=== PATIENT | male | born 1970 | race Caucasian/White ===

== ENCOUNTER 2021-02-04 22:14 | Emergency (ER) | payer MEDICARE, MEDICAID, SELFPAY ==
[2021-02-04 22:26] VITALS: BP 147/106; PULSE 110; RESP 22; TEMP 37.1; O2SAT 100; BMI 30.5
--- NOTE | 2021-02-04 22:45 | PC.NURSE ---
Pt reports power port in upper right chest.
--- NOTE | 2021-02-04 23:43 | ED_ITS ---
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 Patient states that since 9:00 a.m. he has had severe pain in his left lower quadrant area. He states the pain feels as if someone his scraping his kidney with sandpaper. The pain is a constant pain which is 10/10. Patient states these had gross hematuria as well. He denied frequency or dysuria. The patient states that in July 2006 his left kidney was removed and placed in the left lower quadrant and dehydrated in order to improve his pain syndrome. He states that prior to the surgery he was having 60 episodes a month and now he is having 1-2 episodes per month. The patient states that he has a care plan and I did review this on his phone. The plan states the patient does best with the following regimen: Dilaudid 2 mg IV, Benadryl 50 mg IV, Zofran 4 mg IV. Related Data Allergies Allergy/AdvReac Type Severity Reaction Status Date / Time buprenorphine [From SUBOXONE] Allergy Unknown HIVES Unverified 04/10/20 18:42 Iodinated Contrast Media Allergy Unknown ANAPHYLAXIS Unverified 04/10/20 18:42 [IV CONTRAST] morphine [MORPHINE] Allergy Unknown HIVES Unverified 04/10/20 18:42 naloxone [From SUBOXONE] Allergy Unknown HIVES Unverified 04/10/20 18:42 naproxen [NAPROXEN] Allergy Unknown HIVES Unverified 04/10/20 18:42 Review of Systems Review of Systems: Yes all other systems are reviewed and are negative Neurologic: Reports Abnormal speech present [facility] Past Medical History [facility] Narrative: Past medical history: Lion Pain Hematuria Syndrome. Social history: The patient denies tobacco, alcohol and drug use. Medical History A-fib Leal esophagus Hematuria History of cardioversion Sepsis Surgical History History of hernia surgery Hx of tonsillectomy Status post kidney autotransplantation Social History Social History Advance Directives: No Advance Directives Information Provided: No Physical Exam Vital Signs: Vital Signs: Last Vital Signs Temp 98.8 F 02/04/21 22:26 Pulse 110 H 02/04/21 22:26 Resp 22 H 02/04/21 22:26 BP 147/106 H 02/04/21 22:26 Pulse Ox 100 02/04/21 22:26 Body Mass Index 30.5 Const: Other: Awake, alert, male, pacing in the room, appears to be in moderate to severe distress secondary to his pain. HENMT: Head: Yes normal to inspection, Yes normocephalic and Yes atraumatic Ears: external ears normal General nose exam: Normal external nose present Face and sinus: Yes normal facial exam Mouth: Normal oral and palatal mucosa present Throat: Yes posterior oropharynx normal Eyes: Periorbital: periorbital findings normal Eyelids: Yes eyelids normal Conjunctivae: conjunctivae normal Sclerae: sclerae normal Corneas: corneas normal Pupils: Equal, round and reactive pupils present Direct Ophthalmoscopy: normal light reflex Neck: Neck: Yes full ROM, Yes no lymphadenopathy, Yes no meningeal signs, Yes trachea midline and Yes supple Chest: Chest palpation & inspection: normal inspection of the chest and normal palpation of entire chest wall Resp: Effort & Inspection: normal respiratory effort and able to speak in complete sentences Auscultation: clear to auscultation bilaterally Cardio: Rate: regular rate Rhythm: regular rhythm Heart sounds: S1 normal heart sound present, S2 normal heart sound present and no murmurs GI: Inspection: Yes normal to inspection Palpation (GI): Soft to palpation, Tenderness to palpation present (GI) in the LLQ (Moderate), no guarding, not rigid and No hepatosplenomegaly present : General: Yes no CVA tenderness Back/Spine/Pelvis: Back: no CVA tenderness Cervical Spine: normal cervical lordosis Thoracic/Lumbar Spine: thoracic and lumbar spine normal to inspection Skin: Lesions: no lesions Rashes: no rashes Wounds: no wounds Neuro: General: no meningeal signs Cranial nerves: Yes CN's II-XII intact bilaterally and Yes Equal, round and reactive pupils present Cognition (Neuro): normal cognition Speech: Abnormal speech present Motor exam (neuro): 5/5 motor strength present throughout Extrem: General: Yes normal to inspection and Yes full ROM Psych: Appearance: well kempt Mental Status: mental status grossly normal Speech and movement: Normal speech and movement present Affect: normal affect Attitude: cooperative Thought process: Normal thought process present Thought content: Normal thought content present Course Course Course Narrative: 50-year-old man with history of Loin Pain Hematuria Syndrome presents to the emergency department with severe left lower abdominal pain (this is the area of his auto transplanted kidney) and hematuria. Physical examination revealed a a male patient who was uncomfortable, pacing in the room and appeared to be in distress secondary to his pain. Examination did reveal tenderness palpation over his left lower quadrant region where he has the auto transplanted kidney. The patient does have gross hematuria as well. I did order a CBC, CMP, urinalysis. Patient will be treated with normal saline IV x1 L, Dilaudid 2 mg IV, Benadryl 50 mg IV and Zofran 4 mg IV. 0124: The patient's laboratory evaluation revealed a normal CBC and comprehensive metabolic panel with normal kidney function. Urinalysis was positive for blood, microscopic revealed too numerous to count RBCs , 1-4 WBCs, positive squamous cells and 2+ bacteria. Given the low WBC count I do not think the patient has urinary tract infection. The patient get some relief with Dilaudid and Benadryl. He was ordered to get a 2nd dose of Dilaudid 2 mg IV and Benadryl 50 mg IV. If the patient improves after the 2nd dose, he will be discharged home. 0145: Patient had significant relief of his abdominal pain after the 2nd dose Dilaudid. The patient will be discharged home. The patient was given verbal and printed instructions prior to discharge. The patient was advised to follow- up with their PCP in 2 days and to return to the emergency department if their symptoms get worse or if they develop any new symptoms that are concerning to them Medical Decision Making Lab Data Result diagrams: 02/05/21 00:13 02/05/21 00:13 Labs: Lab Results 02/05/21 02/05/21 02/05/21 Range/Units 00:13 00:13 00:14 WBC 5.8 (4.8-10.8) X10*3/uL RBC 5.19 (4.60-5.80) X10*6/uL Hgb 14.0 (14.0-18.0) g/dl Hct 43.3 (42-52) % MCV 83.4 (80-98) fL MCH 27.0 (27.0-33.0) pg MCHC 32.3 (31.0-36.0) g/dl RDW 17.9 H (11.0-16.0) % Plt Count 186 (160-400) X10*3/uL MPV 11.3 (9.4-12.4) fL Immature Gran % (Auto) 0.2 (0.0-0.4) % Neut % (Auto) 62.7 (45-73) % Lymph % (Auto) 22.1 (20-40) % [place] % (Auto) 6.9 (2-11) % Eos % (Auto) 7.2 H (0-4) % Baso % (Auto) 0.9 (0-2) % Lymph # (Auto) 1.3 (1.2-4.9) X10*3/uL [place] # (Auto) 0.4 (0.1-1.2) X10*3/uL Eos # (Auto) 0.4 (0.0-0.4) X10*3/uL Baso # (Auto) 0.1 (0.0-0.2) X10*3/uL Abs Immat Gran (auto) 0.01 (0.00-0.03) X10*3/uL Absolute Neuts (auto) 3.7 (2.0-8.3) X10*3/uL Absolute Nucleated RBC 0.000 (0.0-0.012) X10*3/uL Nucleated RBC % (auto) 0.0 (0.0-0.2) /100WBC Sodium 142 (135-145) mmol/L Potassium 4.1 (3.3-5.1) mmol/L Chloride 106 (96-108) mmol/L Carbon Dioxide 28 (22-29) mmol/L Anion Gap 12 (12-20) BUN 10 (9-16) mg/dL Creatinine 1.13 (0.5-1.4) mg/dL Estim Creat Clear Calc 81.1 Estimated GFR > 60 Random Glucose 98 (60-115) mg/dL Calcium 9.9 (8.4-10.2) mg/dL Total Bilirubin 0.4 (0.0-1.0) mg/dL AST 26 (5-37) U/L ALT 55 H (0-40) U/L Alkaline Phosphatase 87 (39-117) U/L Total Protein 7.0 (6.5-8.0) g/dL Albumin 4.3 (3.5-5.0) g/dL Lipase 11 (8-78) U/L Urine Color BROWN Urine Appearance TURBID Urine pH TNP Ur Specific [place] TNP Urine Protein TNP Urine Glucose (UA) TNP Urine Ketones TNP Urine Blood TNP Urine Nitrite TNP Ur Leukocyte Esterase TNP Urine RBC TNTC H (0) /HPF Urine WBC 1-4 (0-4) /HPF Ur Squamous Epith Cells 1+ /LPF Urine Bacteria 2+ /LPF Discharge Plan Discharge Clinical Impression: Renal colic on left side, Loin pain hematuria syndrome Hematuria Qualifiers: Hematuria type: gross Qualified Code(s): R31.0 - Gross hematuria Patient Disposition: Home, Self-Care Additional Instructions: Your blood counts were normal, your kidney function was normal. Your urinalysis and microscopic evaluation of your urine revealed mainly blood, I do not think that you have a urine infection at this time. Follow-up with your doctor in 2 days. Please return to the emergency department if your symptoms get worse or if you develop any symptoms that are concerning to you.
[2021-02-05 00:22] LABS: Basophils Absolute Auto 0.1 X10*3/uL (0.0-0.2); Basophils Percent Auto 0.9 % (0-2); Eosinophils Absolute Auto 0.4 X10*3/uL (0.0-0.4); Eosinophils Percent Auto 7.2 % (0-4); Hematocrit 43.3 % (42-52); Imm Gran Abs Auto 0.01 X10*3/uL (0.00-0.03); Imm Gran Pct Auto 0.2 % (0.0-0.4); Lymphocytes Absolute Auto 1.3 X10*3/uL (1.2-4.9); Lymphocytes Percent Auto 22.1 % (20-40); MANUAL DIFF FLAG NO; Mean Corpuscular HGB Conc 32.3 g/dl (31.0-36.0); Mean Corpuscular Volume 83.4 fL (80-98); Mean Platelet Volume 11.3 fL (9.4-12.4); Monocytes Absolute Auto 0.4 X10*3/uL (0.1-1.2); Monocytes Percent Auto 6.9 % (2-11); Neutrophils Absolute Auto 3.7 X10*3/uL (2.0-8.3); Neutrophils Percent Auto 62.7 % (45-73); Platelet Count 186 X10*3/uL (160-400); Red Blood Count 5.19 X10*6/uL (4.60-5.80); Red Cell Distribution Width 17.9 % (11.0-16.0); White Blood Count 5.8 X10*3/uL (4.8-10.8)
[2021-02-05] MEDS: diphenhydrAMINE HCL 50 MG/ML VIAL IVPUSH ×2 (00:22→01:35)
[2021-02-05] MEDS: 0.9 % Sodium Chloride 1,000 ML 999 ML IV (00:22)
[2021-02-05] MEDS: HYDROmorphone HCl 1 MG/ML SYRINGE 2 MG IVPUSH ×2 (00:22→01:35)
[2021-02-05] MEDS: ondansetron HCL 4 MG/2 ML VIAL IVPUSH (00:22)
[2021-02-05 00:36] LABS: Appearance Urine TURBID; Color Urine BROWN; UACC Culture Trigger YES
[2021-02-05 00:42] LABS: Bacteria Urine 2+ /LPF; RBC Urine TNTC /HPF (0); Squamous Epithelial Cell Urine 1+ /LPF
[2021-02-05 00:50] LABS: Alanine Aminotransferase 55 U/L (0-40); Albumin Level 4.3 g/dL (3.5-5.0); Alkaline Phosphatase 87 U/L (39-117); Anion Gap 12 (12-20); Aspartate Amino Transferase 26 U/L (5-37); Bilirubin Total 0.4 mg/dL (0.0-1.0); Blood Urea Nitrogen 10 mg/dL (9-16); Calcium 9.9 mg/dL (8.4-10.2); Carbon Dioxide 28 mmol/L (22-29); Chloride 106 mmol/L (96-108); Creatinine Clr Calc Pharmacy 81.1; Estimated Glomerular Filt Rate > 60; Glucose Random 98 mg/dL (60-115); Lipase 11 U/L (8-78); Potassium 4.1 mmol/L (3.3-5.1); Sodium 142 mmol/L (135-145)
[2021-02-05 01:54] VITALS: BP 132/84; PULSE 89; RESP 16; TEMP 36.6; O2SAT 99
== END 2021-02-05 01:56 | disposition home or self-care (01) ==
PROVIDERS: Emergency Provider Emergency Medicine Emergency Medical Services
DX: N23 Unspecified renal colic (principal); R31.9 Hematuria, unspecified; R10.9 Unspecified abdominal pain
CPT/HCPCS: 36415; 80053; 81003; 83690; 85025; 87086; 96361; 96374; 96375; 96376; 99283; 99284; J1170; J1200; J2405

== ENCOUNTER 2021-02-05 19:07 | Inpatient (IN) | payer MEDICARE, MEDICAID, SELFPAY ==
--- NOTE | ~2021-02-05 | CT_ITS ---
EXAMINATION: CT HEAD WITHOUT CONTRAST CLINICAL INFORMATION: Headache COMPARISON: None TECHNIQUE: Contiguous axial imaging was performed from the skull base to vertex without intravenous administration of contrast. This CT examination was performed using dose optimization techniques as appropriate, variously including the following: *Automated exposure control *Adjustment of mA and/or kV according to patient size (this includes techniques or standardized protocols for targeted exams where dose is matched to indication/reason for exam; i.e. extremities or head) *Use of iterative reconstruction technique DLP: 694 mGy-cm FINDINGS: There is no evidence of acute intracranial hemorrhage or territorial infarction. No abnormal mass effect or midline shift is seen. [place] to white matter differentiation is well preserved. No extra-axial fluid collections are identified. The ventricles are normal in size. There is no abnormal attenuation within the brain parenchyma. The osseous structures and soft tissues are normal. The mastoid air cells and visualized portions of the paranasal sinuses are well aerated. CT/CT head/brain wo con IMPRESSION: No acute intracranial pathology.
--- NOTE | ~2021-02-05 | CT_ITS ---
EXAMINATION: CT ABDOMEN AND PELVIS WITHOUT CONTRAST CLINICAL INFORMATION: Abdominal pain COMPARISON: September 26, 2019 TECHNIQUE: Multidetector volumetric imaging was performed from the superior aspect of the liver through the pubic symphysis. Sagittal and coronal reformatted images were obtained on the technologist's workstation. This CT examination was performed using dose optimization techniques as appropriate, variously including the following: *Automated exposure control *Adjustment of mA and/or kV according to patient size (this includes techniques or standardized protocols for targeted exams where dose is matched to indication/reason for exam; i.e. extremities or head) *Use of iterative reconstruction technique DLP: 670 mGy-cm FINDINGS: LUNG BASES: Lung bases appear unremarkable without evidence of pleural pericardial effusion. LIVER, GALLBLADDER, AND BILIARY TREE: The liver is normal in size, shape, and attenuation. No focal hepatic lesion or biliary ductal dilatation is present. The gallbladder is unremarkable with no evidence of radiopaque gallstones, gallbladder wall thickening, or obvious pericholecystic inflammatory changes. PANCREAS: No suspicious mass or peripancreatic inflammatory changes seen. SPLEEN: Unremarkable. ADRENAL GLANDS: Unremarkable. KIDNEYS AND URETERS: The right kidney is normal in size, shape, and attenuation. No hydronephrosis, hydroureter, or calculi seen. No perinephric stranding. There is a left pelvic transplant kidney with apparent left nephrectomy. No hydronephrosis or hydroureter. There is a 2 mm calcification seen about the left ureter which may represent a nonobstructing calculus versus vascular patient. BLADDER: Unremarkable. GASTROINTESTINAL TRACT: No dilated loops of large or small bowel are evident. No free air or free fluid is seen. There is a large amount of stool seen throughout the colon. No pericolonic inflammatory change. No evidence of acute appendicitis. ABDOMINAL WALL: No significant hernia is appreciated. About the right inguinal region there is a stable 1.7 cm soft tissue density which may represent postsurgical change and was present dating back to study of December 09, 2013. LYMPH NODES: No lymphadenopathy appreciated. VASCULAR: Unremarkable. PELVIC VISCERA: No suspicious mass identified. No free fluid. Prostatic calcification present. OSSEOUS STRUCTURES: There is a stable 1.4 cm lucent lesion seen within the left sacrum without evidence of bony destruction or expansion. No suspicious destructive bony lesions. CT/CT abdomen pelvis wo con IMPRESSION: Large amount of stool throughout the colon. Question nonoccluding 2 mm proximal left ureteral calculus versus vascular calcification.
--- NOTE | ~2021-02-05 | CT_ITS ---
EXAMINATION: CT ABDOMEN AND PELVIS WITHOUT CONTRAST CLINICAL INFORMATION: Fever and abdominal pain. COMPARISON: CT scan of the abdomen and pelvis dated 02/11/2021. TECHNIQUE: Multidetector volumetric imaging was performed from the superior aspect of the liver through the pubic symphysis. Sagittal and coronal reformatted images were obtained on the technologist's workstation. Lack of intravenous and oral contrast limits visceral evaluation. This CT examination was performed using dose optimization techniques as appropriate, variously including the following: *Automated exposure control *Adjustment of mA and/or kV according to patient size (this includes techniques or standardized protocols for targeted exams where dose is matched to indication/reason for exam; i.e. extremities or head) *Use of iterative reconstruction technique DLP: 713 mGy-cm FINDINGS: LUNG BASES: The visualized lung bases are unremarkable. LIVER, GALLBLADDER, AND BILIARY TREE: Unremarkable. PANCREAS: Unremarkable. SPLEEN: Unremarkable. ADRENAL GLANDS: Unremarkable. KIDNEYS AND URETERS: No right renal or ureteral abnormality. 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 Small calcification/calculi in the region of the left renal pelvis are unchanged. No hydroureteronephrosis. BLADDER: Unremarkable. GASTROINTESTINAL TRACT: There is a small hiatal hernia. The remainder the stomach is unremarkable. The small bowel and appendix are unremarkable. Mild diverticulosis is seen in the sigmoid colon without surrounding abnormality. ABDOMINAL WALL: No significant abnormality. LYMPH NODES: No lymphadenopathy. VASCULAR: Unremarkable. PELVIC VISCERA: Unremarkable. OSSEOUS STRUCTURES: Unremarkable. CT/CT abdomen pelvis wo con IMPRESSION: 1. No acute intra-abdominal/pelvic abnormality to explain the patient's history. 2. Small hiatal hernia without significant change. No associated abnormality. 3. 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 Nonobstructing calculi/calcifications in the region of the left renal pelvis without associated abnormality or change.
--- NOTE | ~2021-02-05 | XR_ITS ---
EXAMINATION: XR CHEST CLINICAL INFORMATION: Fever. COMPARISON: None TECHNIQUE: Frontal view of the chest was obtained. FINDINGS: The right-sided central venous port is seen with the tip terminating at the cavoatrial junction. No significant abnormality is noted involving the heart, lungs, mediastinum, bony thorax or soft tissues. XR/XR chest 1V IMPRESSION: No acute cardiopulmonary process.
[2021-02-05 19:31] VITALS: BP 147/104; PULSE 122; RESP 18; TEMP 38; O2SAT 95; BMI 38.0
[2021-02-05 20:10] LABS: Glucose Urine UA NEG (NEG); Leukocyte Esterase Urine NEG (NEG); Nitrite Urine POS (NEG); PH 6.5 (5.0-8.0); Urine Blood 3+ (NEG); Urine Ketones 5 MG/DL (NEG); Urine Protein 3+ MG/DL (NEG-TRACE)
[2021-02-05 20:12] LABS: Appearance Urine CLOUDY; Color Urine AMBER
--- NOTE | 2021-02-05 20:12 | ED.ABDPAIN ---
HPI - Abdominal Pain General Chief Complaint: Abdominal Pain Stated Complaint: Flank pain Time Seen by Provider: 02/05/21 20:09 Source: patient Mode of arrival: ambulatory Limitations: no limitations History of Present Illness HPI narrative: Patient with history of paroxysmal atrial fibrillation loin pain hematuria syndrome comes here for increased pain similar to that in the past since yesterday 09:00 with beulah hematuria with increase pain similar to that in past when he became septic had temperature 102.9 at home to Tylenol now 100.4. Patient does have history of MRSA, Enterococcus E faecalis, VRE bacteremia, endocarditis, nephrolithiasis history of endocarditis in 05/2020, Patient admitted to [facility] 12/08/2020 with catheter related Gram-positive bacteremia culture grew known streptococcal viridans bacteremia port removed completed 6 weeks of IV antibiotics MD elicited complaint: abdominal pain Related Data Allergies Allergy/AdvReac Type Severity Reaction Status Date / Time buprenorphine [From SUBOXONE] Allergy Unknown HIVES Unverified 04/10/20 18:42 Iodinated Contrast Media Allergy Unknown ANAPHYLAXIS Unverified 04/10/20 18:42 [IV CONTRAST] morphine [MORPHINE] Allergy Unknown HIVES Unverified 04/10/20 18:42 naloxone [From SUBOXONE] Allergy Unknown HIVES Unverified 04/10/20 18:42 naproxen [NAPROXEN] Allergy Unknown HIVES Unverified 04/10/20 18:42 Review of Systems Review of Systems Constitutional : No Weight loss, + Fever, No Chills ENT/Mouth : No sore throat, No Rhinorrhea Eyes: No Eye Pain, No Swelling Cardiovascular : No Chest Pain, no palpitations Respiratory : No Cough, No Sputum, no shortness of breath Gastrointestinal : + Nausea, No Vomiting, No Diarrhea, ++abdominal Pain, no black stools Genitourinary : No Dysuria, No Urinary Frequency Musculoskeletal : No joint pain, No Myalgias, No Joint Swelling Skin : No Skin Lesions, No rash Neuro : No Weakness, No Numbness, No Dizziness, No Headache Psych : No Anxiety/Panic, No Depression Heme/Lymph: No Bruising, No Lymphadenopathy Endocrine : No Polyuria, No Polydipsia All other systems reviewed and are negative Physical Exam Vital Signs: Vital Signs: Last Vital Signs Temp 98.5 F 02/05/21 22:16 Pulse 77 02/06/21 00:00 Resp 16 02/06/21 00:00 BP 124/74 02/06/21 00:00 Pulse Ox 96 02/06/21 00:00 Body Mass Index 38.0 Appearance: Alert. Oriented X3. In moderate distress. Eyes: PERRLA, No Nystagmus ENT: Pharynx normal. Oral Mucosa moist Neck: Normal inspection. Neck supple. CVS: Normal heart rate and rhythm. Pulses normal. Respiratory: No respiratory distress. Equal air entry bilateral, no wheezing/rales/rhonchi Abdomen: Soft , tenderness left upper abdomen Bowel sounds are present, no mass palpable, no CVA tenderness Skin: Skin warm and dry. Normal skin color. Normal skin turgor. Extremities: No lower extremity edema. No calf tenderness Neuro: Oriented X 3. No motor deficit. MDM - Abdominal Pain MDM Narrative Medical decision making narrative: Patient with beulah hematuria with left-sided pain with recent history of bacteremia will admit patient for possible bacteremia IV Vanco , Rocephin and fluids were given Differential Diagnosis Differential diagnosis: Likely abdominal pain Medical Records Attestation: I reviewed the patient's medical records. Lab Data Attestation: I reviewed the patient's lab results. Result diagrams: 02/05/21 20:36 02/05/21 20:36 Labs: Lab Results 02/05/21 02/05/21 02/05/21 Range/Units 19:48 20:36 20:36 WBC 11.4 H (4.8-10.8) X10*3/uL RBC 5.17 (4.60-5.80) X10*6/uL Hgb 13.8 L (14.0-18.0) g/dl Hct 43.2 (42-52) % MCV 83.6 (80-98) fL MCH 26.7 L (27.0-33.0) pg MCHC 31.9 (31.0-36.0) g/dl RDW 18.0 H (11.0-16.0) % Plt Count 178 (160-400) X10*3/uL MPV 11.8 (9.4-12.4) fL Immature Gran % (Auto) 0.2 (0.0-0.4) % Neut % (Auto) 83.8 H (45-73) % Lymph % (Auto) 8.7 L (20-40) % [place] % (Auto) 5.0 (2-11) % Eos % (Auto) 2.0 (0-4) % Baso % (Auto) 0.3 (0-2) % Lymph # (Auto) 1.0 L (1.2-4.9) X10*3/uL [place] # (Auto) 0.6 (0.1-1.2) X10*3/uL Eos # (Auto) 0.2 (0.0-0.4) X10*3/uL Baso # (Auto) 0.0 (0.0-0.2) X10*3/uL Abs Immat Gran (auto) 0.02 (0.00-0.03) X10*3/uL Absolute Neuts (auto) 9.6 H (2.0-8.3) X10*3/uL Absolute Nucleated RBC 0.000 (0.0-0.012) X10*3/uL Nucleated RBC % (auto) 0.0 (0.0-0.2) /100WBC PT (9.9-13.0) SEC INR (0.9-1.1) Sodium 142 (135-145) mmol/L Potassium 4.1 (3.3-5.1) mmol/L Chloride 107 (96-108) mmol/L Carbon Dioxide 26 (22-29) mmol/L Anion Gap 13 (12-20) BUN 10 (9-16) mg/dL Creatinine 1.14 (0.5-1.4) mg/dL Estim Creat Clear Calc 70.0 Estimated GFR > 60 Random Glucose 105 (60-115) mg/dL Lactic Acid (0.5-2.0) mmol/L Calcium 9.4 (8.4-10.2) mg/dL Urine Color SILVIA Urine Appearance CLOUDY Urine pH 6.5 (5.0-8.0) Ur Specific [place] 1.020 (1.005-1.025) Urine Protein 3+ H (NEG-TRACE) MG/DL Urine Glucose (UA) NEG (NEG) MG/DL Urine Ketones 5 (NEG) MG/DL Urine Blood 3+ H (NEG) Urine Nitrite POS H (NEG) Ur Leukocyte Esterase NEG (NEG) Urine RBC 76-150 H (0) /HPF Urine WBC 0 (0-4) /HPF Ur Squamous Epith Cells NONE /LPF Amorphous Sediment 1+ /LPF Urine Bacteria 1+ /LPF 02/05/21 02/05/21 Range/Units 20:36 20:36 WBC (4.8-10.8) X10*3/uL RBC (4.60-5.80) X10*6/uL Hgb (14.0-18.0) g/dl Hct (42-52) % MCV (80-98) fL MCH (27.0-33.0) pg MCHC (31.0-36.0) g/dl RDW (11.0-16.0) % Plt Count (160-400) X10*3/uL MPV (9.4-12.4) fL Immature Gran % (Auto) (0.0-0.4) % Neut % (Auto) (45-73) % Lymph % (Auto) (20-40) % [place] % (Auto) (2-11) % Eos % (Auto) (0-4) % Baso % (Auto) (0-2) % Lymph # (Auto) (1.2-4.9) X10*3/uL [place] # (Auto) (0.1-1.2) X10*3/uL Eos # (Auto) (0.0-0.4) X10*3/uL Baso # (Auto) (0.0-0.2) X10*3/uL Abs Immat Gran (auto) (0.00-0.03) X10*3/uL Absolute Neuts (auto) (2.0-8.3) X10*3/uL Absolute Nucleated RBC (0.0-0.012) X10*3/uL Nucleated RBC % (auto) (0.0-0.2) /100WBC PT 11.5 (9.9-13.0) SEC INR 1.0 (0.9-1.1) Sodium (135-145) mmol/L Potassium (3.3-5.1) mmol/L Chloride (96-108) mmol/L Carbon Dioxide (22-29) mmol/L Anion Gap (12-20) BUN (9-16) mg/dL Creatinine (0.5-1.4) mg/dL Estim Creat Clear Calc Estimated GFR Random Glucose (60-115) mg/dL Lactic Acid 1.5 (0.5-2.0) mmol/L Calcium (8.4-10.2) mg/dL Urine Color Urine Appearance Urine pH (5.0-8.0) Ur Specific [place] (1.005-1.025) Urine Protein (NEG-TRACE) MG/DL Urine Glucose (UA) (NEG) MG/DL Urine Ketones (NEG) MG/DL Urine Blood (NEG) Urine Nitrite (NEG) Ur Leukocyte Esterase (NEG) Urine RBC (0) /HPF Urine WBC (0-4) /HPF Ur Squamous Epith Cells /LPF Amorphous Sediment /LPF Urine Bacteria /LPF Discharge Plan Discharge Clinical Impression: Acute UTI Hematuria Qualifiers: Hematuria type: gross Qualified Code(s): R31.0 - Gross hematuria Abdominal pain Qualifiers: Abdominal location: left upper quadrant Qualified Code(s): R10.12 - Left upper quadrant pain Patient Disposition: Admitted As Inpatient [facility] Past Medical History Medical History A-fib Leal esophagus Hematuria History of cardioversion Sepsis Surgical History History of hernia surgery Hx of tonsillectomy Status post kidney autotransplantation Social History Social History Advance Directives: No Advance Directives Information Provided: Yes
[2021-02-05 20:29] LABS: Bacteria Urine 1+ /LPF; WBC Urine 0 /HPF (0-4)
[2021-02-05 20:30] LABS: Amorphous Sediment Urine 1+ /LPF
[2021-02-05] MEDS: HYDROmorphone HCl 2 MG/ML VIAL IVPUSH (20:38)
[2021-02-05] MEDS: 0.9 % Sodium Chloride 1,000 ML 999 ML IVCONT (20:39)
[2021-02-05 20:46] LABS: MANUAL DIFF FLAG NO
[2021-02-05 20:47] LABS: Basophils Percent Auto 0.3 % (0-2); Eosinophils Absolute Auto 0.2 X10*3/uL (0.0-0.4); Hematocrit 43.2 % (42-52); Hemoglobin 13.8 g/dl (14.0-18.0); Imm Gran Abs Auto 0.02 X10*3/uL (0.00-0.03); Imm Gran Pct Auto 0.2 % (0.0-0.4); Lymphocytes Percent Auto 8.7 % (20-40); Mean Corpuscular HGB Conc 31.9 g/dl (31.0-36.0); Mean Corpuscular Hemoglobin 26.7 pg (27.0-33.0); Mean Corpuscular Volume 83.6 fL (80-98); Mean Platelet Volume 11.8 fL (9.4-12.4); Monocytes Absolute Auto 0.6 X10*3/uL (0.1-1.2); Neutrophils Absolute Auto 9.6 X10*3/uL (2.0-8.3); Neutrophils Percent Auto 83.8 % (45-73); Platelet Count 178 X10*3/uL (160-400); Red Blood Count 5.17 X10*6/uL (4.60-5.80); White Blood Count 11.4 X10*3/uL (4.8-10.8)
[2021-02-05 20:54] LABS: Prothrombin Time 11.5 SEC (9.9-13.0)
[2021-02-05] MEDS: ondansetron HCL 4 MG/2 ML VIAL IVPUSH (20:57)
[2021-02-05] MEDS: diphenhydrAMINE HCL 50 MG/ML VIAL 25 MG IVPUSH (20:57)
[2021-02-05 21:02] LABS: Lactic Acid 1.5 mmol/L (0.5-2.0)
[2021-02-05 21:06] LABS: Anion Gap 13 (12-20); Blood Urea Nitrogen 10 mg/dL (9-16); Calcium 9.4 mg/dL (8.4-10.2); Carbon Dioxide 26 mmol/L (22-29); Chloride 107 mmol/L (96-108); Estimated Glomerular Filt Rate > 60; Glucose Random 105 mg/dL (60-115); Potassium 4.1 mmol/L (3.3-5.1); Sodium 142 mmol/L (135-145)
[2021-02-05 21:07] VITALS: BP 130/86; PULSE 107; RESP 16; TEMP 38.2; O2SAT 95
[2021-02-05] MEDS: cefTRIAXone sodium 1 GM in 0.9 % Sodium Chloride 50 ML IV (21:33)
[2021-02-05 22:16] VITALS: BP 123/79; PULSE 93; RESP 18; TEMP 36.9; O2SAT 94
[2021-02-05] MEDS: vancomycin HCL 1,000 MG in 0.9 % Sodium Chloride 250 ML 270 MG IV (22:47)
[2021-02-05 23:21] VITALS: BP 114/71; PULSE 77; RESP 16; O2SAT 94
[2021-02-05 23:37] VITALS: BP 107/70; PULSE 79; RESP 16; O2SAT 94
[2021-02-06] VITALS (13 sets, daily range): BP systolic 107–151; BP diastolic 69–88; PULSE 54–80; RESP 12–20; TEMP 36.1–36.6; O2SAT 91–96
[2021-02-06] MEDS: HYDROmorphone HCl 2 MG/ML VIAL IVPUSH ×7 (01:18→22:17)
[2021-02-06] MEDS: diphenhydrAMINE HCL 50 MG/ML VIAL 25 MG IVPUSH ×4 (01:24→19:12)
[2021-02-06 01:52] LABS: COVID-19 Test Negative (Negative)
[2021-02-06] MEDS: cefTRIAXone sodium 1 GM in 0.9 % Sodium Chloride 50 ML IV ×2 (02:27→22:14)
--- NOTE | 2021-02-06 06:49 | P.HPHOSP_ITS ---
History of Present Illness Date of Service: 02/05/21 Chief Complaint: Hematuria, abdominal pain This is a 50-year-old male with past medical history of loin pain hematuria syndrome, history of AFib status post cardioversion currently not on anticoagulation, history of left kidney autotransplantation with recurrent flares who presents to the hospital with abdominal pain and hematuria and reports that he most likely has a a flare of his hematuria syndrome. 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 Patient reports that he was at [facility] few months ago for the same reason, was treated with pain control with resolution of his symptoms few days after. Patient reports that his symptoms usually last about 2-3 days and resolved spontaneously. He has a history of left kidney auto transplantation, his left kidney is now localized in the left pelvic region. He reports pain in that area radiating to the left flank as well as to the groin, pain is 10/10, associated with nausea but no vomiting, no fever or chills, no diarrhea constipation, no lower extremity edema. No shortness of breath, chest pain, no cough, no numbness tingling or weakness. On arrival to the ED hemodynamically stable with a temp of a 100.7?, heart rate of 107, respiratory rate of 16, blood pressure 130/86, satting 95% on room air Labs are significant for WBC count of 11.4, BMP unremarkable, UA positive for nitrites, , with urine blood Patient will be admitted for further management Review of Systems Review of Systems: Yes all other systems are reviewed and are negative [facility] Medical History (Updated 02/06/21 @ 06:54 by Kitty Baez MD) A-fib Leal esophagus Hematuria History of cardioversion Loin pain hematuria syndrome Sepsis Surgical History History of hernia surgery Hx of tonsillectomy Status post kidney autotransplantation Social History Advance Directives: No Advance Directives Information Provided: Yes Meds Allergies Allergy/AdvReac Type Severity Reaction Status Date / Time buprenorphine [From SUBOXONE] Allergy Unknown HIVES Unverified 04/10/20 18:42 Iodinated Contrast Media Allergy Unknown ANAPHYLAXIS Unverified 04/10/20 18:42 [IV CONTRAST] morphine [MORPHINE] Allergy Unknown HIVES Unverified 04/10/20 18:42 naloxone [From SUBOXONE] Allergy Unknown HIVES Unverified 04/10/20 18:42 naproxen [NAPROXEN] Allergy Unknown HIVES Unverified 04/10/20 18:42 Active Medications: Current Medications Generic Name Dose Route Start Last Admin Trade Name Freq PRN Reason Stop Dose Admin Acetaminophen 650 mg 02/06/21 01:28 Acetaminophen 325 Mg Tablet PO Q6H PRN Pain, Mild (Pain Scale 1-3) Diphenhydramine HCl 25 mg 02/06/21 01:28 Diphenhydramine Hcl 50 Mg/Ml Vial IVPUSH Q3H PRN Allergic Reaction Diphenhydramine HCl 50 mg 02/06/21 01:28 02/06/21 02:26 Diphenhydramine Hcl 50 Mg/Ml Vial IVPUSH Not Given BID [facility] Docusate Sodium 100 mg 02/06/21 01:28 Docusate Sodium 100 Mg Capsule PO DAILY PRN Constipation Hydromorphone HCl 2 mg 02/06/21 01:28 02/06/21 05:52 Hydromorphone Hcl 2 Mg/Ml Vial IVPUSH 2 mg Q3H PRN Administration Pain, Severe (Pain Scale 7-10) Ceftriaxone Sodium 1 gm/ 50 mls @ 100 mls/hr 02/06/21 01:28 02/06/21 03:57 Sodium Chloride IV Infused Q24H [facility] Infusion Ondansetron HCl 4 mg 02/06/21 01:28 Ondansetron Hcl 4 Mg/2 Ml Vial IVPUSH Q8H PRN Nausea and Vomiting Sodium Chloride 3 ml 02/06/21 01:28 02/06/21 02:26 0.9 % Sodium Chloride Flush 3 Ml Syringe IVFLUSH Not Given QSHIFT [facility] Home Medications Medication Instructions Recorded Confirmed Last Taken Type Baby Aspirin 81 mg PO 02/06/21 02/05/21 History 1 Protonix 40 mg PO BID 02/06/21 02/06/21 02/05/21 History 1 amlodipine 10 mg PO DAILY 02/06/21 02/06/21 02/05/21 08:00 History hydromorphone 1 tab PO BID 02/06/21 02/06/21 02/05/21 History hydromorphone tab PO QID 02/06/21 02/06/21 History 1 methadone See Rx Instructions .ROUTE .COMPLEX 02/06/21 02/05/21 History 1 ondansetron 2 tab PO Q8H PRN 02/06/21 02/06/21 02/05/21 History 1 Physical Exam Vital Signs and Narrative: Vital Signs: Last Vital Signs Temp 98.5 F 02/05/21 22:16 Pulse 66 02/06/21 06:21 Resp 12 02/06/21 06:21 BP 119/86 02/06/21 06:21 Pulse Ox 94 02/06/21 06:21 Body Mass Index 38.0 Const: General: cooperative and no acute distress Orientation/consciousness: patient oriented x3 Eyes: General: appearance normal, both eyes and all related structures Resp: Effort & Inspection: normal respiratory effort and able to speak in complete sentences Cardio: Rate: regular rate Rhythm: regular rhythm GI: Other: Left lower quadrant tenderness, no rebound, no guarding Palpation (GI): Soft to palpation Auscultation: normal bowel sounds Skin: General skin exam: no rashes or lesions noted Neuro: General: patient oriented x3 Cognition (Neuro): normal cognition Extrem: General: Yes normal to inspection and Yes no pedal edema Results Labs CBC and Chem 7: 02/05/21 20:36 02/05/21 20:36 Labs: Laboratory Results - last 24 hr 02/05/21 02/05/21 02/05/21 19:48 20:36 20:36 MCV 83.6 MCH 26.7 L MCHC 31.9 RDW 18.0 H Plt Count 178 MPV 11.8 Immature Gran % (Auto) 0.2 Neut % (Auto) 83.8 H Lymph % (Auto) 8.7 L [place] % (Auto) 5.0 Eos % (Auto) 2.0 Baso % (Auto) 0.3 Lymph # (Auto) 1.0 L [place] # (Auto) 0.6 Eos # (Auto) 0.2 Baso # (Auto) 0.0 Abs Immat Gran (auto) 0.02 Absolute Neuts (auto) 9.6 H Absolute Nucleated RBC 0.000 Nucleated RBC % (auto) 0.0 PT INR Anion Gap 13 Estim Creat Clear Calc 70.0 Estimated GFR > 60 Random Glucose 105 Lactic Acid Calcium 9.4 Urine Color SILVIA Urine Appearance CLOUDY Urine pH 6.5 Ur Specific [place] 1.020 Urine Protein 3+ H Urine Glucose (UA) NEG Urine Ketones 5 Urine Blood 3+ H Urine Nitrite POS H Ur Leukocyte Esterase NEG Urine RBC 76-150 H Urine WBC 0 Ur Squamous Epith Cells NONE Amorphous Sediment 1+ Urine Bacteria 1+ COVID-19 (ANNETTE) COVID-19 Clin Com 02/05/21 02/05/21 02/06/21 20:36 20:36 01:31 MCV MCH MCHC RDW Plt Count MPV Immature Gran % (Auto) Neut % (Auto) Lymph % (Auto) [place] % (Auto) Eos % (Auto) Baso % (Auto) Lymph # (Auto) [place] # (Auto) Eos # (Auto) Baso # (Auto) Abs Immat Gran (auto) Absolute Neuts (auto) Absolute Nucleated RBC Nucleated RBC % (auto) PT 11.5 INR 1.0 Anion Gap Estim Creat Clear Calc Estimated GFR Random Glucose Lactic Acid 1.5 Calcium Urine Color Urine Appearance Urine pH Ur Specific [place] Urine Protein Urine Glucose (UA) Urine Ketones Urine Blood Urine Nitrite Ur Leukocyte Esterase Urine RBC Urine WBC Ur Squamous Epith Cells Amorphous Sediment Urine Bacteria COVID-19 (ANNETTE) Negative COVID-19 Clin Com See Note Assessment and Plan (1) Sepsis: Status: Acute (2) Loin pain hematuria syndrome: Status: Acute (3) Hematuria: Qualifiers: Hematuria type: gross Qualified Code(s): R31.0 - Gross hematuria Status: Acute (4) Acute UTI: Status: Acute (5) Abdominal pain: Qualifiers: Abdominal location: left upper quadrant Qualified Code(s): R10.12 - Left upper quadrant pain Status: Acute 50-year-old male with 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 presents to the hospital with hematuria and abdominal pain # sepsis secondary to UTI - patient meets sepsis criteria with fever, tachycardia, leukocytosis - source most likely urine - normal lactic acid - will start him on antibiotics - follow cultures # hematuria - secondary to loin pain hematuria syndrome - hemoglobin stable - per note from Nephrology, patient to be treated with IV Dilaudid q.3 hours, as well as management - patient reports the symptoms usually resolve spontaneously within few days # abdominal pain - secondary to above - supportive measure with pain control # hypertension - kidney amlodipine DVT prophylaxis: SCDs in the setting of hematuria Quality Stroke Does the patient have a stroke diagnosis?: No VTE Prior VTE?: No VTE Risk Level:: Medical - moderate - high VTE Device Contraindication: N/A - Device Ordered VTE Drug Contraindication: Treatment Not Indicated
--- NOTE | 2021-02-06 07:35 | PC.NURSE ---
report taken from [place] [facility] pt admitted r/t abd/kidney issue, resting on first contact, appears comfortable in stretcher. previous shift rn reports pt is on a significant pain management plan. 95% on ra, [id number]/m. breakfast tray at bedside. awaiting inpt bed assignment. wctm.
[2021-02-06] MEDS: Omeprazole 40 MG CAPSULE.DR PO ×2 (09:43→15:51)
[2021-02-06] MEDS: diphenhydrAMINE HCL 50 MG/ML VIAL IVPUSH ×2 (09:45→22:17)
--- NOTE | 2021-02-06 09:52 | MHC.CM.PN ---
Met with patient in regards to discharge planning. Patient lives alone, ambulates independently, and had no services prior to coming to the hospital. Patient lives in [facility], but has been staying with his mother in [facility] d/t medical issues. 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 Patient states he has a HCP and will attempt to obtain a copy. IMM explained and signed. Patient received the [employer] vaccine on 10/23. No additional services anticipated to be needed at this time. Patient's mother will transport him when medically stable. Continue to monitor for d/c needs.
--- NOTE | 2021-02-06 12:31 | HO.PM.IMPN ---
Subjective Subjective Date of Service: 02/06/21 Interval History: the patient was seen and evaluated this morning Laying in bed, feels little better as the pain is partially controlled but still severe at points Still having hematuria Denies any fever, chills or shortness of breath No reported other overnight events. Systemic review: No fever, chills or weakness No chest pain, palpitation No shortness of breath or coughing No abdominal pain, nausea or vomiting Lying pain, hematuria No any rash or wounds Physical Exam Vital Signs: Vital Signs: Last Vital Signs Temp 97.2 F 02/06/21 11:18 Pulse 68 02/06/21 11:18 Resp 20 02/06/21 11:18 BP 145/88 H 02/06/21 11:18 Pulse Ox 92 02/06/21 11:18 Body Mass Index 38.0 Const: Other: Constitutional : Alert, oriented, not in distress Neck : Normal inspection, Supple Cardiovascular : RRR, S1 S2, no lower extremity edema Respiratory : Good bilateral air entry, no crackles, wheezes or rhonchi Gastrointestinal: soft, lax, Normal bowel sounds, Non tender Skin : Warm/Dry Urology: Richardson catheter in place, bloody tinged urine in the catheter Neurological : Alert & oriented x3, No focal deficit Objective Data Current Medications Generic Name Dose Route Start Last Admin Trade Name Torstenq PRN Reason Stop Dose Admin Acetaminophen 650 mg 02/06/21 01:28 Acetaminophen 325 Mg Tablet PO Q6H PRN Pain, Mild (Pain Scale 1-3) Diphenhydramine HCl 25 mg 02/06/21 01:28 Diphenhydramine Hcl 50 Mg/Ml Vial IVPUSH Q3H PRN Allergic Reaction Diphenhydramine HCl 50 mg 02/06/21 01:28 02/06/21 09:45 Diphenhydramine Hcl 50 Mg/Ml Vial IVPUSH 50 mg BID TONY Administration Docusate Sodium 100 mg 02/06/21 01:28 Docusate Sodium 100 Mg Capsule PO DAILY PRN Constipation Hydromorphone HCl 2 mg 02/06/21 01:28 02/06/21 09:43 Hydromorphone Hcl 2 Mg/Ml Vial IVPUSH 2 mg Q3H PRN Administration Pain, Severe (Pain Scale 7-10) Ceftriaxone Sodium 1 gm/ 50 mls @ 100 mls/hr 02/06/21 01:28 02/06/21 03:57 Sodium Chloride IV Infused Q24H [facility] Infusion Omeprazole 40 mg 02/06/21 08:50 02/06/21 09:43 Omeprazole 40 Mg Capsule. PO 40 mg BID@0630,3390 [facility] Administration Ondansetron HCl 4 mg 02/06/21 01:28 Ondansetron Hcl 4 Mg/2 Ml Vial IVPUSH Q8H PRN Nausea and Vomiting Sodium Chloride 3 ml 02/06/21 01:28 02/06/21 07:40 0.9 % Sodium Chloride Flush 3 Ml Syringe IVFLUSH Not Given QSHIFT [facility] Labs CBC & Chem 7: 02/05/21 20:36 02/05/21 20:36 Labs: Laboratory Results - last 24 hr 02/05/21 02/05/21 02/05/21 19:48 20:36 20:36 WBC 11.4 H RBC 5.17 Hgb 13.8 L Hct 43.2 MCV 83.6 MCH 26.7 L MCHC 31.9 RDW 18.0 H Plt Count 178 MPV 11.8 Immature Gran % (Auto) 0.2 Neut % (Auto) 83.8 H Lymph % (Auto) 8.7 L [place] % (Auto) 5.0 Eos % (Auto) 2.0 Baso % (Auto) 0.3 Lymph # (Auto) 1.0 L [place] # (Auto) 0.6 Eos # (Auto) 0.2 Baso # (Auto) 0.0 Abs Immat Gran (auto) 0.02 Absolute Neuts (auto) 9.6 H Absolute Nucleated RBC 0.000 Nucleated RBC % (auto) 0.0 PT INR Sodium 142 Potassium 4.1 Chloride 107 Carbon Dioxide 26 Anion Gap 13 BUN 10 Creatinine 1.14 Estim Creat Clear Calc 70.0 Estimated GFR > 60 Random Glucose 105 Lactic Acid Calcium 9.4 Urine Color SILVIA Urine Appearance CLOUDY Urine pH 6.5 Ur Specific [place] 1.020 Urine Protein 3+ H Urine Glucose (UA) NEG Urine Ketones 5 Urine Blood 3+ H Urine Nitrite POS H Ur Leukocyte Esterase NEG Urine RBC 76-150 H Urine WBC 0 Ur Squamous Epith Cells NONE Amorphous Sediment 1+ Urine Bacteria 1+ COVID-19 (ANNETTE) COVID-19 Clin Com 07/15/21 07/15/21 07/16/21 20:36 20:36 01:31 WBC RBC Hgb Hct MCV MCH MCHC RDW Plt Count MPV Immature Gran % (Auto) Neut % (Auto) Lymph % (Auto) [place] % (Auto) Eos % (Auto) Baso % (Auto) Lymph # (Auto) [place] # (Auto) Eos # (Auto) Baso # (Auto) Abs Immat Gran (auto) Absolute Neuts (auto) Absolute Nucleated RBC Nucleated RBC % (auto) PT 11.5 INR 1.0 Sodium Potassium Chloride Carbon Dioxide Anion Gap BUN Creatinine Estim Creat Clear Calc Estimated GFR Random Glucose Lactic Acid 1.5 Calcium Urine Color Urine Appearance Urine pH Ur Specific [place] Urine Protein Urine Glucose (UA) Urine Ketones Urine Blood Urine Nitrite Ur Leukocyte Esterase Urine RBC Urine WBC Ur Squamous Epith Cells Amorphous Sediment Urine Bacteria COVID-19 (ANNETTE) Negative COVID-19 Clin Com See Note Microbiology Microbiology Results: Microbiology 02/05/21 19:48 Urine Culture - Preliminary Urine clean catch - Clean Catch Midstream No growth to date. 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 DVT prophylaxis: SCDs in the setting of hematuria
[2021-02-06] MEDS: 0.9 % Sodium Chloride Flush 3 ML SYRINGE IVFLUSH (15:54)
[2021-02-07] MEDS: HYDROmorphone HCl 2 MG/ML VIAL IVPUSH ×7 (01:19→21:01)
[2021-02-07] MEDS: diphenhydrAMINE HCL 50 MG/ML VIAL 25 MG IVPUSH ×5 (01:19→17:06)
[2021-02-07 04:00] VITALS: BP 119/74; PULSE 67; RESP 18; TEMP 36.3; O2SAT 96
[2021-02-07] MEDS: Omeprazole 40 MG CAPSULE.DR PO ×2 (05:40→15:54)
[2021-02-07 06:00] LABS: MANUAL DIFF FLAG NO
[2021-02-07 06:11] LABS: Basophils Percent Auto 0.7 % (0-2); Eosinophils Absolute Auto 0.7 X10*3/uL (0.0-0.4); Eosinophils Percent Auto 11.6 % (0-4); Hematocrit 40.9 % (42-52); Hemoglobin 12.9 g/dl (14.0-18.0); Imm Gran Abs Auto 0.02 X10*3/uL (0.00-0.03); Imm Gran Pct Auto 0.4 % (0.0-0.4); Lymphocytes Absolute Auto 1.8 X10*3/uL (1.2-4.9); Lymphocytes Percent Auto 30.8 % (20-40); Mean Corpuscular HGB Conc 31.5 g/dl (31.0-36.0); Mean Corpuscular Hemoglobin 26.5 pg (27.0-33.0); Mean Platelet Volume 11.9 fL (9.4-12.4); Monocytes Absolute Auto 0.5 X10*3/uL (0.1-1.2); Monocytes Percent Auto 7.9 % (2-11); Neutrophils Absolute Auto 2.8 X10*3/uL (2.0-8.3); Neutrophils Percent Auto 48.6 % (45-73); Platelet Count 167 X10*3/uL (160-400); Red Blood Count 4.87 X10*6/uL (4.60-5.80); Red Cell Distribution Width 17.9 % (11.0-16.0); White Blood Count 5.7 X10*3/uL (4.8-10.8)
[2021-02-07 06:39] LABS: Anion Gap 14 (12-20); Blood Urea Nitrogen 9 mg/dL (9-16); Carbon Dioxide 25 mmol/L (22-29); Chloride 105 mmol/L (96-108); Creatinine Clr Calc Pharmacy 82.3; Estimated Glomerular Filt Rate > 60; Glucose Random 89 mg/dL (60-115); Potassium 4.2 mmol/L (3.3-5.1); Sodium 140 mmol/L (135-145)
[2021-02-07 07:48] VITALS: BP 152/87; PULSE 75; RESP 15; TEMP 36.7; O2SAT 97
[2021-02-07] MEDS: 0.9 % Sodium Chloride Flush 3 ML SYRINGE IVFLUSH ×2 (07:54→21:09)
[2021-02-07] MEDS: diphenhydrAMINE HCL 50 MG/ML VIAL IVPUSH ×2 (10:55→21:00)
[2021-02-07 12:00] VITALS: BP 116/73; PULSE 73; RESP 19; TEMP 36.3; O2SAT 96
--- NOTE | 2021-02-07 14:21 | P.PNIM_ITS ---
Subjective Subjective Date of Service: 02/07/21 Interval History: the patient was seen and evaluated this morning Laying in bed, feels little better as the pain is partially controlled at this point Still having hematuria blood looks little better today Denies any fever, chills or shortness of breath No reported other overnight events. Systemic review: No fever, chills or weakness No chest pain, palpitation No shortness of breath or coughing No abdominal pain, nausea or vomiting Lying pain, hematuria No any rash or wounds Physical Exam Vital Signs: Vital Signs: Last Vital Signs Temp 97.4 F 02/07/21 12:00 Pulse 73 02/07/21 12:00 Resp 19 02/07/21 12:00 BP 116/73 02/07/21 12:00 Pulse Ox 96 02/07/21 12:00 Body Mass Index 38.0 Const: Other: Constitutional : Alert, oriented, not in distress Neck : Normal inspection, Supple Cardiovascular : RRR, S1 S2, no lower extremity edema Respiratory : Good bilateral air entry, no crackles, wheezes or rhonchi Gastrointestinal: soft, lax, Normal bowel sounds, Non tender Skin : Warm/Dry Urology: Bloody tinged urine Neurological : Alert & oriented x3, No focal deficit Objective Data Current Medications Generic Name Dose Route Start Last Admin Trade Name Freq PRN Reason Stop Dose Admin Acetaminophen 650 mg 02/06/21 01:28 Acetaminophen 325 Mg Tablet PO Q6H PRN Pain, Mild (Pain Scale 1-3) Diphenhydramine HCl 25 mg 02/06/21 01:28 02/07/21 14:06 Diphenhydramine Hcl 50 Mg/Ml Vial IVPUSH 25 mg Q3H PRN Administration Allergic Reaction Diphenhydramine HCl 50 mg 02/06/21 01:28 02/07/21 10:55 Diphenhydramine Hcl 50 Mg/Ml Vial IVPUSH 50 mg BID TONY Administration Docusate Sodium 100 mg 02/06/21 01:28 Docusate Sodium 100 Mg Capsule PO DAILY PRN Constipation Hydromorphone HCl 2 mg 02/06/21 01:28 02/07/21 14:06 Hydromorphone Hcl 2 Mg/Ml Vial IVPUSH 2 mg Q3H PRN Administration Pain, Severe (Pain Scale 7-10) Ceftriaxone Sodium 1 gm/ 50 mls @ 100 mls/hr 02/06/21 22:00 02/06/21 23:22 Sodium Chloride IV Infused Q24H [facility] Infusion Omeprazole 40 mg 02/06/21 08:50 02/07/21 05:40 Omeprazole 40 Mg Capsule. PO 40 mg BID@0630,5550 [facility] Administration Ondansetron HCl 4 mg 02/06/21 01:28 Ondansetron Hcl 4 Mg/2 Ml Vial IVPUSH Q8H PRN Nausea and Vomiting Sodium Chloride 3 ml 02/06/21 01:28 02/07/21 14:11 0.9 % Sodium Chloride Flush 3 Ml Syringe IVFLUSH Not Given QSHIFT [facility] Labs CBC & Chem 7: 02/07/21 05:40 02/07/21 05:40 Labs: Laboratory Results - last 24 hr 02/07/21 02/07/21 05:40 05:40 WBC 5.7 RBC 4.87 Hgb 12.9 L Hct 40.9 L MCV 84.0 MCH 26.5 L MCHC 31.5 RDW 17.9 H Plt Count 167 MPV 11.9 Immature Gran % (Auto) 0.4 Neut % (Auto) 48.6 Lymph % (Auto) 30.8 [place] % (Auto) 7.9 Eos % (Auto) 11.6 H Baso % (Auto) 0.7 Lymph # (Auto) 1.8 [place] # (Auto) 0.5 Eos # (Auto) 0.7 H Baso # (Auto) 0.0 Abs Immat Gran (auto) 0.02 Absolute Neuts (auto) 2.8 Absolute Nucleated RBC 0.000 Nucleated RBC % (auto) 0.0 Sodium 140 Potassium 4.2 Chloride 105 Carbon Dioxide 25 Anion Gap 14 BUN 9 Creatinine 0.97 Estim Creat Clear Calc 82.3 Estimated GFR > 60 Random Glucose 89 Calcium 9.0 Microbiology Microbiology Results: Microbiology 02/05/21 19:48 Urine Culture - Final Urine clean catch - Clean Catch Midstream 02/05/21 21:05 Blood Culture - Preliminary Blood - Venous No growth after 24 hours. 02/05/21 21:04 Blood Culture - Preliminary Blood - Venous No growth after 24 hours. 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 DVT prophylaxis: SCDs in the setting of hematuria
[2021-02-07 15:02] VITALS: BP 107/80; PULSE 75; RESP 15; TEMP 36.4; O2SAT 94
[2021-02-07 19:19] VITALS: BP 110/70; PULSE 75; RESP 15; TEMP 36.3; O2SAT 97
[2021-02-07] MEDS: cefTRIAXone sodium 1 GM in 0.9 % Sodium Chloride 50 ML IV (21:03)
[2021-02-07 23:43] VITALS: BP 119/76; PULSE 65; RESP 18; TEMP 36.5; O2SAT 96
[2021-02-08] VITALS (7 sets, daily range): BP systolic 108–144; BP diastolic 66–87; PULSE 66–78; RESP 14–18; TEMP 36.2–36.8; O2SAT 95–97
[2021-02-08] MEDS: HYDROmorphone HCl 2 MG/ML VIAL IVPUSH ×7 (00:08→22:35)
[2021-02-08] MEDS: diphenhydrAMINE HCL 50 MG/ML VIAL 25 MG IVPUSH ×6 (00:09→19:41)
[2021-02-08] MEDS: Omeprazole 40 MG CAPSULE.DR PO ×2 (06:39→15:45)
[2021-02-08 07:37] LABS: Hematocrit 40.2 % (42-52); Mean Corpuscular HGB Conc 32.3 g/dl (31.0-36.0); Mean Corpuscular Hemoglobin 26.8 pg (27.0-33.0); Mean Corpuscular Volume 82.9 fL (80-98); Mean Platelet Volume 11.3 fL (9.4-12.4); Platelet Count 163 X10*3/uL (160-400); Red Blood Count 4.85 X10*6/uL (4.60-5.80); Red Cell Distribution Width 17.8 % (11.0-16.0)
[2021-02-08 07:58] LABS: Anion Gap 11 (12-20); Blood Urea Nitrogen 9 mg/dL (9-16); Calcium 8.8 mg/dL (8.4-10.2); Carbon Dioxide 27 mmol/L (22-29); Chloride 106 mmol/L (96-108); Creatinine Clr Calc Pharmacy 79.9; Estimated Glomerular Filt Rate > 60; Glucose Random 101 mg/dL (60-115); Potassium 4.1 mmol/L (3.3-5.1); Sodium 140 mmol/L (135-145)
[2021-02-08] MEDS: diphenhydrAMINE HCL 50 MG/ML VIAL IVPUSH ×2 (09:36→22:36)
--- NOTE | 2021-02-08 13:03 | P.PNIM_ITS ---
Subjective Subjective Date of Service: 02/08/21 Interval History: the patient was seen and evaluated this morning Laying in bed, feels little better as the pain is partially controlled at this point Still having hematuria which is improving slowly Denies any fever, chills or shortness of breath No reported other overnight events. Systemic review: No fever, chills or weakness No chest pain, palpitation No shortness of breath or coughing No abdominal pain, nausea or vomiting Lying pain, hematuria No any rash or wounds Physical Exam Vital Signs: Vital Signs: Last Vital Signs Temp 97.2 F 02/08/21 12:00 Pulse 66 02/08/21 12:00 Resp 16 02/08/21 12:00 BP 144/87 H 02/08/21 12:00 Pulse Ox 96 02/08/21 12:00 Body Mass Index 38.0 Const: Other: Constitutional : Alert, oriented, not in distress Neck : Normal inspection, Supple Cardiovascular : RRR, S1 S2, no lower extremity edema Respiratory : Good bilateral air entry, no crackles, wheezes or rhonchi Gastrointestinal: soft, lax, Normal bowel sounds, Non tender Skin : Warm/Dry Urology: Bloody tinged urine Neurological : Alert & oriented x3, No focal deficit Objective Data Current Medications Generic Name Dose Route Start Last Admin Trade Name Freq PRN Reason Stop Dose Admin Acetaminophen 650 mg 02/06/21 01:28 Acetaminophen 325 Mg Tablet PO Q6H PRN Pain, Mild (Pain Scale 1-3) Diphenhydramine HCl 25 mg 02/06/21 01:28 02/08/21 06:31 Diphenhydramine Hcl 50 Mg/Ml Vial IVPUSH 25 mg Q3H PRN Administration Allergic Reaction Diphenhydramine HCl 50 mg 02/06/21 01:28 02/08/21 09:36 Diphenhydramine Hcl 50 Mg/Ml Vial IVPUSH 50 mg BID TONY Administration Docusate Sodium 100 mg 02/06/21 01:28 Docusate Sodium 100 Mg Capsule PO DAILY PRN Constipation Hydromorphone HCl 2 mg 02/06/21 01:28 02/08/21 09:37 Hydromorphone Hcl 2 Mg/Ml Vial IVPUSH 2 mg Q3H PRN Administration Pain, Severe (Pain Scale 7-10) Ceftriaxone Sodium 1 gm/ 50 mls @ 100 mls/hr 02/06/21 22:00 02/07/21 21:36 Sodium Chloride IV Infused Q24H [facility] Infusion Omeprazole 40 mg 02/06/21 08:50 02/08/21 06:39 Omeprazole 40 Mg Capsule. PO 40 mg BID@0682,4420 [facility] Administration Ondansetron HCl 4 mg 02/06/21 01:28 Ondansetron Hcl 4 Mg/2 Ml Vial IVPUSH Q8H PRN Nausea and Vomiting Sodium Chloride 3 ml 02/06/21 01:28 02/08/21 07:55 0.9 % Sodium Chloride Flush 3 Ml Syringe IVFLUSH Not Given QSHIFT [facility] Labs CBC & Chem 7: 02/08/21 07:26 02/08/21 07:25 Labs: Laboratory Results - last 24 hr 02/08/21 02/08/21 07:25 07:26 WBC 6.0 RBC 4.85 Hgb 13.0 L Hct 40.2 L MCV 82.9 MCH 26.8 L MCHC 32.3 RDW 17.8 H Plt Count 163 MPV 11.3 Absolute Nucleated RBC 0.000 Nucleated RBC % (auto) 0.0 Sodium 140 Potassium 4.1 Chloride 106 Carbon Dioxide 27 Anion Gap 11 L BUN 9 Creatinine 1.00 Estim Creat Clear Calc 79.9 Estimated GFR > 60 Random Glucose 101 Calcium 8.8 Microbiology Microbiology Results: Microbiology 02/05/21 21:05 Blood Culture - Preliminary Blood - Venous No growth after 48 hours. 02/05/21 21:04 Blood Culture - Preliminary Blood - Venous No growth after 48 hours. 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 DVT prophylaxis: SCDs in the setting of hematuria
[2021-02-08] MEDS: 0.9 % Sodium Chloride Flush 3 ML SYRINGE IVFLUSH ×2 (15:45→22:36)
[2021-02-08] MEDS: cefTRIAXone sodium 1 GM in 0.9 % Sodium Chloride 50 ML IV (22:35)
[2021-02-09] MEDS: HYDROmorphone HCl 2 MG/ML VIAL IVPUSH ×7 (02:25→21:46)
[2021-02-09] MEDS: diphenhydrAMINE HCL 50 MG/ML VIAL 25 MG IVPUSH ×5 (02:25→18:44)
[2021-02-09 03:43] VITALS: BP 112/67; PULSE 97; RESP 18; TEMP 36.4; O2SAT 97
[2021-02-09] MEDS: Omeprazole 40 MG CAPSULE.DR PO ×2 (05:28→16:45)
[2021-02-09 07:09] VITALS: BP 117/84; PULSE 69; RESP 18; TEMP 36.2; O2SAT 94
[2021-02-09] MEDS: diphenhydrAMINE HCL 50 MG/ML VIAL IVPUSH ×2 (08:37→21:46)
[2021-02-09] MEDS: 0.9 % Sodium Chloride Flush 3 ML SYRINGE IVFLUSH ×3 (08:37→21:47)
[2021-02-09 11:53] VITALS: BP 141/93; PULSE 86; RESP 18; TEMP 36.4; O2SAT 97
--- NOTE | 2021-02-09 15:18 | HO.PM.IMPN ---
Subjective Subjective Date of Service: 02/09/21 Interval History: the patient was seen and evaluated this morning Laying in bed, feels little better as the pain is partially controlled at this point Still having hematuria which is improving slowly Denies any fever, chills or shortness of breath No reported other overnight events. Systemic review: No fever, chills or weakness No chest pain, palpitation No shortness of breath or coughing No abdominal pain, nausea or vomiting Lying pain, hematuria No any rash or wounds Physical Exam Vital Signs: Vital Signs: Last Vital Signs Temp 97.5 F 02/09/21 11:53 Pulse 86 02/09/21 11:53 Resp 18 02/09/21 11:53 BP 141/93 H 02/09/21 11:53 Pulse Ox 97 02/09/21 11:53 Body Mass Index 38.0 Const: Other: Constitutional : Alert, oriented, not in distress Neck : Normal inspection, Supple Cardiovascular : RRR, S1 S2, no lower extremity edema Respiratory : Good bilateral air entry, no crackles, wheezes or rhonchi Gastrointestinal: soft, lax, Normal bowel sounds, Non tender Skin : Warm/Dry Urology: Bloody tinged urine Neurological : Alert & oriented x3, No focal deficit Objective Data Current Medications Generic Name Dose Route Start Last Admin Trade Name Freq PRN Reason Stop Dose Admin Acetaminophen 650 mg 02/06/21 01:28 Acetaminophen 325 Mg Tablet PO Q6H PRN Pain, Mild (Pain Scale 1-3) Diphenhydramine HCl 25 mg 02/06/21 01:28 02/09/21 11:53 Diphenhydramine Hcl 50 Mg/Ml Vial IVPUSH 25 mg Q3H PRN Administration Allergic Reaction Diphenhydramine HCl 50 mg 02/06/21 01:28 02/09/21 08:37 Diphenhydramine Hcl 50 Mg/Ml Vial IVPUSH 50 mg BID TONY Administration Docusate Sodium 100 mg 02/06/21 01:28 Docusate Sodium 100 Mg Capsule PO DAILY PRN Constipation Hydromorphone HCl 2 mg 02/06/21 01:28 02/09/21 11:44 Hydromorphone Hcl 2 Mg/Ml Vial IVPUSH 2 mg Q3H PRN Administration Pain, Severe (Pain Scale 7-10) Ceftriaxone Sodium 1 gm/ 50 mls @ 100 mls/hr 02/06/21 22:00 02/08/21 23:15 Sodium Chloride IV Infused Q24H TONY Infusion Omeprazole 40 mg 02/06/21 08:50 02/09/21 05:28 Omeprazole 40 Mg Capsule.Dr PO 40 mg BID@0630,9920 TONY Administration Ondansetron HCl 4 mg 02/06/21 01:28 Ondansetron Hcl 4 Mg/2 Ml Vial IVPUSH Q8H PRN Nausea and Vomiting Sodium Chloride 3 ml 02/06/21 01:28 02/09/21 08:37 0.9 % Sodium Chloride Flush 3 Ml Syringe IVFLUSH 3 ml QSHIFT TONY Administration Labs CBC & Chem 7: 02/08/21 07:26 02/08/21 07:25 Quality Stroke Does the patient have a stroke diagnosis?: No VTE Prior VTE?: No VTE Risk Level:: Medical - moderate - high VTE Device Contraindication: N/A - Device Ordered VTE Drug Contraindication: Treatment Not Indicated Assessment and Plan (1) Sepsis: Status: Acute (2) Loin pain hematuria syndrome: Status: Acute (3) Hematuria: Status: Acute (4) Acute UTI: Status: Acute (5) Abdominal pain: Status: Acute Assessment and Plan: 50-year-old male with 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 DVT prophylaxis: SCDs in the setting of hematuria
[2021-02-09 15:55] VITALS: BP 112/79; PULSE 76; RESP 12; TEMP 36.2; O2SAT 96
[2021-02-09 19:37] VITALS: BP 109/81; PULSE 85; RESP 14; TEMP 36.3; O2SAT 94
[2021-02-09] MEDS: cefTRIAXone sodium 1 GM in 0.9 % Sodium Chloride 50 ML IV (21:46)
[2021-02-09 23:45] VITALS: BP 111/60; PULSE 74; RESP 16; TEMP 37.1; O2SAT 99
[2021-02-10] MEDS: HYDROmorphone HCl 2 MG/ML VIAL IVPUSH ×7 (00:53→20:35)
[2021-02-10] MEDS: diphenhydrAMINE HCL 50 MG/ML VIAL 25 MG IVPUSH ×4 (00:53→16:42)
[2021-02-10 04:00] VITALS: BP 103/73; PULSE 70; RESP 16; TEMP 36.9; O2SAT 94
[2021-02-10] MEDS: Omeprazole 40 MG CAPSULE.DR PO ×2 (05:48→16:42)
[2021-02-10] MEDS: diphenhydrAMINE HCL 50 MG/ML VIAL IVPUSH ×3 (07:36→20:36)
[2021-02-10] MEDS: 0.9 % Sodium Chloride Flush 3 ML SYRINGE IVFLUSH ×2 (07:36→16:42)
[2021-02-10 07:41] VITALS: BP 115/82; PULSE 79; RESP 18; TEMP 36.4; O2SAT 98
--- NOTE | 2021-02-10 11:46 | HO.PM.IMPN ---
Subjective Subjective Date of Service: 02/10/21 Interval History: seen and examined this AM still with pain, but hematuria improving -- now punch colored denies any current fevers, but reported fever prior to arrival to hospital ROS General - no fevers or chills Cardiovascular - no chest pain Respiratory - no shortness of breath or cough Abdominal- no abdominal pain, nausea, vomiting, diarrhea Physical Exam Vital Signs: Vital Signs: Last Vital Signs Temp 97.6 F 02/10/21 07:41 Pulse 79 02/10/21 07:41 Resp 18 02/10/21 07:41 BP 115/82 02/10/21 07:41 Pulse Ox 98 02/10/21 07:41 Body Mass Index 38.0 Const: Other: General - no acute distress, appears comfortable Cardiovascular - regular rate and rhythm, S1-S2 Lungs - normal respiratory effort, clear to auscultation bilaterally, no wheezing Abdomen - soft, nontender, no rebound or guarding Extremities - no edema bilaterally Neuro - awake and alert, no focal deficits Objective Data Current Medications Generic Name Dose Route Start Last Admin Trade Name Lazaro PRN Reason Stop Dose Admin Acetaminophen 650 mg 02/06/21 01:28 Acetaminophen 325 Mg Tablet PO Q6H PRN Pain, Mild (Pain Scale 1-3) Diphenhydramine HCl 25 mg 02/06/21 01:28 02/10/21 10:41 Diphenhydramine Hcl 50 Mg/Ml Vial IVPUSH 25 mg Q3H PRN Administration Allergic Reaction Diphenhydramine HCl 50 mg 02/06/21 01:28 02/10/21 07:36 Diphenhydramine Hcl 50 Mg/Ml Vial IVPUSH 50 mg BID TONY Administration Docusate Sodium 100 mg 02/06/21 01:28 Docusate Sodium 100 Mg Capsule PO DAILY PRN Constipation Hydromorphone HCl 2 mg 02/06/21 01:28 02/10/21 10:41 Hydromorphone Hcl 2 Mg/Ml Vial IVPUSH 2 mg Q3H PRN Administration Pain, Severe (Pain Scale 7-10) Ceftriaxone Sodium 1 gm/ 50 mls @ 100 mls/hr 02/06/21 22:00 02/09/21 22:28 Sodium Chloride IV Infused Q24H TONY Infusion Omeprazole 40 mg 02/06/21 08:50 02/10/21 05:48 Omeprazole 40 Mg Capsule.Dr PO 40 mg BID@7952,6490 TONY Administration Ondansetron HCl 4 mg 02/06/21 01:28 Ondansetron Hcl 4 Mg/2 Ml Vial IVPUSH Q8H PRN Nausea and Vomiting Sodium Chloride 3 ml 02/06/21 01:28 02/10/21 07:36 0.9 % Sodium Chloride Flush 3 Ml Syringe IVFLUSH 3 ml QSHIFT TOYN Administration Labs CBC & Chem 7: 02/08/21 07:26 02/08/21 07:25 Quality Stroke Does the patient have a stroke diagnosis?: No VTE Prior VTE?: No VTE Risk Level:: Medical - moderate - high VTE Device Contraindication: N/A - Device Ordered VTE Drug Contraindication: Treatment Not Indicated Assessment and Plan (1) Sepsis: Status: Acute (2) Loin pain hematuria syndrome: Status: Acute (3) Hematuria: Status: Acute (4) Acute UTI: Status: Acute (5) Abdominal pain: Status: Acute Assessment and Plan: 50-year-old male with 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 presents to the hospital with hematuria and abdominal pain # sepsis, resolved # secondary to UTI sepsis resolved Continue IV antibiotics day #5 despite negative cultures, opting to treat for uti given his fever prior to arrival as well as hematuria and luekocytosis # hematuria secondary to loin pain hematuria syndrome hemoglobin stable per note from Nephrology, patient to be treated with IV Dilaudid q.3 hours, as well as management patient reports the symptoms usually resolve spontaneously within few days - slowly improving continue supportive measures # hypertension Continue amlodipine # GERD Continue omeprazole b.i.d. DVT prophylaxis: SCDs in the setting of hematuria
[2021-02-10 12:00] VITALS: BP 113/72; PULSE 80; RESP 18; TEMP 36.2; O2SAT 98
[2021-02-10 15:39] VITALS: BP 115/78; PULSE 83; RESP 14; TEMP 35.9; O2SAT 96
[2021-02-10 19:42] VITALS: BP 132/91; PULSE 80; RESP 14; TEMP 36.1; O2SAT 95
[2021-02-10] MEDS: cefTRIAXone sodium 1 GM in 0.9 % Sodium Chloride 50 ML IV (22:07)
[2021-02-11] VITALS (7 sets, daily range): BP systolic 123–150; BP diastolic 63–99; PULSE 74–92; RESP 16–19; TEMP 36.2–36.6; O2SAT 94–97
[2021-02-11] MEDS: diphenhydrAMINE HCL 50 MG/ML VIAL 25 MG IVPUSH ×5 (00:08→18:07)
[2021-02-11] MEDS: HYDROmorphone HCl 2 MG/ML VIAL IVPUSH (00:08)
[2021-02-11] MEDS: HYDROmorphone HCl 0.5 MG/0.5 ML SYRINGE 2 MG IVPUSH ×2 (04:28→08:04)
[2021-02-11] MEDS: 0.9 % Sodium Chloride Flush 3 ML SYRINGE IVFLUSH ×3 (04:36→14:48)
[2021-02-11] MEDS: Omeprazole 40 MG CAPSULE.DR PO ×2 (06:36→16:17)
[2021-02-11] MEDS: diphenhydrAMINE HCL 50 MG/ML VIAL IVPUSH ×2 (08:04→20:52)
[2021-02-11] MEDS: HYDROmorphone HCl 1 MG/ML SYRINGE 2 MG IVPUSH ×4 (11:14→20:51)
--- NOTE | 2021-02-11 11:27 | P.PNIM_ITS ---
Subjective Subjective Date of Service: 02/11/21 Interval History: seen and examined this AM pain had improved yesterday, but this AM in pain again hematuria worsened ROS General - no fevers or chills Cardiovascular - no chest pain Respiratory - no shortness of breath or cough Abdominal- no abdominal pain, nausea, vomiting, diarrhea Physical Exam Vital Signs: Vital Signs: Last Vital Signs Temp 97.2 F 02/11/21 08:00 Pulse 74 02/11/21 08:00 Resp 19 02/11/21 08:00 BP 123/83 02/11/21 08:00 Pulse Ox 97 02/11/21 08:00 Body Mass Index 38.0 Const: Other: General - in pain Cardiovascular - regular rate and rhythm, S1-S2 Lungs - normal respiratory effort, clear to auscultation bilaterally, no wheezing Abdomen - soft with left sided pain Extremities - no edema bilaterally Neuro - awake and alert, no focal deficits Objective Data Current Medications Generic Name Dose Route Start Last Admin Trade Name Freq PRN Reason Stop Dose Admin Acetaminophen 650 mg 02/06/21 01:28 Acetaminophen 325 Mg Tablet PO Q6H PRN Pain, Mild (Pain Scale 1-3) Diphenhydramine HCl 25 mg 02/06/21 01:28 02/11/21 11:15 Diphenhydramine Hcl 50 Mg/Ml Vial IVPUSH 25 mg Q3H PRN Administration Allergic Reaction Diphenhydramine HCl 50 mg 02/06/21 01:28 02/11/21 08:04 Diphenhydramine Hcl 50 Mg/Ml Vial IVPUSH 50 mg BID TONY Administration Docusate Sodium 100 mg 02/06/21 01:28 Docusate Sodium 100 Mg Capsule PO DAILY PRN Constipation Hydromorphone HCl 2 mg 02/11/21 10:53 02/11/21 11:14 Hydromorphone Hcl 1 Mg/Ml Syringe IVPUSH 2 mg Q3H PRN Administration Breakthrough Pain Ceftriaxone Sodium 1 gm/ 50 mls @ 100 mls/hr 02/06/21 22:00 02/10/21 22:38 Sodium Chloride IV Infused Q24H TONY Infusion Omeprazole 40 mg 02/06/21 08:50 02/11/21 06:36 Omeprazole 40 Mg Capsule.Dr PO 40 mg BID@0630,1630 TONY Administration Ondansetron HCl 4 mg 02/06/21 01:28 Ondansetron Hcl 4 Mg/2 Ml Vial IVPUSH Q8H PRN Nausea and Vomiting Sodium Chloride 3 ml 02/06/21 01:28 02/11/21 08:04 0.9 % Sodium Chloride Flush 3 Ml Syringe IVFLUSH 3 ml QSHIFT TONY Administration Labs CBC & Chem 7: 02/08/21 07:26 02/08/21 07:25 Microbiology Microbiology Results: Microbiology 02/05/21 21:05 Blood Culture - Final Blood - Venous No growth after 5 days. 02/05/21 21:04 Blood Culture - Final Blood - Venous No growth after 5 days. 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 DVT prophylaxis: SCDs in the setting of hematuria
[2021-02-11 13:35] LABS: MANUAL DIFF FLAG NO
[2021-02-11 13:36] LABS: Basophils Absolute Auto 0.1 X10*3/uL (0.0-0.2); Basophils Percent Auto 0.7 % (0-2); Eosinophils Absolute Auto 0.4 X10*3/uL (0.0-0.4); Eosinophils Percent Auto 6.2 % (0-4); Hematocrit 44.8 % (42-52); Hemoglobin 14.3 g/dl (14.0-18.0); Imm Gran Abs Auto 0.02 X10*3/uL (0.00-0.03); Imm Gran Pct Auto 0.3 % (0.0-0.4); Lymphocytes Percent Auto 28.3 % (20-40); Mean Corpuscular HGB Conc 31.9 g/dl (31.0-36.0); Mean Corpuscular Hemoglobin 26.5 pg (27.0-33.0); Monocytes Absolute Auto 0.5 X10*3/uL (0.1-1.2); Monocytes Percent Auto 6.7 % (2-11); Neutrophils Absolute Auto 4.1 X10*3/uL (2.0-8.3); Neutrophils Percent Auto 57.8 % (45-73); Platelet Count 192 X10*3/uL (160-400); Red Cell Distribution Width 17.4 % (11.0-16.0); White Blood Count 7.1 X10*3/uL (4.8-10.8)
[2021-02-11 14:11] LABS: Anion Gap 13 (12-20); Blood Urea Nitrogen 11 mg/dL (9-16); Calcium 9.2 mg/dL (8.4-10.2); Carbon Dioxide 25 mmol/L (22-29); Chloride 104 mmol/L (96-108); Creatinine Clr Calc Pharmacy 76.8; Estimated Glomerular Filt Rate > 60; Glucose Random 101 mg/dL (60-115); Potassium 3.7 mmol/L (3.3-5.1); Sodium 138 mmol/L (135-145)
[2021-02-11] MEDS: 0.9 % Sodium Chloride 1,000 ML 100 ML IVCONT (14:48)
[2021-02-11 15:21] LABS: Glucose Urine UA NEG (NEG); Leukocyte Esterase Urine NEG (NEG); Nitrite Urine NEG (NEG); Specific Gravity - Urine 1.025 (1.005-1.025); Urine Blood 2+ (NEG); Urine Ketones NEG (NEG); Urine Protein 2+ MG/DL (NEG-TRACE)
[2021-02-11 15:25] LABS: Appearance Urine CLOUDY; Color Urine RED; Mucus Urine TRACE /LPF; RBC Urine TNTC /HPF (0); Squamous Epithelial Cell Urine TRACE /LPF
[2021-02-11] MEDS: cefTRIAXone sodium 1 GM in 0.9 % Sodium Chloride 50 ML IV (20:51)
[2021-02-12] VITALS (10 sets, daily range): BP systolic 104–135; BP diastolic 59–86; PULSE 65–85; RESP 16–19; TEMP 36–36.4; O2SAT 94–96
[2021-02-12] MEDS: diphenhydrAMINE HCL 50 MG/ML VIAL 25 MG IVPUSH ×6 (00:12→18:26)
[2021-02-12] MEDS: HYDROmorphone HCl 1 MG/ML SYRINGE 2 MG IVPUSH ×8 (00:13→21:43)
[2021-02-12] MEDS: 0.9 % Sodium Chloride 1,000 ML 100 ML IVCONT ×3 (02:58→21:43)
[2021-02-12] MEDS: Omeprazole 40 MG CAPSULE.DR PO ×2 (06:15→15:26)
[2021-02-12] MEDS: diphenhydrAMINE HCL 50 MG/ML VIAL IVPUSH ×2 (09:18→21:44)
[2021-02-12] MEDS: polyethylene glycoL 3350 17 GM POWD.PACK PO (09:18)
--- NOTE | 2021-02-12 09:56 | HO.PM.IMPN ---
Subjective Subjective Date of Service: 02/12/21 Interval History: seen and examined this AM in pain this morning but overall reports improvement in pain and hematuria ROS General - no fevers or chills Cardiovascular - no chest pain Respiratory - no shortness of breath or cough Abdominal- no abdominal pain, nausea, vomiting, diarrhea Physical Exam Vital Signs: Vital Signs: Last Vital Signs Temp 97.4 F 02/12/21 08:00 Pulse 70 02/12/21 08:00 Resp 19 02/12/21 09:18 BP 125/78 02/12/21 08:00 Pulse Ox 96 02/12/21 08:00 Body Mass Index 38.0 Const: Other: General - in pain Cardiovascular - regular rate and rhythm, S1-S2 Lungs - normal respiratory effort, clear to auscultation bilaterally, no wheezing Abdomen - soft with left sided pain Extremities - no edema bilaterally Neuro - awake and alert, no focal deficits Objective Data Current Medications Generic Name Dose Route Start Last Admin Trade Name Freq PRN Reason Stop Dose Admin Acetaminophen 650 mg 02/06/21 01:28 Acetaminophen 325 Mg Tablet PO Q6H PRN Pain, Mild (Pain Scale 1-3) Diphenhydramine HCl 25 mg 02/06/21 01:28 02/12/21 06:15 Diphenhydramine Hcl 50 Mg/Ml Vial IVPUSH 25 mg Q3H PRN Administration Allergic Reaction Diphenhydramine HCl 50 mg 02/06/21 01:28 02/12/21 09:18 Diphenhydramine Hcl 50 Mg/Ml Vial IVPUSH 50 mg BID TONY Administration Docusate Sodium 100 mg 02/06/21 01:28 Docusate Sodium 100 Mg Capsule PO DAILY PRN Constipation Hydromorphone HCl 2 mg 02/11/21 10:53 02/12/21 09:18 Hydromorphone Hcl 1 Mg/Ml Syringe IVPUSH 2 mg Q3H PRN Administration Breakthrough Pain Ceftriaxone Sodium 1 gm/ 50 mls @ 100 mls/hr 02/06/21 22:00 02/11/21 21:48 Sodium Chloride IV Infused Q24H TONY Infusion Sodium Chloride 1,000 mls @ 100 mls/hr 02/11/21 14:30 02/12/21 02:58 Ns IVCONT 100 mls/hr .Q10H TONY Administration Omeprazole 40 mg 02/06/21 08:50 02/12/21 06:15 Omeprazole 40 Mg Capsule. PO 40 mg BID@3750,5176 TONY Administration Ondansetron HCl 4 mg 02/06/21 01:28 Ondansetron Hcl 4 Mg/2 Ml Vial IVPUSH Q8H PRN Nausea and Vomiting Polyethylene Glycol 17 gm 02/12/21 09:00 02/12/21 09:18 Polyethylene Glycol 3350 17 Gm Powd.Pack PO 17 gm DAILY TONY Administration Sodium Chloride 3 ml 02/06/21 01:28 02/12/21 07:18 0.9 % Sodium Chloride Flush 3 Ml Syringe IVFLUSH Not Given QSHIFT [facility] Labs CBC & Chem 7: 02/11/21 12:53 02/11/21 12:53 Labs: Laboratory Results - last 24 hr 02/11/21 02/11/21 02/11/21 12:53 12:53 14:59 WBC 7.1 RBC 5.40 Hgb 14.3 Hct 44.8 MCV 83.0 MCH 26.5 L MCHC 31.9 RDW 17.4 H Plt Count 192 MPV 11.0 Immature Gran % (Auto) 0.3 Neut % (Auto) 57.8 Lymph % (Auto) 28.3 [place] % (Auto) 6.7 Eos % (Auto) 6.2 H Baso % (Auto) 0.7 Lymph # (Auto) 2.0 [place] # (Auto) 0.5 Eos # (Auto) 0.4 Baso # (Auto) 0.1 Abs Immat Gran (auto) 0.02 Absolute Neuts (auto) 4.1 Absolute Nucleated RBC 0.000 Nucleated RBC % (auto) 0.0 Sodium 138 Potassium 3.7 Chloride 104 Carbon Dioxide 25 Anion Gap 13 BUN 11 Creatinine 1.04 Estim Creat Clear Calc 76.8 Estimated GFR > 60 Random Glucose 101 Calcium 9.2 Urine Color RED Urine Appearance CLOUDY Urine pH 7.0 Ur Specific [place] 1.025 Urine Protein 2+ H Urine Glucose (UA) NEG Urine Ketones NEG Urine Blood 2+ H Urine Nitrite NEG Ur Leukocyte Esterase NEG Urine RBC TNTC H Urine WBC 1-4 Ur Squamous Epith Cells TRACE Urine Bacteria NONE Urine Mucus TRACE Quality Stroke Does the patient have a stroke diagnosis?: No VTE Prior VTE?: No VTE Risk Level:: Medical - moderate - high VTE Device Contraindication: N/A - Device Ordered VTE Drug Contraindication: Treatment Not Indicated Assessment and Plan (1) Sepsis: Status: Acute (2) Loin pain hematuria syndrome: Status: Acute (3) Hematuria: Status: Acute (4) Acute UTI: Status: Acute (5) Abdominal pain: Status: Acute Assessment and Plan: 50-year-old male with 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 DVT prophylaxis: SCDs in the setting of hematuria d/w Dr. 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 Reports to continue the current Rx we are doing (IV dllaudid / benadryl / IVF)
[2021-02-13] VITALS (10 sets, daily range): BP systolic 116–140; BP diastolic 78–96; PULSE 69–95; RESP 16–20; TEMP 36.1–39.4; O2SAT 92–100
[2021-02-13] MEDS: HYDROmorphone HCl 1 MG/ML SYRINGE 2 MG IVPUSH ×8 (00:54→23:29)
[2021-02-13] MEDS: diphenhydrAMINE HCL 50 MG/ML VIAL 25 MG IVPUSH ×6 (00:55→23:32)
[2021-02-13] MEDS: Omeprazole 40 MG CAPSULE.DR PO ×2 (05:53→16:45)
[2021-02-13] MEDS: 0.9 % Sodium Chloride 1,000 ML 100 ML IVCONT ×2 (05:53→16:46)
[2021-02-13] MEDS: diphenhydrAMINE HCL 50 MG/ML VIAL IVPUSH ×2 (10:16→20:07)
[2021-02-13] MEDS: polyethylene glycoL 3350 17 GM POWD.PACK PO (10:17)
--- NOTE | 2021-02-13 11:49 | HO.PM.IMPN ---
Subjective Subjective Date of Service: 02/13/21 Interval History: seen and examined hematuria improving - bedside urinal with punch colored urine ROS General - no fevers or chills Cardiovascular - no chest pain Respiratory - no shortness of breath or cough Abdominal- no abdominal pain, nausea, vomiting, diarrhea - hemturia Physical Exam Vital Signs: Vital Signs: Last Vital Signs Temp 98.1 F 02/13/21 11:27 Pulse 72 02/13/21 11:27 Resp 20 02/13/21 11:27 BP 140/78 H 02/13/21 11:27 Pulse Ox 95 02/13/21 11:27 Body Mass Index 38.0 Const: Other: General - in pain Cardiovascular - regular rate and rhythm, S1-S2 Lungs - normal respiratory effort, clear to auscultation bilaterally, no wheezing Abdomen - soft with left sided pain Extremities - no edema bilaterally - punch colored urine Neuro - awake and alert, no focal deficits Objective Data Current Medications Generic Name Dose Route Start Last Admin Trade Name Freq PRN Reason Stop Dose Admin Acetaminophen 650 mg 02/06/21 01:28 Acetaminophen 325 Mg Tablet PO Q6H PRN Pain, Mild (Pain Scale 1-3) Diphenhydramine HCl 25 mg 02/06/21 01:28 02/13/21 07:15 Diphenhydramine Hcl 50 Mg/Ml Vial IVPUSH 25 mg Q3H PRN Administration Allergic Reaction Diphenhydramine HCl 50 mg 02/06/21 01:28 02/13/21 10:16 Diphenhydramine Hcl 50 Mg/Ml Vial IVPUSH 50 mg BID TONY Administration Docusate Sodium 100 mg 02/06/21 01:28 Docusate Sodium 100 Mg Capsule PO DAILY PRN Constipation Hydromorphone HCl 2 mg 02/11/21 10:53 02/13/21 10:16 Hydromorphone Hcl 1 Mg/Ml Syringe IVPUSH 2 mg Q3H PRN Administration Breakthrough Pain Sodium Chloride 1,000 mls @ 100 mls/hr 02/11/21 14:30 02/13/21 05:53 Ns IVCONT 100 mls/hr .Q10H TONY Administration Omeprazole 40 mg 02/06/21 08:50 02/13/21 05:53 Omeprazole 40 Mg Capsule.Dr PO 40 mg BID@0630,1630 TONY Administration Ondansetron HCl 4 mg 02/06/21 01:28 Ondansetron Hcl 4 Mg/2 Ml Vial IVPUSH Q8H PRN Nausea and Vomiting Polyethylene Glycol 17 gm 02/12/21 09:00 02/13/21 10:17 Polyethylene Glycol 3350 17 Gm Powd.Pack PO 17 gm DAILY TONY Administration Sodium Chloride 3 ml 02/06/21 01:28 02/13/21 07:09 0.9 % Sodium Chloride Flush 3 Ml Syringe IVFLUSH Not Given QSHIFT TONY Labs CBC & Chem 7: 02/11/21 12:53 02/11/21 12:53 Quality Stroke Does the patient have a stroke diagnosis?: No VTE Prior VTE?: No VTE Risk Level:: Medical - moderate - high VTE Device Contraindication: N/A - Device Ordered VTE Drug Contraindication: Treatment Not Indicated Assessment and Plan (1) Sepsis: Status: Acute (2) Loin pain hematuria syndrome: Status: Acute (3) Hematuria: Status: Acute (4) Acute UTI: Status: Acute (5) Abdominal pain: Status: Acute Assessment and Plan: 50-year-old male with 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 DVT prophylaxis: SCDs in the setting of hematuria d/w Dr. Gifford (patients clinical laboratory service teacher) re: patients diagnosis of Loin Hematuria pain syndrome. Reports to continue the current Rx we are doing (IV dllaudid / benadryl / IVF)
[2021-02-13] MEDS: Acetaminophen 325 MG TABLET 650 MG PO ×2 (17:32→23:28)
[2021-02-13] MEDS: Piperacillin Sodium/Tazobactam 3.375 GM in 0.9 % Sodium Chloride 50 ML IV ×2 (18:29→23:39)
[2021-02-13 18:31] LABS: MANUAL DIFF FLAG NO
[2021-02-13 18:33] LABS: Basophils Percent Auto 0.4 % (0-2); Eosinophils Absolute Auto 0.3 X10*3/uL (0.0-0.4); Eosinophils Percent Auto 3.6 % (0-4); Hematocrit 41.7 % (42-52); Hemoglobin 13.5 g/dl (14.0-18.0); Imm Gran Abs Auto 0.02 X10*3/uL (0.00-0.03); Imm Gran Pct Auto 0.3 % (0.0-0.4); Lymphocytes Absolute Auto 0.6 X10*3/uL (1.2-4.9); Lymphocytes Percent Auto 7.7 % (20-40); Mean Corpuscular HGB Conc 32.4 g/dl (31.0-36.0); Mean Corpuscular Hemoglobin 26.9 pg (27.0-33.0); Mean Corpuscular Volume 83.2 fL (80-98); Mean Platelet Volume 10.3 fL (9.4-12.4); Monocytes Absolute Auto 0.4 X10*3/uL (0.1-1.2); Monocytes Percent Auto 4.8 % (2-11); Neutrophils Absolute Auto 6.3 X10*3/uL (2.0-8.3); Neutrophils Percent Auto 83.2 % (45-73); Platelet Count 148 X10*3/uL (160-400); Red Blood Count 5.01 X10*6/uL (4.60-5.80); Red Cell Distribution Width 17.2 % (11.0-16.0); White Blood Count 7.6 X10*3/uL (4.8-10.8)
[2021-02-13 18:59] LABS: Lactic Acid 1.5 mmol/L (0.5-2.0)
[2021-02-13 19:03] LABS: Alanine Aminotransferase 22 U/L (0-40); Albumin Level 3.9 g/dL (3.5-5.0); Alkaline Phosphatase 86 U/L (39-117); Anion Gap 12 (12-20); Aspartate Amino Transferase 18 U/L (5-37); Bilirubin Direct 0.2 mg/dL (0.0-0.5); Bilirubin Total 0.4 mg/dL (0.0-1.0); Blood Urea Nitrogen 7 mg/dL (9-16); Calcium 9.2 mg/dL (8.4-10.2); Carbon Dioxide 24 mmol/L (22-29); Chloride 107 mmol/L (96-108); Creatinine Clr Calc Pharmacy 82.3; Estimated Glomerular Filt Rate > 60; Glucose Random 90 mg/dL (60-115); Potassium 4.3 mmol/L (3.3-5.1); Sodium 139 mmol/L (135-145); Total Protein 6.5 g/dL (6.5-8.0)
[2021-02-13] MEDS: 0.9 % Sodium Chloride Flush 3 ML SYRINGE IVFLUSH (20:08)
[2021-02-13 20:43] LABS: Glucose Urine UA 100 MG/DL (NEG); Leukocyte Esterase Urine 2+ (NEG); Specific Gravity - Urine <= 1.005 (1.005-1.025); Urine Blood 3+ (NEG); Urine Ketones 15 MG/DL (NEG)
[2021-02-13 20:50] LABS: Nitrite Urine NEG (NEG)
[2021-02-13 20:52] LABS: Appearance Urine TURBID; Color Urine RED
[2021-02-13 20:53] LABS: Bacteria Urine TRACE /LPF; Squamous Epithelial Cell Urine TRACE /LPF
--- NOTE | 2021-02-13 22:14 | PC.NURSE ---
pt requested lowering fluid rate (NS @ 100) because he keeps going to the bathroom every 15 min. Md was asked. MD approved rate of 50. Rate was changed
[2021-02-13] MEDS: ondansetron HCL 4 MG/2 ML VIAL IVPUSH (23:39)
[2021-02-14] VITALS (9 sets, daily range): BP systolic 117–152; BP diastolic 66–93; PULSE 82–97; RESP 16–20; TEMP 37.4–39.1; O2SAT 94–98
[2021-02-14] MEDS: HYDROmorphone HCl 1 MG/ML SYRINGE 2 MG IVPUSH ×4 (03:44→11:42)
[2021-02-14] MEDS: diphenhydrAMINE HCL 50 MG/ML VIAL 25 MG IVPUSH ×5 (03:44→16:51)
[2021-02-14] MEDS: 0.9 % Sodium Chloride 1,000 ML 100 ML IVCONT (04:23)
[2021-02-14] MEDS: Piperacillin Sodium/Tazobactam 3.375 GM in 0.9 % Sodium Chloride 50 ML IV ×3 (05:57→17:01)
[2021-02-14] MEDS: Omeprazole 40 MG CAPSULE.DR PO ×2 (05:57→15:53)
[2021-02-14] MEDS: Acetaminophen 325 MG TABLET 650 MG PO ×2 (06:29→12:38)
[2021-02-14] MEDS: 0.9 % Sodium Chloride Flush 3 ML SYRINGE IVFLUSH (07:28)
[2021-02-14] MEDS: ondansetron HCL 4 MG/2 ML VIAL IVPUSH ×2 (07:28→17:00)
[2021-02-14] MEDS: polyethylene glycoL 3350 17 GM POWD.PACK PO (08:40)
[2021-02-14] MEDS: diphenhydrAMINE HCL 50 MG/ML VIAL IVPUSH ×2 (08:40→20:20)
--- NOTE | 2021-02-14 11:44 | PM.IMPN ---
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 DVT prophylaxis: SCDs in the setting of hematuria Attending Dr. Field d/w Dr. Gifford (patients blue leather setter) re: patients diagnosis of Loin Hematuria pain syndrome. Reports to continue the current Rx we are doing (IV dllaudid / benadryl / IVF) <Paula Winters NP - Last Filed: 02/14/21 12:24> Subjective Subjective Date of Service: 02/14/21 <Paula Winters NP - Last Filed: 02/14/21 12:24> 02/15/21 <Ta Field MD - Last Filed: 02/15/21 12:16> Interval History: Follow up loin pain, hematuria spiking fevers left quad abdominal pain <Paula Winters NP - Last Filed: 02/14/21 12:24> Physical Exam Vital Signs: Vital Signs: Last Vital Signs Temp 101.2 F H 02/14/21 11:18 Pulse 89 02/14/21 11:18 Resp 18 02/14/21 11:18 BP 133/93 H 02/14/21 11:18 Pulse Ox 97 02/14/21 11:18 Body Mass Index 38.0 <Paula Winters NP - Last Filed: 02/14/21 12:24> Appearing in no acute distress lung sounds are clear to auscultation heart regular rate rhythm, clear S1, S2 positive bowel sounds, abdomen is tender to left quad neuro patient is alert x3, no focal deficits <Paula Winters NP - Last Filed: 02/14/21 12:24> Objective Data Current Medications Generic Name Dose Route Start Last Admin Trade Name Freq PRN Reason Stop Dose Admin Acetaminophen 650 mg 02/06/21 01:28 02/14/21 06:29 Acetaminophen 325 Mg Tablet PO 650 mg Q6H PRN Administration Pain, Mild (Pain Scale 1-3) Diphenhydramine HCl 25 mg 02/06/21 01:28 02/14/21 06:27 Diphenhydramine Hcl 50 Mg/Ml Vial IVPUSH 25 mg Q3H PRN Administration Allergic Reaction Diphenhydramine HCl 50 mg 02/06/21 01:28 02/14/21 08:40 Diphenhydramine Hcl 50 Mg/Ml Vial IVPUSH 50 mg BID TONY Administration Docusate Sodium 100 mg 02/06/21 01:28 Docusate Sodium 100 Mg Capsule PO DAILY PRN Constipation Hydromorphone HCl 2 mg 02/11/21 10:53 02/14/21 08:40 Hydromorphone Hcl 1 Mg/Ml Syringe IVPUSH 2 mg Q3H PRN Administration Breakthrough Pain Sodium Chloride 1,000 mls @ 100 mls/hr 02/11/21 14:30 02/14/21 04:23 Ns IVCONT 100 mls/hr .Q10H TONY Administration Piperacillin Sod/Tazobactam 50 mls @ 100 mls/hr 02/13/21 18:00 02/14/21 06:38 Sod 3.375 gm/ Sodium Chloride IV Infused Q6H TONY Infusion Omeprazole 40 mg 02/06/21 08:50 02/14/21 05:57 Omeprazole 40 Mg Capsule.Dr PO 40 mg BID@0630,1630 TONY Administration Ondansetron HCl 4 mg 02/06/21 01:28 02/14/21 07:28 Ondansetron Hcl 4 Mg/2 Ml Vial IVPUSH 4 mg Q8H PRN Administration Nausea and Vomiting Polyethylene Glycol 17 gm 02/12/21 09:00 02/14/21 08:40 Polyethylene Glycol 3350 17 Gm Powd.Pack PO 17 gm DAILY TONY Administration Sodium Chloride 3 ml 02/06/21 01:28 02/14/21 07:28 0.9 % Sodium Chloride Flush 3 Ml Syringe IVFLUSH 3 ml QSHIFT TONY Administration <Paula Winters NP - Last Filed: 02/14/21 12:24> Labs CBC & Chem 7: : 02/13/21 18:24 07/23/21 18:24 <Paula Winters NP - Last Filed: 02/14/21 12:24> Labs: Laboratory Results - last 24 hr 02/13/21 02/13/21 02/13/21 18:24 18:24 18:24 MCV 83.2 MCH 26.9 L MCHC 32.4 RDW 17.2 H Plt Count 148 L MPV 10.3 Immature Gran % (Auto) 0.3 Neut % (Auto) 83.2 H Lymph % (Auto) 7.7 L [place] % (Auto) 4.8 Eos % (Auto) 3.6 Baso % (Auto) 0.4 Lymph # (Auto) 0.6 L [place] # (Auto) 0.4 Eos # (Auto) 0.3 Baso # (Auto) 0.0 Abs Immat Gran (auto) 0.02 Absolute Neuts (auto) 6.3 Absolute Nucleated RBC 0.000 Nucleated RBC % (auto) 0.0 Anion Gap 12 Estim Creat Clear Calc 82.3 Estimated GFR > 60 Random Glucose 90 Lactic Acid 1.5 Calcium 9.2 Total Bilirubin 0.4 Direct Bilirubin 0.2 AST 18 ALT 22 Alkaline Phosphatase 86 Total Protein 6.5 Albumin 3.9 Urine Color Urine Appearance Urine pH Ur Specific [place] Urine Protein Urine Glucose (UA) Urine Ketones Urine Blood Urine Nitrite Ur Leukocyte Esterase Urine RBC Urine WBC Ur Squamous Epith Cells Urine Bacteria 02/13/21 20:13 MCV MCH MCHC RDW Plt Count MPV Immature Gran % (Auto) Neut % (Auto) Lymph % (Auto) [place] % (Auto) Eos % (Auto) Baso % (Auto) Lymph # (Auto) [place] # (Auto) Eos # (Auto) Baso # (Auto) Abs Immat Gran (auto) Absolute Neuts (auto) Absolute Nucleated RBC Nucleated RBC % (auto) Anion Gap Estim Creat Clear Calc Estimated GFR Random Glucose Lactic Acid Calcium Total Bilirubin Direct Bilirubin AST ALT Alkaline Phosphatase Total Protein Albumin Urine Color RED Urine Appearance TURBID Urine pH 7.0 Ur Specific [place] <= 1.005 Urine Protein SEE NOTE Urine Glucose (UA) 100 H Urine Ketones 15 Urine Blood 3+ H Urine Nitrite NEG Ur Leukocyte Esterase 2+ H Urine RBC 76-150 H Urine WBC 5-9 H Ur Squamous Epith Cells TRACE Urine Bacteria TRACE <Paula Winters NP - Last Filed: 02/14/21 12:24> Microbiology Microbiology Results: Microbiology 02/05/21 21:05 Blood - Venous Blood Culture - Final No growth after 5 days. 02/05/21 21:04 Blood - Venous Blood Culture - Final No growth after 5 days. 02/05/21 19:48 Urine clean catch - Clean Catch Midstream Urine Culture - Final <Paula Winters NP - Last Filed: 02/14/21 12:24> Quality Stroke Does the patient have a stroke diagnosis?: No <Paula Winters NP - Last Filed: 02/14/21 12:24> VTE Prior VTE?: No <Paula Winters NP - Last Filed: 02/14/21 12:24> VTE Risk Level:: Medical - moderate - high <Paula Winters NP - Last Filed: 02/14/21 12:24> VTE Device Contraindication: N/A - Device Ordered <Paula Winters NP - Last Filed: 02/14/21 12:24> VTE Drug Contraindication: Treatment Not Indicated <Paula Winters NP - Last Filed: 02/14/21 12:24>
[2021-02-14] MEDS: HYDROmorphone HCl 1 MG/ML SYRINGE 3 MG IVPUSH ×3 (13:50→20:19)
[2021-02-14] MEDS: methADONE HCl 5 MG TABLET PO ×2 (15:53→20:20)
[2021-02-15] VITALS (9 sets, daily range): BP systolic 114–132; BP diastolic 65–88; PULSE 54–81; RESP 16–20; TEMP 36.2–37.1; O2SAT 95–99
[2021-02-15] MEDS: diphenhydrAMINE HCL 50 MG/ML VIAL 25 MG IVPUSH ×6 (00:29→19:14)
[2021-02-15] MEDS: HYDROmorphone HCl 1 MG/ML SYRINGE 3 MG IVPUSH ×8 (00:30→22:08)
[2021-02-15] MEDS: Piperacillin Sodium/Tazobactam 3.375 GM in 0.9 % Sodium Chloride 50 ML IV ×2 (00:37→06:48)
[2021-02-15] MEDS: Acetaminophen 325 MG TABLET 650 MG PO ×2 (03:49→15:10)
[2021-02-15] MEDS: Butalb/Acetamin/Caff 50/325/40 TABLET 1 TAB PO ×4 (04:54→20:41)
[2021-02-15] MEDS: Omeprazole 40 MG CAPSULE.DR PO ×2 (06:44→16:05)
[2021-02-15] MEDS: methADONE HCl 5 MG TABLET PO ×3 (08:27→22:08)
[2021-02-15] MEDS: 0.9 % Sodium Chloride Flush 3 ML SYRINGE IVFLUSH ×3 (08:28→22:13)
[2021-02-15] MEDS: polyethylene glycoL 3350 17 GM POWD.PACK PO (08:28)
[2021-02-15] MEDS: diphenhydrAMINE HCL 50 MG/ML VIAL IVPUSH ×2 (09:59→22:07)
--- NOTE | 2021-02-15 11:43 | P.PNIM_ITS ---
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 resolved Spiking fevers overnight and today repeat blood cx neg ater 24hrs Chest x-ray and abdominal CT both negative for any acute abnormality Zosyn was added, will stop in light of no active infection Hematuria secondary to loin pain hematuria syndrome significantly improved Sepsis, resolved. secondary to UTI cultures negative completed 7 days of IV rocephin hypertension Continue amlodipine GERD Continue omeprazole b.i.d. DVT prophylaxis: SCDs in the setting of hematuria Attending Dr. Chavez DISPO home when pain is better controlled d/w Dr. Gifford (patients complaint manager) re: patients diagnosis of Loin Hematuria pain syndrome. Reports to continue the current Rx we are doing (IV dllaudid / benadryl / IVF) <Paula Winters NP - Last Filed: 02/15/21 11:49> Subjective Subjective Date of Service: 02/15/21 <Paula Winters NP - Last Filed: 02/15/21 11:49> 02/15/21 <Malachi Chavez MD - Last Filed: 02/15/21 14:39> Interval History: Follow up headache, loin pain Pain is less today Encouraged OOB today <Paula Winters NP - Last Filed: 02/15/21 11:49> Physical Exam Vital Signs: Vital Signs: Last Vital Signs Temp 98.5 F 02/15/21 07:23 Pulse 73 02/15/21 07:23 Resp 18 02/15/21 07:23 BP 124/80 02/15/21 07:23 Pulse Ox 96 02/15/21 07:23 Body Mass Index 38.0 <Paula Winters NP - Last Filed: 02/15/21 11:49> Appearing in no acute distress lung sounds are clear to auscultation heart regular rate rhythm, clear S1, S2 positive bowel sounds, abdomen is soft, nontender neuro patient is alert x3, no focal deficits <Paula Winters NP - Last Filed: 02/15/21 11:49> Objective Data Current Medications Generic Name Dose Route Start Last Admin Trade Name Freq PRN Reason Stop Dose Admin Acetaminophen 650 mg 02/06/21 01:28 02/15/21 03:49 Acetaminophen 325 Mg Tablet PO 650 mg Q6H PRN Administration Pain, Mild (Pain Scale 1-3) Diphenhydramine HCl 25 mg 02/06/21 01:28 02/15/21 06:43 Diphenhydramine Hcl 50 Mg/Ml Vial IVPUSH 25 mg Q3H PRN Administration Allergic Reaction Diphenhydramine HCl 50 mg 02/06/21 01:28 02/15/21 09:59 Diphenhydramine Hcl 50 Mg/Ml Vial IVPUSH 50 mg BID TONY Administration Docusate Sodium 100 mg 02/06/21 01:28 Docusate Sodium 100 Mg Capsule PO DAILY PRN Constipation Hydromorphone HCl 3 mg 02/14/21 13:33 02/15/21 09:59 Hydromorphone Hcl 1 Mg/Ml Syringe IVPUSH 3 mg Q3H PRN Administration Breakthrough Pain Piperacillin Sod/Tazobactam 50 mls @ 100 mls/hr 02/13/21 18:00 02/15/21 07:26 Sod 3.375 gm/ Sodium Chloride IV Infused Q6H TONY Infusion Methadone HCl 5 mg 02/14/21 15:00 02/15/21 08:27 Methadone Hcl 5 Mg Tablet PO 5 mg TID TONY Administration Omeprazole 40 mg 02/06/21 08:50 02/15/21 06:44 Omeprazole 40 Mg Capsule.Dr PO 40 mg BID@0630,1630 TONY Administration Ondansetron HCl 4 mg 02/06/21 01:28 02/14/21 17:00 Ondansetron Hcl 4 Mg/2 Ml Vial IVPUSH 4 mg Q8H PRN Administration Nausea and Vomiting Polyethylene Glycol 17 gm 02/12/21 09:00 02/15/21 08:28 Polyethylene Glycol 3350 17 Gm Powd.Pack PO 17 gm DAILY TONY Administration Sodium Chloride 3 ml 02/06/21 01:28 02/15/21 08:28 0.9 % Sodium Chloride Flush 3 Ml Syringe IVFLUSH 3 ml QSHIFT TONY Administration <Paula Winters NP - Last Filed: 02/15/21 11:49> Labs CBC & Chem 7: : 02/13/21 18:24 02/13/21 18:24 <Paula Winters NP - Last Filed: 02/15/21 11:49> Microbiology Microbiology Results: Microbiology 02/13/21 18:24 Blood - Venous Blood Culture - Preliminary No growth after 24 hours. 02/13/21 18:13 Blood - Venous Blood Culture - Preliminary No growth after 24 hours. 02/05/21 21:05 Blood - Venous Blood Culture - Final No growth after 5 days. 02/05/21 21:04 Blood - Venous Blood Culture - Final No growth after 5 days. 02/05/21 19:48 Urine clean catch - Clean Catch Midstream Urine Culture - Final <Paula Winters NP - Last Filed: 02/15/21 11:49> Quality Stroke Does the patient have a stroke diagnosis?: No <Paula Winters NP - Last Filed: 02/15/21 11:49> VTE Prior VTE?: No <Paula Winters NP - Last Filed: 02/15/21 11:49> VTE Risk Level:: Medical - moderate - high <Paula Winters NP - Last Filed: 02/15/21 11:49> VTE Device Contraindication: N/A - Device Ordered <Paula Winters NP - Last Filed: 02/15/21 11:49> VTE Drug Contraindication: Treatment Not Indicated <Paula Winters NP - Last Filed: 02/15/21 11:49>
[2021-02-15] MEDS: ondansetron HCL 4 MG/2 ML VIAL IVPUSH (13:08)
[2021-02-16] MEDS: HYDROmorphone HCl 1 MG/ML SYRINGE 3 MG IVPUSH ×8 (01:19→23:31)
[2021-02-16] MEDS: Butalb/Acetamin/Caff 50/325/40 TABLET 1 TAB PO ×5 (01:19→19:56)
[2021-02-16] MEDS: diphenhydrAMINE HCL 50 MG/ML VIAL 25 MG IVPUSH ×6 (01:20→23:34)
[2021-02-16] MEDS: ondansetron HCL 4 MG/2 ML VIAL IVPUSH (01:29)
[2021-02-16 03:17] VITALS: BP 117/77; PULSE 62; RESP 16; TEMP 36.8; O2SAT 95
[2021-02-16] MEDS: Acetaminophen 325 MG TABLET 650 MG PO (04:22)
[2021-02-16] MEDS: Omeprazole 40 MG CAPSULE.DR PO ×2 (05:22→16:38)
[2021-02-16 06:12] LABS: Hematocrit 37.3 % (42-52); Hemoglobin 12.2 g/dl (14.0-18.0); Mean Corpuscular HGB Conc 32.7 g/dl (31.0-36.0); Mean Corpuscular Hemoglobin 27.1 pg (27.0-33.0); Mean Corpuscular Volume 82.9 fL (80-98); Mean Platelet Volume 10.2 fL (9.4-12.4); Platelet Count 152 X10*3/uL (160-400); Red Cell Distribution Width 16.9 % (11.0-16.0); White Blood Count 9.7 X10*3/uL (4.8-10.8)
[2021-02-16 06:32] LABS: Anion Gap 11 (12-20); Blood Urea Nitrogen 9 mg/dL (9-16); Calcium 8.5 mg/dL (8.4-10.2); Carbon Dioxide 27 mmol/L (22-29); Chloride 104 mmol/L (96-108); Creatinine Clr Calc Pharmacy 102.4; Estimated Glomerular Filt Rate > 60; Glucose Random 94 mg/dL (60-115); Potassium 3.7 mmol/L (3.3-5.1); Sodium 138 mmol/L (135-145)
[2021-02-16] MEDS: 0.9 % Sodium Chloride Flush 3 ML SYRINGE IVFLUSH ×2 (07:49→16:37)
[2021-02-16 08:00] VITALS: BP 119/81; PULSE 65; RESP 16; TEMP 36.7; O2SAT 96
[2021-02-16] MEDS: polyethylene glycoL 3350 17 GM POWD.PACK PO (09:27)
[2021-02-16] MEDS: methADONE HCl 5 MG TABLET PO ×3 (09:27→19:56)
[2021-02-16] MEDS: diphenhydrAMINE HCL 50 MG/ML VIAL IVPUSH ×2 (10:49→19:55)
[2021-02-16 12:00] VITALS: BP 132/81; PULSE 69; RESP 15; TEMP 36.5; O2SAT 99
--- NOTE | 2021-02-16 14:29 | HO.PM.IMPN ---
Subjective Subjective Date of Service: 02/16/21 Interval History: L kidney pain improving slowly GUNTER also improving no further fever since 101.9 on 02/14/21 @1600 Physical Exam Vital Signs: Vital Signs: Last Vital Signs Temp 97.7 F 02/16/21 12:00 Pulse 69 02/16/21 12:00 Resp 15 02/16/21 12:00 BP 132/81 02/16/21 12:00 Pulse Ox 99 02/16/21 12:00 Body Mass Index 38.0 Gen: in no acute distress HEENT: sclera anicteric, moist mucus membranes Neck: supple Lungs: clear to auscultation bilaterally Heart: regular rate and rhythm, no murmurs Abd: soft, non-tender, non-distended Ext: no edema Skin: warm/well-perfused Neuro: alert and oriented x3, no focal findings Psych: appropriate affect Objective Data Current Medications Generic Name Dose Route Start Last Admin Trade Name Freq PRN Reason Stop Dose Admin Acetaminophen 650 mg 02/06/21 01:28 02/16/21 04:22 Acetaminophen 325 Mg Tablet PO 650 mg Q6H PRN Administration Pain, Mild (Pain Scale 1-3) Acetaminophen/Butalbital/Caffeine 1 tab 02/15/21 11:49 02/16/21 13:52 Butalb/Acetamin/Caff 50/325/40 Tablet PO 1 tab Q4H PRN Administration headache Diphenhydramine HCl 25 mg 02/06/21 01:28 02/16/21 13:47 Diphenhydramine Hcl 50 Mg/Ml Vial IVPUSH 25 mg Q3H PRN Administration Allergic Reaction Diphenhydramine HCl 50 mg 02/06/21 01:28 02/16/21 10:49 Diphenhydramine Hcl 50 Mg/Ml Vial IVPUSH 50 mg BID TONY Administration Docusate Sodium 100 mg 02/06/21 01:28 Docusate Sodium 100 Mg Capsule PO DAILY PRN Constipation Hydromorphone HCl 3 mg 02/14/21 13:33 02/16/21 13:46 Hydromorphone Hcl 1 Mg/Ml Syringe IVPUSH 3 mg Q3H PRN Administration Breakthrough Pain Methadone HCl 5 mg 02/14/21 15:00 02/16/21 09:27 Methadone Hcl 5 Mg Tablet PO 5 mg TID TONY Administration Omeprazole 40 mg 02/06/21 08:50 02/16/21 05:22 Omeprazole 40 Mg Capsule. PO 40 mg BID@8562,3298 TONY Administration Ondansetron HCl 4 mg 02/06/21 01:28 02/16/21 01:29 Ondansetron Hcl 4 Mg/2 Ml Vial IVPUSH 4 mg Q8H PRN Administration Nausea and Vomiting Polyethylene Glycol 17 gm 02/12/21 09:00 02/16/21 09:27 Polyethylene Glycol 3350 17 Gm Powd.Pack PO 17 gm DAILY TONY Administration Sodium Chloride 3 ml 02/06/21 01:28 02/16/21 07:49 0.9 % Sodium Chloride Flush 3 Ml Syringe IVFLUSH 3 ml QSHIFT TONY Administration Labs CBC & Chem 7: 02/16/21 06:04 02/16/21 06:04 Labs: Laboratory Results - last 24 hr 02/16/21 02/16/21 06:04 06:04 WBC 9.7 RBC 4.50 L Hgb 12.2 L Hct 37.3 L MCV 82.9 MCH 27.1 MCHC 32.7 RDW 16.9 H Plt Count 152 L MPV 10.2 Absolute Nucleated RBC 0.000 Nucleated RBC % (auto) 0.0 Sodium 138 Potassium 3.7 Chloride 104 Carbon Dioxide 27 Anion Gap 11 L BUN 9 Creatinine 0.78 Estim Creat Clear Calc 102.4 Estimated GFR > 60 Random Glucose 94 Calcium 8.5 D Microbiology Microbiology Results: Microbiology 02/13/21 18:13 Blood Culture - Preliminary Blood - Venous No growth after 48 hours. 02/13/21 18:24 Blood Culture - Preliminary Blood - Venous No growth after 48 hours. Assessment and Plan (1) Sepsis: Status: Acute (2) Loin pain hematuria syndrome: Status: Acute (3) Hematuria: Status: Acute (4) Acute UTI: Status: Acute (5) Abdominal pain: Status: Acute Assessment and Plan: hospital d#11 50yo M with loin pain hematuria syndrome admitted for sepsis due to UTI # sepsis due to UTI - resolved, treated with 7d of IV ceftriaxone, cultures negative # loin pain hematuria syndrome - continue prn IV hydromorphone. pt's home regimen is 8 mg ER bid plus 4 mg IR qid prn breakthrough pain, plus 15 mg/d methadone - pt is seen by Dr Balta from Nephrology. 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 pt has been septic 6x from UTIs. scheduled to have L ureter removed/denervated/shortened and may undergo auto transplant of the R kidney in future. # GUNTER - prn Fioricet # HTN - continue amlodipine # GERD - continue PPI # VTE ppx - SCDs Quality Stroke Does the patient have a stroke diagnosis?: No VTE Prior VTE?: No VTE Risk Level:: Medical - moderate - high VTE Device Contraindication: N/A - Device Ordered VTE Drug Contraindication: Treatment Not Indicated
[2021-02-16 16:00] VITALS: BP 122/86; PULSE 67; RESP 20; TEMP 36.7; O2SAT 98
[2021-02-16 20:00] VITALS: BP 139/85; PULSE 72; RESP 18; TEMP 37.2
[2021-02-17] VITALS (8 sets, daily range): BP systolic 111–128; BP diastolic 78–95; PULSE 64–75; RESP 15–18; TEMP 36.4–36.8; O2SAT 95–97
[2021-02-17] MEDS: Butalb/Acetamin/Caff 50/325/40 TABLET 1 TAB PO ×4 (00:04→21:09)
[2021-02-17] MEDS: ondansetron HCL 4 MG/2 ML VIAL IVPUSH (00:04)
[2021-02-17] MEDS: HYDROmorphone HCl 1 MG/ML SYRINGE 3 MG IVPUSH ×7 (02:46→21:10)
[2021-02-17] MEDS: diphenhydrAMINE HCL 50 MG/ML VIAL 25 MG IVPUSH ×4 (02:47→18:05)
[2021-02-17] MEDS: 0.9 % Sodium Chloride Flush 3 ML SYRINGE IVFLUSH ×3 (02:48→17:58)
[2021-02-17] MEDS: Omeprazole 40 MG CAPSULE.DR PO ×2 (05:34→17:58)
[2021-02-17] MEDS: diphenhydrAMINE HCL 50 MG/ML VIAL IVPUSH ×3 (05:34→21:10)
[2021-02-17 06:55] LABS: Hemoglobin 12.8 g/dl (14.0-18.0); Mean Corpuscular Hemoglobin 26.4 pg (27.0-33.0); Mean Corpuscular Volume 82.5 fL (80-98); Mean Platelet Volume 10.2 fL (9.4-12.4); Platelet Count 178 X10*3/uL (160-400); Red Blood Count 4.85 X10*6/uL (4.60-5.80); Red Cell Distribution Width 16.4 % (11.0-16.0)
[2021-02-17 07:22] LABS: Anion Gap 12 (12-20); Blood Urea Nitrogen 8 mg/dL (9-16); C Reactive Protein 8.99 mg/dL (< or = 0.50); Calcium 8.8 mg/dL (8.4-10.2); Carbon Dioxide 26 mmol/L (22-29); Chloride 104 mmol/L (96-108); Creatinine Clr Calc Pharmacy 107.9; Estimated Glomerular Filt Rate > 60; Glucose Random 81 mg/dL (60-115); Potassium 3.9 mmol/L (3.3-5.1); Sodium 138 mmol/L (135-145)
[2021-02-17] MEDS: methADONE HCl 5 MG TABLET PO ×3 (08:36→20:41)
[2021-02-17] MEDS: Ketorolac Tromethamine 15 MG/ML VIAL IVPUSH (14:51)
--- NOTE | 2021-02-17 15:01 | P.PNIM_ITS ---
Subjective Subjective Date of Service: 02/17/21 Interval History: Still c/o severe L flank pain and frontal GUNTER with nausea/photophobia- non-lateralizing, pressure-type Physical Exam Vital Signs: Vital Signs: Last Vital Signs Temp 98.3 F 02/17/21 12:00 Pulse 75 02/17/21 12:00 Resp 16 02/17/21 12:00 BP 111/88 02/17/21 12:00 Pulse Ox 97 02/17/21 12:00 Body Mass Index 38.0 Gen: in no acute distress HEENT: sclera anicteric, moist mucus membranes Neck: supple Lungs: clear to auscultation bilaterally Heart: regular rate and rhythm, no murmurs Abd: soft, non-tender, non-distended Ext: no edema Skin: warm/well-perfused Neuro: alert and oriented x3, no focal findings Psych: appropriate affect Objective Data Current Medications Generic Name Dose Route Start Last Admin Trade Name Freq PRN Reason Stop Dose Admin Acetaminophen 650 mg 02/06/21 01:28 02/16/21 04:22 Acetaminophen 325 Mg Tablet PO 650 mg Q6H PRN Administration Pain, Mild (Pain Scale 1-3) Acetaminophen/Butalbital/Caffeine 1 tab 02/15/21 11:49 02/17/21 11:40 Butalb/Acetamin/Caff 50/325/40 Tablet PO 1 tab Q4H PRN Administration headache Diphenhydramine HCl 25 mg 02/06/21 01:28 02/17/21 14:51 Diphenhydramine Hcl 50 Mg/Ml Vial IVPUSH 25 mg Q3H PRN Administration Allergic Reaction Diphenhydramine HCl 50 mg 02/06/21 01:28 02/17/21 08:36 Diphenhydramine Hcl 50 Mg/Ml Vial IVPUSH 50 mg BID TONY Administration Docusate Sodium 100 mg 02/06/21 01:28 Docusate Sodium 100 Mg Capsule PO DAILY PRN Constipation Hydromorphone HCl 3 mg 02/14/21 13:33 02/17/21 14:51 Hydromorphone Hcl 1 Mg/Ml Syringe IVPUSH 3 mg Q3H PRN Administration Breakthrough Pain Methadone HCl 5 mg 02/14/21 15:00 02/17/21 14:50 Methadone Hcl 5 Mg Tablet PO 5 mg TID TONY Administration Omeprazole 40 mg 02/06/21 08:50 02/17/21 05:34 Omeprazole 40 Mg Capsule. PO 40 mg BID@0630,1950 TONY Administration Ondansetron HCl 4 mg 02/06/21 01:28 02/17/21 00:04 Ondansetron Hcl 4 Mg/2 Ml Vial IVPUSH 4 mg Q8H PRN Administration Nausea and Vomiting Polyethylene Glycol 17 gm 02/12/21 09:00 02/17/21 08:37 Polyethylene Glycol 3350 17 Gm Powd.Pack PO Not Given DAILY TONY Sodium Chloride 3 ml 02/06/21 01:28 02/17/21 08:38 0.9 % Sodium Chloride Flush 3 Ml Syringe IVFLUSH 3 ml QSHIFT TONY Administration Sumatriptan Succinate 50 mg 02/17/21 14:15 Sumatriptan Succinate 50 Mg Tablet PO DAILY PRN headache Labs CBC & Chem 7: 02/17/21 06:32 02/17/21 06:32 Labs: Laboratory Results - last 24 hr 02/17/21 02/17/21 06:32 06:32 WBC 7.0 RBC 4.85 Hgb 12.8 L Hct 40.0 L MCV 82.5 MCH 26.4 L MCHC 32.0 RDW 16.4 H Plt Count 178 MPV 10.2 Absolute Nucleated RBC 0.000 Nucleated RBC % (auto) 0.0 Sodium 138 Potassium 3.9 Chloride 104 Carbon Dioxide 26 Anion Gap 12 BUN 8 L Creatinine 0.74 Estim Creat Clear Calc 107.9 Estimated GFR > 60 Random Glucose 81 Calcium 8.8 C-Reactive Protein 8.99 H Assessment and Plan (1) Sepsis: Status: Acute (2) Loin pain hematuria syndrome: Status: Acute (3) Hematuria: Status: Acute (4) Acute UTI: Status: Acute (5) Abdominal pain: Status: Acute Assessment and Plan: hospital d#12 50yo M with loin pain hematuria syndrome admitted for sepsis due to UTI # sepsis due to UTI - resolved, treated with 7d of IV ceftriaxone, cultures negative # loin pain hematuria syndrome - continue prn IV hydromorphone. pt's home regimen is 8 mg ER bid plus 4 mg IR qid prn breakthrough pain, plus 15 mg/d methadone. will give 1-time dose of ketorolac today. - pt is seen by Dr Gifford from Nephrology. 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 pt has been septic 6x from UTIs. scheduled to have L ureter removed/denervated/shortened and may undergo auto transplant of the R kidney in future. # GUNTER - prn Fioricet- try sumatriptan as well # HTN - continue amlodipine # GERD - continue PPI # VTE ppx - SCDs Quality Stroke Does the patient have a stroke diagnosis?: No VTE Prior VTE?: No VTE Risk Level:: Medical - moderate - high VTE Device Contraindication: N/A - Device Ordered VTE Drug Contraindication: Treatment Not Indicated
[2021-02-18] VITALS (10 sets, daily range): BP systolic 115–138; BP diastolic 71–87; PULSE 64–92; RESP 14–18; TEMP 36.2–36.6; O2SAT 91–99
[2021-02-18] MEDS: diphenhydrAMINE HCL 50 MG/ML VIAL 25 MG IVPUSH ×6 (00:15→22:54)
[2021-02-18] MEDS: 0.9 % Sodium Chloride Flush 3 ML SYRINGE IVFLUSH ×3 (00:15→12:26)
[2021-02-18] MEDS: HYDROmorphone HCl 1 MG/ML SYRINGE 3 MG IVPUSH ×8 (00:15→22:54)
[2021-02-18] MEDS: Butalb/Acetamin/Caff 50/325/40 TABLET 1 TAB PO ×3 (03:27→19:41)
[2021-02-18] MEDS: Omeprazole 40 MG CAPSULE.DR PO ×2 (06:37→16:00)
[2021-02-18] MEDS: diphenhydrAMINE HCL 50 MG/ML VIAL IVPUSH ×2 (09:23→20:17)
[2021-02-18] MEDS: methADONE HCl 5 MG TABLET PO ×3 (09:23→22:53)
[2021-02-18] MEDS: SUMAtriptan succinate 50 MG TABLET PO (12:26)
--- NOTE | 2021-02-18 16:00 | P.PNIM_ITS ---
Subjective Subjective Date of Service: 02/18/21 Interval History: ongoing frontal GUNTER + L flank pain, not much appetite as a result Physical Exam Vital Signs: Vital Signs: Last Vital Signs Temp 97.5 F 02/18/21 15:31 Pulse 72 02/18/21 15:31 Resp 16 02/18/21 15:31 BP 138/87 02/18/21 15:31 Pulse Ox 99 02/18/21 15:31 Body Mass Index 38.0 Gen: in no acute distress HEENT: sclera anicteric, moist mucus membranes Neck: supple Lungs: clear to auscultation bilaterally Heart: regular rate and rhythm, no murmurs Abd: soft, non-tender, non-distended : L CVA tenderness Ext: no edema Skin: warm/well-perfused Neuro: alert and oriented x3, no focal findings Psych: appropriate affect Objective Data Current Medications Generic Name Dose Route Start Last Admin Trade Name Freq PRN Reason Stop Dose Admin Acetaminophen 650 mg 02/06/21 01:28 02/16/21 04:22 Acetaminophen 325 Mg Tablet PO 650 mg Q6H PRN Administration Pain, Mild (Pain Scale 1-3) Acetaminophen/Butalbital/Caffeine 1 tab 02/15/21 11:49 02/18/21 09:23 Butalb/Acetamin/Caff 50/325/40 Tablet PO 1 tab Q4H PRN Administration headache Diphenhydramine HCl 25 mg 02/06/21 01:28 02/18/21 12:26 Diphenhydramine Hcl 50 Mg/Ml Vial IVPUSH 25 mg Q3H PRN Administration Allergic Reaction Diphenhydramine HCl 50 mg 02/06/21 01:28 02/18/21 09:23 Diphenhydramine Hcl 50 Mg/Ml Vial IVPUSH 50 mg BID TONY Administration Docusate Sodium 100 mg 02/06/21 01:28 Docusate Sodium 100 Mg Capsule PO DAILY PRN Constipation Hydromorphone HCl 3 mg 02/14/21 13:33 02/18/21 12:26 Hydromorphone Hcl 1 Mg/Ml Syringe IVPUSH 3 mg Q3H PRN Administration Breakthrough Pain Methadone HCl 5 mg 02/14/21 15:00 02/18/21 09:23 Methadone Hcl 5 Mg Tablet PO 5 mg TID TONY Administration Omeprazole 40 mg 02/06/21 08:50 02/18/21 06:37 Omeprazole 40 Mg Capsule. PO 40 mg BID@1629,8519 TONY Administration Ondansetron HCl 4 mg 02/06/21 01:28 02/17/21 00:04 Ondansetron Hcl 4 Mg/2 Ml Vial IVPUSH 4 mg Q8H PRN Administration Nausea and Vomiting Polyethylene Glycol 17 gm 02/12/21 09:00 02/18/21 09:23 Polyethylene Glycol 3350 17 Gm Powd.Pack PO Not Given DAILY TONY Sodium Chloride 3 ml 02/06/21 01:28 02/18/21 12:26 0.9 % Sodium Chloride Flush 3 Ml Syringe IVFLUSH 3 ml QSHIFT TONY Administration Sumatriptan Succinate 50 mg 02/17/21 14:15 02/18/21 12:26 Sumatriptan Succinate 50 Mg Tablet PO 50 mg DAILY PRN Administration headache Labs CBC & Chem 7: 02/17/21 06:32 02/17/21 06:32 Assessment and Plan (1) Sepsis: Status: Acute (2) Loin pain hematuria syndrome: Status: Acute (3) Hematuria: Status: Acute (4) Acute UTI: Status: Acute (5) Abdominal pain: Status: Acute Assessment and Plan: hospital d#13 50yo M with loin pain hematuria syndrome admitted for sepsis due to UTI # sepsis due to UTI - resolved, treated with 7d of IV ceftriaxone, cultures negative # loin pain hematuria syndrome - continue prn IV hydromorphone. pt's home regimen is 8 mg ER bid plus 4 mg IR qid prn breakthrough pain, plus 15 mg/d methadone. - pt is seen by Dr Gifford from Nephrology. 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 pt has been septic 6x from UTIs. scheduled to have L ureter removed/denervated/shortened and may undergo auto transplant of the R kidney in future. # GUNTER - not improved despite Fioricet and sumatriptan; will consult Neurology # HTN - continue amlodipine # GERD - continue PPI # VTE ppx - SCDs Quality Stroke Does the patient have a stroke diagnosis?: No VTE Prior VTE?: No VTE Risk Level:: Medical - moderate - high VTE Device Contraindication: N/A - Device Ordered VTE Drug Contraindication: Treatment Not Indicated
--- NOTE | 2021-02-18 17:04 | PM.NEUROCN ---
History of Present Illness Data of Consult Service Date: 02/18/21 Primary Care Provider: Nonstaff Physician 50 years old man I was asked to see for headache. He said that he came in hospital for renal reason and possible infection and had a fever. Next day he developed a headache that has not gone away. Pain was in frontal area, 7/10 in intensity, not worse with an any activity, not associated with any other symptom and was continuous. Review of Systems Review of Systems: He complained of recent fever. There was no neck pain or trauma history. [facility] Past Medical History Medical History (Updated 02/18/21 @ 17:07 by Pamela Robles MD) A-fib Leal esophagus Hematuria History of cardioversion Loin pain hematuria syndrome Sepsis Surgical History Surgical History History of hernia surgery Hx of tonsillectomy Status post kidney autotransplantation Social History Social History Household Members: None Housing: Apartment Do you presently have visiting nurse or other home services: No Patient Tobacco Use Status: Never used Tobacco Use of substances other than those prescribed or required for medical reasons: No Currently Displaying Signs/Symptoms of Drug Intoxication Withdrawal: No Have you been hit, kicked, punched, or otherwise hurt by someone within the past year? If so, by whom?: No Do you feel safe in your current relationship?: No Current Relationship Is there a partner from a previous relationship who is making you feel unsafe now?: No Advance Directives: No Advance Directives Information Provided: Yes Do you have thoughts of harming others: None Do you have a plan to hurt others: No Plan Recently lost weight without trying: No Eating poorly because of decreased appetite: No Nutrition Risks: No Nutritional Risk Poor oral hygiene: No service: No Current occupational status: disabled Meds Allergies Allergy/AdvReac Type Severity Reaction Status Date / Time buprenorphine [From SUBOXONE] Allergy Unknown HIVES Verified 02/06/21 15:51 Iodinated Contrast Media Allergy Unknown ANAPHYLAXIS Verified 02/06/21 15:51 [IV CONTRAST] morphine [MORPHINE] Allergy Unknown HIVES Verified 02/06/21 15:51 naloxone [From SUBOXONE] Allergy Unknown HIVES Verified 02/06/21 15:51 naproxen [NAPROXEN] Allergy Unknown HIVES Verified 02/06/21 15:51 Active Medications: Current Medications Generic Name Dose Route Start Last Admin Trade Name Freq PRN Reason Stop Dose Admin Acetaminophen 650 mg 02/06/21 01:28 02/16/21 04:22 Acetaminophen 325 Mg Tablet PO 650 mg Q6H PRN Administration Pain, Mild (Pain Scale 1-3) Acetaminophen/Butalbital/Caffeine 1 tab 02/15/21 11:49 02/18/21 09:23 Butalb/Acetamin/Caff 50/325/40 Tablet PO 1 tab Q4H PRN Administration headache Diphenhydramine HCl 25 mg 02/06/21 01:28 02/18/21 16:01 Diphenhydramine Hcl 50 Mg/Ml Vial IVPUSH 25 mg Q3H PRN Administration Allergic Reaction Diphenhydramine HCl 50 mg 02/06/21 01:28 02/18/21 09:23 Diphenhydramine Hcl 50 Mg/Ml Vial IVPUSH 50 mg BID TONY Administration Docusate Sodium 100 mg 02/06/21 01:28 Docusate Sodium 100 Mg Capsule PO DAILY PRN Constipation Hydromorphone HCl 3 mg 02/14/21 13:33 02/18/21 16:01 Hydromorphone Hcl 1 Mg/Ml Syringe IVPUSH 3 mg Q3H PRN Administration Breakthrough Pain Methadone HCl 5 mg 02/14/21 15:00 02/18/21 16:00 Methadone Hcl 5 Mg Tablet PO 5 mg TID TONY Administration Omeprazole 40 mg 02/06/21 08:50 02/18/21 16:00 Omeprazole 40 Mg Capsule. PO 40 mg BID@0630,1630 TONY Administration Ondansetron HCl 4 mg 02/06/21 01:28 02/17/21 00:04 Ondansetron Hcl 4 Mg/2 Ml Vial IVPUSH 4 mg Q8H PRN Administration Nausea and Vomiting Polyethylene Glycol 17 gm 02/12/21 09:00 02/18/21 09:23 Polyethylene Glycol 3350 17 Gm Powd.Pack PO Not Given DAILY TONY Sodium Chloride 3 ml 02/06/21 01:28 02/18/21 12:26 0.9 % Sodium Chloride Flush 3 Ml Syringe IVFLUSH 3 ml QSHIFT TONY Administration Sumatriptan Succinate 50 mg 02/17/21 14:15 02/18/21 12:26 Sumatriptan Succinate 50 Mg Tablet PO 50 mg DAILY PRN Administration headache Home Medications Medication Instructions Recorded Confirmed Last Taken Type Baby Aspirin 81 mg PO 02/06/21 02/05/21 History 1 Protonix 40 mg PO BID 02/06/21 02/06/21 02/05/21 History 1 amlodipine 10 mg PO DAILY 02/06/21 02/06/21 02/05/21 08:00 History hydromorphone 4 mg tablet tab PO QID 02/06/21 02/06/21 History 1 hydromorphone 8 mg tablet,extended 1 tab PO BID 02/06/21 02/06/21 02/05/21 History release 24 hr methadone 5 mg tablet See Rx Instructions .ROUTE .COMPLEX 02/06/21 02/05/21 History 1 ondansetron 4 mg disintegrating 2 tab PO Q8H PRN 02/06/21 02/06/21 02/05/21 History tablet 1 Physical Exam Vital Signs: Vital Signs: Last Vital Signs Temp 97.5 F 02/18/21 15:31 Pulse 72 02/18/21 15:31 Resp 16 02/18/21 15:31 BP 138/87 02/18/21 15:31 Pulse Ox 99 02/18/21 15:31 Body Mass Index 38.0 He was alert and awake with normal spontaneity of speech fluency comprehension and affect. He did not seem to be in distress. Neck was supple. Face was symmetrical. Visual olguin are full. There was no obvious focal weakness. Deep tendon reflexes were trace with flexor plantars. Ekwgij-pr-jusx testing was normal. Results Labs CBC & Chem 7: 02/17/21 06:32 02/17/21 06:32 Labs: Noncontrast head CT revealed [id number]-jv-[id number] bilateral cortical frontal and anterior temporal atrophy. Microbiology Microbiology Results: Microbiology 02/13/21 18:13 Blood - Venous Blood Culture - Preliminary No growth after 48 hours. 02/13/21 18:24 Blood - Venous Blood Culture - Preliminary No growth after 48 hours. 02/05/21 21:05 Blood - Venous Blood Culture - Final No growth after 5 days. 02/05/21 21:04 Blood - Venous Blood Culture - Final No growth after 5 days. 02/05/21 19:48 Urine clean catch - Clean Catch Midstream Urine Culture - Final Assessment and Plan (1) Headache: Status: Acute 50 years old man with bilateral frontal headache probably related to underlying medical condition infection. He denied any previous history of headaches. He did not have clear signs of meningitis or meningismus. At this time I would suggest symptomatic treatment of headache with p.r.n. sumatriptan or Fioricet but I would also avoid higher doses or long-term use. This is because of his underlying brain pathology that could put him at risk for addictive behavior. 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 This was an incidental finding. Procedures Date of Service Date of Service: 02/18/21
[2021-02-19] MEDS: HYDROmorphone HCl 1 MG/ML SYRINGE 3 MG IVPUSH ×7 (02:07→23:12)
[2021-02-19] MEDS: Butalb/Acetamin/Caff 50/325/40 TABLET 1 TAB PO ×2 (02:07→16:13)
[2021-02-19] MEDS: diphenhydrAMINE HCL 50 MG/ML VIAL 25 MG IVPUSH ×5 (02:08→23:11)
[2021-02-19 03:31] VITALS: BP 109/72; PULSE 79; RESP 18; TEMP 37; O2SAT 95
[2021-02-19] MEDS: Omeprazole 40 MG CAPSULE.DR PO ×2 (05:44→16:05)
[2021-02-19 07:44] VITALS: BP 124/81; PULSE 69; RESP 16; TEMP 36; O2SAT 95
--- NOTE | 2021-02-19 08:33 | MHC.CM.PN ---
dc plan remains the same, for patient to return home no svcs. cm to cont. to follow.
[2021-02-19] MEDS: methADONE HCl 5 MG TABLET PO ×3 (09:04→20:13)
[2021-02-19] MEDS: diphenhydrAMINE HCL 50 MG/ML VIAL IVPUSH ×2 (09:05→20:14)
[2021-02-19] MEDS: 0.9 % Sodium Chloride Flush 3 ML SYRINGE IVFLUSH ×2 (09:06→16:05)
[2021-02-19 11:28] VITALS: BP 138/97; PULSE 62; RESP 16; TEMP 36; O2SAT 96
[2021-02-19] MEDS: Acetaminophen 325 MG TABLET 650 MG PO ×3 (11:29→23:10)
[2021-02-19] MEDS: Cyclobenzaprine HCl 10 MG TABLET PO (11:29)
[2021-02-19] MEDS: ondansetron HCL 4 MG/2 ML VIAL IVPUSH (11:36)
--- NOTE | 2021-02-19 13:42 | P.PNIM_ITS ---
Subjective Subjective Date of Service: 02/19/21 Interval History: the patient was seen and evaluated this morning Laying in bed, long pain better controlled at this point Still complaining of significant headache shooting and constant Denies any fever, chills or shortness of breath No reported other overnight events. Systemic review: No fever, chills or weakness No chest pain, palpitation No shortness of breath or coughing No abdominal pain, nausea or vomiting Lying pain, hematuria No any rash or wounds Physical Exam Vital Signs: Vital Signs: Last Vital Signs Temp 96.8 F 02/19/21 11:28 Pulse 62 02/19/21 11:28 Resp 16 02/19/21 11:28 BP 138/97 H 02/19/21 11:28 Pulse Ox 96 02/19/21 11:28 Body Mass Index 38.0 Const: Other: Constitutional : Alert, oriented, not in distress Neck : Normal inspection, Supple Cardiovascular : RRR, S1 S2, no lower extremity edema Respiratory : Good bilateral air entry, no crackles, wheezes or rhonchi Gastrointestinal: soft, lax, Normal bowel sounds, Non tender Skin : Warm/Dry Urology: Bloody tinged urine Neurological : Alert & oriented x3, No focal deficit Objective Data Current Medications Generic Name Dose Route Start Last Admin Trade Name Freq PRN Reason Stop Dose Admin Acetaminophen 650 mg 02/19/21 10:30 02/19/21 11:29 Acetaminophen 325 Mg Tablet PO 650 mg RQ8H TONY Administration Acetaminophen/Butalbital/Caffeine 1 tab 02/15/21 11:49 02/19/21 02:07 Butalb/Acetamin/Caff 50/325/40 Tablet PO 1 tab Q4H PRN Administration headache Diphenhydramine HCl 25 mg 02/06/21 01:28 02/19/21 11:37 Diphenhydramine Hcl 50 Mg/Ml Vial IVPUSH 25 mg Q3H PRN Administration Allergic Reaction Diphenhydramine HCl 50 mg 02/06/21 01:28 02/19/21 09:05 Diphenhydramine Hcl 50 Mg/Ml Vial IVPUSH 50 mg BID TONY Administration Docusate Sodium 100 mg 02/06/21 01:28 Docusate Sodium 100 Mg Capsule PO DAILY PRN Constipation Hydromorphone HCl 3 mg 02/14/21 13:33 02/19/21 11:37 Hydromorphone Hcl 1 Mg/Ml Syringe IVPUSH 3 mg Q3H PRN Administration Breakthrough Pain Methadone HCl 5 mg 02/14/21 15:00 02/19/21 09:04 Methadone Hcl 5 Mg Tablet PO 5 mg TID TONY Administration Omeprazole 40 mg 02/06/21 08:50 02/19/21 05:44 Omeprazole 40 Mg Capsule. PO 40 mg BID@0630,5940 TONY Administration Ondansetron HCl 4 mg 02/06/21 01:28 02/19/21 11:36 Ondansetron Hcl 4 Mg/2 Ml Vial IVPUSH 4 mg Q8H PRN Administration Nausea and Vomiting Polyethylene Glycol 17 gm 02/12/21 09:00 02/19/21 09:05 Polyethylene Glycol 3350 17 Gm Powd.Pack PO Not Given DAILY TONY Sodium Chloride 3 ml 02/06/21 01:28 02/19/21 09:06 0.9 % Sodium Chloride Flush 3 Ml Syringe IVFLUSH 3 ml QSHIFT TONY Administration Sumatriptan Succinate 50 mg 02/17/21 14:15 02/18/21 12:26 Sumatriptan Succinate 50 Mg Tablet PO 50 mg DAILY PRN Administration headache Labs CBC & Chem 7: 02/17/21 06:32 02/17/21 06:32 Microbiology Microbiology Results: Microbiology 02/13/21 18:13 Blood Culture - Final Blood - Venous No growth after 5 days. 02/13/21 18:24 Blood Culture - Final Blood - Venous No growth after 5 days. Assessment and Plan (1) Frontotemporal lobar degeneration: Status: Acute (2) Headache: Status: Acute (3) Loin pain hematuria syndrome: Status: Acute (4) Hematuria: Status: Acute Assessment and Plan: hospital d#14 the 50yo M with loin pain hematuria syndrome admitted for sepsis due to UTI # sepsis due to UTI - resolved, treated with 7d of IV ceftriaxone, cultures negative # loin pain hematuria syndrome - continue prn IV hydromorphone. pt's home regimen is 8 mg ER bid plus 4 mg IR qid prn breakthrough pain, plus 15 mg/d methadone. - pt is seen by Dr Gifford from Nephrology. 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 pt has been septic 6x from UTIs. scheduled to have L ureter removed/denervated/shortened and may undergo auto transplant of the R kidney in future. # GUNTER - continue Fioricet and sumatriptan as needed - start around the clock Tylenol - neurology input appreciated, continue symptomatic treatment # HTN - continue amlodipine # GERD - continue PPI # VTE ppx - SCDs Quality Stroke Does the patient have a stroke diagnosis?: No VTE Prior VTE?: No VTE Risk Level:: Medical - moderate - high VTE Device Contraindication: N/A - Device Ordered VTE Drug Contraindication: Treatment Not Indicated
[2021-02-19 15:58] VITALS: BP 148/105; PULSE 74; RESP 18; TEMP 36.1; O2SAT 93
[2021-02-19 19:26] VITALS: BP 126/92; PULSE 68; RESP 18; TEMP 36.1; O2SAT 95
[2021-02-19 23:56] VITALS: BP 124/83; PULSE 68; RESP 18; TEMP 36.2; O2SAT 97
[2021-02-20] MEDS: HYDROmorphone HCl 1 MG/ML SYRINGE 3 MG IVPUSH ×3 (02:23→08:59)
[2021-02-20] MEDS: diphenhydrAMINE HCL 50 MG/ML VIAL 25 MG IVPUSH ×2 (02:23→06:04)
[2021-02-20] MEDS: Butalb/Acetamin/Caff 50/325/40 TABLET 1 TAB PO (02:28)
[2021-02-20 03:51] VITALS: BP 118/78; PULSE 72; RESP 18; TEMP 36.1; O2SAT 96
[2021-02-20] MEDS: Omeprazole 40 MG CAPSULE.DR PO (06:04)
[2021-02-20 07:50] VITALS: BP 118/81; PULSE 70; RESP 17; TEMP 36.3; O2SAT 95
[2021-02-20] MEDS: Acetaminophen 325 MG TABLET 650 MG PO (08:57)
[2021-02-20] MEDS: 0.9 % Sodium Chloride Flush 3 ML SYRINGE IVFLUSH (08:58)
[2021-02-20] MEDS: diphenhydrAMINE HCL 50 MG/ML VIAL IVPUSH (08:58)
[2021-02-20] MEDS: methADONE HCl 5 MG TABLET PO (08:58)
--- NOTE | 2021-02-20 11:45 | P.DS_ITS ---
DS: Providers Provider Date of Service: 02/20/21 Date of admission: 02/06/21 01:28 Primary care physician: Nonstaff Physician Consults: 02/14/21 14:51 Consult to Infectious Diseases Routine Consulting Provider: Yamilet Joyce Reason for consultation: fever Has provider been notified: No 02/18/21 15:59 Consult to Neurology Routine Consulting Provider: [facility] Reason for consultation: recalcitrant frontal GUNTER DS: Diagnosis Discharge Diagnosis (1) Frontotemporal lobar degeneration: Status: Acute (2) Headache: Status: Acute (3) Loin pain hematuria syndrome: Status: Acute (4) Hematuria: Status: Acute (5) Sepsis: Status: Acute (6) Acute UTI: Status: Acute DS: Medications Discharge Medications Home Medications: Home Medications Medication Instructions Recorded Confirmed Baby Aspirin 81 mg PO 02/06/21 Protonix 40 mg PO BID 02/06/21 02/06/21 amlodipine 10 mg PO DAILY 02/06/21 02/06/21 hydromorphone 4 mg tablet tab PO QID 02/06/21 hydromorphone 8 mg tablet,extended 1 tab PO BID 02/06/21 02/06/21 release 24 hr methadone 5 mg tablet See Rx Instructions .ROUTE .COMPLEX 02/06/21 ondansetron 4 mg disintegrating 2 tab PO Q8H PRN 02/06/21 02/06/21 tablet Previous Rx's Medication Instructions Recorded rqjuoxudeu-wlrrowmddsjlz-dukfrrvm 1 tab PO Q4H PRN #20 tab 02/20/21 50 mg-325 mg-40 mg tablet DS: Summary Hospital Course Hospital Course: Admission note HPI ?This is a 50-year-old male with past medical history of loin pain hematuria syndrome, history of AFib status post cardioversion currently not on anticoagulation, history of left kidney autotransplantation with recurrent flares who presents to the hospital with abdominal pain and hematuria and reports that he most likely has a a flare of his hematuria syndrome.? Patient has a note from his motor vehicle field representative's with directions.? Patient reports that he was at [facility] few months ago for the same reason, was treated with pain control with resolution of his symptoms few days after.? Patient reports that his symp toms usually last about 2-3 days and resolved spontaneously.? He has a history of left kidney auto transplantation, his left kidney is now localized in the left pelvic region.? He reports pain in that area radiating to the left flank as well as to the groin, pain is 10/10, associated with nausea but no vomiting, no fever or chills, no diarrhea constipation, no lower extremity edema.? No shortness of breath, chest pain, no cough, no numbness tingling or weakness. On arrival to the ED hemodynamically stable with a temp of a 100.7?, heart rate of 107, respiratory rate of 16, blood pressure 130/86, satting 95% on room air Labs are significant for WBC count of 11.4, BMP unremarkable, UA positive for nitrites, , with urine blood Hospital course Patient was admitted mainly for low in pain hematuria syndrome with picture of sepsis and UTI at presentation treated with IV antibiotics of ceftriaxone for 7 days with good response. Hematuria continue to be on and off during that time associated with significant loin pain requiring IV Dilaudid. Patient remain in the hospital and to the urine cleared up and his pain was controlled with minimal IV Dilaudid needed. Noticed to headache during 2nd week of his hospital stay evaluated by images and neurology evaluation and recommendations for symptomatic treatment only. CT scan showed from frontotemporal lobar degeneration which is not specific at this age but might indicate a start early dementia. Time Spent with Patient Time attestation: Total time spent providing and/or coordinating discharge services: Discharge coordination time: Greater than 30 minutes Quality: Stroke Does the patient have a stroke diagnosis?: No Physical Exam Vital Signs: Vital Signs: Last Vital Signs Temp 97.3 F 02/20/21 07:50 Pulse 70 02/20/21 07:50 Resp 17 02/20/21 07:50 BP 118/81 02/20/21 07:50 Pulse Ox 95 02/20/21 07:50 Body Mass Index 38.0 Const: Other: Constitutional : Alert, oriented, not in distress Neck : Normal inspection, Supple Cardiovascular : RRR, S1 S2, no lower extremity edema Respiratory : Good bilateral air entry, no crackles, wheezes or rhonchi Gastrointestinal: soft, lax, Normal bowel sounds, Non tender Skin : Warm/Dry Urology: Urine clear today pair patient Neurological : Alert & oriented x3, No focal deficit Discharge Plan Discharge Patient Disposition: Home, Self-Care Discharge Diagnosis: Low in pain hematuria syndrome Referrals: Physician,Nonstaff [Primary Care Provider] - 1 Week Discharge Medications: New fvrndamqyb-hqpgtrtqcamcr-udkg 50-325-40 mg Tablet 1 tab PO Q4H PRN (Reason: headache ) Qty: 20 RF: 0 Continued hydromorphone 8 mg tablet extended release 24 hr 1 tab PO BID RF: 0 hydromorphone 4 mg tablet PO QID RF: 0 methadone 5 mg tablet See Rx Instructions .ROUTE .COMPLEX RF: 0 ondansetron 4 mg tablet,disintegrating 2 tab PO Q8H PRN (Reason: Nausea) RF: 0 Baby Aspirin 81 mg PO RF: 0 Protonix 40 mg PO BID RF: 0 amlodipine 10 mg PO DAILY RF: 0 Discharge Orders: Discharge Order (Routine); Ordered 02/20/21 Ordered By: Octavia Castillo Diet: advance to usual diet Activity on Discharge: As tolerated Stand Alone Forms: Patient Portal Discharge page Care Plan Goals: Read below Health Concerns: Read below Plan of Treatment: You were admitted to the hospital for hematuria and low in pain syndrome. Tr eated mainly with IV pain medications until hematuria improved. You were also treated with IV antibiotics for urine infection. Finish total of 7 days of antibiotics. Evaluated by Neurology for repeated headaches. Improved with usage of headache medications. Assessment: Continue home medications as prescribed Use Fioricet as needed for headache To follow-up with your motor vehicle field representative as outpatient as scheduled
[2021-02-20 12:04] VITALS: BP 134/88; PULSE 75; RESP 17; TEMP 36.4; O2SAT 97
--- NOTE | 2021-02-20 12:16 | MHC.CM.PN ---
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 MEDICARE UPDATED 02/18/21 DISCHARGE PLAN HOME NO SERVICES PATIENT TO SELF RESUME HIS METHADONE CLIN IC PCP FOLLOW UP WITH HIS PCP AND SPECIALISTS TRANSPORTATION FAMILY
[2021-02-20] MEDS: Heparin Sodium,Porcine Flush 50 UNITS/5 ML SYRINGE IVFLUSH (13:29)
== END 2021-02-20 13:39 | disposition home or self-care (01) | DRG 872 ==
LOC: HO.ED 02-06 00:49 → HO.EDOVER 02-06 02:35 → HO.S3 02-06 09:08
PROVIDERS: Family Medicine; Internal Medicine; Nurse Practitioner Acute Care; Admitting Provider Internal Medicine; Emergency Provider Internal Medicine; Visit Provider Student in an Organized Health Care Education/Training Program
DX: A41.9 Sepsis, unspecified organism (principal); F11.20 Opioid dependence, uncomplicated; N39.0 Urinary tract infection, site not specified; R51.9 Headache, unspecified; K21.9 Gastro-esophageal reflux disease without esophagitis; I10 Essential (primary) hypertension; I48.0 Paroxysmal atrial fibrillation; Z87.442 Personal history of urinary calculi; Z20.822 Contact with and (suspected) exposure to COVID-19; Z88.5 Allergy status to narcotic agent; Z79.899 Other long term (current) drug therapy
CPT/HCPCS: 36415; 70450; 71045; 74176; 80048; 80053; 80076; 81001; 81003; 83605; 83690; 85025; 85027; 85610; 86140; 87040; 87086; 87635; 99283; 99285; J0696; J1170; J1200; J1642; J1885; J2405; J2543; J3370

== ENCOUNTER 2021-02-22 10:22 | Inpatient (IN) | payer MEDICARE, MEDICAID, SELFPAY ==
[2021-02-22] VITALS (8 sets, daily range): BP systolic 121–147; BP diastolic 78–103; PULSE 76–145; RESP 16–24; TEMP 36.1–37.1; O2SAT 95–96; BMI 32.8; BMI 31.1
--- NOTE | ~2021-02-22 | US_ITS ---
EXAMINATION: US RETROPERITONEAL COMPLETE (RENAL) CLINICAL INFORMATION: Gross hematuria. Assess kidneys and bladder.. COMPARISON: None TECHNIQUE: Real-time imaging of the kidneys and bladder. FINDINGS: RIGHT KIDNEY: 10.8 x 4.7 x 4.8 cm (SAG x AP x TRV). The kidney is normal in size, contour, and echogenicity. Renal cortical thickness is normal. There is a 0.4 cm upper/midpole calcification but no shadowing. No additional echogenic calcifications or calculi seen. There is no caliectasis or hydronephrosis. LEFT KIDNEY: 9.7 x 4.4 x 4.1 cm (SAG x AP x TRV). The kidney is normal in size, contour, and echogenicity. Renal cortical thickness is normal. No calculi or focal parenchymal lesions. No hydronephrosis. There is a hypoechoic area in the lower pole with normal blood flow measuring 2.1 x 1.5 x 1.5 cm. The kidney is slightly ectopic lower in the abdomen. BLADDER: Well distended and normal. Bilateral ureteral jets are demonstrated. Prevoid bladder volume is 29 mL. Postvoid bladder volume is not obtained. The prostate volume measures 16.9 mL. US/US retroperitoneal comp IMPRESSION: 4 mm cortical calcification upper midpole right kidney. Otherwise right kidney is unremarkable. Hypoechoic masslike area in the lower pole measuring 2.1 cm with normal blood flow. Mass versus focal lobulation. No such mass or abnormality was seen on the CT abdomen exam performed 02/14/2021. A dedicated MRI or CT kidney with and without contrast should be performed.
--- NOTE | 2021-02-22 11:44 | ECG_ITS ---
Test Reason : BACK PAIN Blood Pressure : / mmHG Vent. Rate : 121 BPM Atrial Rate : 121 BPM P-R Int : 150 ms QRS Dur : 084 ms QT Int : 322 ms P-R-T Axes : 051 -68 066 degrees QTc Int : 457 ms Sinus tachycardia Left anterior fascicular block Possible Lateral infarct , age undetermined Abnormal ECG When compared with ECG of 26-SEP-2019 13:41, Borderline criteria for Lateral infarct are now Present ST now depressed in Anterior leads Referred By: Kelsey Luz Electronically Signed By:LEANN RIVER
[2021-02-22] MEDS: HYDROmorphone HCl 1 MG/ML SYRINGE IVPUSH (11:51)
[2021-02-22 11:52] LABS: Basophils Absolute Auto 0.1 X10*3/uL (0.0-0.2); Basophils Percent Auto 0.8 % (0-2); Imm Gran Abs Auto 0.02 X10*3/uL (0.00-0.03); Imm Gran Pct Auto 0.3 % (0.0-0.4); MANUAL DIFF FLAG SCAN; Mean Corpuscular HGB Conc 32.4 g/dl (31.0-36.0); Mean Corpuscular Hemoglobin 26.4 pg (27.0-33.0); PLT CLUMP 1; SCAN SMEAR FLAG 1
[2021-02-22 11:54] LABS: Eosinophils Absolute Auto 0.6 X10*3/uL (0.0-0.4); Eosinophils Percent Auto 8.3 % (0-4); Hematocrit 45.1 % (42-52); Hemoglobin 14.6 g/dl (14.0-18.0); Lymphocytes Absolute Auto 1.6 X10*3/uL (1.2-4.9); Lymphocytes Percent Auto 20.7 % (20-40); Mean Corpuscular Volume 81.7 fL (80-98); Mean Platelet Volume 11.3 fL (9.4-12.4); Monocytes Absolute Auto 0.4 X10*3/uL (0.1-1.2); Monocytes Percent Auto 4.6 % (2-11); Neutrophils Percent Auto 65.3 % (45-73); Red Blood Count 5.52 X10*6/uL (4.60-5.80); Red Cell Distribution Width 16.3 % (11.0-16.0); White Blood Count 7.7 X10*3/uL (4.8-10.8)
[2021-02-22 12:00] LABS: PLT ABN DIST 1
[2021-02-22] MEDS: HYDROmorphone HCl 2 MG/ML VIAL IVPUSH ×2 (12:02→14:04)
[2021-02-22] MEDS: diphenhydrAMINE HCL 50 MG/ML VIAL IVPUSH ×3 (12:02→20:18)
[2021-02-22 12:03] LABS: Glucose Urine UA NEG (NEG); Leukocyte Esterase Urine NEG (NEG); Nitrite Urine NEG (NEG); Specific Gravity - Urine >= 1.030 (1.005-1.025); UACC Culture Trigger NO; Urine Blood 3+ (NEG); Urine Ketones NEG (NEG); Urine Protein 3+ MG/DL (NEG-TRACE)
[2021-02-22] MEDS: 0.9 % Sodium Chloride 1,983 ML 1983 ML IV (12:07)
[2021-02-22 12:09] LABS: Appearance Urine TURBID; Color Urine RED
[2021-02-22 12:11] LABS: RBC Urine TNTC /HPF (0); WBC Urine 0-2 /HPF (0-4)
[2021-02-22 12:20] LABS: Alanine Aminotransferase 25 U/L (0-40); Albumin Level 4.3 g/dL (3.5-5.0); Alkaline Phosphatase 99 U/L (39-117); Anion Gap 17 (12-20); Aspartate Amino Transferase 19 U/L (5-37); Bilirubin Total 0.3 mg/dL (0.0-1.0); Blood Urea Nitrogen 11 mg/dL (9-16); Calcium 9.9 mg/dL (8.4-10.2); Carbon Dioxide 25 mmol/L (22-29); Chloride 103 mmol/L (96-108); Creatinine Clr Calc Pharmacy 90.5; Estimated Glomerular Filt Rate > 60; Glucose Random 150 mg/dL (60-115); Lipase 29 U/L (8-78); Potassium 3.3 mmol/L (3.3-5.1); Sodium 142 mmol/L (135-145); Total Protein 7.5 g/dL (6.5-8.0)
--- NOTE | 2021-02-22 12:23 | PC.NURSE ---
power port accessed, labs obtained, ekg performed, pt medicated for pain and nausea, surveillance monitor applied- sinus tach 140s, pt initially c/o 10/10 pain after being medicated patient states his pain is now down to a 7/10, urine obtained-hematuria noted, will continue to mo nitor.
[2021-02-22 12:51] LABS: SLIDE REVIEW VERIFIED
[2021-02-22 12:54] LABS: Lactic Acid 1.4 mmol/L (0.5-2.0)
--- NOTE | 2021-02-22 12:55 | ED.ABDPAIN ---
HPI - Abdominal Pain General Chief Complaint: Back Pain/Injury Stated Complaint: left kidney pain Time Seen by Provider: 02/22/21 11:43 Source: patient Mode of arrival: ambulatory Limitations: no limitations History of Present Illness HPI narrative: 50-year-old male with a past medical history of lone pain hematuria syndrome, atrial fibrillation status post cardioversion not on any anticoagulation, left kidney autotransplantation with recurrent flares?for left flank pain with hematuria that started today. He reports he feels as if someone is scraping his kidney with Valente paper. The pain is constant which is 10/10. He reports he has had this in the past and is similar when compared to prior. He denies any fevers, chills, dizziness, headaches, chest pain, shortness of breath, radiation of the abdominal pain, dysuria, abnormal penile discharge, diarrhea or constipation or any other symptoms complaints or concerns at this time. 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 MD elicited complaint: flank pain Pertinent past history: other (Lone pain hematuria syndrome) Onset (ago): hour(s) Pain Consistency: constant Location: L flank Severity: severe Pain scale (0-10): 10 Quality: other ( scraping sensation) Radiation: none Migration to: no migration Exacerbating factors: nothing Relieving factors: nothing Context: history of similar episodes Associated symptoms: hematuria Related Data Home Medications Medication Instructions Recorded Confirmed Baby Aspirin 81 mg PO 02/06/21 Protonix 40 mg PO BID 02/06/21 02/06/21 amlodipine 10 mg PO DAILY 02/06/21 02/06/21 hydromorphone 4 mg tablet tab PO QID 02/06/21 hydromorphone 8 mg tablet,extended 1 tab PO BID 02/06/21 02/06/21 release 24 hr methadone 5 mg tablet See Rx Instructions .ROUTE .COMPLEX 02/06/21 ondansetron 4 mg disintegrating 2 tab PO Q8H PRN 02/06/21 02/06/21 tablet Previous Rx's Medication Instructions Recorded [id number] 1 tab PO Q4H PRN #20 tab 02/20/21 50 mg-325 mg-40 mg tablet Allergies Allergy/AdvReac Type Severity Reaction Status Date / Time buprenorphine [From SUBOXONE] Allergy Unknown HIVES Verified 02/06/21 15:51 Iodinated Contrast Media Allergy Unknown ANAPHYLAXIS Verified 02/06/21 15:51 [IV CONTRAST] morphine [MORPHINE] Allergy Unknown HIVES Verified 02/06/21 15:51 naloxone [From SUBOXONE] Allergy Unknown HIVES Verified 02/06/21 15:51 naproxen [NAPROXEN] Allergy Unknown HIVES Verified 02/06/21 15:51 Review of Systems Review of Systems Constitutional : No Weight loss, No Fever, No Chills, No Night Sweats, No Fatigue, NoMalaise ENT/Mouth: No ear pain, No sore throat, No Difficulty swallowing Cardiovascular : No Chest Pain, No SOB, No Dyspnea on Exertion, No Orthopnea, NoEdema, No Palpitations Respiratory : No Cough, No Sputum, No Wheezing, No Dyspnea Gastrointestinal : + abdominal/flank pain, No Nausea, No Vomiting, No Diarrhea, No Hematochezia, No Melena Genitourinary : + Hematuria, No testicular pain right-sided, No irregular bleeding, No Dysuria, No Urinary Frequency, No Urinary Incontinence, No Urgency Musculoskeletal : No joint pain, No Myalgias, No Joint Swelling Skin : No Skin Lesions, No rash Neuro : No Weakness, No Numbness, No Paresthesias, No Loss of Consciousness, NoDizziness, No Headache Psych : No Social Issues, Heme/Lymph: No Bruising, No Bleeding,No Lymphadenopathy Endocrine : No Polyuria, No Polydipsia, No Temperature Intolerance PATIENT DENIES ANY THOUGHTS OF STDS Yes all other systems are reviewed and are negative Physical Exam Vital Signs: Vital Signs: Last Vital Signs Temp 98.7 F 02/22/21 13:50 Pulse 84 02/22/21 13:50 Resp 18 02/22/21 13:50 BP 138/87 02/22/21 13:50 Pulse Ox 95 02/22/21 13:50 Body Mass Index 32.8 vital signs have been reviewed as normal and appeared to be correct. Blood pressure hypertensive 146/102 Heart rate tachycardic at 145. Respiration rate tachypneic at 24. Temperature normal. Oxygen saturation normal. Appearance: Alert. Oriented X3. In severe pain otherwise no other acute distress. Head: Normal external exam. Normocephalic. Eyes: PERRLA. EOMI. Conjunctiva and sclera normal. Eyelids normal. ENT: Pharynx normal. Uvula midline. Moist mucous membranes. Neck: Normal inspection. Neck supple. FROM. No adenopathy. No meningeal signs. CVS: Normal heart rate and rhythm. Heart sound normal. No murmurs noted. Pulses normal throughout. Respiratory: No respiratory distress. Painless inspiration. Breath sounds normal. No wheezes/rales/rhonchi noted. Chest nontender. No accessory muscle usage noted or decreased air movement noted. Abdomen: Soft and moderate tenderness to palpation to left lower quadrant/left flank area with guarding. Nondistended. No rigidity. Bowel sounds normal in all 4 quadrants. No distention noted. No organomegaly noted. No visible injury noted. No rebound tenderness. Negative Rovsing sign. Negative obturator's sign. Negative psoas sign. Negative Zuleta sign. Back: No CVA tenderness. Full range of motion noted. Skin: Skin warm and dry. Normal skin color. Normal skin turgor. No rashes/lesions/lacerations noted. Extremities: Extremities exhibit normal range of motion. Extremities nontender. Neuro: Oriented X 3. No motor deficit. No sensory deficit. Reflexes normal. Normal steady gait. Course Course Course Narrative: 11:40am - 50-year-old male with a past medical history of lone pain hematuria syndrome, atrial fibrillation status post cardioversion not on any anticoagulation, left kidney autotransplantation with recurrent flares?for left flank pain presenting to the ED with complaints of hematuria that started today. He reports he feels as if someone is scraping his kidney with Valente paper. The pain is constant which is 10/10. He reports he has had this in the past and is similar when compared to prior. 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 Plan: Labs, blood cultures, lactic acid, EKG, renal/bladder ultrasound, rapid COVID swab. Provide a L of IV fluids, Dilaudid, Zofran and Benadryl then re-evaluate. Reevaluation(s) Reevaluation #1: - labs reviewed patient with a random glucose of 150. Otherwise all other labs including lactic acid within normal limits. UA revealed +3 protein and +3 blood otherwise no evidence of UTI. COVID swab negative. - Renal ultrasound revealed IMPRESSION: 4 mm cortical calcification upper midpole right kidney. Otherwise right kidney is unremarkable. ? Hypoechoic masslike area in the lower pole measuring 2.1 cm with normal blood flow. Mass versus focal lobulation. No such mass or abnormality was seen on the CT abdomen exam performed 02/14/2021. A dedicated MRI or CT kidney with and without contrast should be performed. - therefore patient will be admitted to Dr. Castillo at this time for lone pain hematuria syndrome. Patient understands agrees with this plan. Time: 14:31 [facility] - Abdominal Pain Medical Records Attestation: I reviewed the patient's medical records. Lab Data Attestation: I reviewed the patient's lab results. Result diagrams: 02/22/21 11:44 02/22/21 11:44 Labs: Lab Results 02/22/21 02/22/21 02/22/21 Range/Units 11:44 11:44 11:44 WBC 7.7 (4.8-10.8) X10*3/uL RBC 5.52 (4.60-5.80) X10*6/uL Hgb 14.6 (14.0-18.0) g/dl Hct 45.1 (42-52) % MCV 81.7 (80-98) fL MCH 26.4 L (27.0-33.0) pg MCHC 32.4 (31.0-36.0) g/dl RDW 16.3 H (11.0-16.0) % Plt Count TNP MPV 11.3 (9.4-12.4) fL Immature Gran % (Auto) 0.3 (0.0-0.4) % Neut % (Auto) 65.3 (45-73) % Lymph % (Auto) 20.7 (20-40) % [place] % (Auto) 4.6 (2-11) % Eos % (Auto) 8.3 H (0-4) % Baso % (Auto) 0.8 (0-2) % Lymph # (Auto) 1.6 (1.2-4.9) X10*3/uL [place] # (Auto) 0.4 (0.1-1.2) X10*3/uL Eos # (Auto) 0.6 H (0.0-0.4) X10*3/uL Baso # (Auto) 0.1 (0.0-0.2) X10*3/uL Abs Immat Gran (auto) 0.02 (0.00-0.03) X10*3/uL Absolute Neuts (auto) 5.0 (2.0-8.3) X10*3/uL Absolute Nucleated RBC 0.000 (0.0-0.012) X10*3/uL Nucleated RBC % (auto) 0.0 (0.0-0.2) /100WBC Smear Tech's Comments VERIFIED Sodium 142 (135-145) mmol/L Potassium 3.3 (3.3-5.1) mmol/L Chloride 103 (96-108) mmol/L Carbon Dioxide 25 (22-29) mmol/L Anion Gap 17 (12-20) BUN 11 (9-16) mg/dL Creatinine 1.05 (0.5-1.4) mg/dL Estim Creat Clear Calc 90.5 Estimated GFR > 60 Random Glucose 150 H D (60-115) mg/dL Lactic Acid (0.5-2.0) mmol/L Calcium 9.9 D (8.4-10.2) mg/dL Total Bilirubin 0.3 (0.0-1.0) mg/dL AST 19 (5-37) U/L ALT 25 (0-40) U/L Alkaline Phosphatase 99 (39-117) U/L Total Protein 7.5 (6.5-8.0) g/dL Albumin 4.3 (3.5-5.0) g/dL Lipase 29 (8-78) U/L Urine Color RED Urine Appearance TURBID Urine pH 6.0 (5.0-8.0) Ur Specific [place] >= 1.030 H (1.005-1.025) Urine Protein 3+ H (NEG-TRACE) MG/DL Urine Glucose (UA) NEG (NEG) MG/DL Urine Ketones NEG (NEG) MG/DL Urine Blood 3+ H (NEG) Urine Nitrite NEG (NEG) Ur Leukocyte Esterase NEG (NEG) Urine RBC TNTC H (0) /HPF Urine WBC 0-2 (0-4) /HPF Ur Squamous Epith Cells Not Reportable Urine Bacteria Not Reportable COVID-19 (ANNETTE) (Negative) COVID-19 Clin Com 02/22/21 02/22/21 Range/Units 12:25 12:35 WBC (4.8-10.8) X10*3/uL RBC (4.60-5.80) X10*6/uL Hgb (14.0-18.0) g/dl Hct (42-52) % MCV (80-98) fL MCH (27.0-33.0) pg MCHC (31.0-36.0) g/dl RDW (11.0-16.0) % Plt Count MPV (9.4-12.4) fL Immature Gran % (Auto) (0.0-0.4) % Neut % (Auto) (45-73) % Lymph % (Auto) (20-40) % [place] % (Auto) (2-11) % Eos % (Auto) (0-4) % Baso % (Auto) (0-2) % Lymph # (Auto) (1.2-4.9) X10*3/uL [place] # (Auto) (0.1-1.2) X10*3/uL Eos # (Auto) (0.0-0.4) X10*3/uL Baso # (Auto) (0.0-0.2) X10*3/uL Abs Immat Gran (auto) (0.00-0.03) X10*3/uL Absolute Neuts (auto) (2.0-8.3) X10*3/uL Absolute Nucleated RBC (0.0-0.012) X10*3/uL Nucleated RBC % (auto) (0.0-0.2) /100WBC Smear Tech's Comments Sodium (135-145) mmol/L Potassium (3.3-5.1) mmol/L Chloride (96-108) mmol/L Carbon Dioxide (22-29) mmol/L Anion Gap (12-20) BUN (9-16) mg/dL Creatinine (0.5-1.4) mg/dL Estim Creat Clear Calc Estimated GFR Random Glucose (60-115) mg/dL Lactic Acid 1.4 (0.5-2.0) mmol/L Calcium (8.4-10.2) mg/dL Total Bilirubin (0.0-1.0) mg/dL AST (5-37) U/L ALT (0-40) U/L Alkaline Phosphatase (39-117) U/L Total Protein (6.5-8.0) g/dL Albumin (3.5-5.0) g/dL Lipase (8-78) U/L Urine Color Urine Appearance Urine pH (5.0-8.0) Ur Specific [place] (1.005-1.025) Urine Protein (NEG-TRACE) MG/DL Urine Glucose (UA) (NEG) MG/DL Urine Ketones (NEG) MG/DL Urine Blood (NEG) Urine Nitrite (NEG) Ur Leukocyte Esterase (NEG) Urine RBC (0) /HPF Urine WBC (0-4) /HPF Ur Squamous Epith Cells Urine Bacteria COVID-19 (ANNETTE) Negative (Negative) COVID-19 Clin Com See Note ECG Data Attestation: I personally reviewed and interpreted this ECG as follows: ECG interpretation date: 02/22/21 ECG interpretation time: 11:53 Interpretation: Sinus tachycardia with ventricular rate of 121 with left anterior fascicular block with nonspecific ST abnormalities no acute ischemic changes are noted. Similar compared to prior EKG on 09/26/2019. Critical Care Time Critical Care Time Critical Care Time: Yes Total Critical Care Time: 60 Attestation: I personally attest to this time spent taking care of the patient Discharge Plan Discharge Clinical Impression: Loin pain hematuria syndrome Patient Disposition: Admitted As Inpatient [facility] Past Medical History Attestation statement: The following information was validated with the patient. Medical History A-fib Leal esophagus Hematuria History of cardioversion Loin pain hematuria syndrome Sepsis Surgical History History of hernia surgery Hx of tonsillectomy Status post kidney autotransplantation Social History Social History Household Members: None Housing: Apartment Do you presently have visiting nurse or other home services: No Alcohol intake: never Patient Tobacco Use Status: Never used Tobacco Use of substances other than those prescribed or required for medical reasons: No Advance Directives: No Advance Directives Information Provided: Yes service: No Current occupational status: disabled
[2021-02-22 12:56] LABS: COVID-19 Test Negative (Negative)
--- NOTE | 2021-02-22 13:12 | PC.NURSE ---
pt transported to ultrasound
--- NOTE | 2021-02-22 13:51 | PC.NURSE ---
patient returned from [place], [employer] notified this nurse pt was in pain, notified provider of patients pain, vitals obtained, will continue to monitor.
[2021-02-22] MEDS: cefTRIAXone sodium 2 GM in 0.9 % Sodium Chloride 50 ML IV (14:04)
--- NOTE | 2021-02-22 14:06 | PC.NURSE ---
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
[2021-02-22] MEDS: methADONE HCl 5 MG TABLET PO ×2 (14:41→20:17)
--- NOTE | 2021-02-22 14:50 | PC.NURSE ---
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
--- NOTE | 2021-02-22 14:51 | PC.NURSE ---
patients ivf continue to run slowly, will continue to monitor.
--- NOTE | 2021-02-22 15:09 | PM.IMHP ---
History of Present Illness Date of Service: 02/22/21 Chief Complaint: Hematuria, loin pain a 50-year-old male with PMH of loin pain hematuria syndrome, history of AFib status post cardioversion currently not on anticoagulation, history of left kidney autotransplantation with recurrent flares who presents to the hospital with abdominal pain and hematuria for 1 day duration. The patient was discharged from the hospital 2 nights ago after spending 2 weeks for the same problem. His reporting feeling well on his return home for the 1st 2 nights but this morning he woke up vomiting and was unable to keep anything down associated with significant abdominal pain and nausea all the time. Hematuria showed up as well. He decided to come to the emergency for further evaluation and treatment. Admitted for further evaluation and treatment. Review of Systems Review of Systems: Reported episode of fever no chills or weakness No chest pain, palpitation No shortness of breath or coughing Long pain with associated nausea or vomiting Hematuria, No any rash or wounds PMFSH Medical History A-fib Leal esophagus Hematuria History of cardioversion Loin pain hematuria syndrome Sepsis Surgical History History of hernia surgery Hx of tonsillectomy Status post kidney autotransplantation Social History Household Members: None Housing: Apartment Do you presently have visiting nurse or other home services: No Alcohol intake: never Patient Tobacco Use Status: Never used Tobacco Use of substances other than those prescribed or required for medical reasons: No Advance Directives: No Advance Directives Information Provided: Yes service: No Current occupational status: disabled Meds Allergies Allergy/AdvReac Type Severity Reaction Status Date / Time buprenorphine [From SUBOXONE] Allergy Unknown HIVES Verified 02/06/21 15:51 Iodinated Contrast Media Allergy Unknown ANAPHYLAXIS Verified 02/06/21 15:51 [IV CONTRAST] morphine [MORPHINE] Allergy Unknown HIVES Verified 02/06/21 15:51 naloxone [From SUBOXONE] Allergy Unknown HIVES Verified 02/06/21 15:51 naproxen [NAPROXEN] Allergy Unknown HIVES Verified 02/06/21 15:51 Active Medications: Current Medications Generic Name Dose Route Start Last Admin Trade Name Freq PRN Reason Stop Dose Admin Acetaminophen 650 mg 02/22/21 14:22 Acetaminophen 325 Mg Tablet PO Q6H PRN Pain, Mild (Pain Scale 1-3) Diphenhydramine HCl 50 mg 02/22/21 14:22 Diphenhydramine Hcl 50 Mg/Ml Vial IVPUSH Q4H PRN Allergic Reaction Hydromorphone HCl 3 mg 02/22/21 14:25 Hydromorphone Hcl 0.5 Mg/0.5 Ml Syringe IVPUSH Q4H PRN Pain, Severe (Pain Scale 7-10) Methadone HCl 5 mg 02/22/21 15:00 02/22/21 14:41 Methadone Hcl 5 Mg Tablet PO 5 mg TID [facility] Administration Omeprazole 40 mg 02/22/21 16:30 Omeprazole 40 Mg Capsule. PO BID@0630,6270 [facility] Ondansetron HCl 4 mg 02/22/21 14:27 Ondansetron Hcl 4 Mg/2 Ml Vial IVPUSH Q8H PRN Nausea Sodium Chloride 3 ml 02/22/21 16:00 0.9 % Sodium Chloride Flush 3 Ml Syringe IVFLUSH QSHIFT [facility] Home Medications Medication Instructions Recorded Confirmed Last Taken Type Baby Aspirin 81 mg PO DAILY 02/06/21 02/22/21 02/22/21 05:00 History Protonix 40 mg PO BID 02/06/21 02/22/21 02/21/21 20:00 History amlodipine 10 mg PO DAILY 02/06/21 02/22/21 02/21/21 05:00 History hydromorphone 4 mg tablet 4 tab PO QID 02/06/21 02/22/21 02/22/21 02:00 History (Dilaudid) hydromorphone 8 mg tablet,extended 1 tab PO BID 02/06/21 02/22/21 02/21/21 History release 24 hr methadone 5 mg tablet See Rx Instructions .ROUTE .COMPLEX 02/06/21 02/22/21 02/21/21 20:00 History ondansetron 4 mg disintegrating 2 tab PO Q8H PRN 02/06/21 02/22/21 02/22/21 05:00 History tablet Physical Exam Vital Signs and Narrative: Vital Signs: Last Vital Signs Temp 98.7 F 02/22/21 13:50 Pulse 84 02/22/21 13:50 Resp 18 02/22/21 13:50 BP 138/87 02/22/21 13:50 Pulse Ox 95 02/22/21 13:50 Body Mass Index 32.8 Results Labs CBC and Chem 7: 02/22/21 11:44 02/22/21 11:44 Labs: Laboratory Results - last 24 hr 02/22/21 02/22/21 02/22/21 11:44 11:44 11:44 MCV 81.7 MCH 26.4 L MCHC 32.4 RDW 16.3 H Plt Count TNP MPV 11.3 Immature Gran % (Auto) 0.3 Neut % (Auto) 65.3 Lymph % (Auto) 20.7 [place] % (Auto) 4.6 Eos % (Auto) 8.3 H Baso % (Auto) 0.8 Lymph # (Auto) 1.6 [place] # (Auto) 0.4 Eos # (Auto) 0.6 H Baso # (Auto) 0.1 Abs Immat Gran (auto) 0.02 Absolute Neuts (auto) 5.0 Absolute Nucleated RBC 0.000 Nucleated RBC % (auto) 0.0 Smear Tech's Comments VERIFIED Anion Gap 17 Estim Creat Clear Calc 90.5 Estimated GFR > 60 Random Glucose 150 H D Lactic Acid Calcium 9.9 D Total Bilirubin 0.3 AST 19 ALT 25 Alkaline Phosphatase 99 Total Protein 7.5 Albumin 4.3 Lipase 29 Urine Color RED Urine Appearance TURBID Urine pH 6.0 Ur Specific [place] >= 1.030 H Urine Protein 3+ H Urine Glucose (UA) NEG Urine Ketones NEG Urine Blood 3+ H Urine Nitrite NEG Ur Leukocyte Esterase NEG Urine RBC TNTC H Urine WBC 0-2 Ur Squamous Epith Cells Not Reportable Urine Bacteria Not Reportable COVID-19 (ANNETTE) COVID-19 Clin Com 02/22/21 02/22/21 12:25 12:35 MCV MCH MCHC RDW Plt Count MPV Immature Gran % (Auto) Neut % (Auto) Lymph % (Auto) [place] % (Auto) Eos % (Auto) Baso % (Auto) Lymph # (Auto) [place] # (Auto) Eos # (Auto) Baso # (Auto) Abs Immat Gran (auto) Absolute Neuts (auto) Absolute Nucleated RBC Nucleated RBC % (auto) Smear Tech's Comments Anion Gap Estim Creat Clear Calc Estimated GFR Random Glucose Lactic Acid 1.4 Calcium Total Bilirubin AST ALT Alkaline Phosphatase Total Protein Albumin Lipase Urine Color Urine Appearance Urine pH Ur Specific [place] Urine Protein Urine Glucose (UA) Urine Ketones Urine Blood Urine Nitrite Ur Leukocyte Esterase Urine RBC Urine WBC Ur Squamous Epith Cells Urine Bacteria COVID-19 (ANNETTE) Negative COVID-19 Clin Com See Note Imaging Radiologist's Impressions: Impressions Retroperitoneum Ultrasound 02/22/21 12:55 IMPRESSION: 4 mm cortical calcification upper midpole right kidney. Otherwise right kidney is unremarkable. Hypoechoic masslike area in the lower pole measuring 2.1 cm with normal blood flow. Mass versus focal lobulation. No such mass or abnormality was seen on the CT abdomen exam performed 02/14/2021. A dedicated MRI or CT kidney with and without contrast should be performed. Assessment and Plan (1) Loin pain hematuria syndrome: Status: Acute (2) Fever: Status: Acute 50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 # loin pain hematuria syndrome Start IV hydromorphone pt's home regimen is 8 mg ER bid plus 4 mg IR qid prn breakthrough pain, plus 15 mg/d methadone Seen by Dr Gifford from Nephrology.? ?He underwent denervation and auto-transplant of the L kidney to the pelvic region in 2017.? pt has been septic 6x from UTIs.? scheduled to have L ureter removed/denervated/shortened and may undergo auto transplant of the R kidney in future. Get Nephrology evaluation # nausea and vomiting Secondary to pain and possibly narcotic Use Zofran as needed # Fever Reported an episode of fever last night of 102 Receive ceftriaxone in the emergency Will hold any further antibiotic meanwhile and will monitor his response as he just finished antibiotic course # GUNTER prn Fioricet- try sumatriptan as well # HTN continue amlodipine # GERD continue PPI # VTE ppx SCDs Quality Stroke Does the patient have a stroke diagnosis?: No VTE Prior VTE?: No VTE Risk Level:: Medical - moderate - high VTE Device Contraindication: N/A - Device Ordered VTE Drug Contraindication: Treatment Not Indicated
--- NOTE | 2021-02-22 16:11 | PC.NURSE ---
pt ivf continue to run slowly through power port- port was flushed an additional time, blood return is present but it continues to flow slowly. pt was asked what he would like to order for dinner and patient declined at this time, he stated when he isnt feeling well he generally just eats crackers and gingerale, gingerale was provided at his request, will continue to monitor.
--- NOTE | 2021-02-22 16:15 | PC.NURSE ---
called floor to give report, nurse will call us back
[2021-02-22] MEDS: Omeprazole 40 MG CAPSULE.DR PO (17:04)
[2021-02-22] MEDS: HYDROmorphone HCl 1 MG/ML SYRINGE 3 MG IVPUSH ×3 (17:24→23:05)
[2021-02-22] MEDS: diphenhydrAMINE HCL 50 MG/ML VIAL 25 MG IVPUSH ×2 (20:18→23:04)
[2021-02-22] MEDS: 0.9 % Sodium Chloride Flush 3 ML SYRINGE IVFLUSH (20:19)
[2021-02-23] MEDS: diphenhydrAMINE HCL 50 MG/ML VIAL 25 MG IVPUSH ×5 (02:08→18:10)
[2021-02-23] MEDS: HYDROmorphone HCl 1 MG/ML SYRINGE 3 MG IVPUSH ×7 (02:08→21:17)
[2021-02-23 04:00] VITALS: BP 115/73; PULSE 77; RESP 16; TEMP 36.4; O2SAT 95
[2021-02-23] MEDS: Omeprazole 40 MG CAPSULE.DR PO ×2 (05:19→17:30)
[2021-02-23 05:41] LABS: Hematocrit 38.9 % (42-52); Hemoglobin 12.7 g/dl (14.0-18.0); Mean Corpuscular HGB Conc 32.6 g/dl (31.0-36.0); Mean Corpuscular Hemoglobin 26.7 pg (27.0-33.0); Mean Corpuscular Volume 81.9 fL (80-98); Mean Platelet Volume 10.9 fL (9.4-12.4); Platelet Count 214 X10*3/uL (160-400); Red Blood Count 4.75 X10*6/uL (4.60-5.80); Red Cell Distribution Width 16.6 % (11.0-16.0); White Blood Count 6.8 X10*3/uL (4.8-10.8)
[2021-02-23 06:03] LABS: Anion Gap 15 (12-20); Blood Urea Nitrogen 7 mg/dL (9-16); Calcium 8.7 mg/dL (8.4-10.2); Carbon Dioxide 21 mmol/L (22-29); Chloride 108 mmol/L (96-108); Creatinine Clr Calc Pharmacy 114.1; Estimated Glomerular Filt Rate > 60; Glucose Random 81 mg/dL (60-115); Potassium 3.7 mmol/L (3.3-5.1); Sodium 140 mmol/L (135-145)
[2021-02-23 08:00] VITALS: BP 141/92; PULSE 66; RESP 17; TEMP 36.3; O2SAT 100
[2021-02-23] MEDS: methADONE HCl 5 MG TABLET PO ×3 (08:15→21:17)
[2021-02-23] MEDS: Aspirin Enteric Coated 81 MG TABLET.DR PO (08:16)
[2021-02-23] MEDS: diphenhydrAMINE HCL 50 MG/ML VIAL IVPUSH ×2 (08:17→21:17)
[2021-02-23] MEDS: 0.9 % Sodium Chloride Flush 3 ML SYRINGE IVFLUSH ×3 (08:25→21:18)
[2021-02-23] MEDS: amLODIPine Besylate 10 MG TABLET PO (08:29)
--- NOTE | 2021-02-23 08:55 | MHC.CM.PN ---
pt lives alone in disabled housing in [place]. 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 he reports that he is independent in his care. pt drove himself here, his car is in the [facility] pkg lot. he denies the need for vna at dc and he does not use any AD c ambulation and has no svcs. in the home. dc plan is home no svcs. cm to cont. to follow.
--- NOTE | 2021-02-23 10:04 | MHC.CDI.CONC ---
CDI Concurrent Query Service Date: 02/23/21 Documentation Clarification: Please clarify if you are treating a probable/suspected/likely or confirmed: Sepsis treat Sepsis rule out Sepsis resolved Other, please specify if known or undetermined Provider Response: Other Other Diagnosis: No sepsis PLEASE DO NOT DELETE/MODIFY EXISTING CONTENT Additional information is needed in order to code to the highest accuracy and appropriate Severity of Illness (SOI). Please clarify the information noted below in your progress notes and discharge summary. Risk Factors/Clinical Indicators/Treatments ED: Sepsis, UTI Temp 98.7 RR 18 HR 84 Reevaluation: UA revealed +3 protein, + blood otherwise no evidence of UTI. Progress note: [facility] Sepsis Assessment/plan - patient has been septic 6x from UTI's. CDS: Hallie Puckett CCS, CDIS Contact Number: [phone] Please Review the information above and exercise your independent professional judgment in responding to the query. If you concur, pleas document in the PROGRESS NOTES and DISCHARGE SUMMARY. If you do not agree with the query, please document in the query above. THIS QUERY IS PART OF THE PERMANENT MEDICAL RECORD
--- NOTE | 2021-02-23 10:44 | P.PNIM_ITS ---
Subjective Subjective Date of Service: 02/23/21 Review of Systems Reported episode of fever no chills or weakness No chest pain, palpitation No shortness of breath or coughing Long pain with associated nausea or vomiting Hematuria, No any rash or wounds Physical Exam Vital Signs: Vital Signs: Last Vital Signs Temp 97.3 F 02/23/21 08:00 Pulse 66 02/23/21 08:00 Resp 17 02/23/21 08:00 BP 141/92 H 02/23/21 08:00 Pulse Ox 100 02/23/21 08:00 Body Mass Index 31.1 Const: Other: Constitutional : Alert, oriented, not in distress Neck : Normal inspection, Supple Cardiovascular : RRR, S1 S2, no lower extremity edema Respiratory : Good bilateral air entry,? no crackles, wheezes or rhonchi Gastrointestinal:? soft, lax, Normal bowel sounds, Non tender Skin : Warm/Dry Urology:? Bloody tinged urine Neurological : Alert & oriented x3, No focal deficit Objective Data Current Medications Generic Name Dose Route Start Last Admin Trade Name Torstenq PRN Reason Stop Dose Admin Acetaminophen 650 mg 02/22/21 14:22 Acetaminophen 325 Mg Tablet PO Q6H PRN Pain, Mild (Pain Scale 1-3) Amlodipine Besylate 10 mg 02/23/21 09:00 02/23/21 08:29 Amlodipine Besylate 10 Mg Tablet PO 10 mg DAILY TONY Administration Protocol Aspirin 81 mg 02/23/21 09:00 02/23/21 08:16 Aspirin Enteric Coated 81 Mg Tablet. PO 81 mg DAILY TONY Administration Diphenhydramine HCl 50 mg 02/22/21 21:00 02/23/21 08:17 Diphenhydramine Hcl 50 Mg/Ml Vial IVPUSH 50 mg BID TONY Administration Diphenhydramine HCl 25 mg 02/22/21 18:45 02/23/21 05:17 Diphenhydramine Hcl 50 Mg/Ml Vial IVPUSH 25 mg Q3H PRN Administration Allergic Reaction Hydromorphone HCl 3 mg 02/22/21 19:00 02/23/21 08:16 Hydromorphone Hcl 1 Mg/Ml Syringe IVPUSH 3 mg Q3H PRN Administration Pain, Severe (Pain Scale 7-10) Methadone HCl 5 mg 02/22/21 15:00 02/23/21 08:15 Methadone Hcl 5 Mg Tablet PO 5 mg TID TONY Administration Omeprazole 40 mg 02/22/21 16:30 02/23/21 05:19 Omeprazole 40 Mg Capsule. PO 40 mg BID@0630,1580 [facility] Administration Ondansetron HCl 4 mg 02/22/21 14:27 Ondansetron Hcl 4 Mg/2 Ml Vial IVPUSH Q8H PRN Nausea Sodium Chloride 3 ml 02/22/21 16:00 02/23/21 08:25 0.9 % Sodium Chloride Flush 3 Ml Syringe IVFLUSH 3 ml QSHIFT TONY Administration Labs CBC & Chem 7: 02/23/21 05:25 02/23/21 05:25 Labs: Laboratory Results - last 24 hr 02/22/21 02/22/21 02/22/21 11:44 11:44 11:44 MCV 81.7 MCH 26.4 L MCHC 32.4 RDW 16.3 H Plt Count TNP MPV 11.3 Immature Gran % (Auto) 0.3 Neut % (Auto) 65.3 Lymph % (Auto) 20.7 [place] % (Auto) 4.6 Eos % (Auto) 8.3 H Baso % (Auto) 0.8 Lymph # (Auto) 1.6 [place] # (Auto) 0.4 Eos # (Auto) 0.6 H Baso # (Auto) 0.1 Abs Immat Gran (auto) 0.02 Absolute Neuts (auto) 5.0 Absolute Nucleated RBC 0.000 Nucleated RBC % (auto) 0.0 Smear Tech's Comments VERIFIED Anion Gap 17 Estim Creat Clear Calc 90.5 Estimated GFR > 60 Random Glucose 150 H D Lactic Acid Calcium 9.9 D Total Bilirubin 0.3 AST 19 ALT 25 Alkaline Phosphatase 99 Total Protein 7.5 Albumin 4.3 Lipase 29 Urine Color RED Urine Appearance TURBID Urine pH 6.0 Ur Specific [place] >= 1.030 H Urine Protein 3+ H Urine Glucose (UA) NEG Urine Ketones NEG Urine Blood 3+ H Urine Nitrite NEG Ur Leukocyte Esterase NEG Urine RBC TNTC H Urine WBC 0-2 Ur Squamous Epith Cells Not Reportable Urine Bacteria Not Reportable COVID-19 (ANNETTE) COVID-19 Clin Com 02/22/21 02/22/21 02/23/21 12:25 12:35 05:25 MCV 81.9 MCH 26.7 L MCHC 32.6 RDW 16.6 H Plt Count 214 MPV 10.9 Immature Gran % (Auto) Neut % (Auto) Lymph % (Auto) [place] % (Auto) Eos % (Auto) Baso % (Auto) Lymph # (Auto) [place] # (Auto) Eos # (Auto) Baso # (Auto) Abs Immat Gran (auto) Absolute Neuts (auto) Absolute Nucleated RBC 0.000 Nucleated RBC % (auto) 0.0 Smear Tech's Comments Anion Gap Estim Creat Clear Calc Estimated GFR Random Glucose Lactic Acid 1.4 Calcium Total Bilirubin AST ALT Alkaline Phosphatase Total Protein Albumin Lipase Urine Color Urine Appearance Urine pH Ur Specific [place] Urine Protein Urine Glucose (UA) Urine Ketones Urine Blood Urine Nitrite Ur Leukocyte Esterase Urine RBC Urine WBC Ur Squamous Epith Cells Urine Bacteria COVID-19 (ANNETTE) Negative COVID-19 Clin Com See Note 02/23/21 05:25 MCV MCH MCHC RDW Plt Count MPV Immature Gran % (Auto) Neut % (Auto) Lymph % (Auto) [place] % (Auto) Eos % (Auto) Baso % (Auto) Lymph # (Auto) [place] # (Auto) Eos # (Auto) Baso # (Auto) Abs Immat Gran (auto) Absolute Neuts (auto) Absolute Nucleated RBC Nucleated RBC % (auto) Smear Tech's Comments Anion Gap 15 Estim Creat Clear Calc 114.1 Estimated GFR > 60 Random Glucose 81 D Lactic Acid Calcium 8.7 D Total Bilirubin AST ALT Alkaline Phosphatase Total Protein Albumin Lipase Urine Color Urine Appearance Urine pH Ur Specific [place] Urine Protein Urine Glucose (UA) Urine Ketones Urine Blood Urine Nitrite Ur Leukocyte Esterase Urine RBC Urine WBC Ur Squamous Epith Cells Urine Bacteria COVID-19 (ANNETTE) COVID-19 Clin Com Assessment and Plan (1) Loin pain hematuria syndrome: Status: Acute (2) Hematuria: Status: Acute Assessment and Plan: 50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 # loin pain hematuria syndrome Start IV hydromorphone 3mg q 3prn 5 mg Methadon TID Use Benadryl ATC and prn Seen by Dr Gifford from Nephrology scheduled to have L ureter removed/denervated/shortened and may undergo auto transplant of the R kidney in future. pending Nephrology evaluation # nausea and vomiting improving Secondary to pain and possibly narcotic Use Zofran as needed # Fever Reported an episode of fever last night of 102 Receive ceftriaxone in the emergency Will hold any further antibiotic meanwhile and will monitor his response as he just finished antibiotic course # GUNTER prn Fioricet # HTN continue amlodipine # GERD continue PPI # VTE ppx SCDs Quality Stroke Does the patient have a stroke diagnosis?: No VTE Prior VTE?: No VTE Risk Level:: Medical - moderate - high VTE Device Contraindication: N/A - Device Ordered VTE Drug Contraindication: Treatment Not Indicated
[2021-02-23 11:50] VITALS: BP 117/76; PULSE 76; RESP 18; TEMP 36.2; O2SAT 96
--- NOTE | 2021-02-23 12:23 | MHC.CLN ---
NUTRITION WEIGHT ESSENTIALLY STAABLE SINCE [facility] ADMISSION: 02/20=88.5 KG; 02/23=90 KG. WEIGHT LOSS 2-13# REPORTED, BUT UNABLE TO CONFIRM.
[2021-02-23 15:35] VITALS: BP 102/68; PULSE 78; RESP 16; TEMP 36.1; O2SAT 98
[2021-02-23 19:40] VITALS: BP 143/96; PULSE 78; RESP 18; TEMP 36.2; O2SAT 97
--- NOTE | 2021-02-23 22:10 | PM.CNNEP ---
History of Present Illness Reason for Consult Consult date: 02/23/21 Requesting physician: Octavia Castillo Chief Complaint Chief complaint: Loin pain History of Present Illness Narrative: Full consult dictated PMFSH Past Medical History Medical History A-fib Leal esophagus Hematuria History of cardioversion Loin pain hematuria syndrome Sepsis Surgical History Surgical History History of hernia surgery Hx of tonsillectomy Status post kidney autotransplantation Social History Social History Household Members: None Housing: Apartment Do you presently have visiting nurse or other home services: No Alcohol intake: never Patient Tobacco Use Status: Never used Tobacco Use of substances other than those prescribed or required for medical reasons: No Currently Displaying Signs/Symptoms of Drug Intoxication Withdrawal: No Have you been hit, kicked, punched, or otherwise hurt by someone within the past year? If so, by whom?: No Do you feel safe in your current relationship?: Yes Is there a partner from a previous relationship who is making you feel unsafe now?: No Are you made to feel afraid or neglected: No Advance Directives: No Advance Directives Information Provided: Yes Do you have thoughts of harming others: None Do you have a plan to hurt others: No Plan Recently lost weight without trying: Yes How much weight loss: 2-13 pounds Eating poorly because of decreased appetite: Yes Nutrition screen score: 4 Nutrition Risks: No Nutritional Risk Poor oral hygiene: No service: No Current occupational status: disabled Meds Allergies Allergy/AdvReac Type Severity Reaction Status Date / Time buprenorphine [From SUBOXONE] Allergy Unknown HIVES Verified 02/06/21 15:51 Iodinated Contrast Media Allergy Unknown ANAPHYLAXIS Verified 02/06/21 15:51 [IV CONTRAST] morphine [MORPHINE] Allergy Unknown HIVES Verified 02/06/21 15:51 naloxone [From SUBOXONE] Allergy Unknown HIVES Verified 02/06/21 15:51 naproxen [NAPROXEN] Allergy Unknown HIVES Verified 02/06/21 15:51 Active Medications: Current Medications Generic Name Dose Route Start Last Admin Trade Name Freq PRN Reason Stop Dose Admin Acetaminophen 650 mg 02/22/21 14:22 Acetaminophen 325 Mg Tablet PO Q6H PRN Pain, Mild (Pain Scale 1-3) Amlodipine Besylate 10 mg 02/23/21 09:00 02/23/21 08:29 Amlodipine Besylate 10 Mg Tablet PO 10 mg DAILY TONY Administration Protocol Aspirin 81 mg 02/23/21 09:00 02/23/21 08:16 Aspirin Enteric Coated 81 Mg Tablet. PO 81 mg DAILY TONY Administration Diphenhydramine HCl 50 mg 02/22/21 21:00 02/23/21 21:17 Diphenhydramine Hcl 50 Mg/Ml Vial IVPUSH 50 mg BID TONY Administration Diphenhydramine HCl 25 mg 02/22/21 18:45 02/23/21 18:10 Diphenhydramine Hcl 50 Mg/Ml Vial IVPUSH 25 mg Q3H PRN Administration Allergic Reaction Hydromorphone HCl 3 mg 02/22/21 19:00 02/23/21 21:17 Hydromorphone Hcl 1 Mg/Ml Syringe IVPUSH 3 mg Q3H PRN Administration Pain, Severe (Pain Scale 7-10) Methadone HCl 5 mg 02/22/21 15:00 02/23/21 21:17 Methadone Hcl 5 Mg Tablet PO 5 mg TID TONY Administration Omeprazole 40 mg 02/22/21 16:30 02/23/21 17:30 Omeprazole 40 Mg Capsule. PO 40 mg BID@0630,1630 [facility] Administration Ondansetron HCl 4 mg 02/22/21 14:27 Ondansetron Hcl 4 Mg/2 Ml Vial IVPUSH Q8H PRN Nausea Sodium Chloride 3 ml 02/22/21 16:00 02/23/21 21:18 0.9 % Sodium Chloride Flush 3 Ml Syringe IVFLUSH 3 ml QSHIFT TONY Administration Home Medications Medication Instructions Recorded Confirmed Last Taken Type Baby Aspirin 81 mg PO DAILY 02/06/21 02/22/21 02/22/21 05:00 History Protonix 40 mg PO BID 02/06/21 02/22/21 02/21/21 20:00 History amlodipine 10 mg PO DAILY 02/06/21 02/22/21 02/21/21 05:00 History hydromorphone 4 mg tablet 4 tab PO QID 02/06/21 02/22/21 02/22/21 02:00 History (Dilaudid) hydromorphone 8 mg tablet,extended 1 tab PO BID 02/06/21 02/22/21 02/21/21 History release 24 hr methadone 5 mg tablet See Rx Instructions .ROUTE .COMPLEX 02/06/21 02/22/21 02/21/21 20:00 History ondansetron 4 mg disintegrating 2 tab PO Q8H PRN 02/06/21 02/22/21 02/22/21 05:00 History tablet Physical Exam Vital Signs: Last Vital Signs Temp 97.2 F 02/23/21 19:40 Pulse 78 02/23/21 19:40 Resp 18 02/23/21 19:40 BP 143/96 H 02/23/21 19:40 Pulse Ox 97 02/23/21 19:40 Body Mass Index 31.1 Results Lab Results Result Diagrams: 02/23/21 05:25 02/23/21 05:25 Lab results: Chemistry 02/22/21 02/23/21 11:44 05:25 Sodium 142 140 Potassium 3.3 3.7 Carbon Dioxide 25 21 L BUN 11 7 L Creatinine 1.05 0.81 Calcium 9.9 D 8.7 D Hematology 02/22/21 02/23/21 11:44 05:25 WBC 7.7 6.8 Hgb 14.6 12.7 L Plt Count TNP 214 Urinalysis 02/22/21 11:44 Urine Color RED Urine Appearance TURBID Urine pH 6.0 Ur Specific [place] >= 1.030 H Urine Protein 3+ H Urine Glucose (UA) NEG Urine Ketones NEG Urine Blood 3+ H Urine Nitrite NEG Ur Leukocyte Esterase NEG Urine RBC TNTC H Urine WBC 0-2 Ur Squamous Epith Cells Not Reportable Procedures Date of Service Date of Service: 02/23/21
[2021-02-24] VITALS (9 sets, daily range): BP systolic 110–130; BP diastolic 66–79; PULSE 73–105; RESP 14–17; TEMP 36.1–36.2; O2SAT 95–98
[2021-02-24] MEDS: HYDROmorphone HCl 1 MG/ML SYRINGE 3 MG IVPUSH ×8 (00:28→21:39)
[2021-02-24] MEDS: diphenhydrAMINE HCL 50 MG/ML VIAL 25 MG IVPUSH ×6 (00:29→18:40)
[2021-02-24] MEDS: Omeprazole 40 MG CAPSULE.DR PO ×2 (06:25→15:41)
[2021-02-24] MEDS: Aspirin Enteric Coated 81 MG TABLET.DR PO (09:33)
[2021-02-24] MEDS: 0.9 % Sodium Chloride Flush 3 ML SYRINGE IVFLUSH ×3 (09:33→21:40)
[2021-02-24] MEDS: amLODIPine Besylate 10 MG TABLET PO (09:33)
[2021-02-24] MEDS: methADONE HCl 5 MG TABLET PO ×3 (09:33→21:40)
[2021-02-24] MEDS: diphenhydrAMINE HCL 50 MG/ML VIAL IVPUSH ×2 (09:34→21:39)
--- NOTE | 2021-02-24 12:24 | CONS_ITS ---
DATE OF SERVICE: 02/23/2021 REASON FOR CONSULTATION: I was asked to see the patient to assist in evaluation and management of patient's flank pain in the setting of history of diagnosis of loin pain hematuria syndrome. HISTORY OF PRESENT ILLNESS: In summary, patient is a 50-year-old gentleman with a history of loin pain hematuria syndrome followed by Dr. Gifford and I was asked to see him to assist in evaluation and management of his loin pain hematuria syndrome. I did touch base with Dr. Melara, who covers for Dr. Gifford. He had asked me to see the patient. The patient has a history of loin pain hematuria syndrome that goes back about 10 years and had followed initially in [place] by a apricot packer and then up here by Dr. Gifford. The patient lives in [place], but apparently gets his care for his loin pain hematuria syndrome with Dr. Gifford. The patient underwent a left renal autotransplant because of severe debilitating pain. He continues to have pain, although there is concern of recurrent infections, but have some redundancy of the ureter and there was plan to do surgical shortening of the left ureter. He also suffers with right-sided flank pain and records state that he is possibly going to be evaluated for denervation of the right kidney and possibly auto reimplantation of the right kidney, although the patient tells me that is not the case. He is simply going to get treatment of the left ureter and trying to avoid any further surgery. He is maintained on chronic narcotic therapy from Dr. Gifford for management of his loin pain hematuria. The patient was recently hospitalized at [facility] with a urinary tract infection, discharged and now readmitted. Presently, he is fairly comfortable. He denies any chest pain, shortness of breath. He tells me he has had some dysuria, which is resolved. PAST MEDICAL HISTORY: Notable for atrial fibrillation, Leal's esophagus, hematuria, history of cardioversion, loin pain hematuria syndrome as outlined above and recurrent urinary tract infections. MEDICATIONS: His medications on admission include aspirin, Protonix, Norvasc, Dilaudid, methadone, and Zofran. His current medications are noted in the MAR. SOCIAL HISTORY: He is nonsmoker, nondrinker. No illicit drug use, but is on chronic narcotic therapy. He avoids NSAIDs. FAMILY HISTORY: Unremarkable. REVIEW OF SYSTEMS: As noted above. PHYSICAL EXAMINATION: VITAL SIGNS: Blood pressure 130/80 with heart rate 80. He is afebrile. HEENT: Head is atraumatic and normocephalic. NECK: Supple. Mucous membranes moist. LUNGS: Clear. CARDIAC: Regular rate and rhythm without rub. ABDOMEN: Soft, nontender with good bowel sounds. He does have bilateral tenderness in the flank areas and some periumbilical discomfort. EXTREMITIES: No edema. LABORATORY DATA: Show hemoglobin 12.7, hematocrit 38.9, white blood cell count 6.8. Sodium 140, potassium , chloride 108, bicarb 21, BUN 7, creatinine 0.8. Urinalysis shows a high specific gravity of 1.030, urine protein 3+ by dipstick, red blood cells too numerous to count. IMPRESSION: urinary tract infection, dysuria, and flank pain. 1. Flank pain. This is due to recurrence of his loin pain hematuria, which is now being controlled with pain medications. 2. Hematuria and proteinuria. Presumably due to his auto-reimplantation of the kidney and his hematuria syndrome from loin pain. 3. Hypertension. SUGGESTIONS: At this time include pain control, pain medications. Repeat urine cultures. Obtain spot urine studies to see how much proteinuria he has. Avoid NSAIDs. We will follow the patient closely with the team. In regard to management of his left kidney and pain presumably in part due to the recurrent redundancy in the left ureter, he is to be evaluated with Dr. Gifford and for possibility of ureter shortening surgical intervention. MD JERAMIE Cr/TARIK / [id number]
--- NOTE | 2021-02-24 14:05 | HO.PM.IMPN ---
Subjective Subjective Date of Service: 02/24/21 Interval History: the patient was seen and evaluated this morning Laying in bed, continue to have hematuria and low in pain Denies any fever, chills or shortness of breath No reported other overnight events. Review of Systems Reported episode of fever no chills or weakness No chest pain, palpitation No shortness of breath or coughing Long pain with associated nausea or vomiting Hematuria, No any rash or wounds Physical Exam Vital Signs: Vital Signs: Last Vital Signs Temp 97.2 F 02/24/21 12:00 Pulse 73 02/24/21 12:00 Resp 17 02/24/21 12:00 BP 125/77 02/24/21 12:00 Pulse Ox 97 02/24/21 11:36 Body Mass Index 31.1 Const: Other: Constitutional : Alert, oriented, not in distress Neck : Normal inspection, Supple Cardiovascular : RRR, S1 S2, no lower extremity edema Respiratory : Good bilateral air entry,? no crackles, wheezes or rhonchi Gastrointestinal:? soft, lax, Normal bowel sounds, Non tender Skin : Warm/Dry Urology:? Bloody tinged urine Neurological : Alert & oriented x3, No focal deficit Objective Data Current Medications Generic Name Dose Route Start Last Admin Trade Name Freq PRN Reason Stop Dose Admin Acetaminophen 650 mg 02/22/21 14:22 Acetaminophen 325 Mg Tablet PO Q6H PRN Pain, Mild (Pain Scale 1-3) Amlodipine Besylate 10 mg 02/23/21 09:00 02/24/21 09:33 Amlodipine Besylate 10 Mg Tablet PO 10 mg DAILY OTNY Administration Protocol Aspirin 81 mg 02/23/21 09:00 02/24/21 09:33 Aspirin Enteric Coated 81 Mg Tablet.Dr PO 81 mg DAILY TONY Administration Diphenhydramine HCl 50 mg 02/22/21 21:00 02/24/21 09:34 Diphenhydramine Hcl 50 Mg/Ml Vial IVPUSH 50 mg BID TONY Administration Diphenhydramine HCl 25 mg 02/22/21 18:45 02/24/21 12:33 Diphenhydramine Hcl 50 Mg/Ml Vial IVPUSH 25 mg Q3H PRN Administration Allergic Reaction Hydromorphone HCl 3 mg 02/22/21 19:00 02/24/21 12:33 Hydromorphone Hcl 1 Mg/Ml Syringe IVPUSH 3 mg Q3H PRN Administration Pain, Severe (Pain Scale 7-10) Methadone HCl 5 mg 02/22/21 15:00 02/24/21 09:33 Methadone Hcl 5 Mg Tablet PO 5 mg TID TONY Administration Omeprazole 40 mg 02/22/21 16:30 02/24/21 06:25 Omeprazole 40 Mg Capsule. PO 40 mg BID@0630,1630 TONY Administration Ondansetron HCl 4 mg 02/22/21 14:27 Ondansetron Hcl 4 Mg/2 Ml Vial IVPUSH Q8H PRN Nausea Sodium Chloride 3 ml 02/22/21 16:00 02/24/21 09:33 0.9 % Sodium Chloride Flush 3 Ml Syringe IVFLUSH 3 ml QSHIFT TONY Administration Labs CBC & Chem 7: 02/23/21 05:25 02/23/21 05:25 Microbiology Microbiology Results: Microbiology 02/22/21 11:44 Blood Culture - Preliminary Blood - Venous No growth after 48 hours. 02/22/21 12:25 Blood Culture - Preliminary Blood - Venous No growth after 24 hours. Assessment and Plan (1) Loin pain hematuria syndrome: Status: Acute (2) Hematuria: Status: Acute Assessment and Plan: 50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 # loin pain hematuria syndrome IV hydromorphone 3mg q 3prn 5 mg Methadone TID Use Benadryl ATC and prn Seen by Dr Gifford from Nephrology scheduled to have L ureter removed/denervated/shortened and may undergo auto transplant of the R kidney in future. Nephrology input appreciated # nausea and vomiting improving Secondary to pain and possibly narcotic Use Zofran as needed # Fever No fever since admission Receive ceftriaxone in the emergency Will hold any further antibiotic meanwhile and will monitor his response as he just finished antibiotic course # GUNTER prn Fioricet # HTN continue amlodipine # GERD continue PPI # VTE ppx SCDs Quality Stroke Does the patient have a stroke diagnosis?: No VTE Prior VTE?: No VTE Risk Level:: Medical - moderate - high VTE Device Contraindication: N/A - Device Ordered VTE Drug Contraindication: Treatment Not Indicated
--- NOTE | 2021-02-24 17:50 | PM.PNNEP ---
Subjective Subjective Date of Service: 02/24/21 Interval history: Seen and examined, events noted Physical Exam Vital Signs: Vital Signs: Last Vital Signs Temp 97.1 F 02/24/21 15:13 Pulse 84 02/24/21 15:13 Resp 14 02/24/21 15:13 BP 130/79 02/24/21 15:13 Pulse Ox 97 02/24/21 15:13 Body Mass Index 31.1 Resp: Effort & Inspection: normal respiratory effort Auscultation: clear to auscultation bilaterally Objective Data Labs CBC & Chem 7: 02/23/21 05:25 02/23/21 05:25 Microbiology Microbiology Results: Microbiology 02/22/21 12:25 Blood - Venous Blood Culture - Preliminary No growth after 48 hours. 02/22/21 11:44 Blood - Venous Blood Culture - Preliminary No growth after 48 hours. Procedures Date of Service Date of Service: 02/24/21 Assessment & Plan Assessment and plan (1) Loin pain hematuria syndrome: Status: Acute Assessment and Plan: Heamturia with Flank Pain L > R Complicated PT with recurrent hosp for debilitating flank/loin pain with a H/O LHS and s/p L kidney auto-reimplantation REC: cont supportive care; juanley needs shortening of L ureter as this may be contrinbuting pain and UTI d/t redundant ureter Will folllow with team Time Spent With Patient Time: Total time spent is greater than 50% in coordination of care (as documented) at patient's floor/unit and/or counseling patient: Progress Note: Quality Stroke Does the patient have a stroke diagnosis?: No
[2021-02-25] VITALS (8 sets, daily range): BP systolic 113–134; BP diastolic 66–84; PULSE 69–82; RESP 16–18; TEMP 36.4–36.6; O2SAT 95–96
[2021-02-25] MEDS: diphenhydrAMINE HCL 50 MG/ML VIAL 25 MG IVPUSH ×5 (00:45→19:25)
[2021-02-25] MEDS: HYDROmorphone HCl 2 MG/ML VIAL 3 MG IVPUSH ×8 (00:45→22:49)
[2021-02-25] MEDS: Omeprazole 40 MG CAPSULE.DR PO ×2 (06:11→15:58)
[2021-02-25 07:02] LABS: Anion Gap 11 (12-20); Blood Urea Nitrogen 10 mg/dL (9-16); Calcium 8.9 mg/dL (8.4-10.2); Carbon Dioxide 30 mmol/L (22-29); Chloride 104 mmol/L (96-108); Estimated Glomerular Filt Rate > 60; Glucose Random 80 mg/dL (60-115); Potassium 3.9 mmol/L (3.3-5.1); Sodium 141 mmol/L (135-145)
[2021-02-25] MEDS: amLODIPine Besylate 10 MG TABLET PO (09:46)
[2021-02-25] MEDS: methADONE HCl 5 MG TABLET PO ×3 (09:46→22:49)
[2021-02-25] MEDS: Aspirin Enteric Coated 81 MG TABLET.DR PO (09:46)
[2021-02-25] MEDS: diphenhydrAMINE HCL 50 MG/ML VIAL IVPUSH ×3 (09:46→22:49)
[2021-02-25] MEDS: 0.9 % Sodium Chloride Flush 3 ML SYRINGE IVFLUSH ×3 (09:47→22:49)
[2021-02-25] MEDS: Acetaminophen 325 MG TABLET 650 MG PO (10:04)
--- NOTE | 2021-02-25 12:03 | PM.PNNEP ---
Subjective Subjective Date of Service: 02/25/21 Interval history: Seen and examined, events noted Physical Exam Vital Signs: Vital Signs: Last Vital Signs Temp 97.7 F 02/25/21 11:39 Pulse 78 02/25/21 11:39 Resp 17 02/25/21 11:39 BP 123/81 02/25/21 11:39 Pulse Ox 96 02/25/21 11:39 Body Mass Index 31.1 Resp: Effort & Inspection: normal respiratory effort Auscultation: clear to auscultation bilaterally Objective Data Labs CBC & Chem 7: 02/23/21 05:25 02/25/21 06:00 Labs: Laboratory Results - last 24 hr 02/25/21 06:00 Sodium 141 Potassium 3.9 Chloride 104 Carbon Dioxide 30 H Anion Gap 11 L BUN 10 Creatinine 0.79 Estim Creat Clear Calc 117.0 Estimated GFR > 60 Random Glucose 80 Calcium 8.9 Microbiology Microbiology Results: Microbiology 02/22/21 12:25 Blood - Venous Blood Culture - Preliminary No growth after 48 hours. 02/22/21 11:44 Blood - Venous Blood Culture - Preliminary No growth after 48 hours. Procedures Date of Service Date of Service: 02/25/21 Assessment & Plan Assessment and plan (1) Loin pain hematuria syndrome: Status: Acute Assessment and Plan: Heamturia with Flank Pain L > R Complicated PT with recurrent hosp for debilitating flank/loin pain with a H/O LHS and s/p L kidney auto-reimplantation REC: cont supportive care annd narcotics as noted; sienna needs shortening of L ureter as this may be contrinbuting pain and UTI d/t redundant ureter ( I placed call to Dr Gifford and he is going to arrrange to schecdule surg a soutpt with Dr Hagen) Will samilow with team Time Spent With Patient Time: Total time spent is greater than 50% in coordination of care (as documented) at patient's floor/unit and/or counseling patient: Progress Note: Quality Stroke Does the patient have a stroke diagnosis?: No
--- NOTE | 2021-02-25 13:05 | HO.PM.IMPN ---
Subjective Subjective Date of Service: 02/25/21 Interval History: still with pain Cardiovascular Cardiovascular: Reports no additional cardiovascular complaints Respiratory Respiratory: Reports no additional respiratory complaints Physical Exam Vital Signs: Vital Signs: Last Vital Signs Temp 97.7 F 02/25/21 12:00 Pulse 78 02/25/21 12:00 Resp 17 02/25/21 12:00 BP 123/81 02/25/21 12:00 Pulse Ox 96 02/25/21 12:00 Body Mass Index 31.1 General: AO X 3, no acute distress Resp: CTA bilateral CVS: S1,S2,RRR GI: soft, non tender, non distended Neuro: motor grossly intact Psych: appropriate affect Objective Data Current Medications Generic Name Dose Route Start Last Admin Trade Name Freq PRN Reason Stop Dose Admin Acetaminophen 650 mg 02/22/21 14:22 02/25/21 10:04 Acetaminophen 325 Mg Tablet PO 650 mg Q6H PRN Administration Pain, Mild (Pain Scale 1-3) Amlodipine Besylate 10 mg 02/23/21 09:00 02/25/21 09:46 Amlodipine Besylate 10 Mg Tablet PO 10 mg DAILY TONY Administration Protocol Aspirin 81 mg 02/23/21 09:00 02/25/21 09:46 Aspirin Enteric Coated 81 Mg Tablet. PO 81 mg DAILY TONY Administration Diphenhydramine HCl 50 mg 02/22/21 21:00 02/25/21 09:46 Diphenhydramine Hcl 50 Mg/Ml Vial IVPUSH 50 mg BID TONY Administration Diphenhydramine HCl 25 mg 02/22/21 18:45 02/25/21 06:43 Diphenhydramine Hcl 50 Mg/Ml Vial IVPUSH 25 mg Q3H PRN Administration Allergic Reaction Hydromorphone HCl 3 mg 02/24/21 21:52 02/25/21 12:50 Hydromorphone Hcl 2 Mg/Ml Vial IVPUSH 3 mg Q3H PRN Administration Pain, Severe (Pain Scale 7-10) Methadone HCl 5 mg 02/22/21 15:00 02/25/21 09:46 Methadone Hcl 5 Mg Tablet PO 5 mg TID TONY Administration Omeprazole 40 mg 02/22/21 16:30 02/25/21 06:11 Omeprazole 40 Mg Capsule. PO 40 mg BID@4711,0010 TONY Administration Ondansetron HCl 4 mg 02/22/21 14:27 02/25/21 12:50 Ondansetron Hcl 4 Mg/2 Ml Vial IVPUSH 4 mg Q8H PRN Administration Nausea Sodium Chloride 3 ml 02/22/21 16:00 02/25/21 09:47 0.9 % Sodium Chloride Flush 3 Ml Syringe IVFLUSH 3 ml QSHIFT TONY Administration Labs CBC & Chem 7: 02/23/21 05:25 02/25/21 06:00 Labs: Laboratory Results - last 24 hr 02/25/21 06:00 Anion Gap 11 L Estim Creat Clear Calc 117.0 Estimated GFR > 60 Random Glucose 80 Calcium 8.9 Microbiology Microbiology Results: Microbiology 02/22/21 12:25 Blood Culture - Preliminary Blood - Venous No growth after 48 hours. 02/22/21 11:44 Blood Culture - Preliminary Blood - Venous No growth after 48 hours. Assessment and Plan (1) Loin pain hematuria syndrome: Status: Acute (2) Hematuria: Status: Acute Assessment and Plan: 50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 loin pain hematuria syndrome IV hydromorphone 3mg q 3prn 5 mg Methadone TID Use Benadryl ATC and prn Seen by Dr Gifford from Nephrology scheduled to have L ureter removed/denervated/shortened and may undergo auto transplant of the R kidney in future. Nephrology input appreciated reports some improvement, less clots nausea and vomiting improving Secondary to pain and possibly narcotic Use Zofran as needed Fever No fever since admission Receive ceftriaxone in the emergency Will hold any further antibiotic meanwhile and will monitor his response as he just finished antibiotic course GUNTER prn Fioricet HTN continue amlodipine GERD continue PPI VTE ppx SCDs Quality Stroke Does the patient have a stroke diagnosis?: No VTE Prior VTE?: No VTE Risk Level:: Medical - moderate - high VTE Device Contraindication: N/A - Device Ordered VTE Drug Contraindication: Treatment Not Indicated
[2021-02-26] VITALS: BP 112/74; PULSE 77; RESP 16; TEMP 36.4; O2SAT 95
[2021-02-26] MEDS: HYDROmorphone HCl 2 MG/ML VIAL 3 MG IVPUSH ×5 (02:35→15:06)
[2021-02-26] MEDS: diphenhydrAMINE HCL 50 MG/ML VIAL 25 MG IVPUSH ×4 (02:35→14:54)
[2021-02-26 04:00] VITALS: BP 166/69; PULSE 89; RESP 16; TEMP 36.1; O2SAT 96
[2021-02-26] MEDS: Omeprazole 40 MG CAPSULE.DR PO (05:42)
[2021-02-26 07:51] VITALS: BP 110/82; PULSE 82; RESP 17; TEMP 36.2; O2SAT 96
[2021-02-26] MEDS: methADONE HCl 5 MG TABLET PO ×2 (08:54→14:53)
[2021-02-26] MEDS: amLODIPine Besylate 10 MG TABLET PO (08:54)
[2021-02-26] MEDS: Aspirin Enteric Coated 81 MG TABLET.DR PO (08:55)
[2021-02-26] MEDS: diphenhydrAMINE HCL 50 MG/ML VIAL IVPUSH (08:56)
[2021-02-26] MEDS: 0.9 % Sodium Chloride Flush 3 ML SYRINGE IVFLUSH (08:58)
--- NOTE | 2021-02-26 10:05 | MHC.CM.PN ---
IMM 02/26/21, PT DISCHARGING HOME SELF-CARE, PT REPORTS HIS MOTHER IS DRIVING HIM HOME TO CT.
[2021-02-26 11:49] VITALS: BP 129/93; PULSE 84; RESP 16; TEMP 36.1; O2SAT 99
--- NOTE | 2021-02-26 11:49 | PM.PNNEP ---
Subjective Subjective Date of Service: 02/26/21 Principal diagnosis: HS Interval history: still with pain but better Physical Exam Vital Signs: Vital Signs: Last Vital Signs Temp 97.2 F 02/26/21 07:51 Pulse 82 02/26/21 07:51 Resp 17 02/26/21 07:51 BP 110/82 02/26/21 07:51 Pulse Ox 96 02/26/21 07:51 Body Mass Index 31.1 Resp: Effort & Inspection: normal respiratory effort Auscultation: clear to auscultation bilaterally Objective Data Labs CBC & Chem 7: 02/23/21 05:25 02/25/21 06:00 Microbiology Microbiology Results: Microbiology 02/22/21 12:25 Blood - Venous Blood Culture - Preliminary No growth after 48 hours. 02/22/21 11:44 Blood - Venous Blood Culture - Preliminary No growth after 48 hours. Procedures Date of Service Date of Service: 02/26/21 Assessment & Plan Assessment and plan (1) Loin pain hematuria syndrome: Status: Acute Assessment and Plan: Heamturia with Flank Pain L > R Complicated PT with recurrent hosp for debilitating flank/loin pain with a H/O LHS and s/p L kidney auto-reimplantation REC: cont supportive care annd narcotics as noted; sienna needs shortening of L ureter as this may be contrinbuting pain and UTI d/t redundant ureter ( I placed call to Dr Gifford and he is going to arrrange to schecdule surg a soutpt with Dr Hagen); in nthe future I rec he d/w Dr Gifford about getting him directly adm when he has a flare of pain/nausea from his LPHS to avoid going to ER Will kate with team Time Spent With Patient Time: Total time spent is greater than 50% in coordination of care (as documented) at patient's floor/unit and/or counseling patient: Progress Note: Quality Stroke Does the patient have a stroke diagnosis?: No
--- NOTE | 2021-02-26 12:13 | PM.DS ---
DS: Providers Provider Date of Service: 02/26/21 Date of admission: 02/22/21 14:22 Primary care physician: Ilir Gifford Consults: 02/22/21 14:25 Consult to Nephrology Routine Consulting Provider: Guero Hernandez Reason for consultation: Eval for loin pain hematuria syndrome management. DS: Diagnosis Discharge Diagnosis (1) Loin pain hematuria syndrome: Status: Acute DS: Medications Discharge Medications Home Medications: Home Medications Medication Instructions Recorded Confirmed Baby Aspirin 81 mg PO DAILY 02/06/21 02/22/21 Protonix 40 mg PO BID 02/06/21 02/22/21 amlodipine 10 mg PO DAILY 02/06/21 02/22/21 hydromorphone 4 mg tablet 4 tab PO QID 02/06/21 02/22/21 (Dilaudid) hydromorphone 8 mg tablet,extended 1 tab PO BID 02/06/21 02/22/21 release 24 hr methadone 5 mg tablet See Rx Instructions .ROUTE .COMPLEX 02/06/21 02/22/21 ondansetron 4 mg disintegrating 2 tab PO Q8H PRN 02/06/21 02/22/21 tablet DS: Summary Hospital Course Hospital Course: patient was admitted for exacerbation of loin pain hematuria syndrome. he was supported with iv hydromorphone and benadryl. pain and hematuria eventually subsided and patient will be discharged home to follow up with dr gifford for L ureter removal/denervation/ and shortening. Time Spent with Patient Time attestation: Total time spent providing and/or coordinating discharge services: Discharge coordination time: Greater than 30 minutes Quality: Stroke Does the patient have a stroke diagnosis?: No Physical Exam Vital Signs: Vital Signs: Last Vital Signs Temp 97.0 F 02/26/21 11:49 Pulse 84 02/26/21 11:49 Resp 16 02/26/21 11:49 BP 129/93 H 02/26/21 11:49 Pulse Ox 99 02/26/21 11:49 Body Mass Index 31.1 DS: Data Data Completed and Pending Labs on day of discharge: Preliminary micro results at discharge 02/22/21 12:25 Blood Culture - Preliminary Blood - Venous No growth after 48 hours. 02/22/21 11:44 Blood Culture - Preliminary Blood - Venous No growth after 48 hours. Discharge Plan Discharge Patient Disposition: Home, Self-Care Discharge Diagnosis: loin pain syndrome Referrals: Physician,Unknown [Physician] - 1 Week Discharge Medications: Continued hydromorphone 8 mg tablet extended release 24 hr 1 tab PO BID RF: 0 hydromorphone [Dilaudid] 4 mg tablet 4 tab PO QID RF: 0 methadone 5 mg tablet See Rx Instructions .ROUTE .COMPLEX RF: 0 ondansetron 4 mg tablet,disintegrating 2 tab PO Q8H PRN (Reason: Nausea) RF: 0 Baby Aspirin tablet 81 mg PO DAILY RF: 0 Protonix 40 mg PO BID RF: 0 amlodipine 10 mg PO DAILY RF: 0 Discharge Orders: Discharge Order (Routine); Ordered 02/26/21 Ordered By: Dirk Stewart Diet: advance to usual diet Activity on Discharge: As tolerated Stand Alone Forms: Patient Portal Discharge page Care Plan Goals: recovery Health Concerns: pain Plan of Treatment: follow up with dr gifford Assessment: see above
[2021-02-26] MEDS: Heparin Sodium,Porcine Flush 50 UNITS/5 ML SYRINGE IVFLUSH (15:04)
== END 2021-02-26 15:30 | disposition home or self-care (01) | DRG 700 ==
LOC: HO.ED 14:05 → HO.EDOVER 15:31 → HO.S3 16:11
PROVIDERS: Physician Assistant Medical; Admitting Provider Student in an Organized Health Care Education/Training Program; Emergency Provider Student in an Organized Health Care Education/Training Program; PCP Internal Medicine Nephrology; Visit Provider Internal Medicine
DX: N39.8 Other specified disorders of urinary system (principal); R51.9 Headache, unspecified; K21.9 Gastro-esophageal reflux disease without esophagitis; Z20.822 Contact with and (suspected) exposure to COVID-19; R31.9 Hematuria, unspecified; Z88.5 Allergy status to narcotic agent; Z88.6 Allergy status to analgesic agent; Z79.82 Long term (current) use of aspirin; Z79.891 Long term (current) use of opiate analgesic; Z79.899 Other long term (current) drug therapy
CPT/HCPCS: 36415; 76770; 80048; 80053; 81001; 81003; 83605; 83690; 85025; 85027; 87040; 87635; 93005; 99285; J0696; J1170; J1200; J1642; J2405

== ENCOUNTER 2021-03-01 19:53 | Inpatient (IN) | payer MEDICARE, MEDICAID, SELFPAY ==
[2021-03-01 20:43] VITALS: BP 131/97; PULSE 133; RESP 20; TEMP 36.8; O2SAT 92; BMI 33.6
[2021-03-01 21:33] LABS: Glucose Urine UA NEG (NEG); Leukocyte Esterase Urine NEG (NEG); Specific Gravity - Urine >= 1.030 (1.005-1.025); Urine Blood 3+ (NEG); Urine Ketones 5 MG/DL (NEG); Urine Protein 2+ MG/DL (NEG-TRACE)
[2021-03-01 21:37] LABS: Appearance Urine TURBID; Color Urine RED
[2021-03-01 21:38] LABS: Bacteria Urine 1+ /LPF; Nitrite Urine NEG (NEG); RBC Urine TNTC /HPF (0); Squamous Epithelial Cell Urine 1+ /LPF; UACC Culture Trigger NO
--- NOTE | 2021-03-01 21:52 | ED_ITS ---
HPI - General Adult General Chief complaint: General Medical Stated complaint: flank pain Time Seen by Provider: 03/01/21 21:42 Source: patient Mode of arrival: ambulatory Limitations: no limitations History of Present Illness HPI narrative: Patient has a history of paroxysmal atrial fibrillation, loin pain hematuria syndrome been here 3 times since last month for pain in the left lower abdominal area with hematuria, passing clots similar to that in the past just discharged on 02/26. Patient left kidneys on the left lower abdomen. No fever no chills had cold sweats at home. During last admission patient blood culture were negative Related Data Home Medications Medication Instructions Recorded Confirmed Baby Aspirin 81 mg PO DAILY 02/06/21 02/22/21 Protonix 40 mg PO BID 02/06/21 02/22/21 amlodipine 10 mg PO DAILY 02/06/21 02/22/21 hydromorphone 4 mg tablet 4 tab PO QID 02/06/21 02/22/21 (Dilaudid) hydromorphone 8 mg tablet,extended 1 tab PO BID 02/06/21 02/22/21 release 24 hr methadone 5 mg tablet See Rx Instructions .ROUTE .COMPLEX 02/06/21 02/22/21 ondansetron 4 mg disintegrating 2 tab PO Q8H PRN 02/06/21 02/22/21 tablet Allergies Allergy/AdvReac Type Severity Reaction Status Date / Time buprenorphine [From SUBOXONE] Allergy Unknown HIVES Verified 03/01/21 20:43 Iodinated Contrast Media Allergy Unknown ANAPHYLAXIS Verified 03/01/21 20:43 [IV CONTRAST] morphine [MORPHINE] Allergy Unknown HIVES Verified 03/01/21 20:43 naloxone [From SUBOXONE] Allergy Unknown HIVES Verified 03/01/21 20:43 naproxen [NAPROXEN] Allergy Unknown HIVES Verified 03/01/21 20:43 Review of Systems Review of Systems: Yes all other systems are reviewed and are negative PMFSH Past Medical History Medical History A-fib Leal esophagus Hematuria History of cardioversion Loin pain hematuria syndrome Sepsis Surgical History History of hernia surgery Hx of tonsillectomy Status post kidney autotransplantation Social History Social History Household Members: None Housing: Apartment Do you presently have visiting nurse or other home services: No Alcohol intake: never Patient Tobacco Use Status: Never used Tobacco Advance Directives: No Advance Directives Information Provided: No service: No Current occupational status: disabled Physical Exam Vital Signs: Vital Signs: Last Vital Signs Temp 99.4 F 03/01/21 22:27 Pulse 115 H 03/01/21 22:27 Resp 18 03/01/21 22:34 BP 124/96 H 03/01/21 22:27 Pulse Ox 94 03/01/21 22:27 Body Mass Index 33.6 Appearance: Alert. Oriented X3. In moderate distress ENT: Pharynx normal. Oral Mucosa moist Neck: Normal inspection. Neck supple. CVS: Normal heart rate and rhythm. Pulses normal. Respiratory: No respiratory distress. Equal air entry bilateral, no wheezing/rales/rhonchi Abdomen: Soft and tender left lower abdomen, Bowel sounds are present, no mass palpable, no CVA tenderness Skin: Skin warm and dry. Normal skin color. Normal skin turgor. Extremities: No lower extremity edema. No calf tenderness Neuro: Oriented X 3. Medical Decision Making MDM Narrative Medical decision making narrative: Patient with loin pain hematuria syndrome with frequent ED visits and admissions for hematuria and pain patient already taking Dilaudid at home came today for increased pain nausea vomiting. Will admit patient for pain control and hematuria Lab Data Lab results reviewed: Yes I reviewed the patient's lab results. Result diagrams: 03/01/21 22:22 03/01/21 22:22 Labs: Lab Results 03/01/21 03/01/21 03/01/21 Range/Units 21:00 22:22 22:22 WBC 8.6 (4.8-10.8) X10*3/uL RBC 5.40 (4.60-5.80) X10*6/uL Hgb 14.5 (14.0-18.0) g/dl Hct 44.7 (42-52) % MCV 82.8 (80-98) fL MCH 26.9 L (27.0-33.0) pg MCHC 32.4 (31.0-36.0) g/dl RDW 15.9 (11.0-16.0) % Plt Count 283 D (160-400) X10*3/uL MPV 11.2 (9.4-12.4) fL Immature Gran % (Auto) 0.2 (0.0-0.4) % Neut % (Auto) 68.2 (45-73) % Lymph % (Auto) 18.3 L (20-40) % [place] % (Auto) 6.3 (2-11) % Eos % (Auto) 6.1 H (0-4) % Baso % (Auto) 0.9 (0-2) % Lymph # (Auto) 1.6 (1.2-4.9) X10*3/uL [place] # (Auto) 0.5 (0.1-1.2) X10*3/uL Eos # (Auto) 0.5 H (0.0-0.4) X10*3/uL Baso # (Auto) 0.1 (0.0-0.2) X10*3/uL Abs Immat Gran (auto) 0.02 (0.00-0.03) X10*3/uL Absolute Neuts (auto) 5.8 (2.0-8.3) X10*3/uL Absolute Nucleated RBC 0.000 (0.0-0.012) X10*3/uL Nucleated RBC % (auto) 0.0 (0.0-0.2) /100WBC Sodium 143 (135-145) mmol/L Potassium 4.4 (3.3-5.1) mmol/L Chloride 107 (96-108) mmol/L Carbon Dioxide 26 (22-29) mmol/L Anion Gap 14 (12-20) BUN 18 H D (9-16) mg/dL Creatinine 1.10 (0.5-1.4) mg/dL Estim Creat Clear Calc 87.4 Estimated GFR > 60 Random Glucose 116 H D (60-115) mg/dL Calcium 10.1 D (8.4-10.2) mg/dL Total Bilirubin 0.4 (0.0-1.0) mg/dL AST 25 (5-37) U/L ALT 38 (0-40) U/L Alkaline Phosphatase 100 (39-117) U/L Total Protein 7.7 (6.5-8.0) g/dL Albumin 4.6 (3.5-5.0) g/dL Urine Color RED Urine Appearance TURBID Urine pH 6.0 (5.0-8.0) Ur Specific [place] >= 1.030 H (1.005-1.025) Urine Protein 2+ H (NEG-TRACE) MG/DL Urine Glucose (UA) NEG (NEG) MG/DL Urine Ketones 5 (NEG) MG/DL Urine Blood 3+ H (NEG) Urine Nitrite NEG (NEG) Ur Leukocyte Esterase NEG (NEG) Urine RBC TNTC H (0) /HPF Urine WBC 1-4 (0-4) /HPF Ur Squamous Epith Cells 1+ /LPF Urine Bacteria 1+ /LPF Discharge Plan Discharge Clinical Impression: Loin pain hematuria syndrome Patient Disposition: Admitted As Inpatient
[2021-03-01 22:27] VITALS: BP 124/96; PULSE 115; RESP 20; TEMP 37.4; O2SAT 94
[2021-03-01 22:28] LABS: MANUAL DIFF FLAG NO
[2021-03-01 22:32] LABS: Basophils Absolute Auto 0.1 X10*3/uL (0.0-0.2); Basophils Percent Auto 0.9 % (0-2); Eosinophils Absolute Auto 0.5 X10*3/uL (0.0-0.4); Eosinophils Percent Auto 6.1 % (0-4); Hematocrit 44.7 % (42-52); Hemoglobin 14.5 g/dl (14.0-18.0); Imm Gran Abs Auto 0.02 X10*3/uL (0.00-0.03); Imm Gran Pct Auto 0.2 % (0.0-0.4); Lymphocytes Absolute Auto 1.6 X10*3/uL (1.2-4.9); Lymphocytes Percent Auto 18.3 % (20-40); Mean Corpuscular HGB Conc 32.4 g/dl (31.0-36.0); Mean Corpuscular Hemoglobin 26.9 pg (27.0-33.0); Mean Corpuscular Volume 82.8 fL (80-98); Mean Platelet Volume 11.2 fL (9.4-12.4); Monocytes Absolute Auto 0.5 X10*3/uL (0.1-1.2); Monocytes Percent Auto 6.3 % (2-11); Neutrophils Absolute Auto 5.8 X10*3/uL (2.0-8.3); Neutrophils Percent Auto 68.2 % (45-73); Platelet Count 283 X10*3/uL (160-400); Red Cell Distribution Width 15.9 % (11.0-16.0); White Blood Count 8.6 X10*3/uL (4.8-10.8)
[2021-03-01 22:34] VITALS: RESP 18
[2021-03-01] MEDS: HYDROmorphone HCl 2 MG/ML VIAL IVPUSH (22:34)
[2021-03-01] MEDS: 0.9 % Sodium Chloride 1,000 ML 999 ML IVCONT (22:35)
[2021-03-01] MEDS: diphenhydrAMINE HCL 50 MG/ML VIAL IVPUSH (22:35)
--- NOTE | 2021-03-01 22:47 | PC.NURSE ---
PT HAS PORT TO RIGHT UPPER CHEST, ACCESSED AT THIS TIME W/O DIFFICULTY AND PT MEDICATED AT THIS TIME FOR PAIN AND NAUSEA. WILL CONTINUE TO MONTIOR PT.
[2021-03-01 22:52] LABS: Alanine Aminotransferase 38 U/L (0-40); Albumin Level 4.6 g/dL (3.5-5.0); Alkaline Phosphatase 100 U/L (39-117); Anion Gap 14 (12-20); Aspartate Amino Transferase 25 U/L (5-37); Bilirubin Total 0.4 mg/dL (0.0-1.0); Blood Urea Nitrogen 18 mg/dL (9-16); Calcium 10.1 mg/dL (8.4-10.2); Carbon Dioxide 26 mmol/L (22-29); Chloride 107 mmol/L (96-108); Creatinine Clr Calc Pharmacy 87.4; Estimated Glomerular Filt Rate > 60; Glucose Random 116 mg/dL (60-115); Potassium 4.4 mmol/L (3.3-5.1); Sodium 143 mmol/L (135-145); Total Protein 7.7 g/dL (6.5-8.0)
[2021-03-02] VITALS (12 sets, daily range): BP systolic 105–137; BP diastolic 64–92; PULSE 67–119; RESP 16–20; TEMP 36.1–36.7; O2SAT 95–97
--- NOTE | 2021-03-02 00:21 | P.HPHOSP_ITS ---
History of Present Illness Date of Service: 03/02/21 Chief Complaint: Hematuria/Groin pain 50-year-old male with a past medical history of Leal's esophagus, AFib status post cardioversion, history of sepsis, history of left kidney autoransplantation, history of line pain hematuria syndrome with frequent exacerbations and admissions to the hospital, recently discharged on 02/26/2021 presented to the hospital again with similar symptoms of pain/hematuria/nausea/vomiting/poor oral intake. Patient mentions that he has been taking his home pain medications with no significant improvement. Denies any fever chills cough. Denies any frequency urgency or burning. Denies any chest pain palpitations lightheadedness or dizziness. Review of all other systems is negative except mentioned above ER course: Per ER team patient was given IV pain medications; upon follow-up evaluation patient has no significant improvement in symptoms; admitted to the hospital for further management. [facility] Medical History A-fib Leal esophagus Frontotemporal lobar degeneration Hematuria History of cardioversion Loin pain hematuria syndrome Sepsis Surgical History History of hernia surgery Hx of tonsillectomy Status post kidney autotransplantation Social History Household Members: None Housing: Apartment Do you presently have visiting nurse or other home services: No Alcohol intake: never Patient Tobacco Use Status: Never used Tobacco Use of substances other than those prescribed or required for medical reasons: No Advance Directives: No Advance Directives Information Provided: Yes service: No Current occupational status: disabled Meds Allergies Allergy/AdvReac Type Severity Reaction Status Date / Time buprenorphine [From SUBOXONE] Allergy Unknown HIVES Verified 03/12/21 05:07 Iodinated Contrast Media Allergy Unknown ANAPHYLAXIS Verified 03/12/21 05:07 [IV CONTRAST] morphine [MORPHINE] Allergy Unknown HIVES Verified 03/12/21 05:07 naloxone [From SUBOXONE] Allergy Unknown HIVES Verified 03/12/21 05:07 naproxen [NAPROXEN] Allergy Unknown HIVES Verified 03/12/21 05:07 Active Medications: Current Medications Generic Name Dose Route Start Last Admin Trade Name Freq PRN Reason Stop Dose Admin Docusate Sodium 100 mg 03/02/21 09:00 Docusate Sodium 100 Mg Capsule PO BID [facility] Hydromorphone HCl 0.5 mg 03/02/21 00:19 Hydromorphone Hcl 0.5 Mg/0.5 Ml Syringe IVPUSH Q4H PRN Pain, Severe (Pain Scale 7-10) Dextrose/Sodium Chloride 1,000 mls @ 100 mls/hr 03/02/21 00:30 D5ns IVCONT .Q10H TONY Melatonin 6 mg 03/02/21 00:19 Melatonin 3 Mg Tablet PO BEDTIME PRN Insomnia Senna 17.2 mg 03/02/21 00:19 Sennosides 8.6 Mg Tablet PO BEDTIME PRN Constipation Sodium Chloride 3 ml 03/02/21 08:00 0.9 % Sodium Chloride Flush 3 Ml Syringe IVFLUSH QSHIFT [facility] Home Medications Medication Instructions Recorded Confirmed Last Taken Type hydromorphone 4 mg tablet 4 tab PO Q8H 02/06/21 03/12/21 03/11/21 History (Dilaudid) hydromorphone 8 mg tablet,extended 1 tab PO BID 02/06/21 03/12/21 03/11/21 History release 24 hr methadone 5 mg tablet 5 mg PO TID 02/06/21 03/12/21 03/11/21 History ondansetron 4 mg disintegrating 8 mg PO Q8H PRN 02/06/21 03/12/21 03/11/21 History tablet amlodipine 10 mg tablet 10 mg PO DAILY 03/12/21 03/12/21 03/11/21 History aspirin 81 mg tablet,delayed 81 mg PO DAILY 03/12/21 03/12/21 03/11/21 History release pantoprazole 40 mg tablet,delayed 40 mg PO BID 03/12/21 03/12/21 03/11/21 History release Physical Exam Vital Signs and Narrative: Vital Signs: Last Vital Signs Temp 99.4 F 03/01/21 22:27 Pulse 115 H 03/01/21 22:27 Resp 18 03/01/21 22:34 BP 124/96 H 03/01/21 22:27 Pulse Ox 94 03/01/21 22:27 Body Mass Index 33.6 Gen: Appears be in no acute distress HEENT: NCAT, Moist mucosa. Pulmonary: Vesicular breath sounds, fair air entry CVS: Normal S1-S2 Abdomen: BS+, Soft, mildly tender in the left lower quadrant on deep palpation Extremities: Warm well perfused Neuro: Alert and awake. Results Labs CBC and Chem 7: 03/03/21 06:08 03/03/21 06:08 Labs: Laboratory Results - last 24 hr 03/01/21 03/01/21 03/01/21 21:00 22:22 22:22 MCV 82.8 MCH 26.9 L MCHC 32.4 RDW 15.9 Plt Count 283 D MPV 11.2 Immature Gran % (Auto) 0.2 Neut % (Auto) 68.2 Lymph % (Auto) 18.3 L [place] % (Auto) 6.3 Eos % (Auto) 6.1 H Baso % (Auto) 0.9 Lymph # (Auto) 1.6 [place] # (Auto) 0.5 Eos # (Auto) 0.5 H Baso # (Auto) 0.1 Abs Immat Gran (auto) 0.02 Absolute Neuts (auto) 5.8 Absolute Nucleated RBC 0.000 Nucleated RBC % (auto) 0.0 Anion Gap 14 Estim Creat Clear Calc 87.4 Estimated GFR > 60 Random Glucose 116 H D Calcium 10.1 D Total Bilirubin 0.4 AST 25 ALT 38 Alkaline Phosphatase 100 Total Protein 7.7 Albumin 4.6 Urine Color RED Urine Appearance TURBID Urine pH 6.0 Ur Specific [place] >= 1.030 H Urine Protein 2+ H Urine Glucose (UA) NEG Urine Ketones 5 Urine Blood 3+ H Urine Nitrite NEG Ur Leukocyte Esterase NEG Urine RBC TNTC H Urine WBC 1-4 Ur Squamous Epith Cells 1+ Urine Bacteria 1+ Assessment and Plan (1) Loin pain hematuria syndrome: Status: Acute 50-year-old male with a past medical history of GERD/Leal's esophagus, AFib status post cardioversion, history of left kidney ordered transplantation, history of loin pain hematuria syndrome with frequent exacerbations; presented t o the hospital with a chief complaint of pain/hematuria. Admitted for further management. Exacerbation of Loin pain hematuria syndrome: Patient was recently discharged on 02/26/2021; patient is supposed to follow-up with?dr toledo for L ureter removal/denervation/ and shortening. Continue IV Dilaudid 3mg q3h prn (pt has high opiate tolerence; pt was on this regimen during last admission and tolerated it). Supportive care urology consult History of opiate dependence: Admission worsen consult History of hypertension: Hold home antihypertensives for now. DVT prophylaxis: SCD boots Code status: Full code Quality Stroke Does the patient have a stroke diagnosis?: No VTE Prior VTE?: No VTE Risk Level:: Medical - moderate - high VTE Device Contraindication: N/A - Device Ordered VTE Drug Contraindication: Treatment Not Indicated
[2021-03-02] MEDS: HYDROmorphone HCl 0.5 MG/0.5 ML SYRINGE IVPUSH (01:06)
--- NOTE | 2021-03-02 01:43 | PC.NURSE ---
PT RATING PAIN 9/10. PT REQUESTING NURSING TO CALL HOSPITALIST. HOSPITALIST AWARE OF PT'S PAIN AND INCREASING DILAUDID TO 1MG IVP. AWAITING FOR MEDS TO GET VERIFIED.
[2021-03-02] MEDS: HYDROmorphone HCl 0.5 MG/0.5 ML SYRINGE 1 MG IVPUSH (02:11)
[2021-03-02] MEDS: Dextrose 5 % and 0.9 % NaCl 1,000 ML 100 ML IVCONT ×3 (02:17→22:13)
[2021-03-02] MEDS: diphenhydrAMINE HCL 50 MG/ML VIAL 25 MG IVPUSH ×3 (04:27→17:59)
[2021-03-02] MEDS: HYDROmorphone HCl 0.5 MG/0.5 ML SYRINGE 3 MG IVPUSH ×3 (04:30→11:37)
[2021-03-02 06:40] LABS: Influenza A PCR NEGATIVE (Negative); Influenza B PCR NEGATIVE (Negative); Resp Syncy Virus RNA Qual PCR NEGATIVE (Negative); SARS COV2 PCR INHOUSE NEGATIVE (Negative)
[2021-03-02 07:32] LABS: MANUAL DIFF FLAG NO
[2021-03-02 07:33] LABS: Basophils Absolute Auto 0.1 X10*3/uL (0.0-0.2); Basophils Percent Auto 1.1 % (0-2); Eosinophils Absolute Auto 0.4 X10*3/uL (0.0-0.4); Eosinophils Percent Auto 5.7 % (0-4); Hematocrit 37.8 % (42-52); Hemoglobin 12.2 g/dl (14.0-18.0); Imm Gran Abs Auto 0.02 X10*3/uL (0.00-0.03); Imm Gran Pct Auto 0.3 % (0.0-0.4); Lymphocytes Percent Auto 31.1 % (20-40); Mean Corpuscular HGB Conc 32.3 g/dl (31.0-36.0); Mean Corpuscular Hemoglobin 27.1 pg (27.0-33.0); Mean Corpuscular Volume 83.8 fL (80-98); Mean Platelet Volume 10.8 fL (9.4-12.4); Monocytes Absolute Auto 0.5 X10*3/uL (0.1-1.2); Monocytes Percent Auto 8.3 % (2-11); Neutrophils Absolute Auto 3.4 X10*3/uL (2.0-8.3); Neutrophils Percent Auto 53.5 % (45-73); Platelet Count 197 X10*3/uL (160-400); Red Blood Count 4.51 X10*6/uL (4.60-5.80); Red Cell Distribution Width 15.9 % (11.0-16.0); White Blood Count 6.4 X10*3/uL (4.8-10.8)
[2021-03-02 07:56] LABS: Anion Gap 10 (12-20); Blood Urea Nitrogen 15 mg/dL (9-16); Carbon Dioxide 27 mmol/L (22-29); Chloride 109 mmol/L (96-108); Creatinine Clr Calc Pharmacy 117.2; Estimated Glomerular Filt Rate > 60; Glucose Random 98 mg/dL (60-115); Potassium 4.1 mmol/L (3.3-5.1); Sodium 142 mmol/L (135-145)
[2021-03-02 08:01] LABS: Calcium 8.9 mg/dL (8.4-10.2)
[2021-03-02] MEDS: 0.9 % Sodium Chloride Flush 3 ML SYRINGE IVFLUSH ×2 (08:24→15:21)
--- NOTE | 2021-03-02 08:32 | PC.NURSE ---
dr. calderon at bedside, pt aware of plan of care.
--- NOTE | 2021-03-02 08:38 | PM.UROCN ---
History of Present Illness Consult details Consult date: 03/02/21 Narrative: Raul is a 50-year-old male. He had previous admission for persistent left distal flank pain which has been diagnosed as long pain hematuria syndrome. 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 Is awaiting secondary procedure for denervation see of kidney and ureter. Presents again today with blood in the urine. Discussed with Raul the possibility of trying tranexamic acid. This provides clotting and has been successful with relieving radiation cystitis related hematuria. The 1 risk is if bleeding is prominent from the upper tract the blood clots can create a potential for obstruction. His bleeding is not profuse so we would expect that the benefit from tranexamic acid would be to reduce the hematuria that is present. If the test dose is successful would recommend low-dose oral continuous prophylaxis as is used for angioedema syndromes. Review of Systems Constitutional: Constitutional: Denies chills and Denies fever(s) Cardiovascular: Cardiovascular: Reports no additional cardiovascular complaints and Denies syncope Respiratory: Respiratory: Denies cough Gastrointestinal: Gastrointestinal: Denies abdominal pain and Denies heartburn Genitourinary: Genitourinary: Reports as per HPI and Denies change in libido Neurologic: Denies syncope Psychiatric: Psychiatric: Denies change in libido Endocrine: Endocrine: Denies change in libido [facility] Past Medical History Medical History (Updated 03/02/21 @ 14:08 by Piotr Scruggs MD) A-fib Leal esophagus Frontotemporal lobar degeneration Hematuria History of cardioversion Loin pain hematuria syndrome Sepsis Surgical History Surgical History History of hernia surgery Hx of tonsillectomy Status post kidney autotransplantation Social History Social History Household Members: None Housing: Apartment Do you presently have visiting nurse or other home services: No Alcohol intake: never Patient Tobacco Use Status: Never used Tobacco Use of substances other than those prescribed or required for medical reasons: No Have you been hit, kicked, punched, or otherwise hurt by someone within the past year? If so, by whom?: No Do you feel safe in your current relationship?: Yes Is there a partner from a previous relationship who is making you feel unsafe now?: No Are you made to feel afraid or neglected: No Advance Directives: No Advance Directives Information Provided: No Do you have thoughts of harming others: None Do you have a plan to hurt others: No Plan Recently lost weight without trying: No Nutrition Risks: No Nutritional Risk Poor oral hygiene: No service: No Current occupational status: disabled Meds Allergies Allergy/AdvReac Type Severity Reaction Status Date / Time buprenorphine [From SUBOXONE] Allergy Unknown HIVES Verified 03/01/21 20:43 Iodinated Contrast Media Allergy Unknown ANAPHYLAXIS Verified 03/01/21 20:43 [IV CONTRAST] morphine [MORPHINE] Allergy Unknown HIVES Verified 03/01/21 20:43 naloxone [From SUBOXONE] Allergy Unknown HIVES Verified 03/01/21 20:43 naproxen [NAPROXEN] Allergy Unknown HIVES Verified 03/01/21 20:43 Active Medications: Current Medications Generic Name Dose Route Start Last Admin Trade Name Freq PRN Reason Stop Dose Admin Diphenhydramine HCl 25 mg 03/02/21 02:20 03/02/21 04:27 Diphenhydramine Hcl 50 Mg/Ml Vial IVPUSH 25 mg Q6H PRN Administration Itching Docusate Sodium 100 mg 03/02/21 09:00 Docusate Sodium 100 Mg Capsule PO BID TONY Hydromorphone HCl 3 mg 03/02/21 02:20 03/02/21 08:23 Hydromorphone Hcl 0.5 Mg/0.5 Ml Syringe IVPUSH 3 mg Q3H PRN Administration Pain, Severe (Pain Scale 7-10) Hydromorphone HCl 16 mg 03/02/21 09:00 Hydromorphone Hcl 2 Mg Tablet PO QID TONY Dextrose/Sodium Chloride 1,000 mls @ 100 mls/hr 03/02/21 00:30 03/02/21 02:17 D5ns IVCONT 100 mls/hr .Q10H TONY Administration Melatonin 6 mg 03/02/21 00:19 Melatonin 3 Mg Tablet PO BEDTIME PRN Insomnia Methadone HCl 5 mg 03/02/21 09:00 Methadone Hcl 5 Mg Tablet PO TID TONY Omeprazole 20 mg 03/02/21 09:00 Omeprazole 20 Mg Capsule.Dr PO BID TONY Senna 17.2 mg 03/02/21 00:19 Sennosides 8.6 Mg Tablet PO BEDTIME PRN Constipation Sodium Chloride 3 ml 03/02/21 08:00 03/02/21 08:24 0.9 % Sodium Chloride Flush 3 Ml Syringe IVFLUSH 3 ml [facility] Administration Home Medications Medication Instructions Recorded Confirmed Last Taken Type Baby Aspirin 81 mg PO DAILY 02/06/21 03/02/21 02/22/21 05:00 History Protonix 40 mg PO BID 02/06/21 03/02/21 02/21/21 20:00 History amlodipine 10 mg PO DAILY 02/06/21 03/02/21 02/21/21 05:00 History hydromorphone 4 mg tablet 4 tab PO QID 02/06/21 03/02/21 02/22/21 02:00 History (Dilaudid) hydromorphone 8 mg tablet,extended 1 tab PO BID 02/06/21 03/02/21 02/21/21 History release 24 hr methadone 5 mg tablet 5 mg PO TID 02/06/21 03/02/21 02/21/21 20:00 History ondansetron 4 mg disintegrating 8 mg PO Q8H PRN 02/06/21 03/02/21 02/22/21 05:00 History tablet Physical Exam Vital Signs: Vital Signs: Last Vital Signs Temp 98.0 F 03/02/21 08:19 Pulse 82 03/02/21 08:19 Resp 17 03/02/21 08:19 BP 122/84 03/02/21 08:19 Pulse Ox 97 03/02/21 08:19 Body Mass Index 33.6 Const: General: cooperative, healthy appearing, comfortable and no acute distress Orientation/consciousness: patient oriented x3 HENMT: Face and sinus: Yes normal facial exam Mouth: moist mucous membranes Neck: Neck: Yes normal visual inspection, Yes full ROM and Yes trachea midline Chest: Chest palpation & inspection: normal inspection of the chest Resp: Effort & Inspection: normal respiratory effort, able to speak in complete sentences and no respiratory distress GI: Inspection: Yes normal to inspection Back/Spine/Pelvis: Cervical Spine: normal cervical lordosis Thoracic/Lumbar Spine: thoracic and lumbar spine normal to inspection Skin: General skin exam: no rashes or lesions noted Neuro: General: patient oriented x3, gait normal, tone normal and moves all extremities Extrem: General: Yes normal to inspection and Yes capillary refill normal Results Labs Result diagrams: 03/02/21 07:24 03/02/21 07:24 Labs: Abnormal lab results 03/01/21 03/01/21 03/01/21 Range/Units 21:00 22:22 22:22 RBC (4.60-5.80) X10*6/uL Hgb (14.0-18.0) g/dl Hct (42-52) % MCH 26.9 L (27.0-33.0) pg Lymph % (Auto) 18.3 L (20-40) % Eos % (Auto) 6.1 H (0-4) % Eos # (Auto) 0.5 H (0.0-0.4) X10*3/uL Chloride (96-108) mmol/L Anion Gap (12-20) BUN 18 H D (9-16) mg/dL Random Glucose 116 H D (60-115) mg/dL Ur Specific [place] >= 1.030 H (1.005-1.025) Urine Protein 2+ H (NEG-TRACE) MG/DL Urine Blood 3+ H (NEG) Urine RBC TNTC H (0) /HPF 03/02/21 03/02/21 Range/Units 07:24 07:24 RBC 4.51 L (4.60-5.80) X10*6/uL Hgb 12.2 L (14.0-18.0) g/dl Hct 37.8 L (42-52) % MCH (27.0-33.0) pg Lymph % (Auto) (20-40) % Eos % (Auto) 5.7 H (0-4) % Eos # (Auto) (0.0-0.4) X10*3/uL Chloride 109 H (96-108) mmol/L Anion Gap 10 L (12-20) BUN (9-16) mg/dL Random Glucose (60-115) mg/dL Ur Specific [place] (1.005-1.025) Urine Protein (NEG-TRACE) MG/DL Urine Blood (NEG) Urine RBC (0) /HPF Short CBC 03/01/21 03/02/21 Range/Units 22:22 07:24 WBC 8.6 6.4 (4.8-10.8) X10*3/uL Hgb 14.5 12.2 L (14.0-18.0) g/dl Hct 44.7 37.8 L (42-52) % Plt Count 283 D 197 D (160-400) X10*3/uL BMP 03/01/21 03/02/21 22:22 07:24 Sodium 143 142 Potassium 4.4 4.1 Chloride 107 109 H Carbon Dioxide 26 27 BUN 18 H D 15 Creatinine 1.10 0.82 Calcium 10.1 D 8.9 D Liver Function 03/01/21 Range/Units 22:22 Total Bilirubin 0.4 (0.0-1.0) mg/dL AST 25 (5-37) U/L ALT 38 (0-40) U/L Alkaline Phosphatase 100 (39-117) U/L Albumin 4.6 (3.5-5.0) g/dL Urine 03/01/21 Range/Units 21:00 Urine Color RED Urine Appearance TURBID Urine pH 6.0 (5.0-8.0) Ur Specific [place] >= 1.030 H (1.005-1.025) Urine Protein 2+ H (NEG-TRACE) MG/DL Urine Glucose (UA) NEG (NEG) MG/DL All other labs normal. Assessment and Plan (1) Loin pain hematuria syndrome: Status: Acute (2) Hematuria: Status: Acute Trial of tranexamic acid 1 g Will follow Procedures Date of Service Date of Service: 03/02/21
--- NOTE | 2021-03-02 08:44 | PC.NURSE ---
nurse to nurse given to thierry (damon), pt aware of plan of care for admission to hosp.
--- NOTE | 2021-03-02 09:58 | MHC.CM.PN ---
PATIENT LIVES ALONE. HIS PCP IS DR NEWBERRY (ALSO HIS LAN ADMINISTRATOR) OF [facility] [phone] PATIENT IS ASSIGNING HIS SIGNIFICANT OTHER, CHRISTINA, HCP AGENT. COPY TO BE UPLOADED INTO [employer]. HE IS HOPING TO RETURN HOME WITH NO SERVICES. IMM 03/02 IN CHART
[2021-03-02] MEDS: Omeprazole 20 MG CAPSULE.DR PO ×2 (10:19→20:52)
[2021-03-02] MEDS: methADONE HCl 5 MG TABLET PO ×3 (10:19→20:52)
[2021-03-02] MEDS: Tranexamic Acid 1,000 MG in 0.9 % Sodium Chloride 50 ML 360 MG IV ×2 (10:20→15:20)
[2021-03-02] MEDS: diphenhydrAMINE HCL 50 MG/ML VIAL IVPUSH ×2 (11:38→20:51)
--- NOTE | 2021-03-02 13:33 | MHC.CLN ---
NUTRITION DIET=REGULAR PER MD ORDER. DECREASE IN INTAKE NOTED PRIOR TO THIS ADMISSION. SHOWS WEIGHT GAIN SINCE 02/22/21 OF +7.5 KG, 8.4%. CURRENT WEIGHT DONE WITH BED SCALE=97.5 KG. QUESTION IF WEIGHT GAIN ACCURATE SINCE SIGNIFICANT WEIGHT GAIN IN LESS THAN ONE WEEK NOT LIKELY.
[2021-03-02] MEDS: HYDROmorphone HCl 2 MG/ML VIAL 3 MG IVPUSH ×3 (14:52→20:51)
--- NOTE | 2021-03-02 15:44 | PC.NURSE ---
Skin assessment completed today. No skin issues noted.
--- NOTE | 2021-03-02 15:48 | PM.EVENT ---
Event Note Date of Service: 03/02/21 Event Note: continue pain control, expected to require 3-4 days, consistent with previous episodes
[2021-03-03] MEDS: diphenhydrAMINE HCL 50 MG/ML VIAL 25 MG IVPUSH ×6 (00:11→18:06)
[2021-03-03] MEDS: HYDROmorphone HCl 2 MG/ML VIAL 3 MG IVPUSH ×8 (00:11→21:09)
[2021-03-03 04:00] VITALS: BP 120/79; PULSE 70; RESP 16; TEMP 36.4; O2SAT 96
[2021-03-03] MEDS: Dextrose 5 % and 0.9 % NaCl 1,000 ML 100 ML IVCONT ×2 (06:23→15:56)
[2021-03-03 07:05] LABS: Hematocrit 36.4 % (42-52); Hemoglobin 11.5 g/dl (14.0-18.0); Mean Corpuscular HGB Conc 31.6 g/dl (31.0-36.0); Mean Corpuscular Hemoglobin 26.8 pg (27.0-33.0); Mean Corpuscular Volume 84.8 fL (80-98); Mean Platelet Volume 11.5 fL (9.4-12.4); Platelet Count 189 X10*3/uL (160-400); Red Blood Count 4.29 X10*6/uL (4.60-5.80); Red Cell Distribution Width 16.1 % (11.0-16.0); White Blood Count 4.8 X10*3/uL (4.8-10.8)
[2021-03-03 07:32] LABS: Anion Gap 9 (12-20); Blood Urea Nitrogen 10 mg/dL (9-16); Calcium 8.6 mg/dL (8.4-10.2); Carbon Dioxide 26 mmol/L (22-29); Chloride 110 mmol/L (96-108); Creatinine Clr Calc Pharmacy 114.4; Estimated Glomerular Filt Rate > 60; Glucose Fasting 130 mg/dL (60-99); Potassium 3.9 mmol/L (3.3-5.1); Sodium 141 mmol/L (135-145)
[2021-03-03 08:00] VITALS: BP 101/73; PULSE 77; RESP 18; TEMP 36.1; O2SAT 96
--- NOTE | 2021-03-03 08:56 | PM.UROPN ---
Subjective Subjective Date of Service: 03/03/21 Interval history: Good response to tranexamic acid Clots have stopped forming Urine slowly clearing Will give 1 more IV dose Can go home on oral tranexamic acid 650 mg p.o. once daily Physical Exam Vital Signs: Vital Signs: Last Vital Signs Temp 97.0 F 03/03/21 08:00 Pulse 77 03/03/21 08:00 Resp 18 03/03/21 08:00 BP 101/73 03/03/21 08:00 Pulse Ox 96 03/03/21 08:00 Body Mass Index 33.6 Const: General: cooperative, healthy appearing, comfortable and no acute distress Orientation/consciousness: patient oriented x3 HENMT: Face and sinus: Yes normal facial exam Mouth: moist mucous membranes Neck: Neck: Yes normal visual inspection, Yes full ROM and Yes trachea midline Chest: Chest palpation & inspection: normal inspection of the chest Resp: Effort & Inspection: normal respiratory effort, able to speak in complete sentences and no respiratory distress GI: Inspection: Yes normal to inspection Back/Spine/Pelvis: Cervical Spine: normal cervical lordosis Thoracic/Lumbar Spine: thoracic and lumbar spine normal to inspection Skin: General skin exam: no rashes or lesions noted Neuro: General: patient oriented x3, gait normal, tone normal and moves all extremities Extrem: General: Yes normal to inspection and Yes capillary refill normal Urology Results Labs CBC & Chem 7: 03/03/21 06:08 03/03/21 06:08 Labs: Laboratory Results - last 24 hr 03/03/21 03/03/21 06:08 06:08 WBC 4.8 RBC 4.29 L Hgb 11.5 L Hct 36.4 L MCV 84.8 MCH 26.8 L MCHC 31.6 RDW 16.1 H Plt Count 189 MPV 11.5 Absolute Nucleated RBC 0.000 Nucleated RBC % (auto) 0.0 Sodium 141 Potassium 3.9 Chloride 110 H Carbon Dioxide 26 Anion Gap 9 L BUN 10 Creatinine 0.84 Estim Creat Clear Calc 114.4 Estimated GFR > 60 Fasting Glucose 130 H Calcium 8.6 Progress Note: A&P Assessment and plan (1) Loin pain hematuria syndrome: Status: Acute (2) Hematuria: Status: Acute Assessment and Plan: Continue with coagulation therapy Fall Risk Details Current Medications: Current Medications Generic Name Dose Route Start Last Admin Trade Name Freq PRN Reason Stop Dose Admin Diphenhydramine HCl 25 mg 03/02/21 09:23 03/03/21 06:06 Diphenhydramine Hcl 50 Mg/Ml Vial IVPUSH 25 mg Q3H PRN Administration itchy Diphenhydramine HCl 50 mg 03/02/21 11:23 03/02/21 20:51 Diphenhydramine Hcl 50 Mg/Ml Vial IVPUSH 50 mg BID TONY Administration Docusate Sodium 100 mg 03/02/21 09:00 03/02/21 22:08 Docusate Sodium 100 Mg Capsule PO Not Given BID TONY Hydromorphone HCl 3 mg 03/02/21 13:45 03/03/21 06:12 Hydromorphone Hcl 2 Mg/Ml Vial IVPUSH 3 mg Q3H PRN Administration Pain, Severe (Pain Scale 7-10) Dextrose/Sodium Chloride 1,000 mls @ 100 mls/hr 03/02/21 00:30 03/03/21 06:23 D5ns IVCONT 100 mls/hr .Q10H TONY Administration Melatonin 6 mg 03/02/21 00:19 Melatonin 3 Mg Tablet PO BEDTIME PRN Insomnia Methadone HCl 5 mg 03/02/21 09:00 03/02/21 20:52 Methadone Hcl 5 Mg Tablet PO 5 mg TID TONY Administration Omeprazole 20 mg 03/02/21 09:00 03/02/21 20:52 Omeprazole 20 Mg Capsule.Dr PO 20 mg BID TONY Administration Senna 17.2 mg 03/02/21 00:19 Sennosides 8.6 Mg Tablet PO BEDTIME PRN Constipation Sodium Chloride 3 ml 03/02/21 08:00 03/03/21 08:11 0.9 % Sodium Chloride Flush 3 Ml Syringe IVFLUSH Not Given QSHIFT [facility] Time Spent With Patient Time: Total time spent is greater than 50% in coordination of care (as documented) at patient's floor/unit and/or counseling patient: Time with patient: less than 15 minutes
--- NOTE | 2021-03-03 09:02 | P.PNIM_ITS ---
Subjective Subjective Date of Service: 03/03/21 Interval History: still with tea colored urine, pain Constitutional Constitutional: Reports no additional constitutional complaints Eyes Eyes: Reports no additional eye complaints Physical Exam Vital Signs: Vital Signs: Last Vital Signs Temp 97.0 F 03/03/21 08:00 Pulse 77 03/03/21 08:00 Resp 18 03/03/21 08:00 BP 101/73 03/03/21 08:00 Pulse Ox 96 03/03/21 08:00 Body Mass Index 33.6 General: AO X 3, no acute distress Resp: CTA bilateral CVS: S1,S2,RRR GI: soft, non tender, non distended Neuro: motor grossly intact Psych: appropriate affect Objective Data Current Medications Generic Name Dose Route Start Last Admin Trade Name Freq PRN Reason Stop Dose Admin Diphenhydramine HCl 25 mg 03/02/21 09:23 03/03/21 06:06 Diphenhydramine Hcl 50 Mg/Ml Vial IVPUSH 25 mg Q3H PRN Administration itchy Diphenhydramine HCl 50 mg 03/02/21 11:23 03/02/21 20:51 Diphenhydramine Hcl 50 Mg/Ml Vial IVPUSH 50 mg BID TONY Administration Docusate Sodium 100 mg 03/02/21 09:00 03/02/21 22:08 Docusate Sodium 100 Mg Capsule PO Not Given BID TONY Hydromorphone HCl 3 mg 03/02/21 13:45 03/03/21 06:12 Hydromorphone Hcl 2 Mg/Ml Vial IVPUSH 3 mg Q3H PRN Administration Pain, Severe (Pain Scale 7-10) Dextrose/Sodium Chloride 1,000 mls @ 100 mls/hr 03/02/21 00:30 03/03/21 06:23 D5ns IVCONT 100 mls/hr .Q10H TONY Administration Tranexamic Acid 1,000 mg/ 60 mls @ 360 mls/hr 03/03/21 08:57 Sodium Chloride IV 03/03/21 09:06 ONCE ONE Melatonin 6 mg 03/02/21 00:19 Melatonin 3 Mg Tablet PO BEDTIME PRN Insomnia Methadone HCl 5 mg 03/02/21 09:00 03/02/21 20:52 Methadone Hcl 5 Mg Tablet PO 5 mg TID TONY Administration Omeprazole 20 mg 03/02/21 09:00 03/02/21 20:52 Omeprazole 20 Mg Capsule. PO 20 mg BID TONY Administration Senna 17.2 mg 03/02/21 00:19 Sennosides 8.6 Mg Tablet PO BEDTIME PRN Constipation Sodium Chloride 3 ml 03/02/21 08:00 03/03/21 08:11 0.9 % Sodium Chloride Flush 3 Ml Syringe IVFLUSH Not Given QSHIFT [facility] Labs CBC & Chem 7: 03/03/21 06:08 03/03/21 06:08 Labs: Laboratory Results - last 24 hr 03/03/21 03/03/21 06:08 06:08 MCV 84.8 MCH 26.8 L MCHC 31.6 RDW 16.1 H Plt Count 189 MPV 11.5 Absolute Nucleated RBC 0.000 Nucleated RBC % (auto) 0.0 Anion Gap 9 L Estim Creat Clear Calc 114.4 Estimated GFR > 60 Fasting Glucose 130 H Calcium 8.6 Assessment and Plan (1) Loin pain hematuria syndrome: Status: Acute Assessment and Plan: 50M presented with recurrent episode of hematuria loin pain syndrome. Exacerbation of Loin pain hematuria syndrome continue pain control outpatient follow up with dr toledo for L ureter removal/denervation/ and trell rtening. urology following htn holding amlodpine for low-normal bp barretts esophogus ppi dvt prophylaxis - mechanical due to hematuria Quality Stroke Does the patient have a stroke diagnosis?: No VTE Prior VTE?: No VTE Risk Level:: Medical - moderate - high VTE Device Contraindication: N/A - Device Ordered VTE Drug Contraindication: Treatment Not Indicated
[2021-03-03] MEDS: diphenhydrAMINE HCL 50 MG/ML VIAL IVPUSH ×2 (09:03→21:08)
[2021-03-03] MEDS: Omeprazole 20 MG CAPSULE.DR PO ×2 (09:09→21:08)
[2021-03-03] MEDS: methADONE HCl 5 MG TABLET PO ×3 (09:18→21:08)
[2021-03-03] MEDS: Tranexamic Acid 1,000 MG in 0.9 % Sodium Chloride 50 ML 360 MG IV (11:36)
[2021-03-03 12:00] VITALS: BP 103/65; PULSE 89; RESP 18; TEMP 36.4; O2SAT 94
--- NOTE | 2021-03-03 12:27 | MHC.CM.PN ---
PATIENT STILL SYMPTOMATIC. PLAN IS DC Tuesday03/04/21.
[2021-03-03 16:00] VITALS: BP 113/80; PULSE 77; RESP 18; TEMP 36.8; O2SAT 96
[2021-03-03 19:05] VITALS: BP 120/69; PULSE 73; RESP 18; TEMP 36.7; O2SAT 97
[2021-03-04] VITALS: BP 134/85; PULSE 81; RESP 16; TEMP 36.6; O2SAT 95
[2021-03-04] MEDS: diphenhydrAMINE HCL 50 MG/ML VIAL 25 MG IVPUSH ×5 (00:02→15:07)
[2021-03-04] MEDS: HYDROmorphone HCl 2 MG/ML VIAL 3 MG IVPUSH ×6 (00:03→15:06)
[2021-03-04] MEDS: Dextrose 5 % and 0.9 % NaCl 1,000 ML 100 ML IVCONT ×2 (01:08→11:34)
[2021-03-04 03:51] VITALS: BP 133/85; PULSE 74; RESP 16; TEMP 36.6; O2SAT 98
[2021-03-04 07:27] VITALS: BP 110/76; PULSE 82; RESP 18; TEMP 36.4; O2SAT 94
[2021-03-04] MEDS: 0.9 % Sodium Chloride Flush 3 ML SYRINGE IVFLUSH (09:04)
[2021-03-04] MEDS: diphenhydrAMINE HCL 50 MG/ML VIAL IVPUSH (09:06)
[2021-03-04] MEDS: methADONE HCl 5 MG TABLET PO ×2 (09:07→15:07)
[2021-03-04] MEDS: Omeprazole 20 MG CAPSULE.DR PO (09:07)
--- NOTE | 2021-03-04 09:47 | MHC.CM.PN ---
PATIENT IS DISCHARGED HOME - SELF CARE. HE WILL ARRANGE FOR HIS OWN TRANSPORT HOME. IMM 03/03 IN CHART.
--- NOTE | 2021-03-04 11:01 | PM.DS ---
DS: Providers Provider Date of Service: 03/04/21 Date of admission: 03/02/21 00:19 Primary care physician: Ilir Gifford MD Consults: 03/02/21 00:18 Consult to Urology Routine Consulting Provider: Piotr Scruggs Reason for consultation: hematuria DS: Diagnosis Discharge Diagnosis (1) Loin pain hematuria syndrome: Status: Acute (2) Hematuria: Status: Acute DS: Medications Discharge Medications Home Medications: Home Medications Medication Instructions Recorded Confirmed Baby Aspirin 81 mg PO DAILY 02/06/21 03/02/21 Protonix 40 mg PO BID 02/06/21 03/02/21 amlodipine 10 mg PO DAILY 02/06/21 03/02/21 hydromorphone 4 mg tablet 4 tab PO QID 02/06/21 03/02/21 (Dilaudid) hydromorphone 8 mg tablet,extended 1 tab PO BID 02/06/21 03/02/21 release 24 hr methadone 5 mg tablet 5 mg PO TID 02/06/21 03/02/21 ondansetron 4 mg disintegrating 8 mg PO Q8H PRN 02/06/21 03/02/21 tablet Previous Rx's Medication Instructions Recorded tranexamic acid 650 mg tablet 650 mg PO BID #60 tab 03/04/21 DS: Summary Hospital Course Hospital Course: Admission note HPI 50-year-old male with a past medical history of Leal's esophagus, AFib status post cardioversion, history of sepsis, history of left kidney autoransplantation, history of line pain hematuria syndrome with frequent exacerbations and admissions to the hospital, recently discharged on 02/26/2021 presented to the hospital again with similar symptoms of pain/hematuria/nausea/vomiting/poor oral intake. Patient mentions that he has been taking his home pain medications with no significant improvement. Denies any fever chills cough.? Denies any frequency urgency or burning. Denies any chest pain palpitations lightheadedness or dizziness. Hospital course Patient was admitted to the hospital and treated with nausea medication along with IV Dilaudid. Evaluated by urology team who recommended the usage of tranexamic acid and to follow-up with his baggage and mail agent as outpatient to prepare for his ureter surgery. Time Spent with Patient Time attestation: Total time spent providing and/or coordinating discharge services: Discharge coordination time: Greater than 30 minutes Quality: Stroke Does the patient have a stroke diagnosis?: No Physical Exam Vital Signs: Vital Signs: Last Vital Signs Temp 97.5 F 03/04/21 07:27 Pulse 82 03/04/21 07:27 Resp 18 03/04/21 07:27 BP 110/76 03/04/21 07:27 Pulse Ox 94 03/04/21 07:27 Body Mass Index 33.6 Const: Other: Constitutional : Alert, oriented, not in distress Neck : Normal inspection, Supple Cardiovascular : RRR, S1 S2, no lower extremity edema Respiratory : Good bilateral air entry, no crackles, wheezes or rhonchi Gastrointestinal: soft, lax, Normal bowel sounds, Non tender Skin : Warm, Dry Neurological : Alert & oriented x3, No focal deficit Discharge Plan Discharge Patient Disposition: Home, Self-Care Discharge Diagnosis: abdominal pain, hematurea Referrals: Ilir Gifford MD [Primary Care Provider] - 1 Week Discharge Medications: New tranexamic acid 650 mg tablet 650 mg PO BID Qty: 60 RF: 1 Continued hydromorphone 8 mg tablet extended release 24 hr 1 tab PO BID RF: 0 hydromorphone [Dilaudid] 4 mg tablet 4 tab PO QID RF: 0 methadone 5 mg tablet 5 mg PO TID RF: 0 ondansetron 4 mg tablet,disintegrating 8 mg PO Q8H PRN (Reason: Nausea) RF: 0 Baby Aspirin tablet 81 mg PO DAILY RF: 0 Protonix 40 mg PO BID RF: 0 amlodipine 10 mg PO DAILY RF: 0 Discharge Orders: Discharge Order (Routine); Ordered 03/04/21 Ordered By: Octavia Castillo Diet: advance to usual diet Activity on Discharge: As tolerated Stand Alone Forms: Patient Portal Discharge page Care Plan Goals: Read below Health Concerns: Read below Plan of Treatment: Treated with pain medication evaluated by urologist Dr. Scruggs Assessment: Start tranexamic acid per Dr. Scruggs advice to follow-up with your baggage and mail agent to prepare for surgery as outpatient
[2021-03-04 11:26] VITALS: BP 119/65; PULSE 78; RESP 18; TEMP 36.3; O2SAT 95
[2021-03-04] MEDS: Heparin Sodium,Porcine Flush 50 UNITS/5 ML SYRINGE IVFLUSH (15:12)
== END 2021-03-04 16:19 | disposition home or self-care (01) | DRG 696 ==
LOC: HO.ED 03-02 00:36 → HO.EDOVER 03-02 02:09 → HO.S3 03-02 05:54
PROVIDERS: Internal Medicine; Admitting Provider Hospitalist; Emergency Provider Internal Medicine; PCP Internal Medicine Nephrology; Visit Provider Student in an Organized Health Care Education/Training Program
DX: R31.0 Gross hematuria (principal); F11.20 Opioid dependence, uncomplicated; R10.9 Unspecified abdominal pain; K22.70 Barrett's esophagus without dysplasia; I48.0 Paroxysmal atrial fibrillation; Z20.822 Contact with and (suspected) exposure to COVID-19; Z88.6 Allergy status to analgesic agent; Z79.82 Long term (current) use of aspirin; Z79.899 Other long term (current) drug therapy
CPT/HCPCS: 0241U; 36415; 80048; 80053; 81001; 85025; 85027; 99285; J1170; J1200; J1642; J2405

== ENCOUNTER 2021-03-12 03:28 | Emergency (ER) | payer MEDICARE, MEDICAID, SELFPAY ==
[2021-03-12 05:08] VITALS: BP 163/109; PULSE 97; RESP 22; TEMP 36.9; O2SAT 100; BMI 30.5
[2021-03-12 06:09] VITALS: BP 154/108; PULSE 123; RESP 20; O2SAT 96
--- NOTE | 2021-03-12 06:18 | PC.NURSE ---
Dr Kong aware of pt's BP. Pt pacing in room, quiet. Pt's curtain open. Pt's urine sample collected and sent to lab for processing. Pt's curtain drawn for privacy. Pt continues pacing in room and now groaning/moaning in discomfort.
[2021-03-12 06:36] LABS: Appearance Urine CLOUDY; UACC Culture Trigger YES
[2021-03-12 06:39] LABS: Color Urine BROWN
[2021-03-12 06:48] LABS: Bacteria Urine 2+ /LPF; RBC Urine TNTC /HPF (0); Squamous Epithelial Cell Urine 1+ /LPF
--- NOTE | 2021-03-12 07:11 | ED.ABDPAIN ---
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 [facility] on pain management plan on heavy doses of Dilaudid comes here with similar complaints of beulah hematuria with pain says that he had fever of 102 at home same as last time but afebrile in the ER when arrived patient looks comfortable but asking for Dilaudid IV along with Benadryl also complaining of nausea and vomiting and left lower abdominal pain where he has his kidney located Related Data Home Medications Medication Instructions Recorded Confirmed hydromorphone 4 mg tablet 4 tab PO Q8H 02/06/21 03/12/21 (Dilaudid) hydromorphone 8 mg tablet,extended 1 tab PO BID 02/06/21 03/12/21 release 24 hr methadone 5 mg tablet 5 mg PO TID 02/06/21 03/12/21 ondansetron 4 mg disintegrating 8 mg PO Q8H PRN 02/06/21 03/12/21 tablet amlodipine 10 mg tablet 10 mg PO DAILY 03/12/21 03/12/21 aspirin 81 mg tablet,delayed 81 mg PO DAILY 03/12/21 03/12/21 release pantoprazole 40 mg tablet,delayed 40 mg PO BID 03/12/21 03/12/21 release Allergies Allergy/AdvReac Type Severity Reaction Status Date / Time buprenorphine [From SUBOXONE] Allergy Unknown HIVES Verified 03/12/21 05:07 Iodinated Contrast Media Allergy Unknown ANAPHYLAXIS Verified 03/12/21 05:07 [IV CONTRAST] morphine [MORPHINE] Allergy Unknown HIVES Verified 03/12/21 05:07 naloxone [From SUBOXONE] Allergy Unknown HIVES Verified 03/12/21 05:07 naproxen [NAPROXEN] Allergy Unknown HIVES Verified 03/12/21 05:07 Review of Systems Review of Systems Yes all other systems are reviewed and are negative Physical Exam Vital Signs: Vital Signs: Last Vital Signs Temp 98.5 F 03/12/21 05:08 Pulse 87 03/12/21 11:57 Resp 16 03/12/21 11:57 BP 146/104 H 03/12/21 11:57 Pulse Ox 97 03/12/21 08:45 Body Mass Index 30.5 Appearance: Alert. Oriented X3. No acute distress. Eyes: No pallor or icterus ENT: Pharynx normal. Oral Mucosa moist Neck: Normal inspection. Neck supple. CVS: Normal heart rate and rhythm. Pulses normal. Respiratory: No respiratory distress. Equal air entry bilateral, no wheezing/rales/rhonchi Abdomen: Soft and dependence left lower quadrant no rebound tenderness or guarding Bowel sounds are present, no mass palpable, no CVA tenderness Skin: Skin warm and dry. Normal skin color. Normal skin turgor. Extremities: No lower extremity edema. No calf tenderness Neuro: Oriented X 3. MDM - Abdominal Pain MDM Narrative Medical decision making narrative: Patient with frequent ED visits for gross hematuria with pain requiring heavy doses of pain medications patient does not look in severe distress. Per patient he does not want TXA per his urologist at [facility]. Case discussed with hospitalist and decided to discharge the patient home advised to follow-up with his urologist and pain management Medical Records Attestation: I reviewed the patient's medical records. Lab Data Attestation: I reviewed the patient's lab results. Result diagrams: 03/12/21 09:11 03/12/21 09:11 Labs: Lab Results 03/12/21 03/12/21 03/12/21 Range/Units 06:09 09:11 09:11 WBC 6.8 (4.8-10.8) X10*3/uL RBC 5.35 D (4.60-5.80) X10*6/uL Hgb 14.6 D (14.0-18.0) g/dl Hct 44.2 D (42-52) % MCV 82.6 (80-98) fL MCH 27.3 (27.0-33.0) pg MCHC 33.0 (31.0-36.0) g/dl RDW 15.6 (11.0-16.0) % Plt Count 187 (160-400) X10*3/uL MPV 11.0 (9.4-12.4) fL Immature Gran % (Auto) 0.1 (0.0-0.4) % Neut % (Auto) 77.4 H (45-73) % Lymph % (Auto) 15.6 L (20-40) % [place] % (Auto) 5.6 (2-11) % Eos % (Auto) 0.9 (0-4) % Baso % (Auto) 0.4 (0-2) % Lymph # (Auto) 1.1 L (1.2-4.9) X10*3/uL [place] # (Auto) 0.4 (0.1-1.2) X10*3/uL Eos # (Auto) 0.1 (0.0-0.4) X10*3/uL Baso # (Auto) 0.0 (0.0-0.2) X10*3/uL Abs Immat Gran (auto) 0.01 (0.00-0.03) X10*3/uL Absolute Neuts (auto) 5.3 (2.0-8.3) X10*3/uL Absolute Nucleated RBC 0.000 (0.0-0.012) X10*3/uL Nucleated RBC % (auto) 0.0 (0.0-0.2) /100WBC Sodium 140 (135-145) mmol/L Potassium 3.9 (3.3-5.1) mmol/L Chloride 106 (96-108) mmol/L Carbon Dioxide 23 (22-29) mmol/L Anion Gap 15 (12-20) BUN 10 (9-16) mg/dL Creatinine 0.95 (0.5-1.4) mg/dL Estim Creat Clear Calc 96.5 Estimated GFR > 60 Random Glucose 91 (60-115) mg/dL Calcium 9.8 D (8.4-10.2) mg/dL Urine Color BROWN Urine Appearance CLOUDY Urine pH TNP Ur Specific [place] TNP Urine Protein TNP Urine Glucose (UA) TNP Urine Ketones TNP Urine Blood TNP Urine Nitrite TNP Ur Leukocyte Esterase TNP Urine RBC TNTC H (0) /HPF Urine WBC 5-9 H (0-4) /HPF Ur Squamous Epith Cells 1+ /LPF Urine Bacteria 2+ /LPF Discharge Plan Discharge Clinical Impression: Loin pain hematuria syndrome Patient Disposition: Home, Self-Care Instructions: Hematuria (ED) Additional Instructions: Continue pain medication as prescribed by your pain clinic and follow-up with your farm service consultant Drink plenty of fluids Prescriptions: No Action hydromorphone 8 mg tablet extended release 24 hr 1 tab PO BID RF: 0 hydromorphone [Dilaudid] 4 mg tablet 4 tab PO Q8H RF: 0 methadone 5 mg tablet 5 mg PO TID RF: 0 ondansetron 4 mg tablet,disintegrating 8 mg PO Q8H PRN (Reason: Nausea) RF: 0 aspirin 81 mg Tablet,Delayed Release (Dr/Ec) 81 mg PO DAILY RF: 0 amlodipine 10 mg Tablet 10 mg PO DAILY RF: 0 pantoprazole 40 mg Tablet,Delayed Release (Dr/Ec) 40 mg PO BID RF: 0 Interventions: ED Discharge Assessment Last Done: 03/12/21 12:20 [facility] Past Medical History Medical History A-fib Leal esophagus Frontotemporal lobar degeneration Hematuria History of cardioversion Loin pain hematuria syndrome Sepsis Surgical History History of hernia surgery Hx of tonsillectomy Status post kidney autotransplantation Social History Social History Household Members: None Housing: Apartment Do you presently have visiting nurse or other home services: No Alcohol intake: never Patient Tobacco Use Status: Never used Tobacco Use of substances other than those prescribed or required for medical reasons: No Advance Directives: No Advance Directives Information Provided: Yes service: No Current occupational status: disabled
[2021-03-12] MEDS: 0.9 % Sodium Chloride 1,000 ML 999 ML IVCONT (08:43)
[2021-03-12] MEDS: ondansetron HCL 4 MG/2 ML VIAL IVPUSH (08:43)
[2021-03-12] MEDS: diphenhydrAMINE HCL 50 MG/ML VIAL IVPUSH (08:44)
[2021-03-12] MEDS: HYDROmorphone HCl 2 MG/ML VIAL IVPUSH ×2 (08:44→11:56)
[2021-03-12 08:45] VITALS: BP 146/100; PULSE 91; RESP 16; O2SAT 97
--- NOTE | 2021-03-12 08:46 | PC.NURSE ---
port accessed, + bld return. Pt restless, states pain 04/03. Medicated as charted. Fluids infusing. Phebotomy called for blood draw, unable to pull enough blood off port and pt difficult peripheral stick
[2021-03-12 09:19] LABS: MANUAL DIFF FLAG NO
[2021-03-12 09:25] LABS: Basophils Percent Auto 0.4 % (0-2); Eosinophils Absolute Auto 0.1 X10*3/uL (0.0-0.4); Eosinophils Percent Auto 0.9 % (0-4); Hematocrit 44.2 % (42-52); Hemoglobin 14.6 g/dl (14.0-18.0); Imm Gran Abs Auto 0.01 X10*3/uL (0.00-0.03); Imm Gran Pct Auto 0.1 % (0.0-0.4); Lymphocytes Absolute Auto 1.1 X10*3/uL (1.2-4.9); Lymphocytes Percent Auto 15.6 % (20-40); Mean Corpuscular Hemoglobin 27.3 pg (27.0-33.0); Mean Corpuscular Volume 82.6 fL (80-98); Monocytes Absolute Auto 0.4 X10*3/uL (0.1-1.2); Monocytes Percent Auto 5.6 % (2-11); Neutrophils Absolute Auto 5.3 X10*3/uL (2.0-8.3); Neutrophils Percent Auto 77.4 % (45-73); Platelet Count 187 X10*3/uL (160-400); Red Blood Count 5.35 X10*6/uL (4.60-5.80); Red Cell Distribution Width 15.6 % (11.0-16.0); White Blood Count 6.8 X10*3/uL (4.8-10.8)
[2021-03-12 09:42] LABS: Anion Gap 15 (12-20); Blood Urea Nitrogen 10 mg/dL (9-16); Calcium 9.8 mg/dL (8.4-10.2); Carbon Dioxide 23 mmol/L (22-29); Chloride 106 mmol/L (96-108); Creatinine Clr Calc Pharmacy 96.5; Estimated Glomerular Filt Rate > 60; Glucose Random 91 mg/dL (60-115); Potassium 3.9 mmol/L (3.3-5.1); Sodium 140 mmol/L (135-145)
--- NOTE | 2021-03-12 10:07 | P.HPHOSP_ITS ---
History of Present Illness Date of Service: 03/12/21 Chief Complaint: painful hematuria This is a 50-year-old male with a past medical history of lung pain hematuria syndrome, AFib status post cardioversion not on anticoagulation, left kidney order transplantation with recurrent flares of pain and hematuria who presents to the hospital with abdominal pain and hematuria likely secondary to the flare of his hematuria syndrome. Patient describes the pain as 10/10, started last night, nonradiating, associated with hematuria, and clot formation, constant, relieved with pain medication received in the ED. Patient has been here multiple times for the same. Patient reports that his symptoms usually resolve within few days spontaneously. He also reports that he had a fever of 102 at home last night, he has profuse sweating, nausea vomiting and therefore was not able to keep any p.o. medications, no abdominal pain, no diarrhea, no lower extremity edema and no weakness numbness or tingling. Reports no urinary symptoms besides hematuria. Vitals reviewed, within normal Labs significant for WBC of 6.8, hemoglobin of 14.6, urine shows no infection. Labs otherwise unremarkable. Per patient he is currently being evaluated for bladder denervation Review of Systems Review of Systems: Yes all other systems are reviewed and are negative [facility] Medical History (Updated 03/12/21 @ 10:16 by Kitty Baez MD) A-fib Leal esophagus Frontotemporal lobar degeneration Hematuria History of cardioversion Loin pain hematuria syndrome Sepsis Surgical History History of hernia surgery Hx of tonsillectomy Status post kidney autotransplantation Social History Household Members: None Housing: Apartment Do you presently have visiting nurse or other home services: No Alcohol intake: never Patient Tobacco Use Status: Never used Tobacco Use of substances other than those prescribed or required for medical reasons: No Advance Directives: No Advance Directives Information Provided: Yes service: No Current occupational status: disabled Meds Allergies Allergy/AdvReac Type Severity Reaction Status Date / Time buprenorphine [From SUBOXONE] Allergy Unknown HIVES Verified 03/12/21 05:07 Iodinated Contrast Media Allergy Unknown ANAPHYLAXIS Verified 03/12/21 05:07 [IV CONTRAST] morphine [MORPHINE] Allergy Unknown HIVES Verified 03/12/21 05:07 naloxone [From SUBOXONE] Allergy Unknown HIVES Verified 03/12/21 05:07 naproxen [NAPROXEN] Allergy Unknown HIVES Verified 03/12/21 05:07 Home Medications Medication Instructions Recorded Confirmed Last Taken Type Baby Aspirin 81 mg PO DAILY 02/06/21 03/02/21 02/22/21 05:00 History Protonix 40 mg PO BID 02/06/21 03/02/21 02/21/21 20:00 History amlodipine 10 mg PO DAILY 02/06/21 03/02/21 02/21/21 05:00 History hydromorphone 4 mg tablet 4 tab PO QID 02/06/21 03/02/21 02/22/21 02:00 History (Dilaudid) hydromorphone 8 mg tablet,extended 1 tab PO BID 02/06/21 03/02/21 02/21/21 History release 24 hr methadone 5 mg tablet 5 mg PO TID 02/06/21 03/02/21 02/21/21 20:00 History ondansetron 4 mg disintegrating 8 mg PO Q8H PRN 02/06/21 03/02/21 02/22/21 05:00 History tablet Physical Exam Vital Signs and Narrative: Vital Signs: Last Vital Signs Temp 98.5 F 03/12/21 05:08 Pulse 91 03/12/21 08:45 Resp 16 03/12/21 08:45 BP 146/100 H 03/12/21 08:45 Pulse Ox 97 03/12/21 08:45 Body Mass Index 30.5 Const: General: cooperative and no acute distress Orientation/consciousness: patient oriented x3 Eyes: General: appearance normal, both eyes and all related structures Resp: Effort & Inspection: normal respiratory effort, able to speak in complete sentences and abnormal respiratory pattern Auscultation: clear to auscultation bilaterally Cardio: Rate: regular rate Rhythm: regular rhythm GI: Palpation (GI): Soft to palpation Auscultation: normal bowel sounds : Other: Urine sample at bedside shows gross hematuria Skin: General skin exam: no rashes or lesions noted Neuro: General: patient oriented x3 Cognition (Neuro): normal cognition Extrem: General: Yes normal to inspection and Yes no pedal edema Results Labs CBC and Chem 7: 03/12/21 09:11 03/12/21 09:11 Labs: Laboratory Results - last 24 hr 03/12/21 03/12/21 03/12/21 06:09 09:11 09:11 MCV 82.6 MCH 27.3 MCHC 33.0 RDW 15.6 Plt Count 187 MPV 11.0 Immature Gran % (Auto) 0.1 Neut % (Auto) 77.4 H Lymph % (Auto) 15.6 L [place] % (Auto) 5.6 Eos % (Auto) 0.9 Baso % (Auto) 0.4 Lymph # (Auto) 1.1 L [place] # (Auto) 0.4 Eos # (Auto) 0.1 Baso # (Auto) 0.0 Abs Immat Gran (auto) 0.01 Absolute Neuts (auto) 5.3 Absolute Nucleated RBC 0.000 Nucleated RBC % (auto) 0.0 Anion Gap 15 Estim Creat Clear Calc 96.5 Estimated GFR > 60 Random Glucose 91 Calcium 9.8 D Urine Color BROWN Urine Appearance CLOUDY Urine pH TNP Ur Specific [place] TNP Urine Protein TNP Urine Glucose (UA) TNP Urine Ketones TNP Urine Blood TNP Urine Nitrite TNP Ur Leukocyte Esterase TNP Urine RBC TNTC H Urine WBC 5-9 H Ur Squamous Epith Cells 1+ Urine Bacteria 2+ Assessment and Plan (1) Loin pain hematuria syndrome: Status: Acute (2) Subjective fever: Status: Acute 50-year-old male with 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 presents to the hospital with hematuria and abdominal pain # loin pain hematuria syndrome - acute flare - hemoglobin stable - pt has not efrom nephrology for his acute care- will follow at this gustavo e - pt being evaluated for bladder denervation 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 SCDs in the setting of hematuria Quality Stroke Does the patient have a stroke diagnosis?: No VTE Prior VTE?: No VTE Risk Level:: Medical - moderate - high VTE Device Contraindication: N/A - Device Ordered VTE Drug Contraindication: Treatment Not Tolerated
[2021-03-12 11:57] VITALS: BP 146/104; PULSE 87; RESP 16
[2021-03-12] MEDS: Heparin Sodium,Porcine Flush 500 UNIT/5 ML SYRINGE IVFLUSH (11:57)
--- NOTE | 2021-03-12 11:59 | PC.NURSE ---
Plan for pt now to be discharged home, medicated for pain at this time. On cell phone appears less restless than on arrival, reports pain 8/10
== END 2021-03-12 12:20 | disposition home or self-care (01) ==
PROVIDERS: Emergency Provider Internal Medicine
DX: M54.5 Low back pain (principal); R31.9 Hematuria, unspecified; R50.9 Fever, unspecified; I48.91 Unspecified atrial fibrillation; Z79.899 Other long term (current) drug therapy; Z79.82 Long term (current) use of aspirin
CPT/HCPCS: 36415; 80048; 81003; 85025; 87086; 96361; 96374; 96375; 96376; 99284; J1170; J1200; J1642; J2405

== ENCOUNTER 2022-05-18 15:06 | Emergency (ER) | payer MEDICARE, MEDICAID, SELFPAY ==
--- OUTSIDE RECORDS SUMMARY | 2022-05-18 15:18 | XMS_ITS ---
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 Hematuria with pain (Discharge Diagnosis) - 11/15/18 Opioid use (Discharge Diagnosis) - 11/20/18 Discharge Disposition: Home or Self Care Attending Physician: Kristie Del Cid Admitting Physician: Kristie Del Cid Vital Signs Most recent to oldest [Reference Range]: 1 Temperature Oral [96.1-99.6 DegF] 98.1 DegF (11/19/18 9:58 PM) SpO2 [94-100 %] 96 % (11/19/18 9:58 PM) Respiratory Rate [12-24 br/min] 18 br/min (11/19/18 9:58 PM) Peripheral Pulse Rate [50-110 bpm] 78 bpm (11/19/18 9:58 PM) Blood Pressure [80-140/50-90 mmHg] 140/82 mmHg (11/19/18 9:58 PM) Weight 95.254 Kg (11/18/18 12:34 AM) Height 170.18 cm (11/18/18 12:34 AM) Body Mass Index 32.89 Kg/m2 (11/18/18 12:34 AM) Advanced Directives Yes (11/18/18 12:41 AM) Advance Directive Type MOLST, Living will, Medical durable power of att orney, Health Care Proxy (11/18/18 12:41 AM) Surrogate Name Jessica Power [phone] (11/15/18 5:21 PM) Advance Directive Location Other: on file at [facility] (11/18/18 12:41 AM) Problem List Condition Effective Dates Status Health Status Informant Barretts esophagus(Confirmed) Active patient 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) Allergies, Adverse Reactions, Alerts Substance Reaction Severity Status morphine Moderate Active Suboxone Moderate Active contrast media (iodine-based) Unknown Ac tive Medications Cymbalta 60 mg oral delayed release capsule 60 mg = 1 cap(s), PO, Daily, 0 Refill(s) Start Date: 11/01/18 Status: OrderedHYDROmorphone 4 mg oral tablet 4 mg = 1 tab(s), PO, q6hr, PRN PRN Pain, Moderate, Partial fill upon request, 0 Refill(s) Start Date: 10/31/18 Status: OrderedHYDROmorphone extended release 8 mg, PO, BID, 0 Refill(s) Start Date: 10/05/17 Status: Orderedmethadone 5 mg oral tablet 5 mg = 1 tab(s), PO, q8hr, Partial fill upon request, 0 Refill(s), Tab Start Date: 11/09/18 Status: OrderedNorvasc 2.5 mg, PO, Daily, 0 Refill(s), Tab Start Date: 11/01/18 Status: Orderedondansetron 4 mg oral tablet, disintegrating DISSOLVE ONE TAB ON THE TONGUE THEN SWALLOW EVERY 6 HOURS NEEDED Start Date: 10/05/17 Status: Orderedpantoprazole 40 mg oral delayed release tablet 40 mg = 1 tab(s), PO, BID, 0 Refill(s) Start Date: 06/13/17 Status: Orderedprazosin 1 mg oral capsule 1 mg = 1 cap(s), PO, HS, 0 Refill(s) Start Date: 10/31/18 Status: Ordered Results Most recent to oldest 1 2 3 [Reference Range]: aPTT [23-32 sec] 24 sec (11/16/18 5:47 AM) Anion Gap [3-11] 3 3 3 (11/20/18 6:49 AM) (11/18/18 5:41 AM) (11/17/18 5:1 7 AM) UA WBC Clumps [None] Many *ABN* (11/15/18 3:17 AM) NRBC Percent [0.0-0.0 %] 0.0 % 0.0 % 0.0 % (11/20/18 6:49 AM) (11/18/18 5:41 AM) (11/17/18 5:1 7 AM) Creatinine [0.550-1.300 0.940 mg/dL 0.870 mg/dL 0.934 mg /dL mg/dL] (11/20/18 6:49 AM) (11/18/18 5:41 AM) (11/17/18 5:1 7 AM) UA Ketones [Negative] Negative (11/19/18 9:34 AM) UA Ketones [Negative mg/dL] 5 mg/dL *ABN* (11/15/18 3:17 AM) UA Leukocyte Esterase Negative [Negative] (11/19/18 9:34 AM) UA Leukocyte Esterase 25 WBC/uL [Negative WBC/uL] *ABN* (11/15/18 3:17 AM) UA Mucous [None] Few (11/19/18 9:34 AM) UA Nitrite [Negative] Negative Negative (11/19/18 9:34 AM) (11/15/18 3:17 AM) UA Bacteria [None] None None (11/19/18 9:34 AM) (11/15/18 3:17 AM) UA Bilirubin [Negative] Negative Negative (11/19/18 9:34 AM) (11/15/18 3:17 AM) UA Blood [Negative] Large Large *ABN* *ABN* (11/19/18 9:34 AM) (11/15/18 3:17 AM) UA Color [Yellow] Yellow Red (11/19/18 9:34 AM) *ABN* (11/15/18 3:17 AM) UA Glucose [Negative] Negative Negative (11/19/18 9:34 AM) (11/15/18 3:17 AM) UA Protein [Negative mg/dL] 30 mg/dL 100 mg/dL *ABN* *ABN* (11/19/18 9:34 AM) (11/15/18 3:17 AM) UA RBC [0-2 /HPF] >182 /HPF >182 /HPF *HI* *HI* (11/19/18 9:34 AM) (11/15/18 3:17 AM) UA Squamous Epithelial [0-5 <1 /HPF <1 /HPF /HPF] (11/19/18 9:34 AM) (11/15/18 3:17 AM) UA Urobilinogen [Negative] Negative Negative (11/19/18 9:34 AM) (11/15/18 3:17 AM) UA WBC [0-5 /HPF] 4 /HPF >182 /HPF (11/19/18 9:34 AM) *HI* (11/15/18 3:17 AM) UA Clarity [Clear] Hazy Cloudy *ABN* *ABN* (11/19/18 9:34 AM) (11/15/18 3:17 AM) Blue Top Tube To Hold DONE *NA* (11/15/18 3:17 AM) UA pH [5.0-8.0] 6.0 6.0 (11/19/18 9:34 AM) (11/15/18 3:17 AM) Albumin Lvl [3.2-5.0 Gm/dL] 3.9 Gm/dL (11/15/18 3:17 AM) Alkaline Phosphatase [30-117 102 Units/L Units/L] (11/15/18 3:17 AM) ALT [6-55 Units/L] 48 Units/L (11/15/18 3:17 AM) AST [6-40 Units/L] 23 Units/L (11/15/18 3:17 AM) Basophils 0.9 % *NA* (11/15/18 3:17 AM) Bilirubin Total [0.2-1.2 0.4 mg/dL mg/dL] (11/15/18 3:17 AM) CO2 [21-32 mmol/L] 29 mmol/L 30 mmol/L 28 mmol/L (11/20/18 6:49 AM) (11/18/18 5:41 AM) (11/17/18 5:1 7 AM) Eosinophils 3.2 % *NA* (11/15/18 3:17 AM) Glucose Lvl [70-110 mg/dL] 86 mg/dL 105 mg/dL 125 m g/dL (11/20/18 6:49 AM) (11/18/18 5:41 AM) *HI* (11/17/18 5:17 AM ) Hct [39.0-53.0 %] 37.1 % 36.1 % 34.1 % *LOW* *LOW* *LOW* (11/20/18 6:49 AM) (11/18/18 5:41 AM) (11/17/18 5:1 7 AM) Hgb [13.0-17.5 Gm/dL] 11.6 Gm/dL 11.3 Gm/dL 11.0 Gm/dL *LOW* *LOW* *LOW* (11/20/18 6:49 AM) (11/18/18 5:41 AM) (11/17/18 5:1 7 AM) INR 1.0 *NA* (11/16/18 5:47 AM) Lactic Acid Lvl [0.4-2.0 1.1 mmol/L 2.3 mmol/L mmol/L] (11/15/18 1:12 PM) *HI* (11/15/18 4:45 AM) Lipase Lvl [73-393 Units/L] 61 Units/L *LOW* (11/15/18 3:17 AM) Lymphocytes 27.5 % *NA* (11/15/18 3:17 AM) MCH [26.0-34.0 pGm] 27.6 pGm 27.5 pGm 28.4 pGm (11/20/18 6:49 AM) (11/18/18 5:41 AM) (11/17/18 5:1 7 AM) MCHC [31.0-37.0 Gm/dL] 31.3 Gm/dL 31.3 Gm/dL 32.3 Gm/d L (11/20/18 6:49 AM) (11/18/18 5:41 AM) (11/17/18 5:1 7 AM) MCV [80.0-100.0 fL] 88.3 fL 87.8 fL 87.9 fL (11/20/18 6:49 AM) (11/18/18 5:41 AM) (11/17/18 5:1 7 AM) Monocytes 6.0 % *NA* (11/15/18 3:17 AM) MPV [9.4-12.4 fL] 12.2 fL 11.1 fL (11/20/18 6:49 AM) (11/17/18 5:17 AM) MPV [9.4-12.4] Unable to Perform (11/18/18 5:41 AM) Neutrophils 62.0 % *NA* (11/15/18 3:17 AM) Platelet [150-400 thous/mm3] 200 thous/mm3 163 thous/mm3 (11/20/18 6:49 AM) (11/17/18 5:17 AM) Platelet [150-400] see comment 1 *NA* (11/18/18 5:41 AM) Potassium Lvl [3.6-5.2 4.2 mmol/L 4.1 mmol/L 4.0 mmol/ L mmol/L] (11/20/18 6:49 AM) (11/18/18 5:41 AM) (11/17/18 5:1 7 AM) PT [9.3-11.6 sec] 10.3 sec (11/16/18 5:47 AM) RBC [4.20-5.90 Mil/mm3] 4.20 Mil/mm3 4.11 Mil/mm3 3.88 Mil /mm3 (11/20/18 6:49 AM) *LOW* *LOW* (11/18/18 5:41 AM) (11/17/18 5:17 AM) Sodium Lvl [136-146 mmol/L] 141 mmol/L 142 mmol/L 142 mmol/L (11/20/18 6:49 AM) (11/18/18 5:41 AM) (11/17/18 5:1 7 AM) BUN [6-20 mg/dL] 8 mg/dL 6 mg/dL 8 mg/dL (11/20/18 6:49 AM) (11/18/18 5:41 AM) (11/17/18 5:1 7 AM) Calcium Lvl [8.5-10.5 mg/dL] 8.7 mg/dL 8.3 mg/dL 8.3 mg/dL (11/20/18 6:49 AM) *LOW* *LOW* (11/18/18 5:41 AM) (11/17/18 5:17 AM) Chloride [98-110 mmol/L] 109 mmol/L 109 mmol/L 111 mmo l/L (11/20/18 6:49 AM) (11/18/18 5:41 AM) *HI* (11/17/18 5:17 AM ) UA Specific [place] 1.009 1.025 [1.003-1.030] (11/19/18 9:34 AM) (11/15/18 3:17 AM) WBC [4.0-11.0 thous/mm3] 7.6 thous/mm3 6.5 thous/mm3 6.1 tho us/mm3 (11/20/18 6:49 AM) (11/18/18 5:41 AM) (11/17/18 5:1 7 AM) Afn Amer Glomerular >90 ml/min/1.73m2 >90 ml/min/1.73m2 >90 ml/m in/1.73m2 Filtration Rate *NA* *NA* *NA* (11/20/18 6:49 AM) (11/18/18 5:41 AM) (11/17/18 5:1 7 AM) Non-Afn Amer Glomerular >90 ml/min/1.73m2 >90 ml/min/1.73m2 >90 ml/min/1.73m2 Filtration Rate *NA* *NA* *NA* (11/20/18 6:49 AM) (11/18/18 5:41 AM) (11/17/18 5:1 7 AM) Total Protein [6.0-8.4 7.6 Gm/dL Gm/dL] (11/15/18 3:17 AM) Immature Granulocytes 0.4 % [0.0-2.0 %] (11/15/18 3:17 AM) Absolute Lymphs Count 2.34 thous/mm3 [0.74-5.04 thous/mm3] (11/15/18 3:17 AM) Absolute Eos Count 0.27 thous/mm3 [0.00-0.45 thous/mm3] (11/15/18 3:17 AM) Absolute Neutro Count 5.28 thous/mm3 [1.48-7.95 thous/mm3] (11/15/18 3:17 AM) RDW-SD [35.0-51.0 fL] 47.8 fL 48.0 fL 47.7 fL (11/20/18 6:49 AM) (11/18/18 5:41 AM) (11/17/18 5:1 7 AM) Absolute Baso Count 0.08 thous/mm3 [0.00-0.22 thous/mm3] (11/15/18 3:17 AM) Absolute Andrew Count 0.51 thous/mm3 [0.00-1.34 thous/mm3] (11/15/18 3:17 AM) Absolute NRBC Count 0.00 thous/mm3 0.00 thous/mm3 0.00 thous/m m3 *NA* *NA* *NA* (11/20/18 6:49 AM) (11/18/18 5:41 AM) (11/17/18 5:1 7 AM) 1Result Comment: Occasional small platelet clumps seen on smear. Unable to Report Due to Platelet Clumps. Platelet Count Appears Decreased.Microbiology Reports TEST:Blood Culture STATUS:Auth (Verified) BODY SITE: SOURCE:Blood Line COLLECTED DATE/TIME:11/15/18 6:18 AMFINAL REPORTNo growth at 4 daysTEST: Blood Culture STATUS:Auth (Verified) BODY SITE: SOURCE:Blood Peripheral COLLECTED DATE/TIME:11/15/18 6:18 AMFINAL REPORTNo growth at 4 daysTEST: Urine Culture STATUS:Auth (Verified) BODY SITE: SOURCE:Urine, Clean Catch COLLECTED DATE/TIME:11/15/18 3:17 AMFINAL REPORTNo growth Procedures Procedure Date Related Diagnosis Body Site Status TRANSPLT AUTOL HCT/DONOR 2017 Com pleted LAP ING HERNIA REPAIR INIT 2007 C ompleted REMOVAL OF TONSILS1 Complete d 1childhood Social History Social History Type Response Smoking Status Never smoker Assessment and Plan Extracted from: Title: Discharge Patient Summary Author: Rosita Castro RN Date: 11/20/[address] [address] Patient Discharge Summary Name: YOSELYN POWELL Age: 48 Years Job e of : 1970 Arrival Time: 11/15/2018 01:50:41 Primary Care Physician: Alisia, Phone: Reason for Admission: Abdominal pain; left abdominal pain; STEFANIE N PAIN HEMATURIA SYNDROME You had the following procedures perform ed during your inpatient visit: No major procedures performed. The following test results were not avai lable before your discharge. Your Primary Care Provider should contact you of any abnormal test results regarding follow-up. However, if you would like the results, please contact your Primary Care Provider. No results pending. Final Diagnosis: Abdominal pain; Abdominal pain LLQ; Patient Case Coordinator fanny intractable pain; Hematuria with pain; Left flank pain; Loin pain-hematuria syndrome; Loin pain-hematuria syndrome; Opioid use Resuscitation status: Date/Time Performed Status Modified DNR Results Special Instructions 11/15/18 09:32 Full Resuscitation None None Advanced Directives: Advanced Directives Yes Reason for No Advanced Directive Directive(s) in place MOLST, Living will, Medical durable jasvir r of finance attorney, Health Care Proxy Medical Power of Truck Loader Name Name of Surrogate Jessica Power [phone] Directives Location Other: on file at [facility] would like to th ank you for allowing us to assist you with your healthcare needs. The following includes patient education materials and information regarding your injury / illne ss. Our entire staff strives to provide a very good experience for our patients and their families. PLEASE ENSURE YOU FOLLOW-UP PER THE INSTRUCTIONS BELOW! YOSELYN POWELL has been given the [facility] list of patient education materials, prescriptions and follow-up instructions: Follow-up Instructions: Please call 911 if your condition is of a serious nature and you require immediate assistance. You may also seek services at your local Emergency Department. If you have questions regarding your care fo [facility] discharge, please contact the sp ecialist (surgeon, labor arbitrator hearing office, etc.) who was involved with your hospital care or your PCP's office. With: Address: When: Follow up with your specialist as schedu led today Within As instructed Other Clinical Information: Vital Sign Latest Temp Oral 98.1 DegF Temp Tympanic Temp Intravascular Temp Axillary Temp Rectal O2 Sat 96 % Respiratory Rate 18 br/min Peripheral Pulse Rate 78 bpm Apical Heart Rate Blood Pressure 140 mmHg / 82 mmHg Weight 95.254 Kg Discharge Orders: Order Name Order Details The Discharge Electronic Signature Requested Start Date/Time : 11/20/18 12: 02:00 EDT,Special Instructions : Above discharge orders electronically signed by:,Discharge Electronic Signature : Anil Khan MD Medication Information: Only medications listed should be taken unless otherwise instructed by your healthcare provider. Other??Medications amLODIPine??(Norvasc) 2.5??Milligram??By ??mouth??every??day. DULoxetine??(Cymbalta??60??mg??oral??del ayed??release??capsule) 1??Capsules??By??mouth??every??day. HYDROmorphone??(HYDROmorphone??4??mg??or al??tablet) 1??Tablet(s)??By??mouth??every??6??hours??as??needed??Pain,??Moderate.??Partial? HYDROmorphone??(HYDROmorphone??extended? ?release) 8??Milligram??By??mouth??2??times??a??day. methadone??(methadone??5??mg??oral??tabl et) 1??Tablet(s)??By??mouth??every??8??hours.??Partial??fill??upon??request. ondansetron??(ondansetron??4??mg??oral?? tablet,??disintegrating) DISSOLVE??ONE??TAB??ON??THE??TONGUE??THEN??SWALLOW??EVERY??6??HOURS?NEEDED. pantoprazole??(pantoprazole??40??mg??ora l??delayed??release??tablet) 1??Tablet(s)??By??mouth??2??times??a??day. prazosin??(prazosin??1??mg??oral??capsul e) 1??Capsules??By??mouth??once??a??day??(at??bedtime). Immunization History at [facility]: No immunizations given this visit Allergies: contrast media (iodine-based) ; Suboxone; morphine [facility] provi ded you with a complete list of medications post discharge, if you have been instructed to stop taking a medication please ensure you also follow up with this information to your Primary Care Physician. Patient Education Materials: HEMATURIA Blood in the Urine Blood in the urine (hematuria) has many possible causes. If it occurs after an injury (such as a car accident or fall), it is most often a sign of bruising to the kidney or bladder. Common causes of blo od in the urine include urinary tract in fections, kidney stones, inflammation, tumors, or certain other diseases of the kidney or bladder. Menstruation can cause blood to appear in the urine sample, although it is not coming from the urinary tract. If only a trace amount of blood is prese nt, it will show up on the urine test, even though the urine may be yellow and not pink or red. This may occur with any of the above conditions, as well as heavy exercise or high fever. In this case, yo ur doctor may want to repeat the urine test on another day. This will show if the blood is still present. If it is, then other tests can be done to find out the cause. Home care Follow these home care guidelines: ? ? If your urine does not appear bloody (pink, brown or red) then you do not need to restrict your activity in any way. ? ? If you can see blood in your urine, rest and avoid heavy exertion until your next exam. Do not use aspirin, blood thinners, or anti-platelet or anti- inflammatory medicines. These include ibuprofen a nd naproxen. These thin the blood and ma y increase bleeding. Follow-up care Follow up with your healthcare provider, or as advised. If you were injured and had blood in your urine, you should have a repeat urine test in 1 to 2 days. Contact your doctor for this test. A radiologist will review any X-rays alfredo t were taken. You will be told of any new findings that may affect your care. When to seek medical advice Call your healthcare provider right away if any of these occur: ? ? Bright red blood or blood clots in the urine (if you did not have this before) ? ? Weakness, dizziness or fainting ? ? New groin, abdominal, or back pain ? ? Fever of 100.4??F (38??C) or higher, or as directed by your healthcare provider ? ? Repeated vomiting ? ? Bleeding from the nose or gums or easy bruising ?? [id number] [employer]. [address] [place] [address], [place] [address]. All rights reserved. This information is not intended as a substitute for professional medical care. Always follow your healthcare professional's instructions. Comment: ANDRE Ibarra MICHAEL G , have received yola ent education materials/instructions and have verbalized understanding: 11/20/2018 12:38:25 Patient Signature or Responsible Green Party S ignature 11/20/2018 12:38:25 Provider Signature [facility] Patient Portal is a person alized secured online tool for [facility] patients that helps keep you up to date on your healthcare information by giving you convenient access to y [facility] test results and medical re cords. The Patient Portal is accessible through the Internet, so you can access it from virtually anywhere you would like. If you were enrolled during your stay, please remember to check your personal e mail, look for the invitation message and create your account. If you have not enrolled in the Patient Portal prior to discharge you may ask your nurse for assistance in enrolling before you are discharged. ANDRE Ibarra MICHAEL G , have received yola ent education materials/instructions and have verbalized understanding: 11/20/2018 12:38:25 Patient Signature or Responsible Green Party S ignature 11/20/2018 12:38:25 Provider Signature Extracted from: Title: Discharge Note Author: Anil Khan MD Date: 11/20/18 Abdominal pain,??Left flank pain Abdominal pain Abdominal pain LLQ Chronic intractable pain Hematuria with pain left abdominal pain ?? Loin pain-hematuria syndrome,??Loin lauren n-hematuria syndrome Extracted from: Title: Progress/SOAP Note Author: Anil Khan MD Date: 11/19 Abdominal pain,??Left flank pain Abdominal pain Abdominal pain LLQ Chronic intractable pain Hematuria with pain left abdominal pain ?? Loin pain-hematuria syndrome,??Loin lauren n-hematuria syndrome ? 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 Gifford ([phone]) presents today with hematuria, flank pain an d abdominal pain, abdomen is soft lactic acid improved after fluid administration he does have chronic pain and he status post left renal autotransplant ?? #loin pain hematuria syndrome?? 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 # Hypertension. continue amlodipine ?? Activity as tolerated ?? Extracted from: Title: Progress/SOAP Note Author: Anil Khan MD Date: 11/18 Abdominal pain,??Left flank pain Abdominal pain Abdominal pain LLQ Chronic intractable pain Hematuria with pain left abdominal pain ?? Loin pain-hematuria syndrome,??Loin lauren n-hematuria syndrome ? This is a 48-year-old gentleman with his tory of loin pain hematuria syndrome get his care at [facility], chronic pain managed By Dr. Gifford ([phone]) presents today with hematuria, fla nk pain and abdominal pain, abdomen is s oft lactic acid improved after fluid administration he does have chronic pain and he status post left renal autotransplant ?? #loin pain hematuria syndrome?? plan for discharge tuesday for him to fol low up with his pastry supervisor outpatient??for possible urethral??denervation will transition to po Dilaudid tomorrow ?? # Hypertension. continue amlodipine ?? Follow up EKG Activity as tolerated ?? Extracted from: Title: Progress/SOAP Note Author: Damian Rodriguez MD Date: 11/17 pleasant??48-year-old gentleman with le ft 'Loin Pain Hematuria Syndrome(LPHS),??admitted with??an acute??exacerbation of his pain crisis, which is essentially??acute on chronic??left groin pain??associated with hematuria; ?? 1) 'Loin Pain Hematuria Syndrome(LPHS) Continue with his analgesia medication r egimen as provided by his urologist Dr. Ventura With IV Dilaudid and Benadryl along with his home medication Has hematuria secondary to the syndrome hemoglobin stable =>11/17: Continue IV fluids and monitor w ith passing any clots or any urinary retention ?? 2) Atrial fibrillation; ? rate control,??not on any rate controlli ng agent.??he is on aspirin, but would hold for now. ?? 3) HTN; Stable on??Norvasc. ?? DVT PPX: SCD Full Code ? Extracted from: Title: Progress/SOAP Note Author: Damian Rodriguez MD Date: 11/16 pleasant??48-year-old gentleman with le ft 'Loin Pain Hematuria Syndrome(LPHS),??admitted with??an acute??exacerbation of his pain crisis, which is essentially??acute on chronic??left groin pain??associated with hematuria; ?? 1) 'Loin Pain Hematuria Syndrome(LPHS) Continue with his analgesia medication r egimen as provided by his urologist Dr. Ventura With IV Dilaudid and Benadryl along with his home medication Has hematuria secondary to the syndrome hemoglobin stable =>11/16: Continue IV fluids and monitor w ith passing any clots or any urinary retention ?? 2) Atrial fibrillation; ? rate control,??not on any rate controlli ng agent.??he is on aspirin, but would hold for now. ?? 3) HTN; Stable on??Norvasc. ?? DVT PPX: SCD Full Code ? Extracted from: Title: Admission H & P Author: Peter TELLEZ, Aren Date: 10/24 11/10 Loin pain-hematuria syndrome,?? Loin pa in-hematuria syndrome ?? #1 left loin pain hematuria syndrome Continue with his analgesia medication regimen as provided by his urologist Dr. Ventura With IV Dilaudid and Benadryl along wit h his home medication Has hematuria secondary to the syndrome hemoglobin stable Continue IV fluids and monitor with pas sing any clots or any urinary retention ?? Atrial fibrillation on aspirin Hold aspirin currently as having hematu benigno SCDs for DVT prophylaxis ? anticipate more than 2 midnight stay Future Appointments??
--- OUTSIDE RECORDS SUMMARY | 2022-05-18 15:18 | XMS_ITS ---
:1970 Author Organization [facility] Address [address] [place] [address] Care Team Providers Name Role Phone Not On, Staff Primary Care Physician Unavailable Encounter Date(s): 02/28/20 - 03/02/20 [facility] [address] [place] [address]- Encounter Diagnosis Fever w/ chills (Discharge Diagnosis) - 02/28/20 Loin pain-hematuria syndrome (Discharge Diagnosis) - 02/28/20 Discharge Disposition: Left Against Medical Advice Attending Physician: Lev Ramirez MD Admitting Physician: Johnathan TELLEZ[facility] Vital Signs Most recent to oldest [Reference Range]: 1 Temperature Oral [96.1-99.6 DegF] 97.2 DegF (03/02/20 7:37 AM) SpO2 [94-100 %] 95 % (03/02/20 7:37 AM) Respiratory Rate [12-24 br/min] 19 br/min (03/01/20 8:00 PM) Peripheral Pulse Rate [50-110 bpm] 61 bpm (03/02/20 7:37 AM) Apical Heart Rate [50-110 bpm] 82 bpm (02/28/20 11:18 PM) Blood Pressure [80-140/50-90 mmHg] 108/72 mmHg (03/02/20 7:37 AM) Weight 93 Kg (02/28/20 11:18 PM) Height 170.18 cm (02/28/20 11:18 PM) Body Mass Index 32.11 Kg/m2 (02/28/20 11:18 PM) Advanced Directives Yes (02/28/20 11:07 PM) Advance Directive Type Living will, Health Care Proxy (02/28/20 11:07 PM) Advance Directive Location Unable to obtain copy (02/28/20 11:07 PM) Problem List Condition Effective Dates Status Health Status Informant Barretts esophagus(Confirmed) Active patient 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) Allergies, Adverse Reactions, Alerts Substance Reaction Severity Status morphine Moderate Active Suboxone Moderate Active contrast media (iodine-based) Unknown Ac tive Medications acetaminophen 325 mg oral tablet 650 mg = 2 tab(s), PO, q4hr, PRN PRN Fever/Pain, Mild to Moderate, 0 Refill(s), Tab Start Date: 10/19/19 Status: OrderedAdult Aspirin 81 mg oral tablet, chewable 81 mg = 1 tab(s), Chewed, Daily, 0 Refill(s) Start Date: 10/17/19 Status: OrderedCymbalta 60 mg oral delayed release capsule 60 mg = 1 cap(s), PO, Daily, 0 Refill(s) Start Date: 11/01/18 Status: Ordereddocusate sodium 100 mg oral capsule 100 mg = 1 cap(s), PO, BID, PRN PRN as needed for constipation, 0 Refill(s), Cap Start Date: 10/19/19 Status: OrderedHYDROmorphone 4 mg oral tablet 4 mg = 1 tab(s), PO, q6hr, PRN PRN Pain, Moderate, Partial fill upon request, 0 Refill(s) Start Date: 10/31/18 Status: OrderedHYDROmorphone extended release 8 mg, PO, BID, 0 Refill(s) Start Date: 10/05/17 Status: Orderedmethadone 5 mg oral tablet 5 mg = 1 tab(s), PO, q8hr, Partial fill upon request, 0 Refill(s), Tab Start Date: 11/09/18 Status: Orderedmethenamine 1 Gm, PO, BID, 0 Refill(s) Start Date: 10/17/19 Status: OrderedNorvasc 10 mg, PO, Daily, 0 Refill(s), Tab Start Date: 11/01/18 Status: Orderedondansetron 4 mg oral tablet, disintegrating 8 mg = 2 tab(s), q6hr, PRN PRN Nausea/Vomiting Start Date: 10/05/17 Status: Orderedpantoprazole 40 mg oral delayed release tablet 40 mg = 1 tab(s), PO, BID, 0 Refill(s) Start Date: 06/13/17 Status: Ordered Results Most recent to oldest 1 2 3 [Reference Range]: Anion Gap [3-11] 4 5 7 (03/02/20 6:37 AM) (03/01/20 9:00 AM) (02/29/20 6:09 A M) UA RBC Clumps [None] Many *ABN* (02/28/20 2:26 PM) NRBC Percent [0.0-0.0 %] 0.0 % 0.0 % 0.0 % (03/02/20 6:37 AM) (03/01/20 9:00 AM) (02/29/20 6:09 A M) Creatinine [0.550-1.300 mg/dL] 1.030 mg/dL 1.170 mg/dL 1 .100 mg/dL (03/02/20 6:37 AM) (03/01/20 9:00 AM) (02/29/20 6:09 A M) UA Bacteria [None] None (02/28/20 2:26 PM) UA RBC [0-2 /HPF] >182 /HPF *HI* (02/28/20 2:26 PM) UA Squamous Epithelial [0-5 3 /HPF /HPF] (02/28/20 2:26 PM) UA WBC [0-5 /HPF] <1 /HPF (02/28/20 2:26 PM) Blue Top Tube To Hold DONE *NA* (02/28/20 2:26 PM) Albumin Lvl [3.2-5.0 Gm/dL] 4.0 Gm/dL (02/28/20 2:26 PM) Alkaline Phosphatase [30-117 87 Units/L Units/L] (02/28/20 2:26 PM) ALT [6-55 Units/L] 53 Units/L (02/28/20 2:26 PM) AST [6-40 Units/L] 28 Units/L (02/28/20 2:26 PM) Basophils 0.7 % *NA* (02/28/20 2:26 PM) Bilirubin Total [0.2-1.2 0.4 mg/dL mg/dL] (02/28/20 2:26 PM) CO2 [21-32 mmol/L] 27 mmol/L 26 mmol/L 25 mmol/L (03/02/20 6:37 AM) (03/01/20 9:00 AM) (02/29/20 6:09 A M) Eosinophils 5.8 % *NA* (02/28/20 2:26 PM) Glucose Lvl [70-110 mg/dL] 93 mg/dL 128 mg/dL 74 mg /dL (03/02/20 6:37 AM) *HI* (02/29/20 6:09 AM ) (03/01/20 9:00 AM) Hct [39.0-53.0 %] 40.9 % 40.7 % 37.5 % 1 (03/02/20 6:37 AM) (03/01/20 9:00 AM) *LOW* (02/29/20:09 AM) Hgb [13.0-17.5 Gm/dL] 12.7 Gm/dL 12.6 Gm/dL 11.4 Gm/dL *LOW* *LOW* *LOW* (03/02/20:37 AM) (03/01/20 9:00 AM) (02/29/20 6:09 A M) Lymphocytes 16.7 % *NA* (02/28/20 2:26 PM) MCH [26.0-34.0 pGm] 27.0 pGm 27.3 pGm 27.0 pGm (03/02/20 6:37 AM) (03/01/20 9:00 AM) (02/29/20 6:09 A M) MCHC [31.0-37.0 Gm/dL] 31.1 Gm/dL 31.0 Gm/dL 30.4 Gm/d L (03/02/20 6:37 AM) (03/01/20 9:00 AM) *LOW* (02/29/20 6:09 AM) MCV [80.0-100.0 fL] 87.0 fL 88.1 fL 88.9 fL (03/02/20 6:37 AM) (03/01/20 9:00 AM) (02/29/20 6:09 A M) Monocytes 4.5 % *NA* (02/28/20 2:26 PM) MPV [9.4-12.4 fL] 12.1 fL 12.2 fL 12.0 fL (03/02/20 6:37 AM) (03/01/20 9:00 AM) (02/29/20 6:09 A M) Neutrophils 72.1 % *NA* (02/28/20 2:26 PM) Platelet [150-400 thous/mm3] 166 thous/mm3 153 thous/mm3 160 thous/mm3 (03/02/20 6:37 AM) (03/01/20 9:00 AM) (02/29/20:09 A M) Potassium Lvl [3.6-5.2 mmol/L] 3.6 mmol/L 3.7 mmol/L 3 .7 mmol/L (03/02/20 6:37 AM) (03/01/20 9:00 AM) (02/29/20:09 A M) RBC [4.20-5.90 Mil/mm3] 4.70 Mil/mm3 4.62 Mil/mm3 4.22 Mil /mm3 (03/02/20 6:37 AM) (03/01/20 9:00 AM) (02/29/20:09 A M) Sodium Lvl [136-146 mmol/L] 140 mmol/L 140 mmol/L 140 mmol/L (03/02/20 6:37 AM) (03/01/20 9:00 AM) (02/29/20:09 A M) BUN [6-20 mg/dL] 6 mg/dL 9 mg/dL 11 mg/dL (03/02/20 6:37 AM) (03/01/20 9:00 AM) (02/29/20:09 A M) Calcium Lvl [8.5-10.5 mg/dL] 8.6 mg/dL 8.3 mg/dL 7.9 mg/dL (03/02/20 6:37 AM) *LOW* *LOW* (03/01/20 9:00 AM) (02/29/20 6:09 AM ) Chloride [98-110 mmol/L] 109 mmol/L 109 mmol/L 108 mmo l/L (03/02/20 6:37 AM) (03/01/20 9:00 AM) (02/29/20 6:09 A M) Vancomycin Trough [10.0-20.0 10.7 mcg/ml 10.4 mcg/ml mcg/ml] (8/9/20 11:09 AM) (03/01/20 9:00 AM) WBC [4.0-11.0 thous/mm3] 5.4 thous/mm3 5.0 thous/mm3 13.1 th ous/mm3 (03/02/20 6:37 AM) (03/01/20 9:00 AM) *HI* (02/29/20 6:09 AM) Afn Amer Glomerular Filtration >90 ml/min/1.73m2 83 ml/min/1.73m 2 89 ml/min/1.73m2 Rate *NA* *NA* *NA* (03/02/20 6:37 AM) (03/01/20 9:00 AM) (02/29/20 6:09 A M) Non-Afn Amer Glomerular 84 ml/min/1.73m2 72 ml/min/1.73m2 77 ml/ min/1.73m2 Filtration Rate *NA* *NA* *NA* (03/02/20 6:37 AM) (03/01/20 9:00 AM) (02/29/20 6:09 A M) Total Protein [6.0-8.4 Gm/dL] 7.7 Gm/dL (02/28/20 2:26 PM) Immature Granulocytes [0.0-2.0 0.2 % %] (02/28/20 2:26 PM) Absolute Lymphs Count 1.45 thous/mm3 [0.74-5.04 thous/mm3] (02/28/20 2:26 PM) Absolute Eos Count [0.00-0.45 0.50 thous/mm3 thous/mm3] *HI* (02/28/20 2:26 PM) Absolute Neutro Count 6.24 thous/mm3 [1.48-7.95 thous/mm3] (02/28/20 2:26 PM) RDW-SD [35.0-51.0 fL] 47.4 fL 48.6 fL 49.3 fL (03/02/20 6:37 AM) (03/01/20 9:00 AM) (02/29/20 6:09 A M) Absolute Baso Count [0.00-0.22 0.06 thous/mm3 thous/mm3] (02/28/20 2:26 PM) Absolute Billings Count [0.00-1.34 0.39 thous/mm3 thous/mm3] (02/28/20 2:26 PM) Absolute NRBC Count 0.00 thous/mm3 0.00 thous/mm3 0.00 thous/m m3 *NA* *NA* *NA* (03/02/20 6:37 AM) (03/01/20 9:00 AM) (02/29/20 6:09 A M) 1Result Comment: Results CheckedMicrobiology Reports TEST:Blood Culture STATUS:Order in Progress BODY SITE: SOURCE:Blood Peripheral COLLECTED DATE/TIME:03/01/20 2:59 PMPRELIMINARY REPORTNo growth at 1 day TEST:Blood Culture STATUS:Order in Progress BODY SITE: SOURCE:Blood Peripheral COLLECTED DATE/TIME:03/01/20 2:59 PMPRELIMINARY REPORTNo growth at 1 day TEST:Blood Culture STATUS:Order in Progress BODY SITE: SOURCE:Blood Peripheral COLLECTED DATE/TIME:02/28/20 7:08 PMPRELIMINARY REPORTCulture in progress STAIN REPORTGram Stain Gram positive rods seen in Gram stain of aerobic bottle Called to and read back by: Kat Dean RN/Anthony 03/01/2020 14:33:52 [facility] TEST:Blood Culture STATUS:Order in Progress BODY SITE: SOURCE:Blood Peripheral COLLECTED DATE/TIME:02/28/20 7:08 PMPRELIMINARY REPORTNo growth at 3 days TEST:Urine Culture STATUS:Auth (Verified) BODY SITE: SOURCE:Urine, Clean Catch COLLECTED DATE/TIME:02/28/20 2:26 PMFINAL REPORT70,000 cfu/ml Mixed Gram positive species 3 or more organisms present. Suggests contamination with genital/perineal mariella. If clinically indicated, repeat sample should be considered. Procedures Procedure Date Related Diagnosis Body Site Status TRANSPLT AUTOL HCT/DONOR 2017 Com pleted LAP ING HERNIA REPAIR INIT 2007 C ompleted REMOVAL OF TONSILS1 Complete d 1childhood Social History Social History Type Response Smoking Status Never smoker Assessment and Plan Extracted from: Title: Discharge Note Author: Lev Ramirez MD Date: 03/02/20 ??Name : ??YOSELYN POWELL ? : ?Sex : ??Male ? 1.??Fever w/ chills 2.??Loin pain-hematuria syndrome Extracted from: Title: Progress/SOAP Note Author: Lev Ramirez MD Date: 03/02 ??Name : ??YOSELYN POWELL ? : ?Sex : ??Male ? 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 When i discussed about changing dilaudid iv to oral alternative??is addressing that he is in significant pain. ??I encouraged him to try the oral options and if it does not work we will switch back to IV. The patient said that he would rather le ave the hospital??if he were to??take only oral pain medications. ??I explained to him that we are??continue to treat him with antibiotics until the??blood cultur es are??finalized. ??He states that that does not bother him. He threatened to leave AMA. I encouraged him to stay unitl blood cultures are finalized ?? #fever -h/o severe sepsis, typically secondary to UTIs in the past cultures growing gram positive rods -riojas cultured, CXR negative, COVID negat karen, UA on +??blood -continue empiric antibiotics (vanco/zos yn) -no further fevers since starting antibi otics ?? #?loin pain hematuria syndrome flare -pt followed at [facility], has care plan -continue Dilaudid/Benadryl -pt states flares last bw 2-7 days ?? #??Bacteremia: ??only one bottle positive; ? contaminan t ??Repeat blood cultures ?? Total time spent??in face to face??encou nter with??patient,?patient counseling, and coordination of care was??more than??25??minutes.? Extracted from: Title: Progress/SOAP Note Author: Lev Ramirez MD Date: 03/01 ??Name : ??YOSELYN POWELL ? : ?Sex : ??Male ? 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 ?? #fever -h/o severe sepsis, typically secondary to UTIs in the past cultures growing gram positive rods -riojas cultured, CXR negative, COVID negat karen, UA on +??blood -continue empiric antibiotics (vanco/zos yn) -no further fevers since starting antibi otics ?? #?loin pain hematuria syndrome flare -pt followed at [facility], has care plan -continue Dilaudid/Benadryl -pt states flares last bw 2-7 days ?? #??Bacteremia: ??only one bottle positive; ? contaminan t ??Repeat blood cultures ?? Total time spent??in face to face??encou nter with??patient,?patient counseling, and coordination of care was??more than??25??minutes.? Extracted from: Title: Progress/SOAP Note Author: Mitzi Mcdonald MD Date: 02/29/20 ??Name : ??YOSELYN POWELL ? : ?Sex : ??Male ? 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 ?? 1. fever -h/o severe sepsis, typically secondary to UTIs in the past -currently, no clear evidence of infecti ous etiology -riojas cultured, CXR negative, COVID negat karen, UA on +??blood -continue empiric antibiotics (vanco/zos yn) for at least another 24 hours??pending blood cultures -no further fevers since the one he had in the??ER??yesterday -pt also tells me his specialist told hi m he could have fevers as??part of his syndrome flare up ? 2. ??loin pain hematuria syndrome flare -pt followed at [facility], has care plan -continue Dilaudid/Benadryl -pt states flares last bw 2-7 days ?? 3. dispo stable. can transfer to med surg ?? Total time spent??in face to face??encou nter with??patient,?patient counseling, and coordination of care was??more than??25??minutes.? Extracted from: Title: Admission H & P Author: Ofelia Sow MD Date: 02/28/20 ??Name : ?? YOSELYN POWELL ? : ?Sex : ?? Male ? 1.??Fever w/ chills -temp 102 with left flank tenderness -no tachycardia, or leukocytosis -UA shows hematuria , Chest xray negati ve for pneumonia -COVID 19 screen negative -CT abdomen showing Left pelvic renal t ransplant notable for persistent punctate calcifications near the proximal and mid ureter -blood cultures x 2 sent -started Vancomycin and Zosyn however n o clear source ( left subclavian does not have area of tenderness or discharge ) ? 2.??Loin pain-hematuria syndrome -s/p autologous kidney transplant at [facility]. - follows up with Dr Gifford at [place] stat e -CT abdomen shows ??Left pelvic renal t ransplant notable for persistent punctate calcifications near the proximal and mid ureter -pt is on aggressive analgesic regimen -Dilaudid 2 mg iv q3 and Benadryl 25 mg q3 as directed by his Scratcher Tender ? admit to med surge ?? 50 minutes spent in patient care ?? I certify that hospital inpatient se rvices are reasonable and medically necessary. They are appropriately provided as inpatient services in accordance with the two midnight benchmark under 42CFR 412 3(e), or the services are specified as inpatient only procedure under 42 CFR 419 22(n) Future Appointments??
--- OUTSIDE RECORDS SUMMARY | 2022-05-18 15:18 | XMS_ITS ---
:1970 Author Organization [facility] Address [address] [place] [id number] Care Team Providers Name Role Phone Not On, Staff Primary Care Physician Unavailable Encounter Date(s): 10/13/20 - 10/15/[address] [address]- [place] [phone] Encounter Diagnosis Flank pain (Discharge Diagnosis) - 10/13/20 Hematuria (Discharge Diagnosis) - 10/13/20 Discharge Disposition: Home or Self Care Attending Physician: Rambo LOPEZ [facility] Admitting Physician: Johnathan [facility] Vital Signs Most recent to oldest [Reference Range]: 1 Temperature Oral [96.1-99.6 DegF] 97 DegF (10/15/20 6:39 AM) SpO2 [94-100 %] 96 % (10/15/20 6:39 AM) Respiratory Rate [12-24 br/min] 18 br/min (10/15/20 6:39 AM) Peripheral Pulse Rate [50-110 bpm] 71 bpm (10/15/20 10:00 AM) Blood Pressure [80-140/50-90 mmHg] 103/68 mmHg (10/15/20 10:00 AM) Weight 94.9 Kg (10/13/20 9:56 AM) Height 170.18 cm (10/13/20 9:56 AM) Body Mass Index 32.77 Kg/m2 (10/13/20 9:56 AM) Advanced Directives No (10/13/20 8:20 AM) Reason for No Advance Directive Discussed but patient does not wish an advanced care plan (10/13/20 8:20 AM) Problem List Condition Effective Dates Status [...] 0 Refill(s), Tab Start Date: 10/19/19 Status: Orderedaspirin 81 mg, PO, Daily, 0 Refill(s) Start Date: 10/13/20 Status: OrderedBenadryl 50 mg, PO, BID, 0 Refill(s) Start Date: 10/13/20 Status: Ordereddocusate sodium 100 mg oral capsule [...] 2 3 [Reference Range]: aPTT [23-32 sec] 23 sec (10/14/20 5:47 AM) Anion Gap [3-11] 5 5 7 (10/15/20 6:20 AM) (10/14/20 5:47 AM) (10/13/20 3:1 2 AM) NRBC Percent [0.0-0.0 %] 0.0 % 0.0 % 0.0 % (10/15/20 6:20 AM) (10/14/20 5:47 AM) (10/13/20 3:1 2 AM) Creatinine [0.550-1.300 0.948 mg/dL 0.856 mg/dL 1.170 mg /dL mg/dL] (10/15/20 6:20 AM) (10/14/20 5:47 AM) (10/13/20 3:1 2 AM) BBTTH Done *NA* (10/13/20 3:12 AM) UA Ketones [Negative] Negative Negative (10/13/20 7:23 PM) (10/13/20 2:34 AM) UA Leukocyte Esterase Negative Negative [Negative] (10/13/20 7:23 PM) (10/13/20 2:34 AM) UA Mucous [None] Few (10/13/20 2:34 AM) UA Nitrite [Negative] Negative Negative (10/13/20 7:23 PM) (10/13/20 2:34 AM) UA Bacteria [None] None None (10/13/20 7:23 PM) (10/13/20 2:34 AM) UA Bilirubin [Negative] Negative Negative (10/13/20 7:23 PM) (10/13/20 2:34 AM) UA Blood [Negative] Large Large *ABN* *ABN* (10/13/20 7:23 PM) (10/13/20 2:34 AM) UA Color [Yellow] Red Light Red *ABN* *ABN* (10/13/20 7:23 PM) (10/13/20 2:34 AM) UA Glucose [Negative] Negative Negative (10/13/20 7:23 PM) (10/13/20 2:34 AM) UA Protein [Negative mg/dL] >=500 mg/dL 100 mg/dL *ABN* *ABN* (10/13/20 7:23 PM) (10/13/20 2:34 AM) UA RBC [0-2 /HPF] >182 /HPF >182 /HPF *HI* *HI* (10/13/20 7:23 PM) (10/13/20 2:34 AM) UA Squamous Epithelial [0-5 1 /HPF <1 /HPF /HPF] (10/13/20 7:23 PM) (10/13/20 2:34 AM) UA Urobilinogen [Negative] Negative Negative (10/13/20 7:23 PM) (10/13/20 2:34 AM) UA WBC [0-5 /HPF] 2 /HPF 7 /HPF (10/13/20 7:23 PM) *HI* (10/13/20 2:34 AM) UA Clarity [Clear] Cloudy Hazy *ABN* *ABN* (10/13/20 7:23 PM) (10/13/20 2:34 AM) Blue Top Tube To Hold DONE *NA* (10/13/20 3:12 AM) UA pH [5.0-8.0] 8.0 6.0 (10/13/20 7:23 PM) (10/13/20 2:34 AM) Albumin Lvl [3.2-5.0 Gm/dL] 3.9 Gm/dL (10/13/20 3:12 AM) Alkaline Phosphatase [30-117 118 Units/L Units/L] *HI* (10/13/20 3:12 AM) ALT [6-55 Units/L] 49 Units/L (10/13/20 3:12 AM) AST [6-40 Units/L] 15 Units/L (10/13/20 3:12 AM) Basophils 0.8 % 0.8 % *NA* *NA* (10/14/20 5:47 AM) (10/13/20 3:12 AM) Bilirubin Total [0.2-1.2 0.3 mg/dL mg/dL] (10/13/20 3:12 AM) CO2 [21-32 mmol/L] 26 mmol/L 26 mmol/L 26 mmol/L (10/15/20 6:20 AM) (10/14/20 5:47 AM) (10/13/20 3:1 2 AM) Eosinophils 10.7 % 7.8 % *NA* *NA* (10/14/20 5:47 AM) (10/13/20 3:12 AM) Glucose Lvl [70-110 mg/dL] 116 mg/dL 77 mg/dL 125 m g/dL *HI* (10/14/20 5:47 AM) *HI* (10/15/20 6:20 AM) (10/13/20 3:12 AM) Hct [39.0-53.0 %] 28.4 % 27.3 % 1 32.5 % *LOW* *LOW* *LOW* (10/15/20 6:20 AM) (10/14/20 5:47 AM) (10/13/20 3:1 2 AM) Hgb [13.0-17.5 Gm/dL] 8.8 Gm/dL 8.3 Gm/dL 10.0 Gm/dL *LOW* *LOW* *LOW* (10/15/20 6:20 AM) (10/14/20 5:47 AM) (10/13/20 3:1 2 AM) INR 1.0 *NA* (10/14/20 5:47 AM) Lymphocytes 25.7 % 22.2 % *NA* *NA* (10/14/20 5:47 AM) (10/13/20 3:12 AM) MCH [26.0-34.0 pGm] 24.2 pGm 24.0 pGm 23.8 pGm *LOW* *LOW* *LOW* (10/15/20 6:20 AM) (10/14/20 5:47 AM) (10/13/20 3:1 2 AM) MCHC [31.0-37.0 Gm/dL] 31.0 Gm/dL 30.4 Gm/dL 30.8 Gm/d L (10/15/20 6:20 AM) *LOW* *LOW* (10/14/20 5:47 AM) (10/13/20 3:12 AM) MCV [80.0-100.0 fL] 78.2 fL 78.9 fL 77.4 fL *LOW* *LOW* *LOW* (10/15/20 6:20 AM) (10/14/20 5:47 AM) (10/13/20 3:1 2 AM) Monocytes 7.5 % 6.8 % *NA* *NA* (10/14/20 5:47 AM) (10/13/20 3:12 AM) MPV [9.4-12.4 fL] 10.6 fL 11.0 fL 10.8 fL (10/15/20 6:20 AM) (10/14/20 5:47 AM) (10/13/20 3:1 2 AM) Neutrophils 54.5 % 61.7 % *NA* *NA* (10/14/20 5:47 AM) (10/13/20 3:12 AM) Platelet [150-400 thous/mm3] 275 thous/mm3 241 thous/mm3 316 thous/mm3 (10/15/20 6:20 AM) (10/14/20 5:47 AM) (10/13/20 3:1 2 AM) Potassium Lvl [3.6-5.2 3.8 mmol/L 4.2 mmol/L 3.1 mmol/ L mmol/L] (10/15/20 6:20 AM) (10/14/20 5:47 AM) *LOW* (10/13/20 3:12 AM ) PT [9.3-11.6 sec] 10.9 sec (10/14/20 5:47 AM) RBC [4.20-5.90 Mil/mm3] 3.63 Mil/mm3 3.46 Mil/mm3 4.20 Mil /mm3 *LOW* *LOW* (10/13/20 3:12 AM ) (10/15/20 6:20 AM) (10/14/20 5:47 AM) Sodium Lvl [136-146 mmol/L] 140 mmol/L 143 mmol/L 141 mmol/L (10/15/20 6:20 AM) (10/14/20 5:47 AM) (10/13/20 3:1 2 AM) BUN [6-20 mg/dL] 5 mg/dL 3 mg/dL 7 mg/dL *LOW* *LOW* (10/13/20 3:12 AM ) (10/15/20 6:20 AM) (10/14/20 5:47 AM) Calcium Lvl [8.5-10.5 mg/dL] 7.9 mg/dL 8.2 mg/dL 8.6 mg/dL *LOW* *LOW* (10/13/20 3:12 AM ) (10/15/20 6:20 AM) (10/14/20 5:47 AM) Chloride [98-110 mmol/L] 109 mmol/L 112 mmol/L 108 mmo l/L (10/15/20 6:20 AM) *HI* (10/13/20 3:12 AM) (10/14/20 5:47 AM) UA Specific [place] 1.005 1.011 [1.003-1.030] (10/13/20 7:23 PM) (10/13/20 2:34 AM) WBC [4.0-11.0 thous/mm3] 6.9 thous/mm3 7.1 thous/mm3 10.1 th ous/mm3 (10/15/20 6:20 AM) (10/14/20 5:47 AM) (10/13/20 3:1 2 AM) Afn Amer Glomerular >90 ml/min/1.73m2 >90 ml/min/1.73m2 82 ml/mi n/1.73m2 Filtration Rate *NA* *NA* *NA* (10/15/20 6:20 AM) (10/14/20 5:47 AM) (10/13/20 3:1 2 AM) Non-Afn Amer Glomerular >90 ml/min/1.73m2 >90 ml/min/1.73m2 71 m l/min/1.73m2 Filtration Rate *NA* *NA* *NA* (10/15/20 6:20 AM) (10/14/20 5:47 AM) (10/13/20 3:1 2 AM) Total Protein [6.0-8.4 7.5 Gm/dL Gm/dL] (10/13/20 3:12 AM) Immature Granulocytes 0.8 % 0.7 % [0.0-2.0 %] (10/14/20 5:47 AM) (10/13/20 3:12 AM) Absolute Lymphs Count 1.82 thous/mm3 2.23 thous/mm3 [0.74-5.04 thous/mm3] (10/14/20 5:47 AM) (10/13/20 3:12 AM) Absolute Eos Count 0.76 thous/mm3 0.78 thous/mm3 [0.00-0.45 thous/mm3] *HI* *HI* (10/14/20 5:47 AM) (10/13/20 3:12 AM) Absolute Neutro Count 3.85 thous/mm3 6.22 thous/mm3 [1.48-7.95 thous/mm3] (10/14/20 5:47 AM) (10/13/20 3:12 AM) RDW-SD [35.0-51.0 fL] 42.8 fL 44.4 fL 42.4 fL (10/15/20 6:20 AM) (10/14/20 5:47 AM) (10/13/20 3:1 2 AM) Absolute Baso Count 0.06 thous/mm3 0.08 thous/mm3 [0.00-0.22 thous/mm3] (10/14/20 5:47 AM) (10/13/20 3:12 AM) Absolute [place] Count 0.53 thous/mm3 0.68 thous/mm3 [0.00-1.34 thous/mm3] (10/14/20 5:47 AM) (10/13/20 3:12 AM) Absolute NRBC Count 0.00 thous/mm3 0.00 thous/mm3 0.00 thous/m m3 *NA* *NA* *NA* (10/15/20 6:20 AM) (10/14/20 5:47 AM) (10/13/20 3:1 2 AM) 1Result Comment: Results CheckedMicrobiology Reports TEST:Urine Culture STATUS:Auth (Verified) BODY SITE: SOURCE:Urine, Clean Catch COLLECTED DATE/TIME:10/13/20 2:34 AMFINAL REPORTNo growth Procedures Procedure Date Related Diagnosis Body Site Status TRANSPLT AUTOL HCT/DONOR 2017 Com pleted LAP ING HERNIA REPAIR INIT 2007 C ompleted REMOVAL OF TONSILS1 Complete d 1childhood Social History Social History Type Response Smoking Status Never smoker Assessment and Plan Extracted from: Title: Discharge Patient Summary Author: Jessica Klein Date : 10/15/[address] [id number] Patient Discharge Summary Name: RAUL POWELL Age: 50 Years Job e of : 1970 Arrival Time: 10/13/2020 02:27:53 Primary Care Physician: Not On Staff Isaac ne: Reason for Admission: left flank pain / chronic; FLANK PAIN HE MATURIA You had the following procedures perform ed during your inpatient visit: No major procedures performed. The following test results were not avai lable before your discharge. Your Primary Care Provider should contact you of any abnormal test results regarding follow-up. However, if you would like the results, please contact your Primary Care Provider. No results pending. Final Diagnosis: Flank pain; Hematuria Resuscitation status: Date/Time Performed Status Modified DNR Results Special Instructions 10/13/20 08:15 Full Resuscitation None None Advanced Directives: Advanced Directives No Reason for No Advanced Directive Discussed but patient does not wish an a dvanced care plan Directive(s) in place Medical Power of Chop Saw Operator Name Name of Surrogate Directives Location [facility] would like to th ank you for allowing us to assist you with your healthcare needs. The following includes patient education materials and information regarding your injury / illne ss. Our entire staff strives to provide a very good experience for our patients and their families. PLEASE ENSURE YOU FOLLOW-UP PER THE INSTRUCTIONS BELOW! RAUL POWELL has been given the [facility] list of patient education materials, prescriptions and follow-up instructions: Follow-up Instructions: Please call 911 if your condition is of a serious nature and you require immediate assistance. You may also seek services at your local Emergency Department. If you have questions regarding your care fo llowing discharge, please contact the sp ecialist (surgeon, cook boat, etc.) who was involved with your hospital care or your PCP's office. With: Address: When: Please follow up with your primary care and your polarity tester Within As instructed With: Address: When: Staff Not On Within As instructed Other Clinical Information: Vital Sign Latest Temp Oral 97 DegF Temp Tympanic Temp Intravascular Temp Axillary Temp Rectal O2 Sat 96 % Respiratory Rate 18 br/min Peripheral Pulse Rate 71 bpm Apical Heart Rate Blood Pressure 103 mmHg / 68 mmHg Weight 94.9 Kg Discharge Orders: Order Name Order Details The Discharge Electronic Signature Requested Start Date/Time : 10/15/20 10: 45:00 EDT,Special Instructions : Above discharge orders electronically signed by:,Discharge Electronic Signature : Rambo LOPEZ [facility] Medication Information: Only medications listed should be taken unless otherwise instructed by your healthcare provider. Other??Medications acetaminophen??(acetaminophen??325??mg?? oral??tablet) 2??Tablet(s)??By??mouth??every??4??hours??as??needed??Fever/Pain,??Mild??to??Mod amLODIPine??(Norvasc) 10??Milligram??By? ?mouth??every??day. aspirin 81??Milligram??By??mouth??every? ?day. diphenhydrAMINE??(Benadryl) 50??Milligra m??By??mouth??2??times??a??day. docusate??(docusate??sodium??100??mg??or al??capsule) 1??Capsules??By??mouth??2??times??a??day??as??needed??as??needed??for??constipat HYDROmorphone??(HYDROmorphone??4??mg??or al??tablet) 1??Tablet(s)??By??mouth??every??6??hours??as??needed??Pain,??Moderate.??Partial? HYDROmorphone??(HYDROmorphone??extended? ?release) 8??Milligram??By??mouth??2??times??a??day. methadone??(methadone??5??mg??oral??tabl et) 1??Tablet(s)??By??mouth??every??8??hours.??Partial??fill??upon??request. methenamine 1??Gram??By??mouth??2??times ??a??day. ondansetron??(ondansetron??4??mg??oral?? tablet,??disintegrating) 2??Tablet(s)??every??6??hours??as??needed??Nausea/Vomiting. pantoprazole??(pantoprazole??40??mg??ora l??delayed??release??tablet) 1??Tablet(s)??By??mouth??2??times??a??day. Immunization History at [facility]: No immunizations given this visit Allergies: contrast media (iodine-based) ; Suboxone; morphine [facility] provi ded you with a [...] nose or gums or easy bruising ?? [phone] [employer]. [address] [place] [id number]. All rights reserved. This information is not intended as a substitute for professional medical care. Always follow your healthcare professional's instructions. Comment: ANDRE Ibarra MICHAEL G , have received yola ent education materials/instructions and have verbalized understanding: 10/15/2020 12:28:08 Patient Signature or Responsible Constitution Party S ignature 10/15/2020 12:28:08 Provider Signature [facility] Patient Portal is a person alized secured online tool for [facility] patients that helps keep you up to date on your healthcare information by giving you convenient access to [facility] test results and medical re cords. The [...] ent education materials/instructions and have verbalized understanding: 10/15/2020 12:28:08 Patient Signature or Responsible Constitution Party S ignature 10/15/2020 12:28:08 Provider Signature Extracted from: Title: Progress/SOAP Note Author: Ashwini Martinez Date: 09/23 10/12 50 y/o male with Loin Pain Hematuria Sy ndrome presenting with an exacerbation of symptoms including left flank pain and gross hematuria with clots. He has no fevers, a normal WBC (10.1), and no signs of RHEA (creatinine 1.17). ?? #Loin Pain Hematuria Syndrome - Will follow pre-designated care plan - Pain Controll with 2 mg Dilaudid q3h, 25 mg IV Benadryl q4h, IV Benadryl 50mg BID - Doing much better. Anticipate will be able to be d/c tomorrow ? #Hematuria with clots - Improving ?? #Anemia, due to blood loss: - trend h/h, transfuse if hemoglobin bel ow 7.0 ?? #Hypokalemia- repleted ?? #HTN - continue home amlodipine ?? Prophylaxis: PPI; Seq Dispo: Anticipate d/c tomorrow on oral r egimen.? 30 mins face to face on this encounter ??[1] Al hydroxide/Mg hydroxide/simethicone, D ose: 30 mL, Susp, PO, q6hr, PRN, Indigestion / Heartburn, First Dose Date/Time: 10/14/20 16:28:00 EDT bisacodyl, Dose: 10 mg = 1 supp, Supp, MS, Daily, PRN, Constipation, First Dose Date/Time: 10/14/20 16:28:00 EDT diphenhydrAMINE, Dose: 50 mg = 1 mL, In jection, IV Push, BID, First Dose Date/Time: 10/14/20 18:00:00 EDT docusate-senna, Dose: 1 tab(s), Tab, PO , BID, PRN, Constipation, First Dose Date/Time: 10/14/20 16:28:00 EDT magnesium hydroxide, Dose: 30 mL, Susp, PO, Daily, PRN, Constipation, First Dose Date/Time: 10/14/20 16:28:00 EDT methadone, Dose: 5 mg = 1 tab(s), Tab, PO, q8hr, First Dose Date/Time: 10/14/20 10:00:00 EDT Sodium Chloride 0.9% 1,000 mL, Dose: 1, 000 mL, Soln, IV, Routine, 75 ml/hr, 13.3 hr, 1,000 ml (TOTAL VOLUME), First dose date/time: 10/14/20 16:27:00 EDT, 2.06 Basic Metabolic Panel CBC w/ Indices Regular Diet Extracted from: Title: Admission H & P Author: Alfredo Tyson Date: 10/13/20 Raul Powell is a 50 y/o male with Jj n Pain Hematuria Syndrome presenting with an exacerbation of symptoms including left flank pain and gross hematuria with clots. He has no fevers, a normal WBC (10.1), and no signs of RHEA (creatinine 1.17). ?? #Loin Pain Hematuria Syndrome - Will follow pre-designated care plan - Pain Contorl with 2 mg Dilaudid q3h, 25 mg IV Benadryl q4h ?? #Hematuria with clots - Fluid resuscitation with NS w/ 40 meq KCl (last K was 3.1) ? #Anemia, due to blood loss: - trend h/h, transfuse if hemoglobin be low 7.0 ?? #Hypokalemia - Fluid resuscitation with NS w/ 40 meq KCl (last K was 3.1) - trend electrolytes - trend creatinine ? #HTN - continue home amlodipine ? - DVT ppx: SCDs - Ulcer ppx: pantoprazole 40 mg - Full Code ?? patient seen and examined with the m annabelleical student. Notes reviewed. Agree with assesment and plan. edits jenna gonzáles. ?? FACE TO FACE PATIENT COUNSELING / CO ORDINATING CARE MORE THAN 50% OF ENCOUNTER TIME: YES TOTAL ENCOUNTER TIME:??35 mins
--- OUTSIDE RECORDS SUMMARY | 2022-05-18 15:18 | XMS_ITS ---
:1970 Author Organization [facility] Address [address] [place] [id number] Care Team Providers Name Role Phone MD All Primary Care Physician Unavailable Encounter Date(s): 10/31/18 - 11/09/[address] [id number] [phone] Encounter Diagnosis Left flank pain (Discharge Diagnosis) - 11/01/18 Abdominal pain (Discharge Diagnosis) - 11/01/18 Loin pain-hematuria syndrome (Discharge Diagnosis) - 11/01/18 Opioid use (Discharge Diagnosis) - 11/09/18 Discharge Disposition: Home or Self Care Attending Physician: Kristie Del Cid Admitting Physician: Kristie Del Cid Vital Signs Most recent to oldest [Reference Range]: 1 Temperature Oral [96.1-99.6 DegF] 97.6 DegF (11/09/18 5:25 AM) SpO2 [94-100 %] 96 % (11/09/18 5:25 AM) Respiratory Rate [12-24 br/min] 20 br/min (11/09/18 5:25 AM) Peripheral Pulse Rate [50-110 bpm] 78 bpm (11/09/18 5:25 AM) Blood Pressure [80-140/50-90 mmHg] 117/79 mmHg (11/09/18 5:25 AM) Weight 95.2 Kg (11/07/18 12:54 PM) Height 170.18 cm (11/07/18 12:54 PM) Body Mass Index 32.87 Kg/m2 (11/07/18 12:54 PM) Advanced Directives No (11/01/18 11:15 AM) Reason for No Advance Directive Patient unable to prov mando an advance care plan (11/01/18 11:15 AM) Problem List Condition Effective Dates Status Health Status Informant 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) Allergies, Adverse Reactions, Alerts Substance Reaction Severity Status morphine Moderate Active Suboxone Moderate Active contrast media (iodine-based) Unknown Ac tive Medications aspirin 81 mg, PO, Daily, 0 Refill(s) Start Date: 11/01/18 Status: OrderedcloNIDine 0.1 mg oral tablet 0.1 mg = 1 tab(s), PO, BID, 0 Refill(s), Tab Start Date: 11/09/18 Status: OrderedCymbalta 60 mg oral delayed release capsule 60 mg = 1 cap(s), PO, Daily, 0 Refill(s) Start Date: 11/01/18 Status: OrderedHYDROmorphone 4 mg oral tablet Partial fill upon request, 0 Refill(s) Start [...] 2 3 [Reference Range]: Anion Gap [3-11] 8 8 4 (11/06/18 7:21 PM) (11/05/18 10:00 AM) (11/02/18 6: 47 AM) NRBC Percent [0.0-0.0 %] 0.0 % 0.0 % 0.0 % (11/06/18 7:21 PM) (11/05/18 10:00 AM) (11/02/18 6: 47 AM) Creatinine [0.550-1.300 1.080 mg/dL 1.210 mg/dL 0.907 mg /dL mg/dL] (11/06/18 7:21 PM) (11/05/18 10:00 AM) (11/02/18 6: 47 AM) UA Ketones [Negative] Negative Negative (11/07/18 11:02 PM) (11/01/18 2:37 AM) UA Leukocyte Esterase Negative [Negative] (11/07/18 11:02 PM) UA Leukocyte Esterase 25 WBC/uL [Negative WBC/uL] *ABN* (11/01/18 2:37 AM) UA Mucous [None] Few Few (11/06/18 10:50 AM) (11/01/18 2:37 AM) UA Nitrite [Negative] Negative Negative (11/07/18 11:02 PM) (11/01/18 2:37 AM) UA Bacteria [None] None None Trace (11/07/18 11:02 PM) (11/06/18 10:50 AM) *ABN* (11/01/18 2:37 AM ) UA Bilirubin [Negative] Negative Negative (11/07/18 11:02 PM) (11/01/18 2:37 AM) UA Blood [Negative] Large Large *ABN* *ABN* (11/07/18 11:02 PM) (11/01/18 2:37 AM) UA Color [Yellow] Red Yellow *ABN* (11/01/18 2:37 AM) (11/07/18 11:02 PM) UA Glucose [Negative] Negative Negative (11/07/18 11:02 PM) (11/01/18 2:37 AM) UA Protein [Negative 30 mg/dL 30 mg/dL mg/dL] *ABN* *ABN* (11/07/18 11:02 PM) (11/01/18 2:37 AM) UA RBC [0-2 /HPF] >182 /HPF >182 /HPF >182 /HPF *HI* *HI* *HI* (11/07/18 11:02 PM) (11/06/18 10:50 AM) (11/01/18 2 :37 AM) UA Squamous Epithelial <1 /HPF <1 /HPF <1 /HPF [0-5 /HPF] (11/07/18 11:02 PM) (11/06/18 10:50 AM) (11/01/18 2 :37 AM) UA Uric Acid Claudine [None] Occasional *ABN* (11/01/18 2:37 AM) UA Urobilinogen [Negative] Negative Negative (11/07/18 11:02 PM) (11/01/18 2:37 AM) UA WBC [0-5 /HPF] 41 /HPF 16 /HPF 15 /HPF *HI* *HI* *HI* (11/07/18 11:02 PM) (11/06/18 10:50 AM) (11/01/18 2 :37 AM) UA Clarity [Clear] Cloudy Clear *ABN* (11/01/18 2:37 AM) (11/07/18 11:02 PM) Blue Top Tube To Hold DONE *NA* (11/01/18 2:37 AM) UA pH [5.0-8.0] 8.0 5.0 (11/07/18 11:02 PM) (11/01/18 2:37 AM) Albumin Lvl [3.2-5.0 3.3 Gm/dL 3.2 Gm/dL 3.7 Gm/dL Gm/dL] (11/06/18 7:21 PM) (11/05/18 10:00 AM) (11/01/18 2: 37 AM) Alkaline Phosphatase 101 Units/L 101 Units/L 86 Units/L [30-117 Units/L] (11/06/18 7:21 PM) (11/05/18 10:00 AM) (11/01/18 2 :37 AM) ALT [6-55 Units/L] 123 Units/L 104 Units/L 54 Units/L *HI* *HI* (11/01/18 2:37 AM ) (11/06/18 7:21 PM) (11/05/18 10:00 AM) AST [6-40 Units/L] 70 Units/L 53 Units/L 40 Units/L *HI* *HI* (11/01/18 2:37 AM ) (11/06/18 7:21 PM) (11/05/18 10:00 AM) Basophils 1.7 % 1.0 % *NA* *NA* (11/05/18 10:00 AM) (11/01/18 2:37 AM) Bilirubin Total [0.2-1.2 0.3 mg/dL 0.3 mg/dL 0.5 mg/ dL mg/dL] (11/06/18 7:21 PM) (11/05/18 10:00 AM) (11/01/18 2: 37 AM) CO2 [21-32 mmol/L] 26 mmol/L 27 mmol/L 27 mmol/L (11/06/18 7:21 PM) (11/05/18 10:00 AM) (11/02/18 6: 47 AM) Eosinophils 9.9 % 5.0 % *NA* *NA* (11/05/18 10:00 AM) (11/01/18 2:37 AM) Glucose Lvl [70-110 mg/dL] 116 mg/dL 125 mg/dL 98 mg /dL *HI* *HI* (11/02/18 6:47 AM ) (11/06/18 7:21 PM) (11/05/18 10:00 AM) Hct [39.0-53.0 %] 39.1 % 38.2 % 36.1 % (11/06/18 7:21 PM) *LOW* *LOW* (11/05/18 10:00 AM) (11/02/18 6:47 AM) Hgb [13.0-17.5 Gm/dL] 12.6 Gm/dL 12.3 Gm/dL 11.5 Gm/dL *LOW* *LOW* *LOW* (11/06/18 7:21 PM) (11/05/18 10:00 AM) (11/02/18 6: 47 AM) Lactic Acid Lvl [0.4-2.0 1.4 mmol/L mmol/L] (11/01/18 2:37 AM) Lipase Lvl [73-393 46 Units/L Units/L] *LOW* (11/01/18 2:37 AM) Lymphocytes 40.6 % 32.5 % *NA* *NA* (11/05/18 10:00 AM) (11/01/18 2:37 AM) MCH [26.0-34.0 pGm] 27.9 pGm 28.2 pGm 28.2 pGm (11/06/18 7:21 PM) (11/05/18 10:00 AM) (11/02/18 6: 47 AM) MCHC [31.0-37.0 Gm/dL] 32.2 Gm/dL 32.2 Gm/dL 31.9 Gm/d L (11/06/18:21 PM) (11/05/18 10:00 AM) (11/02/18 6: 47 AM) MCV [80.0-100.0 fL] 86.7 fL 87.6 fL 88.5 fL (11/06/18:21 PM) (11/05/18 10:00 AM) (11/02/18 6: 47 AM) Monocytes 10.2 % 7.8 % *NA* *NA* (11/05/18 10:00 AM) (11/01/18 2:37 AM) MPV [9.4-12.4 fL] 11.2 fL 11.5 fL 11.4 fL (11/06/18: PM) (11/05/18 10:00 AM) (11/02/18 6: 47 AM) Neutrophils 37.4 % 53.3 % *NA* *NA* (11/05/18 10:00 AM) (11/01/18 2:37 AM) Platelet [150-400 301 thous/mm3 269 thous/mm3 211 thous/mm3 thous/mm3] (11/06/18 7:21 PM) (11/05/18 10:00 AM) (11/02/18 6: 47 AM) Potassium Lvl [3.6-5.2 4.0 mmol/L 4.2 mmol/L 4.3 mmol/ L mmol/L] (11/06/18:21 PM) (11/05/18 10:00 AM) (11/02/18 6: 47 AM) RBC [4.20-5.90 Mil/mm3] 4.51 Mil/mm3 4.36 Mil/mm3 4.08 Mil /mm3 (11/06/18:21 PM) (11/05/18 10:00 AM) *LOW* (11/02/18 6:47 AM ) Sodium Lvl [136-146 138 mmol/L 141 mmol/L 141 mmol/L mmol/L] (4/15/19 7:21 PM) (11/05/18 10:00 AM) (11/02/18 6: 47 AM) BUN [6-20 mg/dL] 9 mg/dL 9 mg/dL 8 mg/dL (11/06/18 7:21 PM) (11/05/18 10:00 AM) (11/02/18 6: 47 AM) Calcium Lvl [8.5-10.5 8.6 mg/dL 8.4 mg/dL 8.7 mg/dL mg/dL] (11/06/18 7:21 PM) *LOW* (11/02/18 6:47 AM) (11/05/18 10:00 AM) Chloride [98-110 mmol/L] 104 mmol/L 106 mmol/L 110 mmo l/L (11/06/18 7:21 PM) (11/05/18 10:00 AM) (11/02/18 6: 47 AM) UA Specific [place] 1.011 1.011 [1.003-1.030] (11/07/18 11:02 PM) (11/01/18 2:37 AM) WBC [4.0-11.0 thous/mm3] 5.4 thous/mm3 4.6 thous/mm3 3.9 tho us/mm3 (11/06/18 7:21 PM) (11/05/18 10:00 AM) *LOW* (11/02/18 6:47 AM ) Afn Amer Glomerular >90 ml/min/1.73m2 80 ml/min/1.73m2 >90 ml/mi n/1.73m2 Filtration Rate *NA* *NA* *NA* (11/06/18: PM) (11/05/18 10:00 AM) (11/02/18 6: 47 AM) Non-Afn Amer Glomerular 80 ml/min/1.73m2 69 ml/min/1.73m2 >90 ml /min/1.73m2 Filtration Rate *NA* *NA* *NA* (11/06/18 7:21 PM) (11/05/18 10:00 AM) (11/02/18 6: 47 AM) Total Protein [6.0-8.4 6.5 Gm/dL 6.2 Gm/dL 7.1 Gm/dL Gm/dL] (11/06/18 7:21 PM) (11/05/18 10:00 AM) (11/01/18 2: 37 AM) Immature Granulocytes 0.2 % 0.4 % [0.0-2.0 %] (11/05/18 10:00 AM) (11/01/18 2:37 AM) Absolute Lymphs Count 1.88 thous/mm3 2.30 thous/mm3 [0.74-5.04 thous/mm3] (11/05/18 10:00 AM) (11/01/18 2:37 AM) Absolute Eos Count 0.46 thous/mm3 0.35 thous/mm3 [0.00-0.45 thous/mm3] *HI* (11/01/18 2:37 AM) (11/05/18 10:00 AM) Absolute Neutro Count 1.73 thous/mm3 3.77 thous/mm3 [1.48-7.95 thous/mm3] (11/05/18 10:00 AM) (11/01/18 2:37 AM) RDW-SD [35.0-51.0 fL] 47.8 fL 48.8 fL 50.8 fL (11/06/18 7:21 PM) (11/05/18 10:00 AM) (11/02/18 6: 47 AM) Absolute Baso Count 0.08 thous/mm3 0.07 thous/mm3 [0.00-0.22 thous/mm3] (11/05/18 10:00 AM) (11/01/18 2:37 AM) Absolute [place] Count 0.47 thous/mm3 0.55 thous/mm3 [0.00-1.34 thous/mm3] (11/05/18 10:00 AM) (11/01/18 2:37 AM) Absolute NRBC Count 0.00 thous/mm3 0.00 thous/mm3 0.00 thous/m m3 *NA* *NA* *NA* (11/06/18 7:21 PM) (11/05/18 10:00 AM) (11/02/18 6: 47 AM) Microbiology Reports TEST:Urine Culture STATUS:Auth (Verified) BODY SITE: SOURCE:Urine, Clean Catch COLLECTED DATE/TIME:11/07/18 11:02 PMFINAL REPORT10,000 cfu/ml Mixed Gram positive species 3 or more organisms present. Suggests contamination with genital/perineal mariella. If clinically indicated, repeat sample should be considered.TEST:Urine Culture STATUS:Auth (Verified) BODY SITE: SOURCE:Urine, Clean Catch COLLECTED DATE/TIME:11/06/18 11:20 AMFINAL REPORT20,000 cfu/ml Mixed Gram positive species 3 or more organisms present. Suggests contamination with genital/perineal mariella. If clinically indicated, repeat sample should be considered.TEST:Urine Culture STATUS:Auth (Verified) BODY SITE: SOURCE:Urine, Clean Catch COLLECTED DATE/TIME:11/01/18 2:37 AMFINAL REPORT>100,000 cfu/ml Mixed Gram positive species 3 or [...] Extracted from: Title: Discharge Patient Summary Author: Rina Sanders Job e: 11/09/[address] [id number] Patient Discharge Summary Name: YOSELYN POWELL Age: 48 Years Job e of : 1970 Arrival Time: 10/31/2018 23:28:53 Primary Care Physician: MD Alisia Phone: Reason for Admission: Abdominal pain; left flank pain; LOIN PA IN HEMATURIA SYNDROME LEFT FLANK PAIN ABDOMINAL PAIN You had the following procedures perform ed during your inpatient visit: No major procedures performed. The following test results were not avai lable before your discharge. Your Primary Care Provider should contact you of any abnormal test results regarding follow-up. However, if you would like the results, please contact your Primary Care Provider. Procedure Name Date Performed Urine Culture 11/07/18 23:02 Final Diagnosis: Abdominal pain; Left flank pain; Loin pa in-hematuria syndrome Resuscitation status: Date/Time Performed Status Modified DNR Results Special Instructions 11/01/18 11:15 Full Resuscitation None None Advanced Directives: Advanced Directives No Reason for No Advanced Directive Patient unable to provide an advance car e plan Directive(s) in place Medical Power of Box Tender Name Name of Surrogate Directives Location [facility] would like to th ank you for allowing us to assist you with your healthcare needs. The following includes patient education materials and information regarding your injury / illne ss. Our entire staff strives to provide a very good experience for our patients and their families. PLEASE ENSURE YOU FOLLOW-UP PER THE INSTRUCTIONS BELOW! YOSELYN POWELL has been given the [facility] list of patient education materials, prescriptions and follow-up instructions: Follow-up Instructions: Please call 911 if your condition is of a serious nature and you require immediate assistance. You may also seek services at your local Emergency Department. If you have questions regarding your care fo llowing discharge, please contact the sp ecialist (surgeon, classroom coordinator, etc.) who was involved with your hospital care or your PCP's office. With: Address: When: Follow up with your specialist [address] [place] [address] 11/09/2018 14:00:00 Comments: Dr Gifford- Nephrology Other Clinical Information: Vital Sign Latest Temp Oral 97.6 DegF Temp Tympanic Temp Intravascular Temp Axillary Temp Rectal O2 Sat 96 % Respiratory Rate 20 br/min Peripheral Pulse Rate 78 bpm Apical Heart Rate Blood Pressure 117 mmHg / 79 mmHg Weight 95.2 Kg Discharge Orders: Order Name Order Details Medication Information: Only medications listed should be taken unless otherwise instructed by your healthcare provider. Other??Medications amLODIPine??(Norvasc) 2.5??Milligram??By ??mouth??every??day. aspirin 81??Milligram??By??mouth??every? ?day. cloNIDine??(cloNIDine??0.1??mg??oral??ta blet) 1??Tablet(s)??By??mouth??2??times??a??day. DULoxetine??(Cymbalta??60??mg??oral??del ayed??release??capsule) 1??Capsules??By??mouth??every??day. HYDROmorphone??(HYDROmorphone??4??mg??or al??tablet) Partial??fill??upon??request. HYDROmorphone??(HYDROmorphone??extended? ?release) 8??Milligram??By??mouth??2??times??a??day. methadone??(methadone??5??mg??oral??tabl et) 1??Tablet(s)??By??mouth??every??8??hours.??Partial??fill??upon??request. ondansetron??(ondansetron??4??mg??oral?? tablet,??disintegrating) DISSOLVE??ONE??TAB??ON??THE??TONGUE??THEN??SWALLOW??EVERY??6??HOURS?NEEDED. pantoprazole??(pantoprazole??40??mg??ora l??delayed??release??tablet) 1??Tablet(s)??By??mouth??2??times??a??day. prazosin??(prazosin??1??mg??oral??capsul e) 1??Capsules??By??mouth??once??a??day??(at??bedtime). Immunization History at [facility]: No immunizations given this visit Allergies: contrast media (iodine-based) ; Suboxone; morphine [facility] provi ded you with a complete list of medications post discharge, if you have been instructed to stop taking a medication please ensure you also follow up with this information to your Primary Care Physician. Patient Education Materials: CHRONIC PAIN and Dilaudid (Custom) [id number] CHRONIC PAIN Pain of recent onset (? acute pain? ) serves an important function. It lets you know something is wrong that needs your attention. When the body heals, acute pain goes away. When pain lasts longer than six months, it is called ? chronic pain.? It may be present even after the body has healed. Chronic pain has both a physical and a psychological component. It may cause lo w self-esteem, depression and irritabili ty. And, it can interfere with daily activities. TREATMENT: Chronic pain is treated with a combinati on of medicines, therapy and lifestyle changes. Medicines may include pain relievers and antidepressants. It is best not to rely on regular use of narcotics for chronic pain. This leads to physical addiction. If narcotics are used at all, they are be st limited to acute, breakthrough pain. Medicines used for seizures also help in certain types of chronic pain. Physical therapy can offer stretching an d strengthening activities as well as low-impact exercise. This can reduce certain types of chronic pain. Occupational therapy teaches you how to do routine tasks of daily living in ways that minimize your discomfort. Psychological therapy can help you deal with the stress in your life so you feel more at ease. Other modalities such as meditation, yog a, biofeedback, massage and acupuncture can also help manage chronic pain. Lifestyle habits can affect chronic pain . The following should be part of any chronic pain treatment plan. ? ? Eat healthy ? ? Develop an exercise routine ? ? Get enough sleep at night ? ? Stop smoking and limit alcohol use ? ? Start a weight loss program if you are overweight Many patients can be free from chronic p ain. But at the very least, you should expect your pain to become less severe, occur less often and interfere less with your daily life. FOLLOW UP with your doctor or as advised by our staff. Let your doctor know if your current treatment plan is successful or if changes are needed. [NOTE: If you had an X-ray or EKG (cardi ogram), it will be reviewed by a specialist. You will be notified of any new findings that may affect your care.] RESOURCES: [place] [employer] elliott bower.achenet.org [place] [employer] www.th eacpa.org [phone] ?? [place] [address]. All rights reserved. This information is not intended as a substitute for professional medical care. Always follow your healthcare professional's instructions. CHRONIC PAIN Pain of recent onset (? acute pain? ) serves an important function. It lets you know something is wrong that needs your attention. When the body heals, acute pain goes away. When pain lasts longer than six months, it is called ? chronic pain.? It may be present even after the body has healed. Chronic pain has both a physical and a psychological component. It may cause lo w self-esteem, depression and irritabili ty. And, it can interfere with daily activities. TREATMENT: Chronic pain is treated with a combinati on of medicines, therapy and lifestyle changes. Medicines may include pain relievers and antidepressants. It is best not to rely on regular use of narcotics for chronic pain. This leads to physical addiction. If narcotics are used at all, they are be st limited to acute, breakthrough pain. Medicines used for seizures also help in certain types of chronic pain. Physical therapy can offer stretching an d strengthening activities as well as low-impact exercise. This can reduce certain types of chronic pain. Occupational therapy teaches you how to do routine tasks of daily living in ways that minimize your discomfort. Psychological therapy can help you deal with the stress in your life so you feel more at ease. Other modalities such as meditation, yog a, biofeedback, massage and acupuncture can also help manage chronic pain. Lifestyle habits can affect chronic pain . The following should be part of any chronic pain treatment plan. ? ? Eat healthy ? ? Develop an exercise routine ? ? Get enough sleep at night ? ? Stop smoking and limit alcohol use ? ? Start a weight loss program if you are overweight Many patients can be free from chronic p ain. But at the very least, you should expect your pain to become less severe, occur less often and interfere less with your daily life. FOLLOW UP with your doctor or as advised by our staff. Let your doctor know if your current treatment plan is successful or if changes are needed. [NOTE: If you had an X-ray or EKG (cardi ogram), it will be reviewed by a specialist. You will be notified of any new findings that may affect your care.] RESOURCES: [place] [employer] ww w.achenet.org [place] [employer] www.th eacpa.org [phone] ?? [facility], [address] [place] [address]. All rights reserved. This information is not intended as a substitute for professional medical care. Always follow your healthcare professional's instructions. Comment: ANDRE Ibarra MICHAEL G , have received yola ent education materials/instructions and have verbalized understanding: 11/09/2018 09:23:45 Patient Signature or Responsible Alliance Party S ignature 11/09/2018 09:23:45 Provider Signature [employer] Patient Portal is a person alized secured online tool for [facility] patients that helps keep you up to date on your healthcare information by giving you convenient access to y [facility] test results and medical re cords. [...] ent education materials/instructions and have verbalized understanding: 11/09/2018 09:23:45 Patient Signature or Responsible Alliance Party S ignature 11/09/2018 09:23:45 Provider Signature Extracted from: Title: Discharge Note Author: Anil Khan MD Date: 11/09/18 Abdominal pain,?? Left flank pain Abdominal pain left flank pain ?? Loin pain-hematuria syndrome Extracted from: Title: Progress/SOAP Note Author: Anil Khan MD Date: 11/08 Abdominal pain,?? Left flank pain Abdominal pain left flank pain ?? Loin pain-hematuria syndrome ? This is a 48-year-old gentleman with his tory of loin pain hematuria syndrome get his care at [facility], chronic pain managed By Dr. Gfiford ([phone]) presents today with hematuria, fla nk pain and abdominal pain, abdomen is s oft lactic acid improved after fluid administration he does have chronic pain and he status post left renal autotransplant ?? #loin pain hematuria syndrome?? 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 Gifford - he recommended restarting home dose of methadone 5 mg by mouth 3 times a day increasing??hydromorphone by mouth from every 6 to every 4 Sinus with discharge tomorrow for him to follow up with his electrical apprentice outpatient??for possible urethral??denervation appreciate urology consult ?? # Hypertension. continue amlodipine and restart clonidine 0.1mg po BID ?? Urine culture contaminant Repeat urinalysis and culture ?? Activity as tolerated ? Extracted from: Title: Progress/SOAP Note Author: Chelsey Bower MD Date: 11/07/18 Abdominal pain,?? Left flank pain Abdominal pain left flank pain ?? Loin pain-hematuria syndrome ? This is a 48-year-old gentleman with his tory of loin pain hematuria syndrome get his care at [facility], presents today with hematuria, flank pain and abdominal pain, abdomen is soft lactic acid improved after fluid administratio n he does have chronic pain and he status post left renal autotransplant, she does have a plan of care from [facility]. ?? #loin pain hematuria syndrome?? appreciate urology consult he will follow up with primary urologist ??this week Wean pain medications will continue with supportive care ?? Urine culture contaminant Repeat urinalysis and culture ?? Activity as tolerated Discharge planning??once pain improved ?? Extracted from: Title: Progress/SOAP Note Author: Rambo LOPEZ, Toyin Date: 10/23 12/10 Abdominal pain,?? Left flank pain Abdominal pain left flank pain ?? Loin pain-hematuria syndrome This is a 48-year-old gentleman with hi story of loin pain hematuria syndrome get his care at [facility], presents today with hematuria, flank pain and abdominal pain, abdomen is soft lacti c acid improved after fluid administrati on he does have chronic pain and he status post left renal autotransplant, she does have a plan of care from [facility]. ?? #loin pain hematuria syndrome?? appreciate urology consult he will follow up with primary urologist s this week continue with pain mgt. will continue with supportive care Extracted from: Title: Progress/SOAP Note Author: Rambo LOPEZ, Toyin Date: 10/23 11/10 Abdominal pain,?? Left flank pain Abdominal pain left flank pain ?? Loin pain-hematuria syndrome ?? This is a 48-year-old gentleman with his tory of loin pain hematuria syndrome get his care at [facility], presents today with hematuria, flank pain and abdominal pain, abdomen is soft lactic acid improved after fluid administratio n he does have chronic pain and he status post left renal autotransplant, she does have a plan of care from [facility]. ?? #loin pain hematuria syndrome?? appreciate urology consult he will follow up with primary urologist s this week will continue with supportive care Extracted from: Title: SOAP Note: Simple [facility] * Author: Mathieu Guevara MD Date: Impression and Plan 48M w/ loin pain hematuria syndrome with stable symptoms. [ ] Continue supportive care now. [ ] Eventual outpatient followup with [facility] Extracted from: Title: Progress/SOAP Note Author: Aicha Garza NP Date: 11/03/18 Abdominal pain,?? Left flank pain 48M w/ loin pain hematuria syndrome with stable symptoms.?? Continue supportive care now.?? Eventual outpatient followup with [facility]? 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 [ ] AFVSS, UA positive. Cr 1.28, normal WBC. Patient typically expects 72 hours of pain. Eventual DC to [facility] who is planning for a ureteral lidocaine injection procedure to see if he would respond to ureteral denervation. Extracted from: Title: Progress/SOAP Note Author: Aicha Garza NP Date: 11/02/18 Abdominal pain,?? 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 ??Pain level is slowly improving he follows with [facility] and beth n to have a denervation procedure in the near future, if ureteral lidocaine is effective. ?? # Afib: s/p CV. In NSR. rate is controll ed. Not??on systemic anticoag. ASA 81mg daily. Extracted from: Title: Admission H & P Author: Paula Patrick MD Date: # Chronic loin pain hematuria syndrome with acute on chronic pain: Plan to continue with IV dilaudid prn, IV zofran and IV benadryl, will start po dialudid prn per his home regimen and the pt will ask his mother to bring his ER dilaudid here. Hopefully, his pain level is better in a couple of days and he can be discharged. he follows with [facility] and pl an to have a denervation procedure in the near future, if ureteral lidocaine is effective. ?? # Afib: s/p CV. In NSR. rate is control led. Not in systemic anticoag. ASA 81mg daily. ?? This is a <2 [place] admission likely bas ed on clinical presentation. Future Appointments??
--- OUTSIDE RECORDS SUMMARY | 2022-05-18 15:18 | XMS_ITS ---
:1970 Author Organization [facility] Address [address] [place] [address] Care Team Providers Name Role Phone Not On, Staff Primary Care Physician Unavailable Encounter Date(s): 11/13/19 - 11/18/19 [facility] [address] [place] [address]- Encounter Diagnosis Intractable abdominal pain (Discharge Diagnosis) - 11/13/19 Renal colic (Discharge Diagnosis) - 11/13/19 Discharge Disposition: Home or Self Care Attending Physician: Kristie Del Cid Admitting Physician: Kristie Del Cid Vital Signs Most recent to oldest [Reference Range]: 1 Temperature Oral [96.1-99.6 DegF] 98 DegF (11/18/19 8:00 AM) SpO2 [94-100 %] 100 % (11/18/19 8:00 AM) Respiratory Rate [12-24 br/min] 18 br/min (11/18/19 8:00 AM) Peripheral Pulse Rate [50-110 bpm] 67 bpm (11/18/19 8:00 AM) Apical Heart Rate [50-110 bpm] 72 bpm (11/15/19 8:45 PM) Blood Pressure [80-140/50-90 mmHg] 121/83 mmHg (11/18/19 8:00 AM) Weight 90.265 Kg (11/13/19 8:16 PM) Height 170 cm (11/13/19 8:16 PM) Body Mass Index 31.23 Kg/m2 (11/13/19 8:16 PM) Problem List Condition Effective Dates Status [...] 100 mg = 1 cap(s), PO, BID, 0 Refill(s), Cap Start Date: 10/19/19 Status: [...] 2 3 [Reference Range]: Anion Gap [3-11] 5 5 4 (11/18/19 6:24 AM) (11/17/19 6:17 AM) (11/16/19 6:2 0 AM) NRBC Percent [0.0-0.0 %] 0.0 % 0.0 % 0.0 % (11/18/19 6:24 AM) (11/17/19 6:17 AM) (11/17/19 6:1 7 AM) Creatinine [0.550-1.300 0.919 mg/dL 0.850 mg/dL 0.944 mg /dL mg/dL] (11/18/19 6:24 AM) (11/17/19 6:17 AM) (11/16/19 6:2 0 AM) UA Bacteria [None] None (11/13/19 12:28 PM) UA RBC [0-2 /HPF] >182 /HPF *HI* (11/13/19 12:28 PM) UA Squamous Epithelial [0-5 <1 /HPF /HPF] (11/13/19 12:28 PM) UA WBC [0-5 /HPF] <1 /HPF (11/13/19 12:28 PM) Platelet Morph Enlarged Enlarged *ABN* *ABN* (11/17/19 6:17 AM) (11/15/19 6:55 AM) Anisocytosis 1+ 1+ 1+ *ABN* *ABN* *ABN* (11/17/19 6:17 AM) (11/16/19 6:20 AM) (11/15/19 6:5 5 AM) Blue Top Tube To Hold DONE *NA* (11/13/19 12:12 PM) Albumin Lvl [3.2-5.0 Gm/dL] 4.2 Gm/dL (11/13/19 12:12 PM) Alkaline Phosphatase 87 Units/L [30-117 Units/L] (11/13/19 12:12 PM) ALT [6-55 Units/L] 61 Units/L *HI* (11/13/19 12:12 PM) AST [6-40 Units/L] 35 Units/L (11/13/19 12:12 PM) Basophils 1.1 % 1.3 % 1.1 % *NA* *NA* *NA* (11/18/19 6:24 AM) (11/17/19 6:17 AM) (11/16/19 6:2 0 AM) Bilirubin Total [0.2-1.2 0.4 mg/dL mg/dL] (11/13/19 12:12 PM) CO2 [21-32 mmol/L] 29 mmol/L 29 mmol/L 27 mmol/L (11/18/19 6:24 AM) (11/17/19 6:17 AM) (11/16/19 6:2 0 AM) Eosinophils 10.0 % 11.7 % 13.6 % *NA* *NA* *NA* (11/18/19 6:24 AM) (11/17/19 6:17 AM) (11/16/19 6:2 0 AM) Glucose Lvl [70-110 mg/dL] 83 mg/dL 78 mg/dL 105 m g/dL (11/18/19 6:24 AM) (11/17/19 6:17 AM) (11/16/19 6:2 0 AM) Hct [39.0-53.0 %] 39.6 % 37.8 % 37.9 % (11/18/19 6:24 AM) *LOW* *LOW* (11/17/19 6:17 AM) (11/17/19 6:17 AM) Hgb [13.0-17.5 Gm/dL] 12.3 Gm/dL 11.9 Gm/dL 12.1 Gm/dL *LOW* *LOW* *LOW* (11/18/19 6:24 AM) (11/17/19 6:17 AM) (11/17/19 6:1 7 AM) Lactic Acid Lvl [0.4-2.0 0.9 mmol/L 2.1 mmol/L mmol/L] (11/13/19 4:45 PM) *HI* (11/13/19 12:28 PM) Lipase Lvl [73-393 Units/L] 47 Units/L *LOW* (11/13/19 12:12 PM) Lymphocytes 36.4 % 41.1 % 43.4 % *NA* *NA* *NA* (11/18/19 6:24 AM) (11/17/19 6:17 AM) (11/16/19 6:2 0 AM) MCH [26.0-34.0 pGm] 25.9 pGm 26.3 pGm 26.7 pGm *LOW* (11/17/19 6:17 AM) (11/17/19 6:17 AM) (11/18/19 6:24 AM) MCHC [31.0-37.0 Gm/dL] 31.1 Gm/dL 31.5 Gm/dL 31.9 Gm/d L (11/18/19 6:24 AM) (11/17/19 6:17 AM) (11/17/19 6:1 7 AM) MCV [80.0-100.0 fL] 83.4 fL 83.6 fL 83.5 fL (11/18/19 6:24 AM) (11/17/19 6:17 AM) (11/17/19 6:1 7 AM) Monocytes 8.1 % 7.6 % 5.7 % *NA* *NA* *NA* (11/18/19:24 AM) (11/17/19 6:17 AM) (11/16/19 6:2 0 AM) MPV [9.4-12.4 fL] 11.2 fL 11.4 fL 11.6 fL (11/18/19 6:24 AM) (11/17/19 6:17 AM) (11/17/19 6:1 7 AM) Neutrophils 44.2 % 38.1 % 36.0 % *NA* *NA* *NA* (11/18/19:24 AM) (11/17/19 6:17 AM) (11/16/19 6:2 0 AM) Platelet [150-400 211 thous/mm3 201 thous/mm3 225 thous/mm3 thous/mm3] (11/18/19 6:24 AM) (11/17/19 6:17 AM) (11/17/19 6:1 7 AM) Potassium Lvl [3.6-5.2 4.1 mmol/L 3.9 mmol/L 3.7 mmol/ L mmol/L] (11/18/19 6:24 AM) (11/17/19 6:17 AM) (11/16/19 6:2 0 AM) RBC [4.20-5.90 Mil/mm3] 4.75 Mil/mm3 4.52 Mil/mm3 4.54 Mil /mm3 (11/18/19 6:24 AM) (11/17/19 6:17 AM) (11/17/19 6:1 7 AM) Sodium Lvl [136-146 mmol/L] 140 mmol/L 139 mmol/L 139 mmol/L (11/18/19 6:24 AM) (11/17/19 6:17 AM) (11/16/19 6:2 0 AM) BUN [6-20 mg/dL] 13 mg/dL 12 mg/dL 14 mg/dL (11/18/19 6:24 AM) (11/17/19 6:17 AM) (11/16/19 6:2 0 AM) Calcium Lvl [8.5-10.5 9.0 mg/dL 8.7 mg/dL 8.7 mg/dL mg/dL] (11/18/19 6:24 AM) (11/17/19 6:17 AM) (11/16/19 6:2 0 AM) Chloride [98-110 mmol/L] 106 mmol/L 105 mmol/L 108 mmo l/L (11/18/19 6:24 AM) (11/17/19 6:17 AM) (11/16/19 6:2 0 AM) WBC [4.0-11.0 thous/mm3] 4.7 thous/mm3 4.8 thous/mm3 4.7 tho us/mm3 (11/18/19 6:24 AM) (11/17/19 6:17 AM) (11/17/19 6:1 7 AM) Afn Amer Glomerular >90 ml/min/1.73m2 >90 ml/min/1.73m2 >90 ml/m in/1.73m2 Filtration Rate *NA* *NA* *NA* (11/18/19 6:24 AM) (11/17/19 6:17 AM) (11/16/19 6:2 0 AM) Non-Afn Amer Glomerular >90 ml/min/1.73m2 >90 ml/min/1.73m2 >90 ml/min/1.73m2 Filtration Rate *NA* *NA* *NA* (11/18/19 6:24 AM) (11/17/19 6:17 AM) (11/16/19 6:2 0 AM) Total Protein [6.0-8.4 7.8 Gm/dL Gm/dL] (11/13/19 12:12 PM) Immature Granulocytes 0.2 % 0.2 % 0.2 % [0.0-2.0 %] (11/18/19 6:24 AM) (11/17/19 6:17 AM) (11/16/19 6:2 0 AM) Absolute Lymphs Count 1.71 thous/mm3 1.94 thous/mm3 1.98 thous /mm3 [0.74-5.04 thous/mm3] (11/18/19 6:24 AM) (11/17/19 6:17 AM) ( 6:20 AM) Absolute Eos Count 0.47 thous/mm3 0.55 thous/mm3 0.62 thous/mm 3 [0.00-0.45 thous/mm3] *HI* *HI* *HI* (11/18/19 6:24 AM) (11/17/19 6:17 AM) (11/16/19 6:2 0 AM) Absolute Neutro Count 2.08 thous/mm3 1.80 thous/mm3 1.64 thous /mm3 [1.48-7.95 thous/mm3] (11/18/19 6:24 AM) (11/17/19 6:17 AM) ( 6:20 AM) RDW-SD [35.0-51.0 fL] 59.5 fL 59.7 fL 60.0 fL *HI* *HI* *HI* (11/18/19 6:24 AM) (11/17/19 6:17 AM) (11/17/19 6:1 7 AM) Absolute Baso Count 0.05 thous/mm3 0.06 thous/mm3 0.05 thous/m m3 [0.00-0.22 thous/mm3] (11/18/19 6:24 AM) (11/17/19 6:17 AM) ( 6:20 AM) Absolute Mcnairy Count 0.38 thous/mm3 0.36 thous/mm3 0.26 thous/m m3 [0.00-1.34 thous/mm3] (11/18/19 6:24 AM) (11/17/19 6:17 AM) ( 6:20 AM) Absolute NRBC Count 0.00 thous/mm3 0.00 thous/mm3 0.00 thous/m m3 *NA* *NA* *NA* (11/18/19 6:24 AM) (11/17/19 6:17 AM) (11/17/19 6:1 7 AM) Microbiology Reports TEST:Urine Culture STATUS:Auth (Verified) BODY SITE: SOURCE:Urine, Clean Catch COLLECTED DATE/TIME:11/13/19 12:28 PMFINAL REPORTNo growth Procedures Procedure Date Related Diagnosis Body Site Status TRANSPLT AUTOL HCT/DONOR 2017 Com pleted LAP ING HERNIA REPAIR INIT 2007 C ompleted REMOVAL OF TONSILS1 Complete d 1childhood Social History Social History Type Response Smoking Status Never smoker Assessment and Plan Extracted from: Title: Discharge Patient Summary Author: Radha Elkins Date: 11/18/19 [facility] [address], [place] [address] Patient Discharge Summary Name: YOSELYN POWELL Age: 49 Years Job e of : 1970 Arrival Time: 11/13/2019 11:29:29 Primary Care Physician: Not On Staff Isaac ne: Reason for Admission: Abdominal pain; ABDOMINAL PAIN You had the following procedures perform ed during your inpatient visit: No major procedures performed. The following test results were not avai lable before your discharge. Your Primary Care Provider should contact you of any abnormal test results regarding follow-up. However, if you would like the results, please contact your Primary Care Provider. No results pending. Final Diagnosis: 1:Intractable abdominal pain; 2:Renal co lic Resuscitation status: Date/Time Performed Status Modified DNR Results Special Instructions 11/14/19 16:21 Full Resuscitation None None Advanced Directives: Advanced Directives Reason for No Advanced Directive Directive(s) in place Medical Power of Certified Rehabilitation Counselor Name Name of Surrogate Directives Location [facility] would like to th ank you for allowing us to assist you with your healthcare needs. The following includes patient education materials and information regarding your injury / illne ss. Our entire staff strives to provide a very good experience for our patients and their families. PLEASE ENSURE YOU FOLLOW-UP PER THE INSTRUCTIONS BELOW! ANDRE YOSELYN Archuleta has been given the foll owing list of patient education materials, prescriptions and follow-up instructions: Follow-up Instructions: Please call 911 if your condition is of a serious nature and you require immediate assistance. You may also seek services at your local Emergency Department. If you have questions regarding your care fo llowing discharge, please contact the sp ecialist (surgeon, filtering machine tender helper, etc.) who was involved with your hospital care or your PCP's office. Other Clinical Information: Vital Sign Latest Temp Oral 98 DegF Temp Tympanic Temp Intravascular Temp Axillary Temp Rectal O2 Sat 100 % Respiratory Rate 18 br/min Peripheral Pulse Rate 67 bpm Apical Heart Rate 72 bpm Blood Pressure 121 mmHg / 83 mmHg Weight 90.265 Kg Discharge Orders: Order Name Order Details Discharge Activity Requested Start Date/Time : 11/18/19 12: 26:00 EDT,Activity Instructions : As tolerated Discharge Diet Start Date and Time : 11/18/19 12:26:00 EDT,Discharge Diet Type : Cardiac Solid Diet,Requested Start Date/Time : 11/18/19 12:26:00 EDT The Discharge Electronic Signature Requested Start Date/Time : 11/18/19 12: 26:00 EDT,Special Instructions : Above discharge orders electronically signed by:,Discharge Electronic Signature : Emir TELLEZ, Jose M Medication Information: Only medications listed should be taken unless otherwise instructed by your health care provider. Other??Medications acetaminophen??(acetaminophen??325??mg?? oral??tablet) 2??Tablet(s)??By??mouth??every??4??hours??as??needed??Fever/Pain,??Mild??to??Mod amLODIPine??(Norvasc) 10??Milligram??By? ?mouth??every??day. aspirin??(Adult??Aspirin??81??mg??oral?? tablet,??chewable) 1??Tablet(s)??Chewed??every??day. docusate??(docusate??sodium??100??mg??or al??capsule) 1??Capsules??By??mouth??2??times??a??day. DULoxetine??(Cymbalta??60??mg??oral??del ayed??release??capsule) 1??Capsules??By??mouth??every??day. HYDROmorphone??(HYDROmorphone??4??mg??or al??tablet) 1??Tablet(s)??By??mouth??every??6??hours??as??needed??Pain,??Moderate.??Partial? HYDROmorphone??(HYDROmorphone??extended? ?release) 8??Milligram??By??mouth??2??times??a??day. methadone??(methadone??5??mg??oral??tabl et) 1??Tablet(s)??By??mouth??every??8??hours.??Partial??fill??upon??request. methenamine 1??Gram??By??mouth??2??times ??a??day. ondansetron??(ondansetron??4??mg??oral?? tablet,??disintegrating) DISSOLVE??ONE??TAB??ON??THE??TONGUE??THEN??SWALLOW??EVERY??6??HOURS?NEEDED. pantoprazole??(pantoprazole??40??mg??ora l??delayed??release??tablet) 1??Tablet(s)??By??mouth??2??times??a??day. Immunization History at [facility]: No immunizations given this visit Allergies:contrast media (iodine-based); Suboxone; morphine [facility] Physicians provi ded you with a complete list of medications post discharge, if you have been instructed to stop taking a medication please ensure you also follow up with this information to your Primary Care Physician. Patient Education Materials: Comment: ANDRE Ibarra MICHAEL G , have received yola ent education materials/instructions and have verbalized understanding: 11/18/2019 16:21:53 Patient Signature or Responsible Democrat S ignature 11/18/2019 16:21:53 Provider Signature [place] [address] [employer] Patient Portal is a person alized secured online tool for [facility] patients that helps keep you up to date on your healthcare information by giving you convenient access to y our hospital test results and medical re cords. [...] ent education materials/instructions and have verbalized understanding: 11/18/2019 16:21:53 Patient Signature or Responsible Democrat S ignature 11/18/2019 16:21:53 Provider Signature Extracted from: Title: Discharge Note Author: Jose M Field MD Date: 11/18/19 1.??Intractable abdominal pain ?? 2.??Renal colic ?? Extracted from: Title: Consult Note Author: Mecca TELLEZ, Shanell Rosales Date: 0 1.??Intractable abdominal pain 2.??Renal colic ??Known hx of loin pain hematuria syndr ome. -Continue supportive care with narcotic analgesia.?? Persistent hematuria.?? Clots improved today.?? Renal fxn, hgb stable.?? No s/s infection or obstruction.?? No urologic intervention. -Full dictation pending. 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. - Patient had USG abdomen which was nega tive. - UA showing hematuria only. - Pt to continue with??aggressive pain c ontrol with Dilaudid and Benadryl - Urology consulted for further care - He has had left kidney autologous montemayor splant for denervation and currently undergoing further ureteral studies and insurance approval ??for further management. - UC NTD ?? 2. Lactic Acidosis - resolved ?? 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. - Patient had USG abdomen which was nega tive. - UA showing hematuria only. - Pt to continue with??aggressive pain c ontrol with Dilaudid and Benadryl - Pt now having clots - Urology consulted for further care - He has had left kidney autologous montemayor splant for denervation and currently undergoing further ureteral studies and insurance approval ??for further management. - UC NTD ?? 2. Lactic Acidosis - resolved - Trending down ?? 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. - Patient had USG abdomen which was nega tive. - UA showing hematuria only. - Pt to continue with??aggressive pain c ontrol with Dilaudid and Benadryl - He has had left kidney autologous montemayor splant for denervation and currently undergoing further ureteral studies and insurance approval ??for further management. - UC NTD ?? 2. 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. - Patient had USG abdomen which was nega tive. - UA showing hematuria only. - Pt to continue with??aggressive pain c ontrol with Dilaudid and Benadryl - He has had left kidney autologous montemayor splant for denervation and currently undergoing further ureteral studies and insurance approval ??for further management. - UC pending ?? 2. Lactic Acidosis - Trending down > 25 minutes spent on pt care Extracted from: Title: Admission H & P Author: Ofelia Sow MD Date: 0 1.??Intractable abdominal pain -history of Loin pain hematuria syndrom e with intermittent sever abdominal pain for which he follows up with Dr Gifford at [facility]. Patient had USG abdomen which was negative. UA showing hematuria onl y. He was in severe distress when I saw him and he has had a detailed management plan for his abdominal pain. -patient is afebrile and no leukocytosi s -at this time, will put him on aggressi ve pain control with Dilaudid and Benadryl -he has had left kidney autologous montemayor splant for denervation and currently undergoing further ureteral studies and insurance approval ??for further management. ?? observe in Med Surg ?? 50 minutes spent in direct patient care . ?? I certify that it is reasonable to o bserve the patient in med surg . The duration of stay will be less than 2 midnights. Future Appointments??
--- OUTSIDE RECORDS SUMMARY | 2022-05-18 15:18 | XMS_ITS ---
:1970 Author Organization [facility] Address [address] [place] [address] Care Team Providers Name Role Phone Not On, Staff Primary Care Physician Unavailable Encounter Date(s): 12/03/19 - 12/03/19 [facility] [address] [place], [place] [address] Discharge Disposition: LWBS (ED patients only) Attending Physician: Lulu Glasgow MD Admitting Physician: Lulu Glasgow MD Vital Signs Most recent to oldest [Reference Range]: 1 Temperature Oral [96.1-99.6 DegF] 97.9 DegF (12/03/19 2:29 AM) SpO2 [94-100 %] 97 % (12/03/19 2:29 AM) Respiratory Rate [12-24 br/min] 24 br/min (12/03/19 2:29 AM) Peripheral Pulse Rate [50-110 bpm] 90 bpm (12/03/19 2:29 AM) Blood Pressure [80-140/50-90 mmHg] 132/93 mmHg (12/03/19 2:29 AM) Weight 90 Kg (12/03/19 2:32 AM) Height 170 cm (12/03/19 2:32 AM) Body Mass Index 31.14 Kg/m2 (12/03/19 2:32 AM) Problem List Condition Effective Dates Status [...] 0 Refill(s) Start Date: 06/13/17 Status: Ordered Procedures Procedure Date Related Diagnosis Body Site Status TRANSPLT AUTOL HCT/DONOR 2017 Com pleted LAP ING HERNIA REPAIR INIT 2007 C ompleted REMOVAL OF TONSILS1 Complete d 1childhood Social History Social History Type Response Smoking Status Never smoker Assessment and Plan Future Appointments??
--- OUTSIDE RECORDS SUMMARY | 2022-05-18 15:18 | XMS_ITS ---
:1970 Author Organization [facility] Address [address] [place] [id number] Care Team Providers Name Role Phone Not On, Staff Primary Care Physician Unavailable Encounter Date(s): 10/19/19 - 10/22/[address] [id number]- [phone] Discharge Disposition: Home or Self Care Attending Physician: Kristie Del Cid Admitting Physician: Kristie Del Cid Vital Signs Most recent to oldest [Reference Range]: 1 Temperature Oral [96.1-99.6 DegF] 97.8 DegF (10/22/19 6:00 AM) SpO2 [94-100 %] 99 % (10/22/19 6:00 AM) Respiratory Rate [12-24 br/min] 16 br/min (10/22/19 6:00 AM) Peripheral Pulse Rate [50-110 bpm] 62 bpm (10/22/19 6:00 AM) Blood Pressure [80-140/50-90 mmHg] 132/85 mmHg (10/22/19 6:00 AM) Weight 87.9 Kg (10/20/19 2:47 AM) Height 170.18 cm (10/20/19 2:47 AM) Body Mass Index 30.35 Kg/m2 (10/20/19 2:47 AM) Advanced Directives Yes (10/20/19 2:56 AM) Advance Directive Type Living will, Health Care Proxy (10/20/19 2:56 AM) Advance Directive Location Unable to obtain copy (10/20/19 2:56 AM) Problem List Condition Effective Dates Status [...] 0 Refill(s) Start Date: 10/17/19 Status: OrderedNorvasc 2.5 mg, PO, Daily, 0 Refill(s), Tab Start Date: 11/01/18 Status: Orderedondansetron 4 mg oral tablet, disintegrating DISSOLVE ONE TAB ON THE TONGUE THEN SWALLOW EVERY 6 HOURS NEEDED Start Date: 10/05/17 Status: Orderedpantoprazole 40 mg oral delayed release tablet 40 mg = 1 tab(s), PO, BID, 0 Refill(s) Start Date: 06/13/17 Status: Ordered Results Most recent to oldest [Reference Range]: 1 2 Anion Gap [3-11] 6 8 (10/20/19 6:23 AM) (10/19/19 7:06 PM) NRBC Percent [0.0-0.0 %] 0.0 % 0.0 % (10/20/19 6:23 AM) (10/19/19 7:06 PM) Creatinine [0.550-1.300 mg/dL] 1.010 mg/dL 1.110 mg/ dL (10/20/19 6:23 AM) (10/19/19 7:06 PM) UA Mucous [None] Many *ABN* (10/19/19 7:06 PM) UA Bacteria [None] None (10/19/19 7:06 PM) UA RBC [0-2 /HPF] >182 /HPF *HI* (10/19/19: PM) UA Squamous Epithelial [0-5 /HPF] <1 /HPF (10/19/19 7:06 PM) UA WBC [0-5 /HPF] 26 /HPF *HI* (10/19/19 PM) Albumin Lvl [3.2-5.0 Gm/dL] 3.7 Gm/dL (10/19/19 7:06 PM) Alkaline Phosphatase [30-117 Units/L] 87 Units/L (10/19/19: PM) ALT [6-55 Units/L] 28 Units/L (10/19/19 7: PM) AST [6-40 Units/L] 10 Units/L (10/19/19 7:06 PM) Basophils 0.4 % 0.2 % *NA* *NA* (10/20/19:23 AM) (10/19/19 7:06 PM) Bilirubin Total [0.2-1.2 mg/dL] 0.6 mg/dL (10/19/19 7:06 PM) CO2 [21-32 mmol/L] 26 mmol/L 23 mmol/L (10/20/19 6:23 AM) (10/19/19 7:06 PM) Eosinophils 4.0 % 1.6 % *NA* *NA* (10/20/19 6:23 AM) (10/19/19 7:06 PM) Glucose Lvl [70-110 mg/dL] 83 mg/dL 96 mg/dL (10/20/19 6:23 AM) (10/19/19 7:06 PM) Hct [39.0-53.0 %] 33.0 % 35.5 % *LOW* *LOW* (10/20/19 6:23 AM) (10/19/19:06 PM) Hgb [13.0-17.5 Gm/dL] 10.3 Gm/dL 11.3 Gm/dL *LOW* *LOW* (10/20/19:23 AM) (10/19/19 PM) Lipase Lvl [73-393 Units/L] 39 Units/L *LOW* (10/19/19 PM) Lymphocytes 22.9 % 15.3 % *NA* *NA* (10/20/19:23 AM) (10/19/19 PM) MCH [26.0-34.0 pGm] 24.3 pGm 24.2 pGm *LOW* *LOW* (10/20/19:23 AM) (10/19/19 PM) MCHC [31.0-37.0 Gm/dL] 31.2 Gm/dL 31.8 Gm/dL (10/20/19:23 AM) (10/19/19 PM) MCV [80.0-100.0 fL] 78.0 fL 76.2 fL *LOW* *LOW* (10/20/19:23 AM) (10/19/19 7:06 PM) Monocytes 8.2 % 6.3 % *NA* *NA* (10/20/19:23 AM) (10/19/19 PM) MPV [9.4-12.4 fL] 11.0 fL 10.3 fL (10/20/19:23 AM) (10/19/19: PM) Neutrophils 64.2 % 76.4 % *NA* *NA* (10/20/19:23 AM) (10/19/19:06 PM) Platelet [150-400 thous/mm3] 218 thous/mm3 221 thous/m m3 (10/20/19:23 AM) (10/19/19:06 PM) Potassium Lvl [3.6-5.2 mmol/L] 3.5 mmol/L 3.4 mmol/ L *LOW* *LOW* (10/20/19:23 AM) (10/19/1906 PM) RBC [4.20-5.90 Mil/mm3] 4.23 Mil/mm3 4.66 Mil/mm3 (10/20/19 6:23 AM) (10/19/19 7:06 PM) Sodium Lvl [136-146 mmol/L] 139 mmol/L 136 mmol/L (10/20/19 6:23 AM) (10/19/19 7:06 PM) BUN [6-20 mg/dL] 13 mg/dL 13 mg/dL (10/20/19:23 AM) (10/19/19 7:06 PM) Calcium Lvl [8.5-10.5 mg/dL] 8.4 mg/dL 8.7 mg/dL *LOW* (10/19/19 7:06 PM) (10/20/19:23 AM) Chloride [98-110 mmol/L] 107 mmol/L 105 mmol/L (10/20/19:23 AM) (10/19/19 7:06 PM) WBC [4.0-11.0 thous/mm3] 7.5 thous/mm3 8.4 thous/mm3 (10/20/19:23 AM) (10/19/19 7:06 PM) Afn Amer Glomerular Filtration Rate >90 ml/min/1.73m2 88 m l/min/1.73m2 *NA* *NA* (10/20/19:23 AM) (10/19/19 7:06 PM) Non-Afn Amer Glomerular Filtration Rate 86 ml/min/1.73m2 76 ml/min/1.73m2 *NA* *NA* (10/20/19:23 AM) (10/19/19 7:06 PM) Total Protein [6.0-8.4 Gm/dL] 7.0 Gm/dL (10/19/19 7:06 PM) Immature Granulocytes [0.0-2.0 %] 0.3 % 0.2 % (10/20/19:23 AM) (10/19/19 7:06 PM) Absolute Lymphs Count [0.74-5.04 thous/mm3] 1.71 thous/mm3 1.28 thous/mm3 (10/20/19 6:23 AM) (10/19/19 7:06 PM) Absolute Eos Count [0.00-0.45 thous/mm3] 0.30 thous/mm3 0.13 thous/mm3 (10/20/19 6:23 AM) (10/19/19 7:06 PM) Absolute Neutro Count [1.48-7.95 thous/mm3] 4.79 thous/mm3 6.38 thous/mm3 (10/20/19 6:23 AM) (10/19/19 7:06 PM) RDW-SD [35.0-51.0 fL] 49.1 fL 46.8 fL (10/20/19 6:23 AM) (10/19/19 7:06 PM) Absolute Baso Count [0.00-0.22 thous/mm3] 0.03 thous/mm3 0.02 thous/mm3 (10/20/19 6:23 AM) (10/19/19 7:06 PM) Absolute [place] Count [0.00-1.34 thous/mm3] 0.61 thous/mm3 0.53 thous/mm3 (10/20/19 6:23 AM) (10/19/19 7:06 PM) Absolute NRBC Count 0.00 thous/mm3 0.00 thous/mm3 *NA* *NA* (10/20/19 6:23 AM) (10/19/19 7:06 PM) Microbiology Reports TEST:Urine Culture STATUS:Auth (Verified) BODY SITE: SOURCE:Urine, Clean Catch COLLECTED DATE/TIME:10/19/19 7:06 PMFINAL REPORT30,000 cfu/ml Mixed Gram positive species 3 or [...] Extracted from: Title: Discharge Patient Summary Author: Taya Loja RN ate: 10/22/[address] [id number] Patient Discharge Summary Name: YOSELYN POWELL Age: 49 Years Job e of : 1970 Arrival Time: 10/19/2019 17:49:41 Primary Care Physician: Not On Staff Isaac ne: Reason for Admission: Flank Pain; ABDOMINAL PAIN You had the following procedures perform ed during your inpatient visit: No major procedures performed. The following test results were not avai lable before your discharge. Your Primary Care Provider should contact you of any abnormal test results regarding follow-up. However, if you would like the results, please contact your Primary Care Provider. No results pending. Final Diagnosis: Resuscitation status: Date/Time Performed Status Modified DNR Results Special Instructions 10/20/19 02:42 Full Resuscitation None None Advanced Directives: Advanced Directives Yes Reason for No Advanced Directive Directive(s) in place Living will, Health Care Proxy Medical Power of [place] [employer] Director Name Name of Surrogate Directives Location Unable to obtain copy [facility] would like to th ank you for allowing us to assist you with your healthcare needs. The following includes patient education materials and information regarding your injury / illne ss. Our entire staff strives to provide a very good experience for our patients and their families. PLEASE ENSURE YOU FOLLOW-UP PER THE INSTRUCTIONS BELOW! YOSELYN POWELL has been given the [facility] list of patient education materials, prescriptions and follow-up instructions: Follow-up Instructions: Please call 911 if your condition is of a serious nature and you require immediate assistance. You may also seek services at your local Emergency Department. If you have questions regarding your care fo llowing discharge, please contact the sp ecialist (surgeon, beekeeper, etc.) who was involved with your hospital care or your PCP's office. With: Address: When: [facility]/[address] [phone] 11/07/2019 09:20:00 Comments: Hours Tue/Tue/Tue/ 8Am- 8pm Tuesday 8am-6pm Sat 8:00 am- 5pm - They do have a walk in clinic. You can g o during these hours and be seen in follow up. They can also assit with your perscriptions and obtaining health insurance. [facility] for physical January 23 at 10 am With: Address: When: Staff Not On Within As instructed Other Clinical Information: Vital Sign Latest Temp Oral 97.8 DegF Temp Tympanic Temp Intravascular Temp Axillary Temp Rectal O2 Sat 99 % Respiratory Rate 16 br/min Peripheral Pulse Rate 62 bpm Apical Heart Rate Blood Pressure 132 mmHg / 85 mmHg Weight 87.9 Kg Discharge Orders: Order Name Order Details The Discharge Electronic Signature Requested Start Date/Time : 10/22/19 11: 44:00 EDT,Special Instructions : Above discharge orders electronically signed by:,Discharge Electronic Signature : Edu Pelayo Medication Information: Only medications listed should be taken unless otherwise instructed by your healthcare provider. Other??Medications acetaminophen??(acetaminophen??325??mg?? oral??tablet) 2??Tablet(s)??By??mouth??every??4??hours??as??needed??Fever/Pain,??Mild??to??Mod amLODIPine??(Norvasc) 2.5??Milligram??By ??mouth??every??day. aspirin??(Adult??Aspirin??81??mg??oral?? tablet,??chewable) 1??Tablet(s)??Chewed??every??day. docusate??(docusate??sodium??100??mg??or al??capsule) 1??Capsules??By??mouth??2??times??a??day. DULoxetine??(Cymbalta??60??mg??oral??del ayed??release??capsule) 1??Capsules??By??mouth??every??day. HYDROmorphone??(HYDROmorphone??4??mg??or al??tablet) 1??Tablet(s)??By??mouth??every??6??hours??as??needed??Pain,??Moderate.??Partial? HYDROmorphone??(HYDROmorphone??extended? ?release) 8??Milligram??By??mouth??2??times??a??day. methadone??(methadone??5??mg??oral??tabl et) 1??Tablet(s)??By??mouth??every??8??hours.??Partial??fill??upon??request. methenamine 1??Gram??By??mouth??2??times ??a??day. ondansetron??(ondansetron??4??mg??oral?? tablet,??disintegrating) DISSOLVE??ONE??TAB??ON??THE??TONGUE??THEN??SWALLOW??EVERY??6??HOURS?NEEDED. pantoprazole??(pantoprazole??40??mg??ora l??delayed??release??tablet) 1??Tablet(s)??By??mouth??2??times??a??day. Immunization History at [facility]: No immunizations given this visit Allergies: contrast media (iodine-based) ; Suboxone; morphine [facility] Physicians pranavi ded you with a complete list of medications post discharge, if you have been instructed to stop taking a medication please ensure you also follow up with this information to your Primary Care Physician. Patient Education Materials: Managing Chronic Pain Managing Chronic Pain Being in pain can be exhausting. You may find you have trouble working, sleeping, or just doing day-to-day tasks. But you can learn to manage pain, feel better, and regain control of your life. Understanding chronic pain Chronic pain is a serious medical proble m. It is defined as pain that lasts longer than 3 months. Chronic pain includes pain that you feel regularly, even if it comes and goes. The pain may be from an o ngoing injury or health problem. Or it m ay be because of a chronic pain syndrome, such as fibromyalgia. Sometimes pain persists when no cause can be found. Pain should be treated You have a right to have your pain treat ed. Untreated chronic pain can affect your overall health. It can lead to depression, anxiety, anger, and personality changes. It can also disrupt work, sleep, re lationships, and other aspects of normal life. It may not be possible to relieve all of your pain. But it can be reduced to a level you can cope with. Your role in treatment Your healthcare provider will work close ly with you on a plan to manage your pain. But it? s up to you to put this plan into action. Control of chronic pain is done mainly through self-management. This means that you take an active role in y our care. Getting support from family and friends is important too. Planning your treatment Your healthcare provider will first look for a cause of your pain that can be treated. He or she will also assess your pain level. This may be done by asking you to rate your pain on a scale from 1 (low pain) to 10 (severe pain). Your provide r will also ask you to describe the pain. For example, is your pain sharp or dull? Is it constant or does it come and go? You may be asked to keep a pain log. Thi s is a diary in which you track your lauren n. It may help identify things that tend to make your pain worse. You and your healthcare provider can make a plan to help prevent and cope with pain on a daily b asis. In some cases, you may be referred to a special pain program or clinic. Your treatment plan may include: ? ? Medicines ? ? Complementary therapies ? ? Mind and body therapies ? ? Other medical treatments ? ? Getting physical activity Medicines Medicine will most likely be a part of y our treatment plan. Your provider will evaluate which are the best medicines for your pain. You may use burd-lnq-sngeque or prescription medicines. You may need t o take more than one medicine. It may ta ke some time to find the best medicine or combination of medicines for your pain. Take all medicines as directed. Pain medicines can be used in many ways. You may take medicines: ? ? Every day to help ??? stay ahead? of the pain so that it doesn? t flare up ? ? At times when pain is worse than usual ? ? Before activities that tend to trigger pain ? ? To decrease sensitivity to pain Medicines for chronic pain include: ? ? Nonsteroidal anti-inflammatory medicines (NSAIDs) for pain from swelling and inflammation. Your provider may prescribe a type of NSAID called a VIERA inhibitor. ? ? Acetaminophen ? ? Anticonvulsants to treat nerve pain called neuropathy ? ? Antidepressants to treat neuropathy ? ? Muscle relaxants for muscle spasms ? ? Topical medicines. These are put on the skin. ? ? Opioids, or narcotics, to treat severe pain. These very strong medicines can help ease certain kinds of pain. They most often are used for short periods of time. Your provider will monitor your care very closely if you take opioids. Complementary therapies These are treatments that can be used al surjit with medical care to help relieve pain. Look for a licensed practitioner with experience treating chronic pain. Talk with your healthcare provider about using complementary therapies such as: ? ? Massage ? ? Acupuncture and acupressure ? ? Chiropractic ? ? Vitamins or herbal supplements Mind/body therapies The brain and the body are both part of the pain response. The brain reads the pain signals from the body. This means that your mind has some control over how pain signals are processed. Mind/body thera pies may help change how your brain read s pain signals. They may be learned with the help of a trained therapist or in a class. They include: ? ? Deep breathing ? ? Distraction ? ? Visualization ? ? Meditation ? ? Biofeedback Other medical treatments If other treatments don? t work for you, one of these procedures or devices may help: ? ? Nerve blocks to numb nerves in a painful area ? ? Trigger point injections for painful muscles ? ? Steroid injections for joint pain ? ? Transcutaneous electrical nerve stimulation (TENS) to block pain signals to the brain ? ? Spinal stimulation to block spinal pain ? ? Implanted spinal pump that contains pain medicine ? ? Ablation using heat, cold, or chemicals to destroy painful nerves Getting physical activity Being physically active has many benefit s. It can improve your ability to cope with pain. It may also help improve your mood, sleep, and overall health. Your healthcare provider can help you plan an exe rcise program that? s right for your needs. This may include: ? ? Stretching and rcsvl-rt-ybxdov exercises ? ? Low-impact exercise such as walking, biking, swimming, and other water exercise ? ? Strength training using light weights ? ? Walking up the stairs instead of taking the elevator ? ? Riding a bike instead of driving ? ? Parking your car farther from your destination You may need to not do high-impact activ ities. These involve jumping, running, or sudden starts, stops, or changes of direction. If you haven? t exercised in a long time or you have physical limitation s, your healthcare provider may refer yo u to a physical therapist. He or she can teach you stretches and exercises that fit your condition and fitness level. Being active and healthy A healthier lifestyle makes it easier to cope with pain and function better. Follow these tips: ? ? Choose a balance of healthy foods and drinks. ? ? Limit alcohol and caffeine. ? ? Go to bed at about the same time each day. ? ? Don? t let pain keep you from others. Spend time with friends and family. ? ? Keep your mind active. Read books or take classes. ? ? If you? re not working, volunteer or join a club or social group. Getting support A support group lets you talk with other s who also have chronic pain. Chronic pain support groups can help you feel less isolated. They can also give you tips for coping with pain. To find a local suppo rt group, contact your nearest hospital or pain clinic. You may also want to try counseling. Cou nseling can help you learn coping skills and methods such as visualization. It can also help with mood problems. When choosing a counselor, look for someone who has worked with people who have chronic pain. See your provider for regular visits and let him or her know how well treatments are working for you. Also reach out to family and friends for help and support. For more support and information, contac t these groups: ? ? [place] [employer], www.aapainmanage.org ? ? [place] [employer], www.painmed.org ? ? [place] [employer], www.theacpa.org ? ? National Pain Foundation, www.thenationalpainfoundation.org ?? 2571-[address] [employer]. [address] [place] [address]. All rights reserved. This information is not intended as a substitute for professional medical care. Always follow your healthcare professional's instructions. Comment: ANDRE Ibarra MICHAEL G , have received yola ent education materials/instructions and have verbalized understanding: 10/22/2019 12:09:02 Patient Signature or Responsible Libertarian S ignature 10/22/2019 12:09:02 Provider Signature [place] [employer] Patient Portal is a person alized secured online tool for [facility] patients that helps keep you up to date on your healthcare information by giving you convenient access to [facility] test results and medical re cords. [...] assistance in enrolling before you are discharged. 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 fib rate controlled monitor Hyponatremia --improved Leal's esophagus with GERD controlled continue pantoprazole monitor likely discharge home tomorrow ??face to face patient counselling / hospital coordinator rdinating care more than 50% of encounter time. 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 fib rate controlled monitor Hyponatremia --improved Leal's esophagus with GERD controlled continue pantoprazole monitor likely discharge home tomorrow ??face to face patient counselling / hospital coordinator rdinating care more than 50% of encounter time. total encounter time:??35 Future Appointments??
--- OUTSIDE RECORDS SUMMARY | 2022-05-18 15:19 | XMS_ITS ---
:1970 Author Organization [facility] Address [address] [place] [id number] Care Team Providers Name Role Phone Not On, Staff Primary Care Physician Unavailable Encounter Date(s): 09/16/20 - 09/19/[address] [id number] [phone] Encounter Diagnosis Loin pain-hematuria syndrome (Discharge Diagnosis) - 09/17/20 Flank pain (Discharge Diagnosis) - 09/17/20 Clot hematuria (Discharge Diagnosis) - 09/19/20 Discharge Disposition: Home or Self Care Attending Physician: Deonna TELLEZ, [facility] Admitting Physician: Johnathan TELLEZ-[facility] Vital Signs Most recent to oldest [Reference Range]: 1 Temperature Oral [96.1-99.6 DegF] 97.8 DegF (09/19/20 2:00 PM) SpO2 [94-100 %] 94 % (09/19/20 2:00 PM) Respiratory Rate [12-24 br/min] 20 br/min (09/19/20 5:39 AM) Peripheral Pulse Rate [50-110 bpm] 71 bpm (09/19/20 2:00 PM) Blood Pressure [80-140/50-90 mmHg] 107/59 mmHg (09/19/20 2:00 PM) Weight 88.5 Kg (09/17/20 4:34 AM) Height 170 cm (09/17/20 4:34 AM) Body Mass Index 30.62 Kg/m2 (09/17/20 4:34 AM) Problem List Condition Effective Dates Status [...] 0 Refill(s), Tab Start Date: 10/19/19 Status: Ordereddocusate sodium 100 mg oral capsule [...] 3 [Reference Range]: Anion Gap [3-11] 8 6 4 (09/19/20 6:47 AM) (09/18/20 5:39 AM) (09/17/20 9:2 5 AM) NRBC Percent [0.0-0.0 %] 0.0 % 0.0 % 0.0 % (09/19/20 6:47 AM) (09/18/20 5:39 AM) (09/17/20 9:2 5 AM) Creatinine [0.550-1.300 1.040 mg/dL 0.966 mg/dL 1.160 mg /dL mg/dL] (09/19/20 6:47 AM) (09/18/20 5:39 AM) (09/17/20 9:2 5 AM) BBTTH Done *NA* (09/16/20 9:57 PM) UA Bacteria [None] None (09/16/20 9:57 PM) UA RBC [0-2 /HPF] >182 /HPF *HI* (09/16/20 9:57 PM) UA Squamous Epithelial [0-5 <1 /HPF /HPF] (09/16/20 9:57 PM) UA WBC [0-5 /HPF] 133 /HPF *HI* (09/16/20 9:57 PM) Blue Top Tube To Hold DONE *NA* (09/16/20 9:57 PM) Albumin Lvl [3.2-5.0 Gm/dL] 3.4 Gm/dL 3.4 Gm/dL 3.6 Gm/dL (09/19/20 6:47 AM) (09/18/20 5:39 AM) (09/17/20 9:2 5 AM) Alkaline Phosphatase [30-117 85 Units/L 84 Units/L 95 Units/L Units/L] (09/19/20 6:47 AM) (09/18/20 5:39 AM) (09/17/20 9:2 5 AM) ALT [6-55 Units/L] 30 Units/L 33 Units/L 40 Units/L (09/19/20 6:47 AM) (09/18/20 5:39 AM) (09/17/20 9:2 5 AM) AST [6-40 Units/L] 12 Units/L 17 Units/L 17 Units/L (09/19/20 6:47 AM) (09/18/20 5:39 AM) (09/17/20 9:2 5 AM) Basophils 0.5 % *NA* (09/16/20 9:57 PM) Bilirubin Total [0.2-1.2 0.2 mg/dL 0.4 mg/dL 0.6 mg/ dL mg/dL] (09/19/20 6:47 AM) (09/18/20 5:39 AM) (09/17/20 9:2 5 AM) CO2 [21-32 mmol/L] 25 mmol/L 28 mmol/L 28 mmol/L (09/19/20 6:47 AM) (09/18/20 5:39 AM) (09/17/20 9:2 5 AM) Eosinophils 7.4 % *NA* (09/16/20 9:57 PM) Glucose Lvl [70-110 mg/dL] 80 mg/dL 78 mg/dL 83 mg /dL (09/19/20 6:47 AM) (09/18/20 5:39 AM) (09/17/20 9:2 5 AM) Hct [39.0-53.0 %] 33.8 % 33.4 % 34.7 % *LOW* *LOW* *LOW* (09/19/20 6:47 AM) (09/18/20 5:39 AM) (09/17/20 9:2 5 AM) Hgb [13.0-17.5 Gm/dL] 10.4 Gm/dL 10.4 Gm/dL 10.7 Gm/dL *LOW* *LOW* *LOW* (09/19/20 6:47 AM) (09/18/20 5:39 AM) (09/17/20 9:2 5 AM) Lactic Acid Lvl [0.4-2.0 1.4 mmol/L mmol/L] (09/16/20 10:51 PM) Lipase Lvl [73-393 Units/L] 32 Units/L *LOW* (09/16/20 9:57 PM) Lymphocytes 23.1 % *NA* (09/16/20 9:57 PM) MCH [26.0-34.0 pGm] 24.6 pGm 25.4 pGm 24.6 pGm *LOW* *LOW* *LOW* (09/19/20 6:47 AM) (09/18/20 5:39 AM) (09/17/20 9:2 5 AM) MCHC [31.0-37.0 Gm/dL] 30.8 Gm/dL 31.1 Gm/dL 30.8 Gm/d L *LOW* (09/18/20 5:39 AM) *LOW* (09/19/20 6:47 AM) (09/17/20 9:25 AM) MCV [80.0-100.0 fL] 80.1 fL 81.5 fL 79.8 fL (09/19/20 6:47 AM) (09/18/20 5:39 AM) *LOW* (09/17/20 9:25 AM ) Monocytes 8.0 % *NA* (09/16/20 9:57 PM) MPV [9.4-12.4 fL] 11.9 fL 12.1 fL 11.7 fL (09/19/20 6:47 AM) (09/18/20 5:39 AM) (09/17/20 9:2 5 AM) Neutrophils 60.8 % *NA* (09/16/20 9:57 PM) Platelet [150-400 thous/mm3] 220 thous/mm3 209 thous/mm3 218 thous/mm3 (09/19/20 6:47 AM) (09/18/20 5:39 AM) (09/17/20 9:2 5 AM) Potassium Lvl [3.6-5.2 4.2 mmol/L 4.2 mmol/L 4.3 mmol/ L mmol/L] (09/19/20 6:47 AM) (09/18/20 5:39 AM) (09/17/20 9:2 5 AM) RBC [4.20-5.90 Mil/mm3] 4.22 Mil/mm3 4.10 Mil/mm3 4.35 Mil /mm3 (09/19/20 6:47 AM) *LOW* (09/17/20 9:25 AM) (09/18/20 5:39 AM) Sodium Lvl [136-146 mmol/L] 142 mmol/L 140 mmol/L 139 mmol/L (09/19/20 6:47 AM) (09/18/20 5:39 AM) (09/17/20 9:2 5 AM) BUN [6-20 mg/dL] 10 mg/dL 9 mg/dL 12 mg/dL (09/19/20 6:47 AM) (09/18/20 5:39 AM) (09/17/20 9:2 5 AM) Calcium Lvl [8.5-10.5 mg/dL] 8.9 mg/dL 8.8 mg/dL 8.6 mg/dL (09/19/20 6:47 AM) (09/18/20 5:39 AM) (09/17/20 9:2 5 AM) Chloride [98-110 mmol/L] 109 mmol/L 106 mmol/L 107 mmo l/L (09/19/20 6:47 AM) (09/18/20 5:39 AM) (09/17/20 9:2 5 AM) WBC [4.0-11.0 thous/mm3] 7.6 thous/mm3 5.8 thous/mm3 9.2 tho us/mm3 (09/19/20 6:47 AM) (09/18/20 5:39 AM) (09/17/20 9:2 5 AM) Afn Amer Glomerular >90 ml/min/1.73m2 >90 ml/min/1.73m2 83 ml/mi n/1.73m2 Filtration Rate *NA* *NA* *NA* (09/19/20 6:47 AM) (09/18/20 5:39 AM) (09/17/20 9:2 5 AM) Non-Afn Amer Glomerular 82 ml/min/1.73m2 90 ml/min/1.73m2 72 ml/ min/1.73m2 Filtration Rate *NA* *NA* *NA* (09/19/20 6:47 AM) (09/18/20 5:39 AM) (09/17/20 9:2 5 AM) Total Protein [6.0-8.4 6.1 Gm/dL 6.2 Gm/dL 6.3 Gm/dL Gm/dL] (09/19/20 6:47 AM) (09/18/20 5:39 AM) (09/17/20 9:2 5 AM) Immature Granulocytes 0.2 % [0.0-2.0 %] (09/16/20 9:57 PM) Absolute Lymphs Count 2.27 thous/mm3 [0.74-5.04 thous/mm3] (09/16/20 9:57 PM) Absolute Eos Count 0.73 thous/mm3 [0.00-0.45 thous/mm3] *HI* (09/16/20 9:57 PM) Absolute Neutro Count 5.98 thous/mm3 [1.48-7.95 thous/mm3] (09/16/20 9:57 PM) RDW-SD [35.0-51.0 fL] 46.5 fL 48.0 fL 46.1 fL (09/19/20 6:47 AM) (09/18/20 5:39 AM) (09/17/20 9:2 5 AM) Absolute Baso Count 0.05 thous/mm3 [0.00-0.22 thous/mm3] (09/16/20 9:57 PM) Absolute Glenn Count 0.79 thous/mm3 [0.00-1.34 thous/mm3] (09/16/20 9:57 PM) Absolute NRBC Count 0.00 thous/mm3 0.00 thous/mm3 0.00 thous/m m3 *NA* *NA* *NA* (09/19/20 6:47 AM) (09/18/20 5:39 AM) (09/17/20 9:2 5 AM) Microbiology Reports TEST:Blood Culture STATUS:Order in Progress BODY SITE: SOURCE:Blood Peripheral COLLECTED DATE/TIME:09/16/20 11:38 PMPRELIMINARY REPORTNo growth at 2 days TEST:Blood Culture STATUS:Order in Progress BODY SITE: SOURCE:Blood Peripheral COLLECTED DATE/TIME:09/16/20 10:51 PMPRELIMINARY REPORTNo growth at 2 days TEST:Urine Culture STATUS:Auth (Verified) BODY SITE: SOURCE:Urine, Clean Catch COLLECTED DATE/TIME:09/16/20 10:21 PMFINAL REPORTNo growth Procedures Procedure Date Related Diagnosis Body Site Status TRANSPLT AUTOL HCT/DONOR 2017 Com pleted LAP ING HERNIA REPAIR INIT 2007 C ompleted REMOVAL OF TONSILS1 Complete d 1childhood Social History Social History Type Response Smoking Status Never smoker Assessment and Plan Extracted from: Title: Discharge Patient Summary Author: Silvina Case Date : 09/19/[address] [id number] Patient Discharge Summary Name: YOSELYN POWELL Age: 50 Years Job e of : 1970 Arrival Time: 09/16/2020 21:06:00 Primary Care Physician: Not On Staff Isaac ne: Reason for Admission: LOIN PAIN HEMATURIA SYNDROME FLANK PAIN URINARY TRACT INFECTION You had the following procedures perform ed during your inpatient visit: No major procedures performed. The following test results were not avai lable before your discharge. Your Primary Care Provider should contact you of any abnormal test results regarding follow-up. However, if you would like the results, please contact your Primary Care Provider. No results pending. Final Diagnosis: Clot hematuria; Flank pain; Loin pain-he maturia syndrome Resuscitation status: Date/Time Performed Status Modified DNR Results Special Instructions 09/17/20 04:29 Full Resuscitation None None Advanced Directives: Advanced Directives Reason for No Advanced Directive Directive(s) in place Medical Power of Safe And [employer] Service Mechanic Name Name of Surrogate Directives Location [facility] would like to th ank you for allowing us to assist you with your healthcare needs. The following includes patient education materials and information regarding your injury / illne ss. Our entire staff strives to provide a very good experience for our patients and their families. PLEASE ENSURE YOU FOLLOW-UP PER THE INSTRUCTIONS BELOW! YOSELYN POWELL has been given the foll owing list of patient education materials, prescriptions and follow-up instructions: Follow-up Instructions: Please call 911 if your condition is of a serious nature and you require immediate assistance. You may also seek services at your local Emergency Department. If you have questions regarding your care fo llowing discharge, please contact the sp ecialist (surgeon, maintenance custodian, etc.) who was involved with your hospital care or your PCP's office. With: Address: When: Primary care physician Within As needed With: Address: When: Urologist Within 5-7 days Comments: Follow up in regards to recurrent exacer bation of loin pain hematuria syndrome With: Address: When: Your middle school director Within 5-7 days Comments: Follow up in regards to recurrent exacer bation of loin pain hematuria syndrome With: Address: When: Your Import Specialist Within 3-5 days Comments: Please discuss with your Import Specialist if Aspirin can be discontinued in light of recurrent Bleeding in Urine Hold Aspirin until you have this disucss ion with your Import Specialist Other Clinical Information: Vital Sign Latest Temp Oral 98.1 DegF Temp Tympanic Temp Intravascular Temp Axillary Temp Rectal O2 Sat 99 % Respiratory Rate 20 br/min Peripheral Pulse Rate 93 bpm Apical Heart Rate Blood Pressure 121 mmHg / 81 mmHg Weight 88.5 Kg Discharge Orders: Order Name Order Details The Discharge Electronic Signature Requested Start Date/Time : 09/19/20 13: 55:00 EST,Special Instructions : Above discharge orders electronically signed by:,Discharge Electronic Signature : Naya Ying MD Medication Information: Only medications listed should be taken unless otherwise instructed by your healthcare provider. Other??Medications acetaminophen??(acetaminophen??325??mg?? oral??tablet) 2??Tablet(s)??By??mouth??every??4??hours??as??needed??Fever/Pain,??Mild??to??Mod amLODIPine??(Norvasc) 10??Milligram??By? ?mouth??every??day. docusate??(docusate??sodium??100??mg??or al??capsule) 1??Capsules??By??mouth??2??times??a??day??as??needed??as??needed??for??constipat HYDROmorphone??(HYDROmorphone??4??mg??or al??tablet) 1??Tablet(s)??By??mouth??every??6??hours??as??needed??Pain,??Moderate.??Partial? HYDROmorphone??(HYDROmorphone??extended? ?release) 8??Milligram??By??mouth??2??times??a??day. methadone??(methadone??5??mg??oral??tabl et) 1??Tablet(s)??By??mouth??every??8??hours.??Partial??fill??upon??request. methenamine 1??Gram??By??mouth??2??times ??a??day. ondansetron??(ondansetron??4??mg??oral?? tablet,??disintegrating) 2??Tablet(s)??every??6??hours??as??needed??Nausea/Vomiting. pantoprazole??(pantoprazole??40??mg??ora l??delayed??release??tablet) 1??Tablet(s)??By??mouth??2??times??a??day. Immunization History at [facility]: No immunizations given this visit Allergies: contrast media (iodine-based) ; Suboxone; morphine [facility] Physicians provi ded you with a complete [...] nose or gums or easy bruising ?? [id number] [employer]. [address] [place] [address]. All rights reserved. This information is not intended as a substitute for professional medical care. Always follow your healthcare professional's instructions. Comment: ANDRE Ibarra MICHAEL G , have received yola ent education materials/instructions and have verbalized understanding: 09/19/2020 14:13:28 Patient Signature or Responsible Alliance Party S ignature 09/19/2020 14:13:28 Provider Signature [facility] Patient Portal is a person alized secured online tool for [facility] patients that helps keep you [...] ent education materials/instructions and have verbalized understanding: 09/19/2020 14:13:28 Patient Signature or Responsible [employer] S ignature 09/19/2020 14:13:28 Provider Signature Extracted from: Title: Discharge Note Author: Deonna TELLEZ, Asmabanu Date: Clot hematuria .Discharge Pending ?? Flank pain .Discharge Pending ?? Loin pain-hematuria syndrome .Discharge Pending ?? Peripheral IV Removal The Discharge Electronic Signature Extracted from: Title: SOAP Note: [facility] * Author: Mathieu Guevara MD Date: Impression and Plan Long-standing history of loin pain mattie turia syndrome since 2006 presenting with flare up (pain and gross hematuria) since last night; [ ] AFVSS,no further urinary clots. Abdo pavel U/S benign. Okay to eat. Followup with his primary urologist. 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 ?? #Loin pain hematuria syndrome Flare inpatient / med surg he has a h/o severe sepsis, typically se condary to UTIs in the past. UA with WBC, overall no leukocytosis, LA WNL, no overt s/s of sepsis at this time ? low grade temp in the ER. Remains on R ocephin as ppx, follow cx data to cont / DC Pain control per regimen as recommender per his primary team's care plan: IV Dilaudid 2mg Q3H PRN with 25mg IV benadryl PRN. also rec for loading dose of Benadryl 50 mg IV BID. Per patient Benadryl helps with his nausea as well. Appreciate Urology recs, cont pain / chacha sea management,?US unremarkable, anticipate passed stone and that his symptoms will improve in the next 1-2 days ? DVT: SCDs, hold off chemo ppx at this ti ak, in case of potential urological procedure GI: PPI ? CODE: FULL ?? Disposition: anticipate DC in 1-2 days o nce pain is under control, SW to investigate his care plan from [facility] and to see if there is a drug seeking history ?? FACE TO FACE PATIENT COUNSELLING / COORD INATING CARE MORE THAN 50% OF ENCOUNTER TIME: YES ?? TOTAL ENCOUNTER TIME: 35 min ?? Extracted from: Title: Consult Note Author: Adrian Montgomery MD Date: 09/17/20 Loin pain-hematuria syndrome ??Patient is very confident this episod e is similar to all prior episodes. He does not believe this is a stone, though he does have a history of nephrolithiasis. He's had 300+ CTs in his life and wishe s to avoid one if possible. Given he is stable and without overt signs of impending infection or sepsis, I do think it is reasonable to observe him for now. Please make NPO after midnight in the unlikel y setting he needs a procedure. If sympt oms not starting to improve by tomorrow, recommend renal/bladder and abdominal US to assess for nephrolithiasis and hydronephrosis of the transplanted kidney. - Continue ABx until UCx result Extracted from: Title: Admission H & P Author: Macy Dias MD Date: 09/17/20 Flank pain Genitourinary problem Left kidney pain (Complaint of) ?? Loin pain-hematuria syndrome UTI cefTRIAXone, Dose: 1 Gm = 1 EA, Injecti on, IV Piggyback, q24hr, Urinary Tract Infection/Pyelonephritis, 100 ml/hr, over 30 minute(s), 50 ml (TOTAL VOLUME), First Dose Date/Time: 09/17/20 10:00:00 EST CBC w/ Indices CBC w/ Indices Comprehensive Metabolic Panel Comprehensive Metabolic Panel Consult to Specialist ?? 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 ?? #loin pain hematuria syndrome Flare inpatient / med surg he has a h/o severe sepsis, typically s econdary to UTIs in the past. UA with WBC, overall no leukocytosis, LA WNL, no overt s/s of sepsis at this time ? low grade temp in the ER. Remains on Rocephin as ppx, follow cx data to cont / DC Pain control per regimen as recommender per his primary team's care plan: IV Dilaudid 2mg Q3H PRN with 25mg IV benadryl PRN. also rec for loading dose of Benadryl 50 mg IV BID. Per patient Benadryl helps with his nausea as well. Appreciate Urology recs, cont pain / na usea management, NPO at MN, US abdo / renal in the AM if no improvement to assess for nephrolithiasis and hydronephrosis of the transplanted kidney. ? F:??not indicated, tolerating well P O E: monitor and replete PRN N: Regular Dier, NPO at AL ? DVT: SCDs, hold off chemo ppx at this t esau, in case of potential urological procedure GI: PPI ? CODE: FULL ?? FACE TO FACE PATIENT COUNSELLING / COOR DINATING CARE MORE THAN 50% OF ENCOUNTER TIME: YES ?? TOTAL ENCOUNTER TIME:??50 min ?
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
== END 2022-05-18 18:12 | disposition left against medical advice (07) ==
PROVIDERS: Emergency Provider Emergency Medicine
DX: N23 Unspecified renal colic (principal)